=== PATIENT | female | born 1955 | race Caucasian/White ===

== ENCOUNTER 2020-01-08 10:49 | Outpatient (CLI) | payer MEDICARE, SELFPAY ==
[2020-01-08 11:06] LABS: Basophils Absolute Auto 0.11 K/mm3 (0.00-0.10); Basophils Percent Auto 1.3 % (0.0-1.0); Eosinophils Absolute Auto 0.15 K/mm3 (0.02-0.50); Eosinophils Percent Auto 1.8 % (1.0-6.0); Hematocrit 41.6 % (35.0-42.0); Hemoglobin 14.1 g/dL (11.7-13.8); Immature Granulocyte Absolute 0.08 K/mm3 (0.00-0.00); Lymphocytes Absolute Auto 2.36 K/mm3 (1.10-4.50); Lymphocytes Percent Auto 28.9 % (18.0-42.0); Mean Corpuscular HGB Conc 33.9 g/dL (32.0-36.0); Mean Corpuscular Hemoglobin 34.3 pg (27.0-31.0); Mean Corpuscular Volume 101.2 fL (78.0-102.0); Mean Platelet Volume 9.2 fl (9.2-11.8); Monocytes Absolute Auto 0.63 K/mm3 (0.10-0.90); Monocytes Percent Auto 7.7 % (2.0-11.0); Neutrophils Absolute Auto 4.8 K/mm3 (1.7-7.2); Neutrophils Percent Auto 59.3 % (50.0-70.0); Platelet Count Result 278 K/mm3 (150-420); Red Blood Count 4.11 M/mm3 (4.20-5.40); Red Cell Distribution Width 15.7 % (11.6-14.4); White Blood Count 8.2 K/mm3 (4.8-10.8)
[2020-01-08 14:00] LABS: Alanine Aminotransferase 20 U/L (14-59); Albumin Level 4.2 g/dL (3.4-5.0); Alkaline Phosphatase 77 U/L (46-116); Anion Gap 14.5 mmol/L (7-16); Aspartate Amino Transferase 18 U/L (15-37); Bilirubin,Total 0.3 mg/dL (0.00-1.00); Blood Urea Nitrogen 18 mg/dL (7-18); Calcium 9.9 mg/dL (8.5-10.1); Carbon Dioxide 28 mmol/L (21-32); Chloride 101 mmol/L (98-108); Estimated Glomerular Filt Rate 40; Glucose 145 mg/dL (70-99); Osmolality Calculated 292 mOsm/kg (285-295); Potassium 4.5 mmol/L (3.5-5.1); Sodium 139 mmol/L (136-145); Total Protein 7.3 g/dL (6.4-8.2)
== END 2020-01-08 10:50 | disposition home or self-care (01) ==
LOC: CHSLAB 10:53
DX: Z79.899 Other long term (current) drug therapy (principal); L95.9 Vasculitis limited to the skin, unspecified; M32.9 Systemic lupus erythematosus, unspecified
CPT/HCPCS: 36415; 80053; 85025

== ENCOUNTER 2020-04-03 10:22 | Emergency (ER) | payer MEDICARE, SELFPAY ==
--- NOTE | ~2020-04-03 | XR_ITS ---
EXAMINATION: XR ankle LT min 3V, XR foot LT min 3V DATE: 04/03/2020 11:33 INDICATION: Left ankle injury with bruising and swelling over the dorsum of the foot TECHNIQUE: 1. Anteroposterior, mortise, additional oblique and lateral view of the left ankle were obtained. 2. Dorsoplantar, two oblique and lateral views of the left foot were obtained. COMPARISON: None. FINDINGS: 2-3 mm band of lucency consistent with mildly displaced fracture extending along the lateral margin o f the cuboid. The orientation of the fracture line suggests involvement of the distal articular nikolay x at the fourth and fifth tarsal metatarsal joints. No other fractures identified. Mild osteoarthriti s at the first metatarsophalangeal and a few tarsal metatarsal and interphalangeal joints. No ankle j oint effusion. Soft tissue swelling about the lateral malleolus and overlying the dorsum of the foot. IMPRESSION: 1. Mildly displaced likely intra-articular fracture of the lateral cuboid. Reviewed, dictated and finalized at location B. IMPRESSION: 1. Mildly displaced likely intra-articular fracture of the lateral cuboid.
[2020-04-03 10:40] VITALS: BP 82/46; PULSE 103; RESP 20; TEMP 36.4; O2SAT 94
--- NOTE | 2020-04-03 11:11 | ED.LOWEXIN ---
HPI - Extremity Injury (Lower) General Chief Complaint: Extremity Injury, Lower Stated Complaint: Hurt L foot/ankle Source: patient Mode of arrival: ambulatory Limitations: no limitations History of Present Illness HPI Narrative: Pt fell down last night and injured her foot and ankle. She stated the foot bent back behind her in a wierd way. It hurts across the top of the foot complaint: foot injury Injury: Left: ankle, foot and toes Place: home Severity: moderate Context: walking Associated symptoms: swelling Other symptoms: none Related Data Home Medications Medication Instructions Recorded Confirmed folic acid 1 mg PO DAILY 04/03/20 04/03/20 hydroxychloroquine 200 mg PO DAILY 04/03/20 04/03/20 methotrexate sodium 2.5 mg PO DAILY 04/03/20 04/03/20 Allergies Allergy/AdvReac Type Severity Reaction Status Date / Time Sulfa (Sulfonamide AdvReac Unknown Verified 04/03/20 11:10 Antibiotics) Review of Systems Review of Systems: All systems reviewed & are unremarkable except as noted in HPI and below PMFSH Past Medical History Medical History Anxiety Lupus Social History Social History (Updated 04/03/20 @ 11:14 by Idalia Echavarria MD) Smoking status: Current every day smoker Substance use: never Gender identity (if verbalized by the patient): Female Exam Const: General: no acute distress and alert Nutritional Appearance: well nourished and thin Orientation/consciousness: patient oriented x3 HENMT: Head: normal to inspection Face and sinus: normal facial exam Eyes: Conjunctivae: conjunctivae normal Pupils: Equal, round and reactive pupils present Chest: Chest palpation & inspection: normal inspection of the chest Resp: Effort & Inspection: normal respiratory effort Auscultation: clear to auscultation bilaterally Cardio: Rate: regular rate Rhythm: regular rhythm GI: GI Palp: Yes Soft to palpation, No Tenderness to palpation present (GI) and No Guarding due to palpation present (GI) Skin: General skin exam: normal color Neuro: General: patient oriented x3 and moves all extremities Extrem: Other: bruising to LE and swollen Psych: Mental Status: mental status grossly normal Thought content: Yes Normal thought content present Course Course Emergency Course: called podiatry she will follow up on sonny. wants cam walker, no touch with crutches Vital Signs Vital signs: Vital Signs Temperature 36.4 C 04/03/20 10:40 Pulse Rate 103 H 04/03/20 10:40 Respiratory Rate 20 04/03/20 10:40 Blood Pressure 82/46 L 04/03/20 10:40 Pulse Oximetry 94 04/03/20 10:40 Temperature 36.4 C 04/03/20 10:40 Pulse Rate 92 04/03/20 12:08 Respiratory Rate 14 04/03/20 12:08 Blood Pressure 106/58 L 04/03/20 12:08 Pulse Oximetry 99 04/03/20 12:08 Critical Care Time Critical Care Time Critical Care Time: No Discharge Plan Discharge Clinical Impression: Cuboid fracture Qualifiers: Encounter type: initial encounter Fracture type: closed Fracture alignment: displaced Laterality: left Qualified Code(s): S92.212A - Displaced fracture of cuboid bone of left foot, initial encounter for closed fracture Patient Disposition: Home, Self-Care Condition: Stable Instructions: Foot Fracture in Adults (ED) Additional Instructions: Please contact Dr. Nuñez, pulp press tender, at for follow up appointment Prescriptions: No Action methotrexate sodium 2.5 mg tablet 2.5 mg PO DAILY RF: 0 folic acid 1 mg tablet 1 mg PO DAILY RF: 0 hydroxychloroquine 200 mg tablet 200 mg PO DAILY RF: 0 Follow-up/Referrals: Sarah Malave [Other]
--- NOTE | 2020-04-03 11:11 | PC.NURSE ---
report to CHELSEA Garcia
--- NOTE | 2020-04-03 12:01 | PC.NURSE ---
Dr. Ojeda apparatus cleaner contacted for consultation
[2020-04-03 12:08] VITALS: BP 106/58; PULSE 92; RESP 14; O2SAT 99
== END 2020-04-03 12:28 | disposition home or self-care (01) ==
PROVIDERS: Emergency Provider Emergency Medicine
DX: S92.212A Displaced fracture of cuboid bone of left foot, initial encounter for closed fracture (principal); W19.XXXA Unspecified fall, initial encounter; F17.200 Nicotine dependence, unspecified, uncomplicated
CPT/HCPCS: 73610; 73630; 99282; 99283; L2112

== ENCOUNTER 2020-04-08 10:12 | Outpatient (CLI) | payer MEDICARE, SELFPAY ==
[2020-04-08 10:27] LABS: Hematocrit 38.6 % (35.0-42.0); Hemoglobin 12.8 g/dL (11.7-13.8); Mean Corpuscular HGB Conc 33.2 g/dL (32.0-36.0); Mean Corpuscular Hemoglobin 32.4 pg (27.0-31.0); Mean Corpuscular Volume 97.7 fL (78.0-102.0); Mean Platelet Volume 9.1 fl (9.2-11.8); Platelet Count Result 194 K/mm3 (150-420); Red Blood Count 3.95 M/mm3 (4.20-5.40); White Blood Count 5.3 K/mm3 (4.8-10.8)
[2020-04-08 11:13] LABS: Band Neutrophils Percent 0 % (0-6); Basophils Absolute Manual 0.05 K/mm3 (0-0.1); Basophils Percent Manual 1 % (0-1); Eosinophils Percent Manual 0 % (1-6); Lymphocytes Absolute Manual 1.37 K/mm3 (1.1-4.5); Lymphocytes Percent Manual 26 % (18-44); Monocytes Absolute Manual 0.63 K/mm3 (0.1-0.90); Monocytes Percent Manual 12 % (3-9); Neutrophils Absolute Manual 3.23 K/mm3 (1.7-7.2); Neutrophils Percent Manual 61 % (46-73); Platelet Estimate Adequate (Adequate); Total Cells Counted 100
[2020-04-08 11:17] LABS: Alanine Aminotransferase 17 U/L (14-59); Albumin Level 3.6 g/dL (3.4-5.0); Alkaline Phosphatase 74 U/L (46-116); Anion Gap 9 mmol/L (8-16); Aspartate Amino Transferase 13 U/L (15-37); Bilirubin,Total 0.5 mg/dL (0.00-1.00); Blood Urea Nitrogen 16 mg/dL (7-18); Carbon Dioxide 30 mmol/L (21-32); Chloride 104 mmol/L (98-108); Estimated Glomerular Filt Rate > 60; Glucose 87 mg/dL (70-99); Osmolality Calculated 296 mOsm/kg (285-295); Potassium 3.8 mmol/L (3.5-5.1); Sodium 143 mmol/L (136-145); Total Protein 6.8 g/dL (6.4-8.2)
== END 2020-04-08 10:13 | disposition home or self-care (01) ==
LOC: CHSLAB 10:16
DX: M32.9 Systemic lupus erythematosus, unspecified (principal); M79.7 Fibromyalgia; Z79.899 Other long term (current) drug therapy; L95.9 Vasculitis limited to the skin, unspecified; I10 Essential (primary) hypertension
CPT/HCPCS: 36415; 80053; 85025

== ENCOUNTER 2020-04-12 09:59 | Outpatient (CLI) | payer MEDICARE, SELFPAY ==
--- NOTE | ~2020-04-12 | CT_ITS ---
EXAMINATION: CT foot LT wo con DATE: 04/12/2020 10:45 INDICATION: Left foot pain and bruising post fall 2 weeks prior TECHNIQUE: High resolution computed tomography (CT) of the left foot was performed without intravenou s contrast. Additional sagittal and coronal reconstructions were performed. Automated exposure contro l and iterative reconstruction technique were employed. The dose-length product was 338.53 mGy-cm. COMPARISON: Radiographs dated 04/03/2020 FINDINGS: There are multiple fractures in the left midfoot. Comminuted fracture of the cuboid which includes 2 mm lateral displacement of the previously noted sagittally oriented fracture plane along the lateral aspect of the cuboid which involves a minimal portion of the dorsal lateral aspect of the distal manfred cular surface. There is an additional nondisplaced fracture plane extending transversely across the c uboid which does not appear to transgress the articular cortex. Minimally displaced likely avulsion f ractures along the dorsal rim of the base of the first metatarsal and juxtaposed medial cuneiform. Th ere are nondisplaced intra-articular fracture along the plantar aspect of the base of the second-four th metatarsals. Alignment of the tarsal metatarsal joints however remain normal. Joint spaces at the left ankle and throughout the left foot appear relatively preserved. Mild soft tissue swelling at the dorsolateral aspect of the midfoot. No ankle joint effusion. IMPRESSION: 1. Multiple foot fractures including a mildly comminuted cuboid fracture with mild displacement and n on- to minimally displaced fractures of the medial cuneiform and base of the first-fourth metatarsals as detailed above. Reviewed, dictated and finalized at location A. ANICAL PRESS OPERATOR IMPRESSION: 1. Multiple foot fractures including a mildly comminuted cuboid fracture with m ild displacement and non- to minimally displaced fractures of the medial cuneif orm and base of the first-fourth metatarsals as detailed above.
== END 2020-04-12 10:00 | disposition home or self-care (01) ==
LOC: CHSIMG 10:01
PROVIDERS: Visit Provider Podiatrist
DX: M79.672 Pain in left foot (principal)
CPT/HCPCS: 73700

== ENCOUNTER 2020-04-18 12:01 | Outpatient (CLI) | payer MEDICARE, SELFPAY ==
--- NOTE | ~2020-04-18 | CT_ITS ---
EXAMINATION: CT brain wo con EXAM DATE: 04/18/2020 12:26 INDICATION: Syncope syncope x 1 week . TECHNIQUE: Spiral CT of the head was performed without contrast. Axial, coronal and sagittal images were reviewed. The dose-length product (DLP) for this examination was 605.33 mGy-cm. The exposure w as tailored according to patient size, and iterative reconstruction (ASIR) was used as additional dos e reduction technique. There is no prior study for comparison. FINDINGS: There is no acute intraparenchymal hemorrhage. No evidence of intraparenchymal brain mass lesion. No evidence of acute infarction. There is no mass effect or midline shift. The ventricles are normal in size. There are no extra-axial collections. There are no acute calvarial fractures. T he orbits are unremarkable. Soft tissue is unremarkable. The visualized sinuses and mastoid air mario ls are well aerated. IMPRESSION: 1. Unremarkable head CT examination. Reviewed, dictated and finalized at location A. ICAL RN MANAGER
[2020-04-18 12:39] LABS: Basophils Absolute Auto 0.04 K/mm3 (0.00-0.10); Basophils Percent Auto 0.6 % (0.0-1.0); Eosinophils Absolute Auto 0.12 K/mm3 (0.02-0.50); Eosinophils Percent Auto 1.9 % (1.0-6.0); Hematocrit 40.5 % (35.0-42.0); Hemoglobin 13.7 g/dL (11.7-13.8); Immature Granulocyte Absolute 0.02 K/mm3 (0.00-0.00); Immature Granulocyte Percent A 0.3 % (0.0-0.0); Lymphocytes Absolute Auto 1.48 K/mm3 (1.10-4.50); Lymphocytes Percent Auto 23.8 % (18.0-42.0); Mean Corpuscular HGB Conc 33.8 g/dL (32.0-36.0); Mean Corpuscular Hemoglobin 32.5 pg (27.0-31.0); Mean Platelet Volume 9.5 fl (9.2-11.8); Monocytes Absolute Auto 0.38 K/mm3 (0.10-0.90); Monocytes Percent Auto 6.1 % (2.0-11.0); Neutrophils Absolute Auto 4.2 K/mm3 (1.7-7.2); Neutrophils Percent Auto 67.3 % (50.0-70.0); Platelet Count Result 223 K/mm3 (150-420); Red Blood Count 4.22 M/mm3 (4.20-5.40); Red Cell Distribution Width 12.1 % (11.6-14.4); White Blood Count 6.2 K/mm3 (4.8-10.8)
[2020-04-18 13:35] LABS: Alanine Aminotransferase 20 U/L (14-59); Albumin Level 3.8 g/dL (3.4-5.0); Alkaline Phosphatase 81 U/L (46-116); Anion Gap 9 mmol/L (8-16); Aspartate Amino Transferase 16 U/L (15-37); Bilirubin,Total 0.3 mg/dL (0.00-1.00); Blood Urea Nitrogen 17 mg/dL (7-18); Calcium 9.7 mg/dL (8.5-10.1); Carbon Dioxide 29 mmol/L (21-32); Chloride 103 mmol/L (98-108); Estimated Glomerular Filt Rate > 60; Glucose 139 mg/dL (70-99); Magnesium 1.6 mg/dL (1.8-2.4); Osmolality Calculated 295 mOsm/kg (285-295); Phosphorus 3.3 mg/dL (2.6-4.7); Potassium 3.8 mmol/L (3.5-5.1); Sodium 141 mmol/L (136-145); Total Protein 6.8 g/dL (6.4-8.2); Vitamin B12 620 pg/mL (193-986)
[2020-04-18 16:43] LABS: Add Urine Microscopic? YES; Appearance Urine Clear (Clear); Bilirubin Urine Negative (Negative); Blood Urine Negative (Negative); Color Urine Yellow (Yellow); Glucose Urine UA Negative (Negative); Ketones Urine Negative (Negative); Leukocyte Esterase Ur Trace (Negative); Nitrate Urine Negative (Negative); Protein Urine Negative (Negative); Specific Grav Ur 1.015 (1.010-1.020); Urobilinogen Urine 0.2 mg/dL (0.2-1.0)
[2020-04-18 16:48] LABS: RBC Urine 0-2 /hpf (0-2)
[2020-04-18 16:49] LABS: Bacteria Urine 1+ /hpf; Squamous Epithelial Cell Urine Few /hpf (Few)
== END 2020-04-18 12:02 | disposition home or self-care (01) ==
LOC: CHSIMG 12:03
DX: R55 Syncope and collapse (principal); R82.90 Unspecified abnormal findings in urine
CPT/HCPCS: 36415; 70450; 80053; 81001; 82607; 83735; 84100; 85025; 87086; 87088

== ENCOUNTER 2020-05-22 12:51 | Outpatient (CLI) | payer MEDICARE, SELFPAY ==
--- NOTE | ~2020-05-22 | XR_ITS ---
XR foot LT min 3V DATE: 05/22/2020 13:20 INDICATION: Multiple foot fracture follow-up TECHNIQUE: 3 views COMPARISON: 03/26/2020 left foot 04/12/2020 CT left foot FINDINGS: There are old third and fourth metatarsal neck fractures. There is no significant displacement at previously reported virtually nondisplaced fractures at the d istal tarsal-metatarsal areas. There is minimal displacement at the cuboid bone. Diffuse osteopenia. IMPRESSION: Healing virtually nondisplaced fractures Reviewed, dictated and finalized at location B. IGN SERVICE OFFICER
== END 2020-05-22 12:52 | disposition home or self-care (01) ==
PROVIDERS: Visit Provider Podiatrist
DX: S92.354D Nondisplaced fracture of fifth metatarsal bone, right foot, subsequent encounter for fracture with routine healing (principal)
CPT/HCPCS: 73630

== ENCOUNTER 2020-09-10 09:33 | Outpatient (CLI) | payer MEDICARE, SELFPAY | END 2020-09-10 09:34 | disposition home or self-care (01) | LOC: CHSLAB 09:39 | PROVIDERS: Visit Provider Specialist | DX: D22.5 Melanocytic nevi of trunk (principal) | CPT/HCPCS: 88305; 88342 ==

== ENCOUNTER 2020-10-03 10:54 | Outpatient (CLI) | payer MEDICARE, SELFPAY ==
[2020-10-03 11:17] LABS: Basophils Absolute Auto 0.06 K/mm3 (0.00-0.10); Eosinophils Percent Auto 5.2 % (1.0-6.0); Hemoglobin 12.7 g/dL (11.7-13.8); Immature Granulocyte Absolute 0.03 K/mm3 (0.00-0.00); Immature Granulocyte Percent A 0.5 % (0.0-0.0); Lymphocytes Absolute Auto 1.84 K/mm3 (1.10-4.50); Lymphocytes Percent Auto 32.1 % (18.0-42.0); Mean Corpuscular HGB Conc 33.4 g/dL (32.0-36.0); Mean Corpuscular Hemoglobin 31.8 pg (27.0-31.0); Mean Platelet Volume 8.8 fl (9.2-11.8); Monocytes Absolute Auto 0.49 K/mm3 (0.10-0.90); Monocytes Percent Auto 8.6 % (2.0-11.0); Neutrophils Percent Auto 52.6 % (50.0-70.0); Platelet Count Result 189 K/mm3 (150-420); Red Cell Distribution Width 13.9 % (11.6-14.4); White Blood Count 5.7 K/mm3 (4.8-10.8)
[2020-10-03 11:18] LABS: Add Urine Microscopic? YES; Appearance Urine Clear (Clear); Bilirubin Urine Negative (Negative); Blood Urine Negative (Negative); Color Urine Yellow (Yellow); Glucose Urine UA Negative (Negative); Ketones Urine Negative (Negative); Leukocyte Esterase Ur Negative LEU/UL (Negative); Nitrate Urine Negative (Negative); Protein Urine Trace (Negative); Specific Grav Ur >= 1.030 (1.010-1.020); Urobilinogen Urine 0.2 mg/dL (0.2-1.0); pH Urine 5.5 (5.0-8.0)
[2020-10-03 11:22] LABS: Bacteria Urine Trace /hpf; RBC Urine None seen /hpf (0-2); Squamous Epithelial Cell Urine Moderate /hpf (Few); WBC Urine None seen /hpf (0-3)
[2020-10-03 11:23] LABS: Mucus Urine Moderate /lpf
[2020-10-03 11:43] LABS: Alanine Aminotransferase 19 U/L (14-59); Albumin Level 3.8 g/dL (3.4-5.0); Alkaline Phosphatase 84 U/L (46-116); Anion Gap 8 mmol/L (8-16); Aspartate Amino Transferase 10 U/L (15-37); Bilirubin,Total 0.5 mg/dL (0.00-1.00); Blood Urea Nitrogen 17 mg/dL (7-18); Calcium 9.2 mg/dL (8.5-10.1); Carbon Dioxide 30 mmol/L (21-32); Chloride 105 mmol/L (98-108); Creatine Kinase 39 U/L (26-192); Estimated Glomerular Filt Rate > 60; Glucose 102 mg/dL (70-99); Osmolality Calculated 297 mOsm/kg (285-295); Potassium 3.1 mmol/L (3.5-5.1); Sodium 143 mmol/L (136-145); Total Protein 7.2 g/dL (6.4-8.2)
[2020-10-03 12:15] LABS: CRP < 0.2 mg/dL (0.0-0.9)
[2020-10-03 12:31] LABS: Erythrocyte Sedimentation Rate 18 mm/hr (0-20)
[2020-10-06 19:12] LABS: Complement C3 111 mg/dL (83-193)
[2020-10-17 19:17] LABS: RNP Antibodies <1.0; SS-A <1.0; SS-B <1.0
== END 2020-10-03 10:55 | disposition home or self-care (01) ==
DX: M32.9 Systemic lupus erythematosus, unspecified (principal); M79.7 Fibromyalgia; Z79.899 Other long term (current) drug therapy; R11.0 Nausea
CPT/HCPCS: 36415; 80053; 81001; 82550; 85025; 85652; 86038; 86140; 86160; 86225; 86235

== ENCOUNTER 2020-10-17 13:01 | Emergency (ER) | payer MEDICARE, SELFPAY ==
[2020-10-17 13:18] VITALS: BP 167/67; PULSE 72; RESP 20; TEMP 36.7; O2SAT 92
--- NOTE | 2020-10-17 13:30 | ED.UPPEXIN ---
HPI - Extremity Injury (Upper) General Chief Complaint: Extremity Injury, Upper Stated Complaint: numbness in R hand/Wrist /cant move it Source: patient Mode of arrival: ambulatory Limitations: no limitations History of Present Illness HPI narrative: this is a 65-year-old female with a history of lupus presents today with a wrist drop on the right with some numbness and tingling with some no other neurological deficits has good range of motion in her elbow arm and shoulder on the right and equivocal on the left although she has a wrist drop with some numbness and tingling on the right wrist with negative to kneel negative Phalen sign with no known injury. Currently there is no fever chills no shortness of breath no chest pain no nausea vomiting no abdominal pain no neck pain or headaches no blurry vision. complaint: injury to: right Onset (ago): hour(s) Other Extremity Injury: Right: wrist ( wrist drop with numbness) Other injuries: none Handedness: right Place: home Severity: moderate Related Data Home Medications Medication Instructions Recorded Confirmed folic acid 1 mg PO DAILY 04/03/20 04/03/20 hydroxychloroquine 200 mg PO DAILY 04/03/20 04/03/20 methotrexate sodium 2.5 mg PO DAILY 04/03/20 04/03/20 Allergies Allergy/AdvReac Type Severity Reaction Status Date / Time Sulfa (Sulfonamide AdvReac Unknown Verified 10/17/20 13:36 Antibiotics) Review of Systems Review of Systems: All systems reviewed & are unremarkable except as noted in HPI and below PMFSH Past Medical History Medical History Anxiety Lupus Social History Social History Smoking status: Current every day smoker Substance use: never Gender identity (if verbalized by the patient): Female Exam Const: General: no acute distress Orientation/consciousness: patient oriented x3 HENMT: Head: normal to inspection Eyes: Pupils: Equal, round and reactive pupils present Neck: Neck: normal visual inspection, no lymphadenopathy and no meningeal signs Chest: Chest palpation & inspection: normal inspection of the chest Resp: Effort & Inspection: normal respiratory effort Cardio: Rate: regular rate Rhythm: regular rhythm GI: GI Palp: Yes Soft to palpation : General: Yes no CVA tenderness Skin: General skin exam: normal color Rashes: no rashes Neuro: General: patient oriented x3, no meningeal signs, no focal motor deficits and CN's II-XI intact bilaterally Cranial nerves: Yes Nystagmus not present Speech: normal speech Gait exam (Neuro): Normal gait present Extrem: General: edema Psych: Mental Status: mental status grossly normal Course Course Emergency Course: Patient assessed and has some wrist drop on the right with some numbness and tingling in the setting of no neurological deficits this appears to be monitor itis multiplex that is 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 Critical Care Time Critical Care Time Critical Care Time: No Discharge Plan Discharge Clinical Impression: Mononeuritis multiplex Patient Disposition: Home, Self-Care Condition: Stable Instructions: Antibiotic Form, Radial Nerve Palsy (ED) Additional Instructions: take medicine as prescribed use some wrist brace and follow-up with primary care physician further evaluation and treatment within 1 week. Prescriptions: New prednisone 20 mg tablet 20 mg PO DAILY 5 Days Qty: 5 RF: 0 potassium chloride 20 mEq tablet extended release 20 meq PO BID 3 Days Qty: 6 RF: 0 No Action methotrexate sodium 2.5 mg tablet 2.5 mg PO DAILY RF: 0 folic acid 1 mg tablet 1 mg PO DAILY RF: 0 hydroxychloroquine 200 mg tablet 200 mg PO DAILY RF: 0 Follow-up/Referrals: Frieda,MD Sarah [Primary Care Provider
[2020-10-17 13:47] LABS: Basophils Absolute Auto 0.06 K/mm3 (0.00-0.10); Basophils Percent Auto 0.7 % (0.0-1.0); Eosinophils Absolute Auto 0.18 K/mm3 (0.02-0.50); Eosinophils Percent Auto 2.2 % (1.0-6.0); Hematocrit 37.3 % (35.0-42.0); Hemoglobin 12.5 g/dL (11.7-13.8); Immature Granulocyte Absolute 0.04 K/mm3 (0.00-0.00); Immature Granulocyte Percent A 0.5 % (0.0-0.0); Lymphocytes Absolute Auto 2.12 K/mm3 (1.10-4.50); Lymphocytes Percent Auto 25.7 % (18.0-42.0); Mean Corpuscular HGB Conc 33.5 g/dL (32.0-36.0); Mean Corpuscular Hemoglobin 31.7 pg (27.0-31.0); Mean Corpuscular Volume 94.7 fL (78.0-102.0); Mean Platelet Volume 8.6 fl (9.2-11.8); Monocytes Absolute Auto 0.81 K/mm3 (0.10-0.90); Monocytes Percent Auto 9.8 % (2.0-11.0); Neutrophils Percent Auto 61.1 % (50.0-70.0); Platelet Count Result 206 K/mm3 (150-420); Red Blood Count 3.94 M/mm3 (4.20-5.40); Red Cell Distribution Width 14.2 % (11.6-14.4); White Blood Count 8.2 K/mm3 (4.8-10.8)
[2020-10-17] MEDS: methylPREDNISolone ACETATE 40 MG/ML VIAL 80 MG IM (14:05)
[2020-10-17 14:06] LABS: Alanine Aminotransferase 21 U/L (14-59); Albumin Level 3.6 g/dL (3.4-5.0); Alkaline Phosphatase 80 U/L (46-116); Anion Gap 4 mmol/L (8-16); Aspartate Amino Transferase 12 U/L (15-37); Bilirubin,Total 0.3 mg/dL (0.00-1.00); Blood Urea Nitrogen 11 mg/dL (7-18); Calcium 9.5 mg/dL (8.5-10.1); Carbon Dioxide 34 mmol/L (21-32); Chloride 102 mmol/L (98-108); Estimated CRCL calculation 44 ml/min; Estimated Glomerular Filt Rate > 60; Glucose 120 mg/dL (70-99); Osmolality Calculated 290 mOsm/kg (285-295); Sodium 140 mmol/L (136-145); Total Protein 6.8 g/dL (6.4-8.2)
[2020-10-17] MEDS: POTASSIUM CHLORIDE 20 MEQ TABLET 40 MEQ PO (14:18)
[2020-10-17 14:30] VITALS: BP 160/70; PULSE 70; RESP 20; TEMP 36.7; O2SAT 93
== END 2020-10-17 14:35 | disposition home or self-care (01) ==
PROVIDERS: Emergency Provider Emergency Medicine; PCP Hospitalist
DX: G58.7 Mononeuritis multiplex (principal)
CPT/HCPCS: 36415; 80053; 85025; 96372; 99283; A9270; J1030

== ENCOUNTER 2020-10-28 10:11 | Outpatient (CLI) | payer MEDICARE, SELFPAY ==
--- NOTE | ~2020-10-28 | XR_ITS ---
XR cervical spine 4-5V 10/28/2020 11:00 Indication: Neck and shoulder pain Procedure: 4 views of the cervical spine Comparison: No prior studies for comparison. Findings: There is spinal fusion at C6-7. There is normal cervical alignment. No prevertebral soft ti ssue swelling. There is carotid atherosclerosis. There is mild uncinate degenerative change of the mi d and lower cervical spine. Odontoid process within normal limits. Impression: 1: Mild cervical spondylosis. Reviewed, dictated and finalized at location A. Impression: 1: Mild cervical spondylosis.
--- NOTE | ~2020-10-28 | CT_ITS ---
EXAMINATION: CT sinus wo con DATE: 10/28/2020 10:58 INDICATION: Chronic sinusitis TECHNIQUE: Computed tomography (CT) of the paranasal sinuses was performed without intravenous contra st. The dose-length product was 291.45 mGy-cm. Automated exposure control and iterative reconstructio n technique were employed. COMPARISON: CT dated 04/18/2020 FINDINGS: There is mild mucosal thickening right posterior ethmoid air cells and right sphenoid sinus . Leftward nasal septal deviation. There are bilateral titi bullosa. Ostiomeatal units are patent. No air-fluid levels. No significant mucoperiosteal reaction. Mastoid air cells are pneumatized. IMPRESSION: 1. Mild sinus disease. Reviewed, dictated and finalized at location A. IMPRESSION: 1. Mild sinus disease.
--- NOTE | ~2020-10-28 | MM_ITS ---
EXAMINATION: MM screening nallely BI w tia HISTORY: Screening mammogram TECHNIQUE: Craniocaudal and mediolateral oblique 3-D tomosynthesis images were obtained and synthetic 2-D images were generated. CAD analysis was submitted and interpreted. COMPARISON: 05/18/2018, 05/05/2017, 03/2016 bilateral digital screening mammogram examinations BREAST PARENCHYMAL COMPOSITION: There are scattered areas of fibroglandular density. FINDINGS: Scattered bilateral benign calcifications. There is no evidence of suspicious mass, calcifi cation, or architectural distortion to suggest malignancy in either breast. There has been no suspici ous interval change. IMPRESSION: 1. No mammographic evidence of malignancy. 2. Recommend routine screening mammography in one year. BI-RADS Category 2: Benign finding(s). Reviewed, dictated and finalized at location A.
== END 2020-10-28 10:12 | disposition home or self-care (01) ==
LOC: CHSIMG 10:16
PROVIDERS: PCP Hospitalist; Visit Provider Otolaryngology
DX: J32.9 Chronic sinusitis, unspecified (principal); Z12.31 Encounter for screening mammogram for malignant neoplasm of breast; M54.2 Cervicalgia; M25.519 Pain in unspecified shoulder
CPT/HCPCS: 70486; 72050; 77063; 77067

== ENCOUNTER 2020-10-30 08:00 | Outpatient (CLI) | payer MEDICARE, SELFPAY ==
--- NOTE | ~2020-10-30 | XR_ITS ---
EXAMINATION: XR hand RT min 3V INDICATION: Right hand numbness TECHNIQUE: Three views of the right hand are obtained. COMPARISON: None available FINDINGS: There is no fracture, dislocation, or subluxation. The bones, soft tissues, and joint space s are normal. IMPRESSION: 1. No acute osseous abnormality. Reviewed, dictated and finalized at location A.
== END 2020-10-30 08:01 | disposition home or self-care (01) ==
PROVIDERS: PCP Hospitalist
DX: M79.641 Pain in right hand (principal)
CPT/HCPCS: 73130

== ENCOUNTER 2020-12-19 08:42 | Outpatient (CLI) | payer MEDICARE, SELFPAY ==
--- NOTE | 2020-12-19 12:00 | NEURO_ITS ---
Impression: # Complains of waking up several weeks ago with wrist drop. Known lupus patient. # No Carpal Tunnel Syndrome or ulnar neuropathy. # Normal needle/EMG exam even in the distribution of radial nerve. # Possibly patient had radial nerve palsy and recovered. Nerve Conduction Studies Anti Sensory Summary Table Stim Site NR Peak (ms) P-T Amp (?V) Site1 Site2 Delta-P (ms) Dist (cm) Jose (m/s) Right Median Anti Sensory (2-3nd Digit) Wrist 2.8 57.1 Wrist 2-3nd Digit 2.8 14.0 50 Wrist 2.7 48.0 Wrist 2-3nd Digit 2.8 14.0 50 Right Radial Anti Sensory (Base 1st Digit) Wrist 2.5 50.5 Wrist Base 1st Digit 2.5 0.0 Right Ulnar Anti Sensory (5th Digit) Wrist 2.8 50.1 Wrist 5th Digit 2.8 14.0 50 Motor Summary Table Stim Site NR Onset (ms) O-P Amp (mV) Site1 Site2 Delta-0 (ms) Dist (cm) Jose (m/s) Right Median Motor (Abd Poll Brev) Wrist 2.9 8.2 Elbow Wrist 4.7 27.0 57 Elbow 7.6 6.1 Right Ulnar Motor (Abd Dig Minimi) Wrist 2.6 6.0 A Elbow Wrist 4.7 27.0 57 A Elbow 7.3 5.1 F Wave Studies NR F-Lat (ms) L-R F-Lat (ms) Right Median (Mrkrs) (Abd Poll Brev) 25.15 Right Ulnar (Mrkrs) (Abd Dig Min) 26.71 EMG Side Muscle Nerve Root Ins Act Fibs Amp Dur Recrt Comment Right 1stDorInt Ulnar C8-T1 Nml Nml Nml Nml Nml Right Ext Indicis Radial (Post Int) C7-8 Nml Nml Nml Nml Nml Right Ext Digitorum Radial (Post Int) C7-8 Nml Nml Nml Nml Nml Right BrachioRad Radial C5-6 Nml Nml Nml Nml Nml Right PronatorTeres Median C6-7 Nml Nml Nml Nml Nml Right Abd Poll Brev Median C8-T1 Nml Nml Nml Nml Nml Right Biceps Musculocut C5-6 Nml Nml Nml Nml Nml Right Triceps Radial C6-7-8 Nml Nml Nml Nml Nml Right Deltoid Axillary C5-6 Nml Nml Nml Nml Nml MTDD
== END 2020-12-19 08:43 | disposition home or self-care (01) ==
LOC: ANHNEURO 08:45
PROVIDERS: PCP Hospitalist; Visit Provider Hospitalist
DX: R20.2 Paresthesia of skin (principal); R20.0 Anesthesia of skin
CPT/HCPCS: 95886; 95909

== ENCOUNTER 2021-03-25 08:34 | Outpatient (RCR) | payer MEDICARE, SELFPAY ==
--- NOTE | 2021-03-25 09:57 | PTOPEVAL ---
Thank you for referring Suma Scott to [facility].? The patient is scheduled to be seen for therapy? ____x/week for ___ weeks. Please review, sign, date and return this plan of care LORETTA. I agree with and certify that the following plan of care is medically necessary. Referring Physician Date Admitting Provider: Attending Provider: Sarah Malave, Referring Provider: *PT Outpatient Evaluation Start: 03/25/21 08:45 Freq: Status: Active Protocol: Document 03/25/21 08:45 ACR (Rec: 03/25/21 09:55 ACR [id number]) Therapy Assessment Status Assessment Status Assessment Status Evaluation Outpatient Past Medical History Gastrointestinal History Hx Appendectomy Yes Hx Cholecystectomy Yes Musculoskeletal History Hx Arthritis Yes Hx Fibromyalgia Yes Endocrine History Hx Systemic Lupus Erythematosus Yes Reproductive History Hx Section Yes Psychosocial History Hx Anxiety Yes Evaluation Information Problem Diagnosis Neck and R shoulder pain Onset 03/10/21 Subjective Information Patient states that in the Query Text:As Reported By Patient/ early she fell out of an Family attic and she went to an orthopedic where they did not find anything and she did not have many problems until 3 years ago. Recently, due to her lupus she has inflammation and tingling in the hands. The patient states she wakes up with neck stiffness that could last a few hours or the entire day. She states that she also has shoulder in the posterior aspect and it radiates deeply. The patient states that doing her hair, reaching into a cabinet, driving, and putting a shirt on are all difficult for her. The patient states that she has a neck fusion and is unable to get an MRI due to this. Patient states that she is taking an anti inflammatory that helps a little bit. She states that her goal for therapy is to know what is going on in her neck and
--- NOTE | 2021-05-16 10:26 | PTOPEVAL ---
Thank you for referring Suma Scott to [facility].? The patient is scheduled to be seen for therapy? ____x/week for ___ weeks. Please review, sign, date and return this plan of care LOR[place]. I agree with and certify that the following plan of care is medically necessary. Referring Physician Date Admitting Provider: Attending Provider: Sarah Malave, Referring Provider: *PT Outpatient Evaluation Start: 03/25/21 08:45 Freq: Status: Active Protocol: Document 05/16/21 09:30 [facility] (Rec: 05/16/21 10:25 [facility] [id number]) Therapy Assessment Status Assessment Status Assessment Status Discharge Outpatient Past Medical History Gastrointestinal History Hx Appendectomy Yes Hx Cholecystectomy Yes Musculoskeletal History Hx Arthritis Yes Hx Fibromyalgia Yes Endocrine History Hx Systemic Lupus Erythematosus Yes Reproductive History Hx Section Yes Psychosocial History Hx Anxiety Yes Evaluation Information Problem Diagnosis Neck and R shoulder pain Onset 03/10/21 Additional Evaluation Detail ndi = 34% functionally declined quick dash = 25% functionally declined Subjective Information patient reports she is much Query Text:As Reported By Patient/ better regarding the R Family shoulder and neck. she reports no pain in the those areas this date, but at times still pain with increased activities . she reports she has had severe back pain lately. she reports she is not interested in therapy for her back pain as she has tried this in the past. Pain Assessment Timing of Pain Assessment Timing of Pain Assessment Assessment Pain Scale Pain Scale Used Numeric (1 - 10) Self Report Pain Assessment Lower Back Reported Pain Level 5 Right Shoulder(s) Reported Pain Level 0 Neck Reported Pain Level 0 Pain Score Pain Score 0,0,5: Self Report Interventions Used Interventions Used By Clinicians Activity or ADL's,Electrical Stimulation,Exercise,Heat Cervical and Lumbar ROM Cervical ROM Cervical Flexion (0-60) 50 Query Text:Active in Degrees Cervical Extension (0-70) 25 Query Text:Active in Degrees Cervical Lateral Flexion Right (0-50) 20 Query Text:Active in Degrees Cervical Lateral F
== END 2021-05-16 11:45 | disposition home or self-care (01) ==
LOC: CHSPT 08:34
PROVIDERS: PCP Hospitalist; Visit Provider Hospitalist
DX: M54.2 Cervicalgia (principal); M25.519 Pain in unspecified shoulder
CPT/HCPCS: 97014; 97110; 97140; 97161; G0283

== ENCOUNTER 2021-04-04 14:54 | Emergency (ER) | payer MEDICARE, SELFPAY ==
--- NOTE | ~2021-04-04 | XR_ITS ---
XR chest 1V portable 04/04/2021 15:23 Indication: Shortness of breath and weakness Procedure: AP portable chest Comparison: Comparison to multiple prior studies sequentially, with oldest reviewed study dated 05/07. Findings: Heart size normal. No focal air space disease, pulmonary edema, pleural effusion or suspect ed pneumothorax. There is chronic right basilar atelectasis/scarring. There is calcified granuloma ri ght lower lung. There are cholecystectomy clips. There are emphysematous changes. Impression: 1: No acute cardiopulmonary disease. Reviewed, dictated and finalized at location A. Impression: 1: No acute cardiopulmonary disease.
--- NOTE | ~2021-04-04 | CT_ITS ---
EXAMINATION: CT brain wo con DATE: 04/04/2021 15:06 INDICATION: Confusion. Headache. TECHNIQUE: Computed tomography (CT) of the head was performed without intravenous contrast. The mA wa s adjusted according to patient size. Iterative reconstruction technique was employed. The dose-lengt h product was 605 mGy-cm. COMPARISON: Head CT 04/18/2020 FINDINGS: There is mild motion artifact. There is no intracranial hemorrhage, acute infarction, or ab normal intracranial mass lesion. The ventricles are normal in size. There is mild mucosal thickening in sphenoid sinus with sclerosis of the sinus raymundo, consistent with chronic sinusitis. The orbits ar e normal. The mastoid air cells are normal. IMPRESSION: 1. Normal brain. 2. Chronic sinusitis. 3. I discussed this case with Dr. Mckeon. Reviewed, dictated and finalized at location A.
--- NOTE | ~2021-04-04 | CT_ITS ---
EXAMINATION: CTA chest PE protocol DATE: 04/04/2021 16:54 INDICATION: Shortness of breath. Hypoxia. TECHNIQUE: Computed tomography angiography (CTA) of the chest was performed with 100 mL Omnipaque-350 intravenous contrast timed to evaluate the pulmonary arteries. Coronal maximum intensity projection 3D-reconstructions were created by the technologist. Automated exposure control and iterative reconst ruction technique were employed. The dose-length product was 148.84 mGy-cm. COMPARISON: Chest CT 04/28/2017, 06/17/2007 FINDINGS: There is severe emphysema. In medial right lung base, there is chronic bronchiectasis and m ucous plugging without normal communication with the bronchial tree. No pleural effusion. The heart s ize is normal. No pericardial effusion. There is normal. No pulmonary embolus. There are changes of c holecystectomy. There is mild thoracic spondylosis. There are changes of anterior fusion procedure in cervical spine. IMPRESSION: 1. No pulmonary embolus. 2. Severe emphysema. 3. Chronic bronchiectasis and mucous plugging in medial right lung base without normal bronchial tree communication, consistent with pulmonary sequestration. Reviewed, dictated and finalized at location A.
--- NOTE | 2021-04-04 14:59 | ECG_ITS ---
Measurements Intervals [place] Rate: 85 P: 78 TN: 144 QRS: 63 QRSD: 97 T: 76 QT: 366 QTc: 435 Interpretive Statements SINUS RHYTHM VENTRICULAR PREMATURE COMPLEX DELAYED PRECORDIAL R/S TRANSITION BORDERLINE T WAVE ABNORMALITY- ANTERIOR LEADS BASELINE ARTIFACT- I, II, III, AVR, AVL, AVF, V1-V6 BORDERLINE ECG Electronically Signed On 04-04-2021 15:51:26 CDT by Gopi Riggs D.O.
[2021-04-04 15:00] VITALS: BP 143/88; PULSE 88; RESP 20; TEMP 36.7; O2SAT 94
[2021-04-04 15:16] LABS: Basophils Absolute Auto 0.05 K/mm3 (0.00-0.10); Basophils Percent Auto 0.9 % (0.0-1.0); Eosinophils Absolute Auto 0.11 K/mm3 (0.02-0.50); Eosinophils Percent Auto 1.9 % (1.0-6.0); Hematocrit 41.2 % (35.0-42.0); Hemoglobin 14.1 g/dL (11.7-13.8); Immature Granulocyte Absolute 0.03 K/mm3 (0.00-0.00); Immature Granulocyte Percent A 0.5 % (0.0-0.0); Lymphocytes Absolute Auto 1.16 K/mm3 (1.10-4.50); Mean Corpuscular HGB Conc 34.2 g/dL (32.0-36.0); Mean Corpuscular Hemoglobin 32.4 pg (27.0-31.0); Mean Corpuscular Volume 94.7 fL (78.0-102.0); Mean Platelet Volume 9.1 fl (9.2-11.8); Monocytes Absolute Auto 0.41 K/mm3 (0.10-0.90); Monocytes Percent Auto 7.1 % (2.0-11.0); Neutrophils Percent Auto 69.6 % (50.0-70.0); Platelet Count Result 188 K/mm3 (150-420); Red Blood Count 4.35 M/mm3 (4.20-5.40); Red Cell Distribution Width 13.9 % (11.6-14.4); White Blood Count 5.8 K/mm3 (4.8-10.8)
[2021-04-04 15:36] LABS: Alanine Aminotransferase 21 U/L (14-59); Albumin Level 3.6 g/dL (3.4-5.0); Alkaline Phosphatase 93 U/L (46-116); Anion Gap 7 mmol/L (8-16); Aspartate Amino Transferase 16 U/L (15-37); Bilirubin,Total 0.3 mg/dL (0.00-1.00); Blood Urea Nitrogen 17 mg/dL (7-18); Calcium 8.9 mg/dL (8.5-10.1); Carbon Dioxide 32 mmol/L (21-32); Chloride 105 mmol/L (98-108); Estimated Glomerular Filt Rate > 60; Glucose 111 mg/dL (70-99); Osmolality Calculated 300 mOsm/kg (285-295); Potassium 3.5 mmol/L (3.5-5.1); Sodium 144 mmol/L (136-145); Total Protein 6.7 g/dL (6.4-8.2); Troponin I 5.9 ng/L (0.00-60.4)
[2021-04-04 15:41] LABS: Lactic Acid Reflex 1.2 mmol/L (0.4-2.0)
[2021-04-04] MEDS: SODIUM CHLORIDE 0.9% IV 1,000 ML 150 ML IV CONT (15:43)
[2021-04-04 16:23] LABS: NT Pro B Type Natriuretic Pept 96 pg/mL (0-125)
[2021-04-04 16:23] LABS: HCO3 ABG 26.3 mmol/L (23-29); Oxygen Content ABG 17.3 %vol (16.0-22.0); Oxygen Saturation ABG 93.1 % (95-97); Oxyhemoglobin 85.5 % (94-100); PO2 ABG 64.9 mmHg (75-85); Total Hemoglobin 14.4 g/dL (12.0-18.0); pH ABG 7.44 (7.35-7.45)
[2021-04-04 16:27] LABS: Device ROOM AIR; Modified Allen's Test Pass; Site Drawn LEFT RADIAL
[2021-04-04] MEDS: guaiFENesin 12 HR 600 MG TABCR PO (17:02)
--- NOTE | 2021-04-04 17:06 | ED.NEUROSD ---
HPI - Neuro Symptoms/Deficit General Chief Complaint: Altered Mental Status Stated Complaint: possible Stroke Time Seen by Provider: 04/04/21 14:56 Source: patient, RN notes reviewed and old records reviewed Mode of arrival: wheelchair Limitations: no limitations History of Present Illness HPI Narrative: Per pt spouse: pt was confused and threw items around at home. all this was new. minimal confusion in the ED. Onset (ago): hour(s) (4) Timing confirmed by: spouse Location: other (pt had mild confusion) History of same: No Severity: mild Quality: improving Relieving factors: none Exacerbating factors: none Context: sudden onset On Anticoagulants: No Associated symptoms: denies other symptoms Treatments Prior to Arrival: none Related Data Home Medications Medication Instructions Recorded Confirmed folic acid 1 mg PO DAILY 04/03/20 04/03/20 hydroxychloroquine 200 mg PO DAILY 04/03/20 04/03/20 methotrexate sodium 2.5 mg PO DAILY 04/03/20 04/03/20 Allergies Allergy/AdvReac Type Severity Reaction Status Date / Time Sulfa (Sulfonamide AdvReac Unknown Verified 04/04/21 17:37 Antibiotics) Review of Systems Review of Systems: All systems reviewed & are unremarkable except as noted in HPI and below Psychiatric: Psychiatric: Reports as per HPI (pt does not admit to any confusion.) [facility] Past Medical History Medical History Altered mental status Anxiety COPD (chronic obstructive pulmonary disease) Lupus Mild cognitive impairment with memory loss Social History Social History Smoking status: Current every day smoker Substance use: never Gender identity (if verbalized by the patient): Female Exam Const: General: no acute distress and alert Nutritional Appearance: thin Orientation/consciousness: patient oriented x3 Limitations: no limitations HENMT: Head: normal to inspection Ears: external ears normal and TM's normal bilaterally General nose exam: Normal external nose present and Normal nares present Face and sinus: normal facial exam Mouth: Yes lip normal Teeth and gingiva: dentition normal Eyes: Conjunctivae: conjunctivae normal Pupils: Equal, round and reactive pupils present EOM: EOMs intact bilaterally Neck: Neck: normal visual inspection and no lymphadenopathy Chest: Chest palpation & inspection: normal inspection of the chest Resp: Effort & Inspection: normal respiratory effort Auscultation: clear to auscultation bilaterally Cardio: Rate: regular rate Rhythm: regular rhythm GI: GI Palp: Yes Soft to palpation and No Tenderness to palpation present (GI) Percussion: Yes normal to percussion Auscultation: normal bowel sounds : General: Yes no CVA tenderness Back/Spine/Pelvis: Back: no CVA tenderness Skin: General skin exam: normal color Rashes: no rashes Neuro: General: patient oriented x3, moves all extremities, no meningeal signs, no focal motor deficits and CN's II-XI intact bilaterally Extrem: General: normal to inspection and no pedal edema Psych: Appearance: grossly normal and well kempt Mental Status: mental status grossly normal Affect: normal affect Course Course Emergency Course: Pt had no acute stigmata of MCI. for home with spouse and MSE testing LORETTA. Reevaluation(s) Reevaluation #1: pt was stable in the ED. no acute confusiok. Date: 04/04/21 Time: 15:51 Vital Signs Vital signs: Vital Signs Temperature 36.7 C 04/04/21 15:00 Pulse Rate 88 04/04/21 15:00 Respiratory Rate 20 04/04/21 15:00 Blood Pressure 143/88 H 04/04/21 15:00 Pulse Oximetry 94 04/04/21 15:00 Temperature 36.7 C 04/04/21 17:46 Pulse Rate 70 04/04/21 17:46 Respiratory Rate 20 04/04/21 17:46 Blood Pressure 148/77 H 04/04/21 17:46 Pulse Oximetry 97 04/04/21 17:46 MDM - Neuro Symptoms/Deficit Lab Data Result diagrams:
[2021-04-04 17:16] LABS: Ethanol < 3 mg/dL (0-6)
[2021-04-04 17:26] LABS: Amphetamine Screen Urine Negative (Negative); Barbiturate Screen Urine Negative (Negative); Benzodiazepines Screen Urine Negative (Negative); Cannabinoid Screen Urine Positive (Negative); Cocaine Screen Urine Negative (Negative); Methadone Screen Urine Negative (Negative); Opiate Screen Urine Negative (Negative); Phencyclidine Screen Urine Negative (Negative)
[2021-04-04] MEDS: methylPREDNISolone SOD SUCC 125 MG VIAL IV PUSH (17:33)
[2021-04-04 17:46] VITALS: BP 148/77; PULSE 70; RESP 20; TEMP 36.7; O2SAT 97
== END 2021-04-04 17:49 | disposition home or self-care (01) ==
PROVIDERS: Emergency Provider Emergency Medicine; PCP Hospitalist
DX: G31.84 Mild cognitive impairment of uncertain or unknown etiology (principal); R40.4 Transient alteration of awareness; J44.9 Chronic obstructive pulmonary disease, unspecified; F17.200 Nicotine dependence, unspecified, uncomplicated; Z79.899 Other long term (current) drug therapy
CPT/HCPCS: 36415; 36600; 70450; 71045; 71275; 80053; 80307; 82805; 83605; 83880; 84484; 85025; 93005; 96361; 96374; 99283; 99284; A9270; J2930; J7030; Q9967

== ENCOUNTER 2021-04-30 14:38 | Outpatient (CLI) | payer MEDICARE, SELFPAY ==
[2021-04-30 14:56] LABS: Add Urine Microscopic? YES; Appearance Urine Clear (Clear); Bilirubin Urine Negative (Negative); Blood Urine 3+ (Negative); Color Urine Yellow (Yellow); Glucose Urine UA Negative (Negative); Ketones Urine Negative (Negative); Leukocyte Esterase Ur Negative (Negative); Nitrate Urine Negative (Negative); Protein Urine Trace (Negative); Specific Grav Ur 1.025 (1.010-1.020); Urobilinogen Urine 0.2 mg/dL (0.2-1.0)
[2021-04-30 15:21] LABS: RBC Urine 21-50 /hpf (0-2); WBC Urine None seen /hpf (0-3)
[2021-04-30 15:22] LABS: Bacteria Urine 1+ /hpf; Squamous Epithelial Cell Urine Few /hpf (Few)
== END 2021-04-30 14:39 | disposition home or self-care (01) ==
LOC: CHSLAB 14:40
PROVIDERS: PCP Hospitalist; Visit Provider Hospitalist
DX: R31.9 Hematuria, unspecified (principal)
CPT/HCPCS: 81001; 87086

== ENCOUNTER 2021-05-05 07:31 | Outpatient (CLI) | payer MEDICARE, SELFPAY ==
--- NOTE | ~2021-05-05 | CT_ITS ---
EXAMINATION: CT chest abdomen pelvis w con EXAM DATE: 05/05/2021 08:50 INDICATION: Weight Loss. TECHNIQUE: Spiral CT of the chest, abdomen and pelvis was performed following intravenous injection o f 100 mL Omnipaque 350. Axial, coronal and sagittal images chest, abdomen and pelvis were reviewed. Coronal maximum intensity pixel images of chest reviewed. The dose-length product (DLP) for this ex amination was 226.20 mGy-cm. The exposure was tailored according to patient size (auto mA exposure c ontrol), and iterative reconstruction (ASIR) was used as additional dose reduction technique. There is prior chest CT from 04/04/2021 comparison. FINDINGS: CHEST: Severe emphysema. There are no pleural or pericardial effusions. Persistent right middle l obe and lower lobe medial segmental bronchiectasis endobronchial debris, mucous plugging, without def inite communication identified to the bronchus intermedius, possible pulmonary sequestration. Appeara nce to this is unchanged. There is no mediastinal, hilar or axillary lymphadenopathy. There is no pneumothorax. Heart normal in size. There is mild to moderate coronary arterial calcification, ar terial sclerosis. ABDOMEN PELVIS: The liver, spleen, adrenal glands and pancreas are unremarkable. There are cholecyst ectomy clips. Portal and splenic veins are patent. Kidneys enhance symmetrically. There is no hydr onephrosis. The uterus is not identified and has likely been surgically resected. The bladder is u nremarkable. There is no retroperitoneal or pelvic lymphadenopathy. There is moderate scattered ar teriosclerotic disease. There are no findings to suggest appendicitis. The stomach and small bowel are unremarkable. There is expected amount of colonic stool. No free intraperitoneal gas. There are no osteoblastic or os teolytic lesions identified. IMPRESSION: 1. Right basilar chronic bronchiectasis, mucous plugging, possible pulmonary sequestration. 2. Severe emphysema. 3. Cholecystectomy, hysterectomy. Reviewed, dictated and finalized at location A. RVISOR COLOR MAKING IMPRESSION: 1. Right basilar chronic bronchiectasis, mucous plugging, possible pulmonary s equestration. 2. Severe emphysema. 3. Cholecystectomy, hysterectomy.
== END 2021-05-05 07:32 | disposition home or self-care (01) ==
LOC: CHSIMG 07:33
PROVIDERS: PCP Hospitalist; Visit Provider Hospitalist
DX: R63.4 Abnormal weight loss (principal)
CPT/HCPCS: 71260; 74177; Q9967

== ENCOUNTER 2021-06-03 18:53 | Emergency (ER) | payer MEDICARE, SELFPAY ==
[2021-06-03] VITALS (8 sets, daily range): BP systolic 127–170; BP diastolic 80–84; PULSE 92–118; RESP 20–30; TEMP 36.1; O2SAT 80–100
--- NOTE | ~2021-06-03 | CT_ITS ---
EXAMINATION: CT diagnostic chest wo con DATE: 06/03/2021 19:38 INDICATION: Acute shortness of breath TECHNIQUE: Computed tomography (CT) of the chest was performed without intravenous contrast. The dose -length product (DLP) was 143.72 mGy-cm. Automated exposure control and iterative reconstruction tech eTapestryque were employed. COMPARISON: 05/05/2021 FINDINGS: There is severe emphysema. The lungs are free of acute opacities. There is no pleural effus ion or pneumothorax. Again noted is mucous plugging in the medial right lung base without indication tube bronchial tree, consistent with pulmonary sequestration. No pathologically enlarged thoracic lym ph nodes are identified. The heart size is normal. There is mild thoracic spondylosis. The gallbladde r is surgically absent. IMPRESSION: 1. Severe emphysema. Reviewed, dictated and finalized at location F. STIC INTELLIGENCE SPECIALIST IMPRESSION: 1. Severe emphysema.
--- NOTE | 2021-06-03 18:58 | ECG_ITS ---
Measurements Intervals [place] Rate: 103 P: 86 [place]: 153 QRS: 74 QRSD: 95 T: 114 QT: 345 QTc: 453 Interpretive Statements SINUS TACHYCARDIA POSSIBLE RIGHT ATRIAL ENLARGEMENT LEFT VENTRICULAR HYPERTROPHY AND ST-T CHANGE ST-T WAVE ABNORMALITY IN ANTEROLATERAL LEADS- CONSIDER ISCHEMIA BASELINE ARTIFACT- I, II, III, AVR, AVL, AVF, V1-V6 ABNORMAL ECG Electronically Signed On 06-03-2021 21:59:47 SKATING RINK ICE MAKER by Gopi Riggs D.O.
[2021-06-03] MEDS: IPRATROPIUM 0.5 MG/ALBUTEROL SULFATE 2.5 MG AMPUL.NEB 3 ML INHALATION ×2 (19:05→21:14)
[2021-06-03 19:16] LABS: Oxygen Content ABG 19.2 %vol (16.0-22.0); Oxygen Saturation ABG 97.1 % (95-97); PO2 ABG 125.1 mmHg (75-85); Total Hemoglobin 15.9 g/dL (12.0-18.0); pH ABG 7.16 (7.35-7.45)
[2021-06-03 19:19] LABS: Basophils Absolute Auto 0.06 K/mm3 (0.00-0.10); Basophils Percent Auto 0.4 % (0.0-1.0); Eosinophils Absolute Auto 0.18 K/mm3 (0.02-0.50); Eosinophils Percent Auto 1.2 % (1.0-6.0); Hematocrit 46.9 % (35.0-42.0); Hemoglobin 15.2 g/dL (11.7-13.8); Immature Granulocyte Absolute 0.09 K/mm3 (0.00-0.00); Immature Granulocyte Percent A 0.6 % (0.0-0.0); Lymphocytes Absolute Auto 4.36 K/mm3 (1.10-4.50); Mean Corpuscular HGB Conc 32.4 g/dL (32.0-36.0); Mean Corpuscular Hemoglobin 32.7 pg (27.0-31.0); Mean Corpuscular Volume 100.9 fL (78.0-102.0); Mean Platelet Volume 9.3 fl (9.2-11.8); Monocytes Absolute Auto 1.45 K/mm3 (0.10-0.90); Monocytes Percent Auto 9.6 % (2.0-11.0); Neutrophils Absolute Auto 8.9 K/mm3 (1.7-7.2); Neutrophils Percent Auto 59.2 % (50.0-70.0); Platelet Count Result 220 K/mm3 (150-420); Red Blood Count 4.65 M/mm3 (4.20-5.40); Red Cell Distribution Width 14.4 % (11.6-14.4); White Blood Count 15.1 K/mm3 (4.8-10.8)
[2021-06-03] MEDS: ONDANSETRON INJ 4 MG/2 ML VIAL IV PUSH ×2 (19:20→20:25)
[2021-06-03 19:21] LABS: Device NON-REBREATHER MASK; Modified Allen's Test Pass; PCO2 ABG 78.1 mmHg (35-45); Site Drawn LEFT RADIAL
[2021-06-03] MEDS: methylPREDNISolone SOD SUCC 125 MG VIAL IV PUSH (19:23)
[2021-06-03 19:40] LABS: Lactic Acid Reflex 2.4 mmol/L (0.4-2.0)
[2021-06-03 19:43] LABS: Alanine Aminotransferase 38 U/L (14-59); Alkaline Phosphatase 88 U/L (46-116); Anion Gap 11 mmol/L (8-16); Aspartate Amino Transferase 45 U/L (15-37); Bilirubin,Total 0.5 mg/dL (0.00-1.00); Blood Urea Nitrogen 16 mg/dL (7-18); Calcium 8.7 mg/dL (8.5-10.1); Carbon Dioxide 28 mmol/L (21-32); Chloride 105 mmol/L (98-108); Estimated CRCL calculation 39 ml/min; Estimated Glomerular Filt Rate > 60; Glucose 198 mg/dL (70-99); NT Pro B Type Natriuretic Pept 5481 pg/mL (0-125); Osmolality Calculated 305 mOsm/kg (285-295); Potassium 3.3 mmol/L (3.5-5.1); Sodium 144 mmol/L (136-145); Total Protein 7.1 g/dL (6.4-8.2)
[2021-06-03 19:44] LABS: Troponin I 90.2 ng/L (0.00-60.4)
[2021-06-03] MEDS: ALBUTEROL SULFATE (*SP) INHALER 2 PUFF INHALATION (20:04)
[2021-06-03] MEDS: SODIUM CHLORIDE 0.9% IV 500 ML 999 ML IV CONT (20:04)
[2021-06-03 20:14] LABS: Influenza A QL RT-PCR Negative (Negative); Influenza B QL RT-PCR Negative (Negative); SARS-CoV-2 RNA PCR Negative (Negative)
[2021-06-03 20:24] LABS: Appearance Urine Clear (Clear); Bilirubin Urine Negative (Negative); Color Urine Light Yellow (Yellow); Glucose Urine UA Trace (Negative); Ketones Urine Negative (Negative); Leukocyte Esterase Ur Negative (Negative); Nitrate Urine Negative (Negative); Protein Urine 1+ (Negative); Urobilinogen Urine 0.2 mg/dL (0.2-1.0); pH Urine 6.5 (5.0-8.0)
[2021-06-03] MEDS: MORPHINE SULFATE (*CRX) 2 MG/ML INJ IV PUSH (20:26)
[2021-06-03 20:27] LABS: Add Urine Microscopic? YES; Blood Urine Trace-Intact (Negative)
[2021-06-03 20:29] LABS: Bacteria Urine Trace /hpf; RBC Urine 0-2 /hpf (0-2); Squamous Epithelial Cell Urine Rare /hpf (Few); WBC Urine 0-3 /hpf (0-3)
[2021-06-03] MEDS: ASPIRIN 325 MG ENTERIC TABLET PO (20:29)
[2021-06-03] MEDS: SODIUM BICARBONATE 8.4% 50 MEQ/50 ML SYRINGE IV PUSH (20:37)
[2021-06-03 21:15] LABS: HCO3 ABG 26.4 mmol/L (23-29); Oxygen Content ABG 19.1 %vol (16.0-22.0); Oxygen Saturation ABG 98.9 % (95-97); Oxyhemoglobin 90.2 % (94-100); PCO2 ABG 40.7 mmHg (35-45); PO2 ABG 259.7 mmHg (75-85); Total Hemoglobin 14.6 g/dL (12.0-18.0); pH ABG 7.43 (7.35-7.45)
[2021-06-03 21:16] LABS: Device BIPAP; Modified Allen's Test Pass; Site Drawn LEFT BRACHIAL
[2021-06-03 21:17] LABS: Expiratory Pressure 6 cmH2O; Inspiratory Pressure 12 cmH2O
[2021-06-03 22:24] LABS: Troponin I 147.2 ng/L (0.00-60.4)
[2021-06-03 22:41] LABS: Lactic Acid 1.3 mmol/L (0.4-2.0)
[2021-06-03 22:44] LABS: Reflex Lactic Acid Yes or No Add Lactic
--- NOTE | 2021-06-03 23:08 | PC.NURSE ---
Call placed to [facility], spoke to Alethea and requested cardiology to call and need for consult and need for transfer. Pt added to [facility] wait list due to no beds available in IMU or ICU. Pt informed on POC.
--- NOTE | 2021-06-03 23:56 | PC.NURSE ---
Call placed to [facility], no beds available, call to transfer center for [facility], no beds available and no wait list at this time. ERP informed. Requested to call back in AM for any updates.
[2021-06-04] VITALS (10 sets, daily range): BP systolic 111–138; BP diastolic 48–72; PULSE 62–70; RESP 14–20; TEMP 36.6–37.3; O2SAT 93–98
[2021-06-04] MEDS: ENOXAPARIN 1 MG/KG 45 MG SUB-Q (00:52)
--- NOTE | 2021-06-04 01:03 | PC.NURSE ---
Pt resting comfortably, no distress at this time, pt is on 3L NC c SPO2 at 100%.Pt is to be ER Hold for cardiology servies at [facility] or within [facility] system when a bed is available.
--- NOTE | 2021-06-04 01:24 | PC.NURSE ---
Report called to [facility] for ER Hold admit to Rm [id number].
--- NOTE | 2021-06-04 02:20 | PC.NURSE ---
Pt brought up and oriented to the floor at 01:35. Pt was told the rules of leaving her room and using the call light. Telemetry HR:69; MD interval:0.16; QRS interval:0.09
--- NOTE | 2021-06-04 04:07 | PC.NURSE ---
Addendum entered by Humberto Ceja RN 06/04/21 04:09: Pt was brought a ham sandwich and a can of mabel mist since pt did not eat dinner prior to arriving at the facility. Pt verbalized that she did not take her bedtime home medications. Call light is within reach and pt denied having any needs besides wanting her sleep aid medication due to her insomnia. Original Note: Pt was brought a ham sandwich and a can of mabel mist since pt did not eat dinner prior to arriving at the facility. Pt verbalized that she did not take her bedtime home medications. Call light is within reach and pt denied having any needs besides want
[2021-06-04] MEDS: oxyCODONE/ACETAMINOPHEN (*CRX) 5-325 MG TABLET 1 TABLET PO ×3 (05:00→21:10)
[2021-06-04] MEDS: methylPREDNISolone SOD SUCC 125 MG VIAL IV PUSH ×4 (05:01→23:56)
--- NOTE | 2021-06-04 05:10 | PC.NURSE ---
Cardiac Telemetry: Pt is sinus rhythm with a HR ranging from 66 to 73; RI interval 0.17; QRS interval 0.07
[2021-06-04 05:37] LABS: Eosinophils Absolute Auto 0.01 K/mm3 (0.02-0.50); Eosinophils Percent Auto 0.2 % (1.0-6.0); Hematocrit 45.5 % (35.0-42.0); Hemoglobin 14.3 g/dL (11.7-13.8); Immature Granulocyte Absolute 0.06 K/mm3 (0.00-0.00); Immature Granulocyte Percent A 1.2 % (0.0-0.0); Lymphocytes Absolute Auto 0.67 K/mm3 (1.10-4.50); Mean Corpuscular HGB Conc 31.4 g/dL (32.0-36.0); Mean Corpuscular Hemoglobin 33.5 pg (27.0-31.0); Mean Corpuscular Volume 106.6 fL (78.0-102.0); Monocytes Absolute Auto 0.26 K/mm3 (0.10-0.90); Monocytes Percent Auto 5.1 % (2.0-11.0); Neutrophils Absolute Auto 4.1 K/mm3 (1.7-7.2); Neutrophils Percent Auto 80.5 % (50.0-70.0); Platelet Count Result 148 K/mm3 (150-420); Red Blood Count 4.27 M/mm3 (4.20-5.40); Red Cell Distribution Width 14.5 % (11.6-14.4); White Blood Count 5.1 K/mm3 (4.8-10.8)
[2021-06-04 05:56] LABS: Alanine Aminotransferase 33 U/L (14-59); Albumin Level 3.5 g/dL (3.4-5.0); Alkaline Phosphatase 81 U/L (46-116); Anion Gap 11 mmol/L (8-16); Aspartate Amino Transferase 19 U/L (15-37); Bilirubin,Total 0.4 mg/dL (0.00-1.00); Blood Urea Nitrogen 20 mg/dL (7-18); Calcium 8.1 mg/dL (8.5-10.1); Carbon Dioxide 28 mmol/L (21-32); Chloride 105 mmol/L (98-108); Estimated CRCL calculation 35 ml/min; Estimated Glomerular Filt Rate 56; Glucose 101 mg/dL (70-99); Osmolality Calculated 300 mOsm/kg (285-295); Potassium 3.7 mmol/L (3.5-5.1); Sodium 144 mmol/L (136-145); Total Protein 6.4 g/dL (6.4-8.2); Troponin I 59.3 ng/L (0.00-60.4)
--- NOTE | 2021-06-04 06:00 | ECG_ITS ---
Measurements Intervals [place] Rate: 66 P: 85 [place]: 144 QRS: 73 QRSD: 100 T: 125 QT: 431 QTc: 452 Interpretive Statements SINUS RHYTHM DELAYED PRECORDIAL R/S TRANSITION LEFT VENTRICULAR HYPERTROPHY AND ST-T CHANGE ST-T WAVE ABNORMALITY IN ANTEROLAT/HIGH LAT LEADS- CONSIDER ISCHEMIA ABNORMAL ECG Electronically Signed On 06-04-2021 7:30:09 EXECUTIVE DIRECTOR GLOBAL BRAND MARKETING by Gopi Riggs D.O.
--- NOTE | 2021-06-04 07:31 | ED.SOB ---
HPI - SOB/Dyspnea General Chief Complaint: Shortness of Breath/Dyspnea <Therese Mckeon MD - Last Filed: 06/08/21 08:57> Stated Complaint: trouble breathing <Therese Mckeon MD - Last Filed: 06/08/21 08:57> Time Seen by Provider: 06/03/21 18:56 <Therese Mckeon MD - Last Filed: 06/08/21 08:57> Source: patient, family and RN notes reviewed <Therese Mckeon MD - Last Filed: 06/08/21 08:57> Mode of arrival: ambulatory <Therese Mckeon MD - Last Filed: 06/08/21 08:57> Limitations: no limitations <Therese Mckeon MD - Last Filed: 06/08/21 08:57> History of Present Illness MD elicited complaint: shortness of breath <Therese Mckeon MD - Last Filed: 06/08/21 08:57> Pertinent past history: COPD <Therese Mckeon MD - Last Filed: 06/08/21 08:57> Onset (ago): day(s) (1) <Therese Mckeon MD - Last Filed: 06/08/21 08:57> Context: occurred during exertion and smoke/fume exposure <Therese Mckeon MD - Last Filed: 06/08/21 08:57> Timing: constant <Therese Mckeon MD - Last Filed: 06/08/21 08:57> Severity: moderate <Therese Mckeon MD - Last Filed: 06/08/21 08:57> Exacerbating factors: nothing <Therese Mckeon MD - Last Filed: 06/08/21 08:57> Relieving factors: nothing <Therese Mckeon MD - Last Filed: 06/08/21 08:57> Known history of: COPD <Therese Mckeon MD - Last Filed: 06/08/21 08:57> Associated symptoms: chest pain, wheezing, palpitations and chest congestion <Therese Mckeon MD - Last Filed: 06/08/21 08:57> Treatment prior to arrival: none <Therese Mckeon MD - Last Filed: 06/08/21 08:57> Related Data Home Medications: Home Medications Medication Instructions Recorded Confirmed prednisone 5 mg PO DAILY 06/03/21 06/06/21 Anoro Ellipta 1 inh INHALATION DAILY 06/04/21 06/06/21 Mucinex DM 1 tablet PO Q12H PRN 06/04/21 06/06/21 amlodipine 2.5 mg PO HS 06/04/21 06/06/21 hydroxychloroquine 200 mg PO BID 06/04/21 06/06/21 ipratropium bromide 1 spray INTRANASAL PRN PRN 06/04/21 06/06/21 oxycodone-acetaminophen 1 tablet PO PRN PRN 06/04/21 06/06/21 pravastatin 10 mg PO DAILY 06/04/21 06/06/21 pregabalin 150 mg PO BID 06/04/21 06/06/21 ropinirole 1 mg PO HS 06/04/21 06/06/21 solifenacin 5 mg PO HS 06/04/21 06/06/21 trazodone 100 mg PO HS 06/04/21 06/06/21 zolpidem 10 mg PO HS 06/04/21 06/06/21 <Therese Mckeon MD - Last Filed: 06/08/21 08:57> Allergies/Adverse Reactions: Allergies Allergy/AdvReac Type Severity Reaction Status Date / Time Sulfa (Sulfonamide AdvReac Unknown Verified 06/06/21 13:30 Antibiotics) <Therese Mckeon MD - Last Filed: 06/08/21 08:57> Review of Systems Review of Systems: All systems reviewed & are unremarkable except as noted in HPI and below <Therese Mckeon MD - Last Filed: 06/08/21 08:57> Cardiovascular: Cardiovascular: Reports rapid heart rate <Therese Mckeon MD - Last Filed: 06/08/21 08:57> Respiratory: Respiratory: Reports dyspnea <Therese Mckeon MD - Last Filed: 06/08/21 08:57> PMFSH Past Medical History Medical History: Medical History Altered mental status Anxiety COPD (chronic obstructive pulmonary disease) Lupus Mild cognitive impairment with memory loss <Therese Mckeon MD - Last Filed: 06/08/21 08:57> Social History Social History: Social History Smoking status: Current every day smoker Tobacco type: cigarettes Second hand tobacco smoke exposure: Yes Alcohol intake: never Substance use: never Substance use type: does not use Gender identity (if verbalized by the patient): Female Spiritual care concerns: No <Therese Mckeon MD - Last Filed: 06/08/21 08:57> Exam Const: General: alert and ill appearing <Therese Mckeon MD - Last Filed: 0
[2021-06-04 07:50] LABS: NT Pro B Type Natriuretic Pept 9821 pg/mL (0-125)
[2021-06-04] MEDS: UMECLIDINIUM BROMIDE 62.5 MCG ELLIPTA 1 PUFF INHALATION (09:07)
[2021-06-04] MEDS: ASPIRIN 81 MG CHEWABLE TABLET 324 MG PO (09:07)
[2021-06-04] MEDS: HYDROXYCHLOROQUINE SULFATE 200 MG TABLET PO ×2 (09:08→17:43)
[2021-06-04] MEDS: PREGABALIN (*CRX) 50 MG CAPSULE 150 MG PO ×2 (09:08→17:44)
[2021-06-04] MEDS: PRAVASTATIN SODIUM 20 MG TABLET 10 MG PO (09:08)
[2021-06-04] MEDS: rOPINIRole HCL 1 MG TABLET PO (21:09)
[2021-06-04] MEDS: traZODone HCL 50 MG TABLET 100 MG PO (21:09)
[2021-06-04] MEDS: amLODIPine BESYLATE 2.5 MG TABLET PO (21:09)
[2021-06-04] MEDS: SOLIFENACIN 5 MG TABLET PO (21:09)
[2021-06-04] MEDS: ZOLPIDEM TARTRATE (*CRX) 5 MG TABLET 10 MG PO (21:09)
[2021-06-05] VITALS: BP 108/59; PULSE 64; RESP 16; TEMP 36.5; O2SAT 94
[2021-06-05 04:00] VITALS: BP 132/87; PULSE 98; RESP 18; TEMP 36.5; O2SAT 95
--- NOTE | 2021-06-05 04:50 | PC.NURSE ---
[facility] called for update on patient. No available beds @ this time.
[2021-06-05 05:14] LABS: Basophils Absolute Auto 0.01 K/mm3 (0.00-0.10); Basophils Percent Auto 0.1 % (0.0-1.0); Hemoglobin 14.8 g/dL (11.7-13.8); Immature Granulocyte Absolute 0.09 K/mm3 (0.00-0.00); Immature Granulocyte Percent A 0.9 % (0.0-0.0); Lymphocytes Absolute Auto 0.46 K/mm3 (1.10-4.50); Lymphocytes Percent Auto 4.8 % (18.0-42.0); Mean Corpuscular HGB Conc 32.9 g/dL (32.0-36.0); Mean Corpuscular Hemoglobin 32.6 pg (27.0-31.0); Mean Corpuscular Volume 99.1 fL (78.0-102.0); Mean Platelet Volume 9.6 fl (9.2-11.8); Monocytes Absolute Auto 0.35 K/mm3 (0.10-0.90); Monocytes Percent Auto 3.7 % (2.0-11.0); Neutrophils Absolute Auto 8.7 K/mm3 (1.7-7.2); Neutrophils Percent Auto 90.5 % (50.0-70.0); Platelet Count Result 185 K/mm3 (150-420); Red Blood Count 4.54 M/mm3 (4.20-5.40); White Blood Count 9.6 K/mm3 (4.8-10.8)
[2021-06-05] MEDS: methylPREDNISolone SOD SUCC 125 MG VIAL IV PUSH ×3 (05:14→17:40)
[2021-06-05] MEDS: oxyCODONE/ACETAMINOPHEN (*CRX) 5-325 MG TABLET 1 TABLET PO ×3 (05:14→17:40)
[2021-06-05 05:43] LABS: Anion Gap 10 mmol/L (8-16); Blood Urea Nitrogen 22 mg/dL (7-18); Calcium 8.7 mg/dL (8.5-10.1); Carbon Dioxide 28 mmol/L (21-32); Chloride 104 mmol/L (98-108); Estimated CRCL calculation 34 ml/min; Estimated Glomerular Filt Rate 55; Glucose 165 mg/dL (70-99); NT Pro B Type Natriuretic Pept 5399 pg/mL (0-125); Osmolality Calculated 301 mOsm/kg (285-295); Potassium 4.3 mmol/L (3.5-5.1); Sodium 142 mmol/L (136-145); Troponin I 36.4 ng/L (0.00-60.4)
[2021-06-05 07:30] VITALS: BP 147/66; PULSE 94; RESP 18; TEMP 36.7; O2SAT 95; O2SAT 96
[2021-06-05] MEDS: UMECLIDINIUM BROMIDE 62.5 MCG ELLIPTA 1 PUFF INHALATION (09:01)
[2021-06-05] MEDS: ASPIRIN 81 MG CHEWABLE TABLET 324 MG PO (09:02)
[2021-06-05] MEDS: HYDROXYCHLOROQUINE SULFATE 200 MG TABLET PO ×2 (09:02→17:11)
[2021-06-05] MEDS: PRAVASTATIN SODIUM 20 MG TABLET 10 MG PO (09:03)
[2021-06-05] MEDS: PREGABALIN (*CRX) 50 MG CAPSULE 150 MG PO ×2 (09:03→17:11)
--- NOTE | 2021-06-05 09:52 | PC.NURSE ---
Ate well for breakfast, no chest pain, is on room air, no change in telemetry, depressed ST segement continues, regular, no ectopics noted,
--- NOTE | 2021-06-05 10:38 | PC.NURSE ---
No chest pain, no distress, oxygen off at this time
[2021-06-05] MEDS: KETOROLAC (*BKC) 60 MG/2 ML VIAL 30 MG IM (11:43)
--- NOTE | 2021-06-05 11:48 | PC.NURSE ---
percocet and toradol given for pain
[2021-06-05 13:00] VITALS: BP 138/44; PULSE 74; RESP 20; TEMP 37; O2SAT 92
--- NOTE | 2021-06-05 13:33 | PC.NURSE ---
denies needs, still waiting on bed for transfer, telemetry sr with st seg depression, occassional unifocal PVC noted
--- NOTE | 2021-06-05 13:55 | ECHO_ITS ---
Patient Info Name: Suma Scott Age: 65 years : 1955 Gender: Female Ht: 63 in Wt: 99 lbs BSA: 1.40 m2 HR: 68 bpm BP: 138 / 44 mmHg Technical Quality: Fair Exam Date: 06/05/2021 2:46 PM Exam Location: [facility] Patient Status: Emergency Admit Date: 06/03/2021 Staff Ordering Physician: Therese Mckeon MD Hall Clerk: Irene Rico Attending Provider: Sebastian Barfiedl MD Referring Physician: Mike MCNEILL; Exam Type: CA echo doppler color flow Study Info Indications I21.4 - Non-ST elevation (NSTEMI) myocardial infarction Complete two-dimensional, color flow and Doppler transthoracic echocardiogram is performed. Strain analysis performed. Summary 1. Complete two-dimensional, color flow and Doppler transthoracic echocardiogram is performed. 2. Left ventricular chamber dimension is normal. 3. Left ventricular systolic function is normal, estimated at 60-65%. 4. Global longitudinal strain is abnormal at -14.0%. 5. The left ventricular diastolic function is grade I diastolic dysfunction. 6. E/e' 10 is mildly elevated. 7. There is mild aortic valve sclerosis. 8. The mitral valve has mildly calcified annulus. 9. Normal inferior vena cava with <50% collapse upon inspiration consistent with elevated right atrial pressure, 10 mmHg. Left Ventricle E/e' 10 is mildly elevated. Global longitudinal strain is abnormal at -14.0%. Left ventricular chamber dimension is normal. Left ventricular systolic function is normal, estimated at 60-65%. The left ventricular diastolic function is grade I diastolic dysfunction. Right Ventricle Right ventricular systolic function is normal and with normal TAPSE 2.5 cm. Right ventricular chamber dimension is normal. Left Atria Left atrial chamber dimension is normal. Right Atria Right atrial chamber dimension is normal. Aortic Valve The aortic valve is not well visualized. Cannot determine number of aortic valve leaflets. There is mild aortic valve sclerosis. There is no aortic valve stenosis. There is no aortic valve regurgitation. Pulmonic Valve There is no pulmonic regurgitation. Mitral Valve The mitral valve has mildly calcified annulus. There is no mitral valve stenosis. There is no mitral valve regurgitation. Tricuspid Valve There is no tricuspid valve regurgitation. Pericardium/Pleural There is no pericardial effusion. Inferior Vena Cava Normal inferior vena cava with <50% collapse upon inspiration consistent with elevated right atrial pressure, 10 mmHg. Aorta The aortic root size at the sinus of Valsalva is normal. Left Ventricular Outflow Tract Name Value Normal LVOT 2D LVOT Diameter 2.0 cm LVOT Doppler LVOT Peak Velocity 124 cm/s LVOT Peak Gradient 6 mmHg LVOT Mean Gradient 3 mmHg LVOT VTI 25 cm LVOT VTI/AV VTI Ratio 1.0 LVOT Stroke Volume 79 ml Mitral Valve Name
[2021-06-05 15:30] VITALS: BP 138/48; PULSE 82; RESP 18; TEMP 37.1; O2SAT 96
--- NOTE | 2021-06-05 16:30 | PC.NURSE ---
Patient states her stomach is a little sour from eating her spaghetti earlier and drinking orange juice. She normally takes Pepcid at home but we don't have an order for that. Offered to check with the doctor but she would like to try drinking some milk instead. No chest pain or shortness of breath noted.
[2021-06-05 17:21] VITALS: BP 138/48; PULSE 82; RESP 18; TEMP 37.1; O2SAT 96
--- NOTE | 2021-06-05 17:55 | PC.NURSE ---
Telemetry and saline lock discontinued for discharge to home. Patient tolerated well.
--- NOTE | 2021-06-05 18:30 | PC.NURSE ---
Patient discharged to home. Reviewed discharge instructions, patient verbalized understanding, prescriptions provided as well as all of her personal belongings. Taken per wheelchair to personal vehicle and here for lemon picker.
== END 2021-06-05 18:30 | disposition home or self-care (01) ==
LOC: CHSED 18:55 → CHS2ND 06-04 01:07
PROVIDERS: Emergency Medicine; Nurse Practitioner; Emergency Provider Emergency Medicine; PCP Hospitalist
DX: I21.4 Non-ST elevation (NSTEMI) myocardial infarction (principal); J43.1 Panlobular emphysema; Z20.822 Contact with and (suspected) exposure to COVID-19; F17.200 Nicotine dependence, unspecified, uncomplicated
CPT/HCPCS: 36415; 36600; 71250; 80048; 80053; 81001; 82805; 83605; 83880; 84484; 85025; 87040; 87502; 93005; 93306; 94640; 96361; 96372; 96374; 96375; 96376; 99284; A9270; C9803; J1650; J1885; J2270; J2405; J2930; J7040; U0003; U0005

== ENCOUNTER 2021-06-06 13:13 | Inpatient (IN) | payer MEDICARE, SELFPAY ==
[2021-06-06] VITALS (9 sets, daily range): BP systolic 140–153; BP diastolic 64–89; PULSE 68–84; RESP 16–20; TEMP 36.3–36.9; O2SAT 93–100; BMI 16.0
--- NOTE | ~2021-06-06 | XR_ITS ---
EXAMINATION: XR chest 2V DATE: 06/07/2021 08:56 INDICATION: Shortness of breath and cough. TECHNIQUE: Frontal and lateral views of the chest were obtained. COMPARISON: Chest single view 06/06/2021, chest CT 06/03/2021 FINDINGS: The lungs are hyperexpanded with lucencies, consistent with emphysema. There are mild airsp juan opacities in the lower lung zones. No pleural effusion or pneumothorax. The heart size is normal. There are changes of anterior fusion procedure in cervical spine. IMPRESSION: 1. Severe emphysema. 2. Worsened mild airspace opacities in left lower lung zone, consistent with atelectasis versus pneum onia. 3. Chronic airspace opacities in right lower lung zone, consistent with mucous plugging in a sequestr ation. Reviewed, dictated and finalized at location A. ICAL INFORMATICS MANAGER IMPRESSION: 1. Severe emphysema. 2. Worsened mild airspace opacities in left lower lung zone, consistent with at electasis versus pneumonia. 3. Chronic airspace opacities in right lower lung zone, consistent with mucous plugging in a sequestration.
--- NOTE | ~2021-06-06 | XR_ITS ---
EXAMINATION: XR chest 1V portable DATE: 06/06/2021 14:02 INDICATION: Dyspnea. Cough. TECHNIQUE: A single frontal view of the chest was obtained on 2 radiographs. COMPARISON: Chest single view 04/04/2021, chest CT 06/03/2021, 04/04/21 FINDINGS: The lungs are hyperexpanded with lucencies, consistent with emphysema. There are airspace o pacities in right lower lung zone. No pleural effusion or pneumothorax. The heart size is normal. The re are changes of anterior fusion procedure in cervical spine. Surgical clips in the right upper quad rant are likely from cholecystectomy. IMPRESSION: 1. Severe emphysema. 2. Chronic airspace opacities in right lower lung zone, consistent with mucous plugging in a sequestr ation. Reviewed, dictated and finalized at location A. LING MACHINE OPERATOR IMPRESSION: 1. Severe emphysema. 2. Chronic airspace opacities in right lower lung zone, consistent with mucous plugging in a sequestration.
--- NOTE | 2021-06-06 13:29 | ECG_ITS ---
Measurements Intervals [place] Rate: 71 P: 84 [place]: 148 QRS: 81 QRSD: 90 T: 216 QT: 398 QTc: 435 Interpretive Statements SINUS RHYTHM LEFT VENTRICULAR HYPERTROPHY AND ST-T CHANGE ST-T WAVE ABNORMALITY IN ANTEROLAT/INF LEADS- CONSIDER ISCHEMIA BASELINE ARTIFACT- I, II, III, AVR, AVL, AVF, V4 ABNORMAL ECG Electronically Signed On 06-06-2021 14:55:40 PROGRAM MANUFACTURING LEADER by Gopi Riggs D.O.
[2021-06-06] MEDS: IPRATROPIUM 0.5 MG/ALBUTEROL SULFATE 2.5 MG AMPUL.NEB 3 ML INHALATION ×2 (13:38→19:07)
[2021-06-06 14:02] LABS: Basophils Absolute Auto 0.01 K/mm3 (0.00-0.10); Basophils Percent Auto 0.1 % (0.0-1.0); Hematocrit 41.5 % (35.0-42.0); Hemoglobin 14.3 g/dL (11.7-13.8); Immature Granulocyte Percent A 0.9 % (0.0-0.0); Lymphocytes Absolute Auto 0.29 K/mm3 (1.10-4.50); Lymphocytes Percent Auto 2.5 % (18.0-42.0); Mean Corpuscular HGB Conc 34.5 g/dL (32.0-36.0); Mean Corpuscular Hemoglobin 33.1 pg (27.0-31.0); Mean Corpuscular Volume 96.1 fL (78.0-102.0); Mean Platelet Volume 9.3 fl (9.2-11.8); Monocytes Absolute Auto 0.83 K/mm3 (0.10-0.90); Monocytes Percent Auto 7.2 % (2.0-11.0); Neutrophils Absolute Auto 10.3 K/mm3 (1.7-7.2); Neutrophils Percent Auto 89.3 % (50.0-70.0); Platelet Count Result 168 K/mm3 (150-420); Red Blood Count 4.32 M/mm3 (4.20-5.40); Red Cell Distribution Width 14.1 % (11.6-14.4); White Blood Count 11.6 K/mm3 (4.8-10.8)
[2021-06-06 14:02] LABS: Base Excess ABG -1.9 mmol/L (0-2); HCO3 ABG 21.4 mmol/L (23-29); Oxygen Content ABG 18.6 %vol (16.0-22.0); Oxygen Saturation ABG 95.6 % (95-97); Oxyhemoglobin 93.9 % (94-100); PCO2 ABG 32.2 mmHg (35-45); PO2 ABG 76.9 mmHg (75-85); Total Hemoglobin 14.1 g/dL (12.0-18.0); pH ABG 7.44 (7.35-7.45)
[2021-06-06 14:04] LABS: Device ROOM AIR; Modified Allen's Test Pass; Site Drawn LEFT RADIAL
[2021-06-06] MEDS: FUROSEMIDE INJ 40 MG/4 ML VIAL IV PUSH (14:05)
[2021-06-06] MEDS: methylPREDNISolone SOD SUCC 125 MG VIAL IV PUSH (14:05)
[2021-06-06 14:25] LABS: Alanine Aminotransferase 29 U/L (14-59); Albumin Level 4.1 g/dL (3.4-5.0); Alkaline Phosphatase 66 U/L (46-116); Anion Gap 10 mmol/L (8-16); Aspartate Amino Transferase 13 U/L (15-37); Bilirubin,Total 0.4 mg/dL (0.00-1.00); Blood Urea Nitrogen 23 mg/dL (7-18); Calcium 8.5 mg/dL (8.5-10.1); Carbon Dioxide 27 mmol/L (21-32); Chloride 105 mmol/L (98-108); Estimated CRCL calculation 35 ml/min; Estimated Glomerular Filt Rate 57; Glucose 86 mg/dL (70-99); Osmolality Calculated 296 mOsm/kg (285-295); Potassium 3.8 mmol/L (3.5-5.1); Sodium 142 mmol/L (136-145); Total Protein 7.2 g/dL (6.4-8.2)
[2021-06-06 14:26] LABS: NT Pro B Type Natriuretic Pept 3579 pg/mL (0-125)
--- NOTE | 2021-06-06 14:31 | ED.SOB ---
HPI - SOB/Dyspnea General Chief Complaint: Chest Pain Stated Complaint: Tightness in chest Source: patient Mode of arrival: wheelchair History of Present Illness HPI Narrative: this is a 65-year-old female with history of COPD recently discharged with COPD exacerbation had elevated troponin in the context of elevated BNP patient currently presents with increasing dyspnea on exertion having difficulty lying down flat without getting short of breath and short of breath with minimal exertion. Patient has a history of severe COPD currently taking albuterol as needed. Currently there is no fever chills no chest pain no abdominal pain no flank pain no nausea vomiting. MD elicited complaint: shortness of breath and cough Pertinent past history: COPD and congestive heart failure Onset (ago): day(s) Context: recent illness and anxiety Timing: constant Severity: moderate Exacerbating factors: lying flat Relieving factors: bronchodilators and upright position Known history of: COPD and congestive heart failure Associated symptoms: cough Related Data Home Medications Medication Instructions Recorded Confirmed prednisone 5 mg PO DAILY 06/03/21 06/03/21 Anoro Ellipta 1 inh INHALATION DAILY 06/04/21 06/04/21 Mucinex DM 1 tablet PO Q12H PRN 06/04/21 06/03/21 amlodipine 2.5 mg PO HS 06/04/21 06/04/21 hydroxychloroquine 200 mg PO BID 06/04/21 06/04/21 ipratropium bromide 1 spray INTRANASAL PRN PRN 06/04/21 06/04/21 oxycodone-acetaminophen 1 tablet PO PRN PRN 06/04/21 06/04/21 pravastatin 10 mg PO DAILY 06/04/21 06/04/21 pregabalin 150 mg PO BID 06/04/21 06/04/21 ropinirole 1 mg PO HS 06/04/21 06/04/21 solifenacin 5 mg PO HS 06/04/21 06/04/21 trazodone 100 mg PO HS 06/04/21 06/04/21 zolpidem 10 mg PO HS 06/04/21 06/04/21 Allergies Allergy/AdvReac Type Severity Reaction Status Date / Time Sulfa (Sulfonamide AdvReac Unknown Verified 06/06/21 13:30 Antibiotics) Review of Systems Review of Systems: All systems reviewed & are unremarkable except as noted in HPI and below PMFSH Past Medical History Medical History Altered mental status Anxiety COPD (chronic obstructive pulmonary disease) Lupus Mild cognitive impairment with memory loss Social History Social History Smoking status: Current every day smoker Substance use: never Gender identity (if verbalized by the patient): Female Exam Const: General: no acute distress Orientation/consciousness: patient oriented x3 HENMT: Head: normal to inspection Eyes: Conjunctivae: conjunctivae normal Pupils: Equal, round and reactive pupils present EOM: EOMs intact bilaterally Direct Ophthalmoscopy: no photophobia Neck: Neck: normal visual inspection, no lymphadenopathy and no meningeal signs Chest: Chest palpation & inspection: normal inspection of the chest Resp: Auscultation: diminished lung sounds Cardio: Rate: regular rate Rhythm: regular rhythm GI: GI Palp: Yes Soft to palpation Percussion: Yes normal to percussion : General: Yes no CVA tenderness Skin: General skin exam: normal color Rashes: no rashes Neuro: General: patient oriented x3, moves all extremities, no meningeal signs and no focal motor deficits Extrem: General: normal to inspection and no pedal edema Psych: Mental Status: mental status grossly normal Affect: normal affect Course Course Emergency Course: X-rays and labs reviewed with patient, the patient had nebulizer treatment along with some steroids and a dose of IV Lasix. The patient during reassessment feels that her shortness of breath has improved. Vital Signs Vital signs: Vital Signs Temperature 36.3 C L 06/06/21 13:34 Pulse Rate 82 06/06/21 13:34 Respiratory Rate 16 06/06/21 13:34 Blood Pressure 153/64 H 06/06/21 13:34 Pulse Oximetry 100 06/06/21 13:34 Temperature 36.3 C L 06/06/21 13:34 Pul
[2021-06-06] MEDS: HYDROXYCHLOROQUINE SULFATE 200 MG TABLET PO (16:05)
[2021-06-06] MEDS: oxyCODONE/ACETAMINOPHEN (*CRX) 5-325 MG TABLET 1 TABLET PO (16:05)
[2021-06-06] MEDS: PREGABALIN (*CRX) 50 MG CAPSULE 150 MG PO (16:06)
--- NOTE | 2021-06-06 18:00 | PC.NURSE ---
pt refused dinner, her is bringing her food and will drop it off at the desk
[2021-06-06] MEDS: traZODone HCL 50 MG TABLET 100 MG PO (20:50)
[2021-06-06] MEDS: methylPREDNISolone SOD SUCC 40 MG VIAL IV PUSH (20:51)
[2021-06-06] MEDS: rOPINIRole HCL 1 MG TABLET PO (20:51)
[2021-06-06] MEDS: ENOXAPARIN 30 MG/0.3 ML SYRINGE SUB-Q (20:51)
[2021-06-06] MEDS: amLODIPine BESYLATE 2.5 MG TABLET PO (20:51)
[2021-06-06] MEDS: SOLIFENACIN 5 MG TABLET PO (20:52)
[2021-06-06] MEDS: ZOLPIDEM TARTRATE (*CRX) 5 MG TABLET 10 MG PO (21:17)
[2021-06-07] VITALS (10 sets, daily range): BP systolic 118–154; BP diastolic 57–87; PULSE 67–86; RESP 18–20; TEMP 35.8–37.1; O2SAT 90–100
[2021-06-07] MEDS: IPRATROPIUM 0.5 MG/ALBUTEROL SULFATE 2.5 MG AMPUL.NEB 3 ML INHALATION ×4 (00:52→18:42)
[2021-06-07] MEDS: methylPREDNISolone SOD SUCC 40 MG VIAL IV PUSH ×4 (02:05→21:33)
[2021-06-07] MEDS: oxyCODONE/ACETAMINOPHEN (*CRX) 5-325 MG TABLET 1 TABLET PO ×3 (05:24→18:20)
[2021-06-07 06:10] LABS: Basophils Absolute Auto 0.01 K/mm3 (0.00-0.10); Basophils Percent Auto 0.1 % (0.0-1.0); Hematocrit 41.8 % (35.0-42.0); Hemoglobin 14.1 g/dL (11.7-13.8); Immature Granulocyte Absolute 0.09 K/mm3 (0.00-0.00); Lymphocytes Absolute Auto 0.52 K/mm3 (1.10-4.50); Lymphocytes Percent Auto 5.8 % (18.0-42.0); Mean Corpuscular HGB Conc 33.7 g/dL (32.0-36.0); Mean Corpuscular Hemoglobin 32.6 pg (27.0-31.0); Mean Corpuscular Volume 96.5 fL (78.0-102.0); Mean Platelet Volume 9.5 fl (9.2-11.8); Monocytes Absolute Auto 0.95 K/mm3 (0.10-0.90); Monocytes Percent Auto 10.5 % (2.0-11.0); Neutrophils Absolute Auto 7.4 K/mm3 (1.7-7.2); Neutrophils Percent Auto 82.6 % (50.0-70.0); Platelet Count Result 180 K/mm3 (150-420); Red Blood Count 4.33 M/mm3 (4.20-5.40)
[2021-06-07 06:24] LABS: Alanine Aminotransferase 24 U/L (14-59); Albumin Level 3.8 g/dL (3.4-5.0); Alkaline Phosphatase 60 U/L (46-116); Anion Gap 8 mmol/L (8-16); Aspartate Amino Transferase 10 U/L (15-37); Bilirubin,Total 0.4 mg/dL (0.00-1.00); Blood Urea Nitrogen 26 mg/dL (7-18); Calcium 7.9 mg/dL (8.5-10.1); Carbon Dioxide 28 mmol/L (21-32); Chloride 103 mmol/L (98-108); Estimated CRCL calculation 29 ml/min; Estimated Glomerular Filt Rate 52; Glucose 100 mg/dL (70-99); Magnesium 2.3 mg/dL (1.8-2.4); Osmolality Calculated 292 mOsm/kg (285-295); Potassium 4.1 mmol/L (3.5-5.1); Sodium 139 mmol/L (136-145); Total Protein 6.6 g/dL (6.4-8.2)
--- NOTE | 2021-06-07 06:32 | PC.NURSE ---
Pt stated po pain pilled has helped. Pain is now a 4. She stated this is normal for her.
[2021-06-07 06:43] LABS: NT Pro B Type Natriuretic Pept 2883 pg/mL (0-125)
[2021-06-07 08:44] LABS: Troponin I 33.9 ng/L (0.00-60.4)
[2021-06-07] MEDS: ENOXAPARIN 30 MG/0.3 ML SYRINGE SUB-Q (09:08)
[2021-06-07] MEDS: PREGABALIN (*CRX) 50 MG CAPSULE 150 MG PO ×2 (09:09→21:37)
[2021-06-07] MEDS: PRAVASTATIN SODIUM 20 MG TABLET 10 MG PO (09:11)
[2021-06-07] MEDS: HYDROXYCHLOROQUINE SULFATE 200 MG TABLET PO ×2 (09:11→21:36)
[2021-06-07] MEDS: LORazepam INJ (*CRX) 2 MG/ML VIAL 0.5 MG IV PUSH ×2 (09:16→16:59)
--- NOTE | 2021-06-07 09:16 | PC.NURSE ---
Feeling anxious, can't stop shaking, ativan given, states has been more anxious at home lately, not sure why
--- NOTE | 2021-06-07 09:24 | PM.IMHP ---
H&P: HPI History of Present Illness Date/Time: 06/07/21 09:24 this is a 65-year-old female that was recently discharged from our ED department after being held for transfer for elevated troponin and NSTEMI. Yesterday patient presented back to our emergency department with complaints of shortness of breath. Patient has a past medical history of COPD newly diagnosed congestive heart failure, altered, COPD,, lupus and mild cognitive impairment with memory loss. Patient WBC 11.6 hemoglobin 14.3 hematocrit 41.5 platelets 168, sodium 142, potassium 3.8 BUN 23 creatinine 0.98 glucose 86 , troponin within normal limits, LFT within normal limits, BMP 3579, chest x-ray indicates severe emphysema with a mucous plug in the right lower lobe, EKG sinus rhythm with a heart rate of 71. Patient admitted for congestive heart failure. The patient denies, CP, palpitation, extremity numbness, lightheadedness, dizziness, constipation, diarrhea, chills, or fever. Patient continues to complain of shortness of breath and chest discomfort <JESUSITA Longo - Last Filed: 06/07/21 09:47> Chief Complaint: Shortness of breath <JESUSITA Longo - Last Filed: 06/07/21 09:47> Review of Systems Review of Systems: A 14 organ system Review of Systems was performed and pertinent positives included in the HPI, otherwise remaining ROS is negative. <JESUSITA Longo - Last Filed: 06/07/21 09:47> [facility] Past Medical History Medical History: Medical History Altered mental status Anxiety COPD (chronic obstructive pulmonary disease) Lupus Mild cognitive impairment with memory loss <JESUSITA Longo - Last Filed: 06/07/21 09:47> Social History Social History: Social History Smoking status: Current every day smoker Tobacco type: cigarettes Second hand tobacco smoke exposure: Yes Alcohol intake: never Substance use: never Substance use type: does not use Gender identity (if verbalized by the patient): Female Spiritual care concerns: No <JESUSITA Longo - Last Filed: 06/07/21 09:47> Meds Home Medications and Allergies Home medications: Home Medications Medication Instructions Recorded Confirmed Type albuterol sulfate 1 inh INHALATION QID PRN #8.5 g 04/04/21 06/06/21 Rx prednisone 5 mg PO DAILY 06/03/21 06/06/21 History Anoro Ellipta 1 inh INHALATION DAILY 06/04/21 06/06/21 History Mucinex DM 1 tablet PO Q12H PRN 06/04/21 06/06/21 History amlodipine 2.5 mg PO HS 06/04/21 06/06/21 History hydroxychloroquine 200 mg PO BID 06/04/21 06/06/21 History ipratropium bromide 1 spray INTRANASAL PRN PRN 06/04/21 06/06/21 History oxycodone-acetaminophen 1 tablet PO PRN PRN 06/04/21 06/06/21 History pravastatin 10 mg PO DAILY 06/04/21 06/06/21 History pregabalin 150 mg PO BID 06/04/21 06/06/21 History ropinirole 1 mg PO HS 06/04/21 06/06/21 History solifenacin 5 mg PO HS 06/04/21 06/06/21 History trazodone 100 mg PO HS 06/04/21 06/06/21 History zolpidem 10 mg PO HS 06/04/21 06/06/21 History amoxicillin 875 mg PO Q12H #20 tablet 06/05/21 06/06/21 Rx dextromethorphan-guaifenesin 1 tablet PO Q12H #20 tablet 06/05/21 06/06/21 Rx [Mucinex DM] methylprednisolone [Medrol (Jez)] See Rx Instructions .ROUTE 06/05/21 06/06/21 Rx .COMPLEX #21 ea <JESUSITA Longo - Last Filed: 06/07/21 09:47> Allergies/Adverse reactions: Allergies Allergy/AdvReac Type Severity Reaction Status Date / Time Sulfa (Sulfonamide AdvReac Unknown Verified 06/06/21 13:30 Antibiotics) <JESUSITA Longo - Last Filed: 06/07/21 09:47> Vital Signs Vital Signs - 24 hr 06/06/21 13:34 06/06/21 13:35 06/06/21 13:43 Temperature 97.3 F L Pulse Rate 82 68 76 Respiratory Rate 16 18 20 Blood Pressure 153/64 H Pulse Oximetry 100 97 100 06/06/21 15:10 06/06/21 15:34 06/06/21 15:57 Te
[2021-06-07] MEDS: KETOROLAC 15 MG/ML VIAL (*BKC) IV PUSH (10:06)
[2021-06-07] MEDS: FUROSEMIDE INJ 40 MG/4 ML VIAL IV PUSH ×2 (10:07→16:59)
--- NOTE | 2021-06-07 10:12 | PC.NURSE ---
lasix and ativan given at this time
[2021-06-07] MEDS: FAMOTIDINE 20 MG TABLET PO (13:40)
[2021-06-07] MEDS: BUDESONIDE/FORMOTEROL (*SP) 160-4.5 MCG 6 GM INH 2 PUFF INHALATION (18:19)
--- NOTE | 2021-06-07 19:49 | PC.NURSE ---
Pt is showing signs of anxiety and stated she has not had a bm in 2 days, but this is normal for her and has no abdominal pain related to constipation.
[2021-06-07] MEDS: SOLIFENACIN 5 MG TABLET PO (21:33)
[2021-06-07] MEDS: traZODone HCL 50 MG TABLET 100 MG PO (21:34)
[2021-06-07] MEDS: rOPINIRole HCL 1 MG TABLET PO (21:34)
[2021-06-07] MEDS: amLODIPine BESYLATE 2.5 MG TABLET PO (21:36)
[2021-06-07] MEDS: ZOLPIDEM TARTRATE (*CRX) 5 MG TABLET 10 MG PO (21:44)
[2021-06-08] VITALS: BP 148/80; PULSE 82; RESP 21; TEMP 36.9; O2SAT 89
[2021-06-08] MEDS: IPRATROPIUM 0.5 MG/ALBUTEROL SULFATE 2.5 MG AMPUL.NEB 3 ML INHALATION ×2 (00:46→06:15)
[2021-06-08] MEDS: methylPREDNISolone SOD SUCC 40 MG VIAL IV PUSH ×2 (02:09→09:33)
[2021-06-08] MEDS: oxyCODONE/ACETAMINOPHEN (*CRX) 5-325 MG TABLET 1 TABLET PO ×2 (04:07→09:58)
[2021-06-08] MEDS: LORazepam INJ (*CRX) 2 MG/ML VIAL 0.5 MG IV PUSH ×2 (04:28→09:45)
[2021-06-08 05:15] LABS: Hematocrit 46.3 % (35.0-42.0); Hemoglobin 15.8 g/dL (11.7-13.8); Mean Corpuscular HGB Conc 34.1 g/dL (32.0-36.0); Mean Corpuscular Hemoglobin 32.6 pg (27.0-31.0); Mean Corpuscular Volume 95.7 fL (78.0-102.0); Mean Platelet Volume 9.5 fl (9.2-11.8); Platelet Count Result 181 K/mm3 (150-420); Red Blood Count 4.84 M/mm3 (4.20-5.40); Red Cell Distribution Width 13.7 % (11.6-14.4); White Blood Count 8.8 K/mm3 (4.8-10.8)
[2021-06-08 05:39] LABS: Alanine Aminotransferase 21 U/L (14-59); Albumin Level 4.1 g/dL (3.4-5.0); Alkaline Phosphatase 70 U/L (46-116); Anion Gap 9 mmol/L (8-16); Aspartate Amino Transferase 11 U/L (15-37); Bilirubin,Total 0.4 mg/dL (0.00-1.00); Blood Urea Nitrogen 37 mg/dL (7-18); Carbon Dioxide 31 mmol/L (21-32); Chloride 98 mmol/L (98-108); Estimated CRCL calculation 21 ml/min; Estimated Glomerular Filt Rate 36; Glucose 151 mg/dL (70-99); Magnesium 2.3 mg/dL (1.8-2.4); NT Pro B Type Natriuretic Pept 4805 pg/mL (0-125); Osmolality Calculated 297 mOsm/kg (285-295); Sodium 138 mmol/L (136-145); Total Protein 7.2 g/dL (6.4-8.2)
[2021-06-08 06:16] VITALS: PULSE 82; RESP 22; O2SAT 92
[2021-06-08 06:25] VITALS: PULSE 83; RESP 22; O2SAT 92
[2021-06-08] MEDS: BUDESONIDE/FORMOTEROL (*SP) 160-4.5 MCG 6 GM INH 2 PUFF INHALATION (06:31)
[2021-06-08 07:45] VITALS: BP 141/77; PULSE 90; RESP 18; TEMP 36.4; O2SAT 92
[2021-06-08] MEDS: FUROSEMIDE INJ 40 MG/4 ML VIAL IV PUSH (09:32)
[2021-06-08] MEDS: PREGABALIN (*CRX) 50 MG CAPSULE 150 MG PO (09:32)
[2021-06-08] MEDS: NICOTINE (*PBKC) 14 MG PATCH 1 PATCH TRANSDERM (09:33)
[2021-06-08] MEDS: HYDROXYCHLOROQUINE SULFATE 200 MG TABLET PO (09:33)
[2021-06-08] MEDS: ENOXAPARIN 40 MG/0.4 ML SYRINGE SUB-Q (09:34)
--- NOTE | 2021-06-08 10:29 | P.PN_ITS ---
Progress Note: A&P Assessment and Plan (1) CHF (congestive heart failure): Qualifiers: Heart failure chronicity: acute Heart failure type: diastolic Qualified Code(s): I50.31 - Acute diastolic (congestive) heart failure <JESUSITA Longo - Last Filed: 06/08/21 12:42> Code(s): I50.9 - Heart failure, unspecified <JESUSITA Longo - Last Filed: 06/08/21 12:42> Status: Acute <JESUSITA Longo - Last Filed: 06/08/21 12:42> Assessment and Plan: * Chest x-ray indicate 1. Severe emphysema. 2. Worsened mild airspace opacities in left lower lung zone, consistent with atelectasis versus pneumonia. 3. Chronic airspace opacities in right lower lung zone, consistent with mucous plugging in a sequestration. * BNP 2579>[id number]>4805 * Lasix 40 mg twice daily * Weight daily * Patient to see cardiology tomorrow at 1:00 PM <JESUSITA Longo - Last Filed: 06/08/21 12:42> (2) COPD (chronic obstructive pulmonary disease): Qualifiers: COPD type: emphysema Emphysema type: panlobular Qualified Code(s): J43.1 - Panlobular emphysema <JESUSITA Longo - Last Filed: 06/08/21 12:42> Code(s): J44.9 - Chronic obstructive pulmonary disease, unspecified <JESUSITA Longo - Last Filed: 06/08/21 12:42> Status: Acute <JESUSITA Longo - Last Filed: 06/08/21 12:42> Assessment and Plan: * Current smoker continue nebulizers and inhalers along with steroid use * Educated on cessation <JESUSITA Longo - Last Filed: 06/08/21 12:42> (3) Mild cognitive impairment with memory loss: Code(s): G31.84 - Mild cognitive impairment, so stated <JESUSITA Longo - Last Filed: 06/08/21 12:42> Status: Acute <CHRISTINE LongoC - Last Filed: 06/08/21 12:42> (4) Anxiety: Code(s): F41.9 - Anxiety disorder, unspecified <Sarah SmithJESUSITA - Last Filed: 06/08/21 12:42> Status: Acute <Sarah SmithJESUSITA - Last Filed: 06/08/21 12:42> Assessment and Plan: * Started Ativan <Sarah ElkinsJESUSITA Mccullough - Last Filed: 06/08/21 12:42> (5) Lupus: Code(s): M32.9 - Systemic lupus erythematosus, unspecified <Sarah Encians JESUSITA Smith - Last Filed: 06/08/21 12:42> Status: Acute <Sarah SmithJESUSITA - Last Filed: 06/08/21 12:42> Assessment and Plan: * Continue home medication <AlexJESUSITA Roy - Last Filed: 06/08/21 12:42> (6) Acute kidney injury: Code(s): N17.9 - Acute kidney failure, unspecified <Sarah SmithJESUSITA - Last Filed: 06/08/21 12:42> Status: Acute <Sarah SmithJESUSITA - Last Filed: 06/08/21 12:42> Assessment and Plan: * Secondary to the use of diuretic * cr 1.06>1.44 * Will avoid nephrotoxins * Will repeat CMP on discharge * Renal dose medication <Sarah ElkinsJESUSITA Mccullough - Last Filed: 06/08/21 12:42> Subjective Date/time seen: 06/08/21 10:29 patient notes that she is a little shaky she thinks is probably due to steroid use she did note that the Ativan helps with her shakiness. She has no other complaints she does think that her condition has improved. Plans are to complete a home O2 evaluation in the morning and discharge earliest possible so that she can make her 1:00 cardiology appointment. The patient denies CP, palpitation, extremity numbness, lightheadedness, dizziness, constipation, diarrhea, chills, or fever. <Sarah SeveroJESUSITA Mccullough - Last Filed: 06/08/21 12:42> Review of Systems
--- NOTE | 2021-06-08 10:29 | WPDPN ---
Progress Note: A&P Assessment and Plan (1) CHF (congestive heart failure): Qualifiers: Heart failure chronicity: acute Heart failure type: diastolic Qualified Code(s): I50.31 - Acute diastolic (congestive) heart failure <JESUSITA Longo - Last Filed: 06/08/21 12:42> Code(s): I50.9 - Heart failure, unspecified <JESUSITA Longo - Last Filed: 06/08/21 12:42> Status: Acute <JESUSITA Longo - Last Filed: 06/08/21 12:42> Assessment and Plan: Chest x-ray indicate 1. Severe emphysema. 2. Worsened mild airspace opacities in left lower lung zone, consistent with atelectasis versus pneumonia. 3. Chronic airspace opacities in right lower lung zone, consistent with mucous plugging in a sequestration. BNP 2579>[id number]>4805 Lasix 40 mg twice daily Weight daily Patient to see cardiology tomorrow at 1:00 PM <JESUSITA Longo - Last Filed: 06/08/21 12:42> (2) COPD (chronic obstructive pulmonary disease): Qualifiers: COPD type: emphysema Emphysema type: panlobular Qualified Code(s): J43.1 - Panlobular emphysema <JESUSITA Longo - Last Filed: 06/08/21 12:42> Code(s): J44.9 - Chronic obstructive pulmonary disease, unspecified <JESUSITA Longo - Last Filed: 06/08/21 12:42> Status: Acute <JESUSITA Longo - Last Filed: 06/08/21 12:42> Assessment and Plan: Current smoker continue nebulizers and inhalers along with steroid use Educated on cessation <JESUSITA Longo - Last Filed: 06/08/21 12:42> (3) Mild cognitive impairment with memory loss: Code(s): G31.84 - Mild cognitive impairment, so stated <JESUSITA Longo - Last Filed: 06/08/21 12:42> Status: Acute <JESUSITA Longo - Last Filed: 06/08/21 12:42> (4) Anxiety: Code(s): F41.9 - Anxiety disorder, unspecified <Sarah Encinas JESUSITA Smith - Last Filed: 06/08/21 12:42> Status: Acute <Sarah SmithJESUSITA - Last Filed: 06/08/21 12:42> Assessment and Plan: Started Ativan <JESUSITA Longo - Last Filed: 06/08/21 12:42> (5) Lupus: Code(s): M32.9 - Systemic lupus erythematosus, unspecified <Sarah SeveroJESUSITA Mccullough - Last Filed: 06/08/21 12:42> Status: Acute <Sarah SeveroJESUSITA Mccullough - Last Filed: 06/08/21 12:42> Assessment and Plan: Continue home medication <JESUSITA Longo - Last Filed: 06/08/21 12:42> (6) Acute kidney injury: Code(s): N17.9 - Acute kidney failure, unspecified <Sarah Encinas JESUSITA Smith - Last Filed: 06/08/21 12:42> Status: Acute <Alexremy Ce JESUSITA Smith - Last Filed: 06/08/21 12:42> Assessment and Plan: Secondary to the use of diuretic cr 1.06>1.44 Will avoid nephrotoxins Will repeat CMP on discharge Renal dose medication <Sarah SeveroJESUSITA Mccullough - Last Filed: 06/08/21 12:42> Subjective Date/time seen: 06/08/21 10:29 patient notes that she is a little shaky she thinks is probably due to steroid use she did note that the Ativan helps with her shakiness. She has no other complaints she does think that her condition has improved. Plans are to complete a home O2 evaluation in the morning and discharge earliest possible so that she can make her 1:00 cardiology appointment. The patient denies CP, palpitation, extremity numbness, lightheadedness, dizziness, constipation, diarrhea, chills, or fever. <JESUSITA Longo - Last Filed: 06/08/21 12:42> Review of Systems Review of Systems: A 14 organ system Review of Systems was performed and pertinent positives included in the HPI, otherwise remaining ROS is negative. <Sarah Smith, NURSE PRACTITIONER PER DIEM-C - Last Filed: 06/08/21 12:42> Exam Narrative: GENERAL: 2-year-old female in no apparent distress. HEAD: normocephalic, atraumatic. EYES: PERRL. Sclera clear/white. Vision is gr
[2021-06-08 12:05] VITALS: PULSE 100; O2SAT 95
[2021-06-08 12:12] VITALS: PULSE 112; O2SAT 97
--- NOTE | 2021-06-08 12:43 | HOMEO2EVAL ---
Evaluation was performed at [facility] [place] [facility] Oxygen Evaluation [facility]: Home Oxygen (O2) Evaluation Start: 06/08/21 12:31 Freq: ONCE Status: Active Protocol: RPE Activity Type Activity Date Activity User E-Sign Co-Sign Detail Recorded Client Recorded Date Recorded By Document 06/08/21 12:05 SANGEETA [id number] 06/08/21 12:42 SANGEETA Document 06/08/21 12:12 SANGEETA [id number] 06/08/21 12:42 SANGEETA 06/08/21 06/08/21 12:05 12:12 Home O2 Evaluation Test Phase Resting Exercise Oxygen Delivery Room Air Room Air Pulse Oximetry (90-100 %) 95 97 Pulse Rate (60-100 beats/min) 100 112 H Activity Tolerance Good Rating of Perceived Dyspnea (PD) +1 Mild, Noticeable to the Participant but Not to an Observer Rate of Perceived Exertion (PE) 11 Fairly light Ambulation Distance (feet) 450 Home Oxygen Evaluation Comments Will start walk Pt. walked on room air pushing w/c on room air. Maintained Sp02 >95%. encouraged PLB. Treatment Charges O2 Evaluation - Inpatient
[2021-06-08] MEDS: FUROSEMIDE INJ 100 MG/10 ML VIAL 80 MG IV PUSH (13:30)
--- NOTE | 2021-06-08 14:35 | PC.NURSE ---
All discharge instructions and education reviewed with patient. Patient states understanding. IV site removed, tip intact. Dressing applied to site. All belongings gathered together and sent home with patient. Medications returned to patient. Patient accompanied to front door via wheelchair by this nurse. Left via private vehicle with . Denies any questions at discharge.
== END 2021-06-08 14:35 | disposition home or self-care (01) | DRG 292 ==
LOC: CHSED 14:37 → CHS2ND 14:59
PROVIDERS: Nurse Practitioner; Admitting Provider Emergency Medicine; Emergency Provider Emergency Medicine; PCP Hospitalist; Visit Provider Emergency Medicine
DX: J43.1 Panlobular emphysema (principal); I50.31 Acute diastolic (congestive) heart failure; T17.890A Other foreign object in other parts of respiratory tract causing asphyxiation, initial encounter; F41.9 Anxiety disorder, unspecified; F17.200 Nicotine dependence, unspecified, uncomplicated; J43.9 Emphysema, unspecified; M32.9 Systemic lupus erythematosus, unspecified; G31.84 Mild cognitive impairment of uncertain or unknown etiology; F17.210 Nicotine dependence, cigarettes, uncomplicated
CPT/HCPCS: 36415; 36600; 71045; 71046; 80053; 82805; 83735; 83880; 84484; 85025; 85027; 87040; 93005; 94618; 94640; 96374; 96375; 99285; A9270; J1650; J1885; J1940; J2060; J2920; J2930

== ENCOUNTER 2021-06-11 10:14 | Outpatient (CLI) | payer MEDICARE, SELFPAY ==
[2021-06-11 10:35] VITALS: PULSE 91; O2SAT 92
[2021-06-11 10:45] VITALS: PULSE 106; O2SAT 94
--- NOTE | 2021-06-11 11:00 | HOMEO2EVAL ---
Evaluation was performed at [facility] Home Oxygen Evaluation RC: Home Oxygen (O2) Evaluation Start: 06/11/21 10:48 Freq: Status: Active Protocol: RPE Activity Type Activity Date Activity User E-Sign Co-Sign Detail Recorded Client Recorded Date Recorded By Document 06/11/21 10:35 SJKarla [id number] 06/11/21 11:00 SJB Document 06/11/21 10:45 SJB [id number] 06/11/21 11:00 SJB 06/11/21 06/11/21 10:35 10:45 Home O2 Evaluation Test Phase Resting Exercise Oxygen Delivery Room Air Room Air Pulse Oximetry (90-100 %) 92 94 Pulse Rate (60-100 beats/min) 91 106 H Activity Tolerance Fair Rating of Perceived Dyspnea (PD) +4 Severe Difficulty, Participant Cannot Continue Rate of Perceived Exertion (PE) 17 Very Hard Ambulation Distance (feet) 170 Ambulation Distance (meters) 51.81 Home Oxygen Evaluation Comments WILL BEGIN WALK PT WALKED . APPROX 170 FT PUSHING W/C ON ROOM AIR. STOPPED X 3 DUE TO C/O DIZZINESS/ WEAKNESS. PLB CONSTANTLY ENCOURAGED/RE- EDUCATED TO REMEMBER TO DO IT. SP02 REMAINED 94% AND ABOVE THROUGH OUT WALK. HR UP TO 106 DURING EXERCISE. Treatment Charges O2 Evaluation - Outpatient
[2021-06-12 11:14] LABS: Anion Gap 16 mmol/L (8-16); Blood Urea Nitrogen 71 mg/dL (7-18); Calcium 7.7 mg/dL (8.5-10.1); Carbon Dioxide 30 mmol/L (21-32); Chloride 88 mmol/L (98-108); Estimated Glomerular Filt Rate 26; Glucose 214 mg/dL (70-99); Osmolality Calculated 304 mOsm/kg (285-295); Potassium 3.1 mmol/L (3.5-5.1); Sodium 134 mmol/L (136-145)
== END 2021-06-11 10:15 | disposition home or self-care (01) ==
PROVIDERS: PCP Hospitalist; Visit Provider Internal Medicine Cardiovascular Disease
DX: I50.32 Chronic diastolic (congestive) heart failure (principal); R09.02 Hypoxemia
CPT/HCPCS: 36415; 80048; 94618

== ENCOUNTER 2021-06-20 09:59 | Outpatient (CLI) | payer MEDICARE, SELFPAY ==
[2021-06-20 11:20] LABS: Alanine Aminotransferase 36 U/L (14-59); Alkaline Phosphatase 74 U/L (46-116); Anion Gap 9 mmol/L (8-16); Aspartate Amino Transferase 21 U/L (15-37); Bilirubin,Total 0.2 mg/dL (0.00-1.00); Blood Urea Nitrogen 16 mg/dL (7-18); Calcium 8.3 mg/dL (8.5-10.1); Carbon Dioxide 29 mmol/L (21-32); Chloride 106 mmol/L (98-108); Estimated Glomerular Filt Rate > 60; Glucose 62 mg/dL (70-99); Osmolality Calculated 297 mOsm/kg (285-295); Potassium 4.1 mmol/L (3.5-5.1); Sodium 144 mmol/L (136-145); Total Protein 5.7 g/dL (6.4-8.2)
== END 2021-06-20 10:00 | disposition home or self-care (01) ==
LOC: CHSLAB 10:00
PROVIDERS: PCP Hospitalist; Visit Provider Nurse Practitioner
DX: N17.9 Acute kidney failure, unspecified (principal)
CPT/HCPCS: 36415; 80053

== ENCOUNTER 2021-06-20 14:45 | Inpatient (IN) | payer MEDICARE, SELFPAY ==
[2021-06-20] VITALS (11 sets, daily range): BP systolic 109–144; BP diastolic 47–79; PULSE 70–93; RESP 16–27; TEMP 36.2; O2SAT 96–100
--- NOTE | ~2021-06-20 | XR_ITS ---
EXAMINATION: XR chest 2V DATE: 06/20/2021 15:33 INDICATION: Chest tightness, shortness of breath and palpitations TECHNIQUE: PA and lateral views of the chest were obtained. COMPARISON: Chest radiograph dated 06/07/[address] dated 06/03/2021 FINDINGS: Emphysema with hyperexpansion lungs, architectural distortion with bronchovascular crowding in the lo wer lungs. Nodular opacity in the anterior right lower lung zone which corresponds to mucous plugging within a pulmonary sequestration on prior CT. Cardiomediastinal silhouette is normal. Old healed fra cture at the right humeral neck IMPRESSION: 1. Severe emphysema. 2. Chronic nodular opacity in the right lower lung zone consistent with mucous plugging in a sequestr ation. Reviewed, dictated and finalized at location A. MECHANIC APPRENTICE IMPRESSION: 1. Severe emphysema. 2. Chronic nodular opacity in the right lower lung zone consistent with mucous plugging in a sequestration.
--- NOTE | ~2021-06-20 | US_ITS ---
EXAMINATION: US arterial duplex LE RT EXAM DATE: 06/24/2021 13:47 INDICATION: Abnormal right groin physical exam. Pseudoaneurysm. TECHNIQUE: Multiple grayscale, duplex images of the right groin were obtained (by a technologist who performed the scan) and subsequently reviewed. There is no prior study for comparison. FINDINGS: The right common femoral artery has a normal triphasic waveform. The right common femoral vein, profu nda and greater saphenous veins also have normal venous waveforms. There is no evidence of pseudoaneu rysm. IMPRESSION: No right groin pseudoaneurysm or venous thrombosis. Reviewed, dictated and finalized at location G. LRY SETTER
--- NOTE | 2021-06-20 14:49 | ECG_ITS ---
Measurements Intervals [place] Rate: 80 P: 75 MA: 144 QRS: 63 QRSD: 98 T: 145 QT: 383 QTc: 443 Interpretive Statements SINUS RHYTHM EARLY PRECORDIAL R/S TRANSITION LEFT VENTRICULAR HYPERTROPHY AND ST-T CHANGE ST-T WAVE ABNORMALITY IN ANTEROLATERAL LEADS- CONSIDER ISCHEMIA BASELINE ARTIFACT- I, II, III, AVR, AVL, AVF, V1-V6 ABNORMAL ECG Electronically Signed On 06-20-2021 15:30:51 SHED BOSS by Gopi Riggs D.O.
[2021-06-20 15:05] LABS: Basophils Percent Auto 0.5 % (0.2-1.2); Eosinophils Percent Auto 0.2 % (0-4.4); Hemoglobin 13.4 g/dL (12.0-15.0); Immature Granulocyte Absolute 0.07 K/mm3 (0.00-0.031); Immature Granulocyte Percent A 0.9 % (0-0.5); Lymphocytes Absolute Auto 0.97 K/mm3 (0.9-3.2); Mean Corpuscular HGB Conc 33.5 g/dl (32-36); Mean Corpuscular Hemoglobin 33.6 pg (26-34); Mean Corpuscular Volume 100.3 fl (80-100); Mean Platelet Volume 8.9 fl (7.4-10.4); Monocytes Absolute Auto 0.4 K/mm3 (0.1-0.6); Monocytes Percent Auto 4.8 % (2.6-8.5); Neutrophils Absolute Auto 6.6 K/mm3 (1.3-6.7); Neutrophils Percent Auto 81.6 % (45.5-73.1); Platelet Count Result 198 k/mm3 (150-375); Red Blood Count 3.99 M/mm3 (4.2-5.4); White Blood Count 8.1 K/mm3 (4.5-10.0)
[2021-06-20 15:17] LABS: INR 0.8
[2021-06-20 15:18] LABS: Partial Thromboplastin Time 25.4 SECONDS (22.3-36.8)
--- NOTE | 2021-06-20 15:24 | ED.ARRPALP ---
HPI - Arrhythmia/Palpitations General Chief Complaint: Arrhythmia/Palpitations <Claudette Keenan PA-C - Last Filed: 06/20/21 22:37> Stated Complaint: chest discomfort <Claudette Keenan PA-C - Last Filed: 06/20/21 22:37> Time Seen by Provider: 06/20/21 15:23 <Claudette Keenan PA-C - Last Filed: 06/20/21 22:37> Source: patient <ELKIN Claudio Last Filed: 06/20/21 22:37> Mode of arrival: ambulatory <ELKIN Claudio Last Filed: 06/20/21 22:37> Limitations: no limitations <ELKIN Claudio Last Filed: 06/20/21 22:37> History of Present Illness HPI narrative: This is a 66 year old female that presents to the ER for shortness of breath today. Reports she has had a funny feeling in her chest today as well. Does not explain it as a pain. Reports a mild cough. She is COVID vaccinated and boosted. Reports she was recently kept in [facility] in the ER awaiting a bed here at [place] for an NSTEMI. She saw Cardiology outpatient after this and is scheduled for a stress test next Wednesday. Denies fever, or lower extremity edema. <Claudette Keenan PA-C - Last Filed: 06/20/21 22:37> Related Data Home Medications: Home Medications Medication Instructions Recorded Confirmed prednisone 5 mg PO DAILY 06/03/21 06/06/21 amlodipine 2.5 mg PO HS 06/04/21 06/06/21 hydroxychloroquine 200 mg PO BID 06/04/21 06/06/21 ipratropium bromide 1 spray INTRANASAL PRN PRN 06/04/21 06/06/21 oxycodone-acetaminophen 1 tablet PO PRN PRN 06/04/21 06/06/21 pravastatin 10 mg PO DAILY 06/04/21 06/06/21 pregabalin 150 mg PO BID 06/04/21 06/06/21 ropinirole 1 mg PO HS 06/04/21 06/06/21 solifenacin 5 mg PO HS 06/04/21 06/06/21 trazodone 100 mg PO HS 06/04/21 06/06/21 zolpidem 10 mg PO HS 06/04/21 06/06/21 <Claudette Keenan PA-C - Last Filed: 06/20/21 22:37> Allergies/Adverse Reactions: Allergies Allergy/AdvReac Type Severity Reaction Status Date / Time Sulfa (Sulfonamide AdvReac Unknown Verified 06/20/21 15:01 Antibiotics) <Claudette Keenan PA-C - Last Filed: 06/20/21 22:37> Review of Systems Review of Systems: CONSTITUTIONAL: Denies fever CARDIOVASCULAR: Reports chest pain. Denies edema. RESPIRATORY: Reports cough and dyspnea. <Claudette Keenan PA-C - Last Filed: 06/20/21 22:37> All systems reviewed & are unremarkable except as noted in HPI and below <Claudette Keenan PA-C - Last Filed: 06/20/21 22:37> PMFSH Past Medical History Medical History: Medical History Altered mental status Anxiety COPD (chronic obstructive pulmonary disease) Lupus Mild cognitive impairment with memory loss <Claudette Keenan PA-C - Last Filed: 06/20/21 22:37> Social History Social History: Social History Smoking status: Current every day smoker Tobacco type: cigarettes Second hand tobacco smoke exposure: Yes Alcohol intake: never Substance use: never Substance use type: does not use Gender identity (if verbalized by the patient): Female Spiritual care concerns: No <Claudette Keenan PA-C - Last Filed: 06/20/21 22:37> Exam Narrative: GENERAL: Well-appearing, well-nourished, and in no acute distress. HEAD: Normocephalic, atraumatic. EYES: EOMI. ENT: Nares clear, no rhinorrhea or epistaxis. Mucous membranes moist. Oropharynx without tonsillar hypertrophy exudate or other lesions. Bilateral TMs pearly hernandez non-bulging NECK: Supple. No adenopathy or masses. CHEST: No respiratory distress. Lung sounds diminished with scattered wheezing. No rales or rhonchi HEART: Regular rate and rhythm. No murmur heard. Normal peripheral pulses. EXTREMITIES: Normal range of motion. No edema. SKIN: Warm, dry, no rash. NEURO: No focal deficits. Alert and oriented x3. PSYCH: Normal mood and affect <Claudette Keenan PA-C - Last Filed: 06/20/21 22:37> Course DESIGNER/YONI
[2021-06-20 15:30] LABS: Alanine Aminotransferase 33 U/L (4-35); Albumin Level 3.7 g/dL (3.5-5.1); Alkaline Phosphatase 76 U/L (38-126); Anion Gap 6 mmol/L (8-16); Aspartate Amino Transferase 31 U/L (14-36); Bilirubin,Total 0.2 mg/dL (0.2-1.3); Blood Urea Nitrogen 18 mg/dL (7-17); Calcium 8.8 mg/dL (8.4-10.2); Carbon Dioxide 29 mmol/L (22-30); Chloride 106 mmol/L (98-107); Estimated CRCL calculation 53 ml/min; Estimated Glomerular Filt Rate > 60; Glucose 112 mg/dL (65-110); Lipase 47 U/L (23-300); Potassium 4.2 mmol/L (3.4-5.0); Sodium 141 mmol/L (137-145)
[2021-06-20 15:40] LABS: Troponin I 0.031 ng/mL (0.000-0.034)
[2021-06-20] MEDS: ALBUTEROL SULFATE NEB 2.5 MG/0.5 ML INH 5 MG INHALATION (16:28)
[2021-06-20] MEDS: IPRATROPIUM BR 0.02% INH SOLN 0.5 MG/2.5 ML VIAL INHALATION (16:29)
[2021-06-20 16:34] LABS: Base Excess ABG -2.7 mEq/l (+/-2.0); Oxygen Saturation ABG 95.6 % (95.0-100.0); PO2 ABG 76.1 mmHg (80.0-100.0); Total Hemoglobin 12.1 g/dL (12.0-18.0); pH ABG 7.422 (7.350-7.450)
[2021-06-20 16:35] LABS: Carboxyhemoglobin 0.5 % THb (0-2.0); Methemoglobin ABG 0.3 %THb (0-1.5); Reduced Hemoglobin 4.2 %THb (0-5.0)
[2021-06-20 16:36] LABS: Device ROOM AIR; Fractional Inspired Oxygen 21 %; Modified Allen's Test Pass; Site Drawn RIGHT RADIAL
[2021-06-20] MEDS: methylPREDNISolone SOD SUCC 125 MG VIAL IV PUSH (16:40)
[2021-06-20] MEDS: ASPIRIN 81 MG CHEWABLE TABLET 324 MG PO (18:25)
[2021-06-20 18:55] LABS: NT Pro B Type Natriuretic Pept 3750 pg/mL (5-100)
[2021-06-20 19:09] LABS: Troponin I 0.043 ng/mL (0.000-0.034)
[2021-06-20] MEDS: HYDROcodone/acetaminophen (*CRX) 5-325 MG TABLET 1 TAB PO (20:03)
--- NOTE | 2021-06-20 21:25 | ECG_ITS ---
Measurements Intervals [place] Rate: 77 P: 78 WV: 142 QRS: 58 QRSD: 92 T: 131 QT: 383 QTc: 434 Interpretive Statements SINUS RHYTHM LEFT VENTRICULAR HYPERTROPHY AND ST-T CHANGE ST-T WAVE ABNORMALITY IN ANTEROLAT/HIGH LAT LEADS- CONSIDER ISCHEMIA BASELINE ARTIFACT- I, II, III, AVR, AVL, AVF ABNORMAL ECG Electronically Signed On 06-21-2021 5:56:38 EXHAUST EQUIPMENT OPERATOR by Gopi Riggs D.O.
[2021-06-20] MEDS: ENOXAPARIN 60 MG/0.6 ML SYRINGE 38 MG SUB-Q (21:32)
[2021-06-20 22:28] LABS: SARS-CoV-2 RNA PCR Negative
[2021-06-21] VITALS (25 sets, daily range): BP systolic 109–141; BP diastolic 48–79; PULSE 67–97; RESP 18–34; TEMP 36.6–37.3; O2SAT 95–100; BMI 16.3
[2021-06-21] MEDS: methylPREDNISolone SOD SUCC 125 MG VIAL 60 MG IV PUSH ×4 (00:30→19:54)
--- NOTE | 2021-06-21 01:20 | PM.IMHP ---
H&P: HPI History of Present Illness Date/Time: 06/20/21 23:30 Chief Complaint: Funny sensation in her chest Narrative: 66-year-old female with a past medical history of severe emphysematous changes on imaging and COPD, diastolic dysfunction, elevated right atrial pressures, and recent non STEMI who presented to the ER with a sensation of fluttering her chest and chest tightness. The patient reported that she was evaluated on the 03 of June at [facility] due to shortness of breath is worse with exertion. She also had a sensation of chest tightness wheezing and chest chest congestion. She was diagnosed with a COPD exacerbation and elevated troponins and was monitored at [place] while she awaited of bed at [place]. A bed not become available and the patient was subsequently discharged home on the with a follow-up appointment to see Cardiology. The patient returned to [place] on the with recurrence of symptoms and diagnosed with COPD exacerbation and CHF receive nebulizer treatments and Lasix. She did not have elevated cardiac enzymes at that time and was discharged home June 09 so that she could make it to her cardiology appointment. She was evaluated by Cardiology and a stress test was ordered for the . However, earlier this afternoon the patient began having a recurrence of funny sensation in her chest associated with some mild cough. She describes the sensation as possible mild fluttering in her chest. When she arrived to the ER her cardiac rhythm was normal. She denies having lower extremity swelling or abdominal swelling. She has been having some dyspnea is worse with exertion and with lying flat. She was noted to have diminished breath sounds at the bases with scattered wheezing in anterior desai. She received steroids and a nebulizer treatment in the ER with improvement in her symptoms. Her initial troponin was negative but repeat troponin was minimally positive. Her BNP was elevated at 37 50. The patient did have some T-wave inversions on her EKG but these were essentially unchanged from prior exam. The patient is afraid that she is going to due to her COPD. Review of Systems Review of Systems: 12 systems were reviewed with pertinent positives and negatives per HPI. Except as documented in the HPI, all other systems were reviewed and are negative. [facility] Past Medical History Medical History (Updated 06/21/21 @ 08:26 by Kim Blair DO) Altered mental status Anxiety Cataracts, bilateral developing CHF (congestive heart failure) Echo 06/03/2021: Normal EF 60-65%, global longitudinal strain abnormal-14%, diastolic dysfunction grade 1, E/E tendon is mildly elevated, elevated right atrial pressures at 10mmHg COPD (chronic obstructive pulmonary disease) Lupus Mild cognitive impairment with memory loss Surgical History Surgical History (Updated 06/21/21 @ 01:29 by Kim Blair DO) H/O hysterectomy for benign disease History of lithotripsy Hx of cholecystectomy Family History Family History (Updated 06/21/21 @ 08:15 by Kim Blair DO) Father , 56 years old COPD (chronic obstructive pulmonary disease) Heart disease Mother , 62 years old No problems noted. Sibling Healthy female Social History Social History (Updated 06/21/21 @ 08:13 by Kim Blair DO) Social History: She lives at home with her of 49 years. She has smoked 1 pack of cigarettes per day since he was a teenager but quit smoking on the 03 of June. Smoking packs per day: 1 Smoking cigarettes per day: 20.0 Years smoked: 50 Smoking pack-years: 50.00 Smoking status: Current every day smoker Tobacco type: cigarettes Second hand tobacco smoke exposure: Yes Smoking end date: 06/03/21 Alcohol intake: never Substance use: never Substance use type: does not use Occupation/Education: retired Additional occupation/education comments: She
[2021-06-21] MEDS: SOLIFENACIN 5 MG TABLET PO ×2 (01:32→22:26)
[2021-06-21] MEDS: traZODone HCL 50 MG TABLET 100 MG PO ×2 (01:33→22:26)
[2021-06-21] MEDS: rOPINIRole HCL 1 MG TABLET PO ×2 (01:33→22:27)
[2021-06-21] MEDS: amLODIPine BESYLATE 2.5 MG TABLET PO ×2 (01:33→22:26)
[2021-06-21] MEDS: ZOLPIDEM TARTRATE (*CRX) 5 MG TABLET 10 MG PO ×2 (02:05→22:27)
[2021-06-21] MEDS: LORazepam (*CRX) 1 MG TABLET PO ×3 (02:05→17:22)
[2021-06-21] MEDS: PREGABALIN (*CRX) 75 MG CAPSULE 150 MG PO ×3 (02:05→17:22)
[2021-06-21] MEDS: ALBUTEROL SULFATE NEB 2.5 MG/0.5 ML INH 5 MG INHALATION ×3 (02:30→19:26)
[2021-06-21] MEDS: IPRATROPIUM BR 0.02% INH SOLN 0.5 MG/2.5 ML VIAL INHALATION ×3 (02:31→19:26)
--- NOTE | 2021-06-21 06:40 | PC.NURSE ---
[facility] called and accepted the transfer but did not give an ETA
[2021-06-21] MEDS: oxyCODONE/ACETAMINOPHEN (*CRX) 5-325 MG TABLET 1 TABLET PO ×3 (07:25→22:27)
--- NOTE | 2021-06-21 08:57 | PM.CNCAR ---
Assessment and Plan Assessment and plan (1) Chest discomfort: Code(s): R07.89 - Other chest pain Status: Acute Assessment and Plan: Patient presents with a ?funny feeling in her chest? and palpitations. She did have chest tightness when she had her non-STEMI on June 03 but has not had any typical angina since then. However, this is the 3rd ER visit in less than 3 weeks. I She has dynamic T-wave inversion anterior laterally, so I am very concerned that this is a manifestation of unstable angina. Fortunately I do not see any Q-waves to suggest to compete completed infarct. I suspect she has a Left anterior descending stenosis. I am recommending further evaluation with a cardiac catheterization. She is a very petite lady and probably has very small arteries, which may be more difficult to address. Discussed with patient , reviewed cardiac catheterization procedure, possibility of stenting and dual anti-platelet therapy, possibility of medical therapy, possibility of recommending CABG. We can schedule a cardiac catheterization Wednesday. May need assistance of anesthesia to help w/ COPD and keeping pt comfortable 2nd severe back pain supine. Continue Lovenox full dose over the w/e Continue ASA Hesitant to use BB in view of COPD; will try low dose metop 12.5 mg BID Reviewed w/ Dr. Rolle also who is in agreement (2) Abnormal EKG: Code(s): R94.31 - Abnormal electrocardiogram [ECG] [EKG] Status: Acute Assessment and Plan: Dynamic EKG changes as above. (3) Elevated troponin: Code(s): R77.8 - Other specified abnormalities of plasma proteins Status: Acute Assessment and Plan: Troponins have been more significantly elevated on her 2 prior ER visits, minimally elevated this visit. (4) COPD (chronic obstructive pulmonary disease): Qualifiers: COPD type: emphysema Emphysema type: panlobular Qualified Code(s): J43.1 - Panlobular emphysema Code(s): J44.9 - Chronic obstructive pulmonary disease, unspecified Status: Acute Assessment and Plan: Has severe COPD. FElt SOBApparently she was wheezing initially but cleared with an albuterol treatment. (5) Acute on chronic diastolic CHF (congestive heart failure): Code(s): I50.33 - Acute on chronic diastolic (congestive) heart failure Status: Acute Assessment and Plan: Appears to be having some intermittent CHF, likely due to ischemia. (6) Hypercholesteremia: Code(s): E78.00 - Pure hypercholesterolemia, unspecified Status: Acute Assessment and Plan: LDL cholesterol was 177 taking pravastatin 10 mg daily. Unfortunately she is statin intolerant with severe muscle cramps; tried Crestor and simvastatin. Will try atorvastatin. (7) Underweight: Code(s): R63.6 - Underweight Status: Acute Assessment and Plan: Patient is severely underweight which puts her at risk of morbidity and mortality. History of Present Illness History of Present Illness Consult date/time: 06/21/21 08:57 Requesting physician: Claudette Keenan PA-C Consult reason: Other (NSTEMI) Reason For Visit: NSTEMI, COPD exacerbation Narrative: Suma Scott is a 66-year-old female whom we were asked to see at the request of YONI Keenan for advice and opinion regarding her elevated troponins and chest discomfort, in consultation. Patient has history of severe COPD, lupus, smoking (Quit Jun 03), hypertension hyperlipidemia. Previously her COPD has not been a problem w/ ADLs. She presented to [facility] on June 01, 2021 with shortness of breath, chest tightness and elevated troponins (peaked at 147). There were plans to transfer the patient to [facility] but there were no beds and the patient was discharged. She returned on June 06 and was treated for COPD exacerbation and possible CHF (proBNP 3600) w/ IV Lasix. There was no chest viky
[2021-06-21] MEDS: predniSONE 5 MG TABLET PO (09:28)
[2021-06-21] MEDS: HYDROXYCHLOROQUINE SULFATE 200 MG TABLET PO ×2 (09:39→19:54)
[2021-06-21] MEDS: PRAVASTATIN SODIUM 10 MG TABLET PO (09:39)
[2021-06-21 09:46] LABS: Anion Gap 5 mmol/L (8-16); Blood Urea Nitrogen 17 mg/dL (7-17); Calcium 8.5 mg/dL (8.4-10.2); Carbon Dioxide 27 mmol/L (22-30); Chloride 107 mmol/L (98-107); Estimated CRCL calculation 53 ml/min; Estimated Glomerular Filt Rate > 60; Glucose 124 mg/dL (65-110); Sodium 139 mmol/L (137-145)
--- NOTE | 2021-06-21 10:34 | PM.IMPN ---
Progress Note: A&P Assessment and Plan (1) Acute exacerbation of chronic obstructive pulmonary disease: Code(s): J44.1 - Chronic obstructive pulmonary disease with (acute) exacerbation Status: Acute (2) CHF (congestive heart failure): Qualifiers: Heart failure chronicity: unspecified Heart failure type: diastolic Qualified Code(s): I50.30 - Unspecified diastolic (congestive) heart failure Code(s): I50.9 - Heart failure, unspecified Status: Acute (3) Elevated troponin: Code(s): R77.8 - Other specified abnormalities of plasma proteins Status: Acute Additional Plan 06/21/2021 Patient's symptoms are most consistent with COPD exacerbation. Patient still have mild shortness of breath. Patient's symptoms had improved after some steroids and nebulizer treatments provided in the ER. Will continue scheduled Solu-Medrol and scheduled albuterol and Atrovent. Will add antibiotics. Patient was recently diagnosed with diastolic dysfunction. She appears euvolemic at this time. Will defer to Cardiology whether not to continue patient on Lasix. Patient had minimally elevated troponin in the ER. Cardiology was consulted. Patient was started on therapeutic Lovenox. Will await further recommendations from Cardiology. Will continue to trend troponin. Subjective Date/time seen: 06/21/21 10:34 Patient was seen during the morning rounds today. Patient has mild shortness of breath, no chest pain. No abdominal pain, no nausea, no vomiting. Mood stable Review of Systems Review of Systems: All systems reviewed & are unremarkable except as noted in HPI and below (the history and physical examination.) Exam Narrative: PHYSICAL EXAM: WEIGHT 37.7 kg BMI 15.2 General: Thin body habitus, appears stated age HEENT: Mucous membranes are moist, no oral pharyngeal erythema, no scleral icterus Respiratory: Tachypnea, increased work of breathing, decreased breath sounds at the bases, end-expiratory wheezing anteriorly Cardiovascular: Regular rate, regular rhythm, 2+ bilateral radial pedal pulses, no JVD Gastrointestinal: Soft, nontender, nondistended, positive bowel sounds Skin: No pallor, non jaundice Musculoskeletal: No cyanosis, no edema Neurological: Alert oriented, speech is clear, no facial asymmetry Psychiatric: Appropriate mood, anxious, judgment insight intact : Deferred Hematologic/lymphatic: No anterior cervical or submandibular lymphadenopathy, no petechiae, no bruising Objective Data Vital Signs Vital Signs: Vital Signs - 24 hr 06/20/21 14:50 06/20/21 15:02 06/20/21 17:15 Temperature 36.2 C L Pulse Rate 93 81 85 Respiratory Rate 27 H 16 22 H Blood Pressure 142/70 H 144/62 H 127/58 L Pulse Oximetry 99 100 100 06/20/21 18:15 06/20/21 19:23 06/20/21 20:00 Temperature Pulse Rate 81 77 79 Respiratory Rate 22 H 24 H 24 H Blood Pressure 133/67 127/47 L 136/64 Pulse Oximetry 98 96 99 06/20/21 20:30 06/20/21 21:36 06/20/21 22:42 Temperature Pulse Rate 70 82 76 Respiratory Rate 20 22 H 18 Blood Pressure 133/64 135/60 122/50 L Pulse Oximetry 99 98 97 06/20/21 23:00 06/20/21 23:15 06/21/21 01:36 Temperature Pulse Rate 76 71 76 Respiratory Rate 22 H 24 H 22 H Blood Pressure 109/79 130/59 L 118/69 Pulse Oximetry 96 96 97 06/21/21 02:00 06/21/21 02:31 06/21/21 03:00 Temperature Pulse Rate 71 87 96 Respiratory Rate 24 H 20 32 H Blood Pressure 122/48 L 125/79 Pulse Oximetry 97 97 06/21/21 04:00 06/21/21 05:00 06/21/21 06:26 Temperature Pulse Rate 97 92 89 Respiratory Rate 28 H 24 H 30 H Blood Pressure 117/71 122/71 141/49 H Pulse Oximetry 97 95 100 06/21/21 07:21 06/21/21 08:55 06/21/21 09:00 Temperature Pulse Rate 83 80 78 Respiratory Rate 24 H 18 18 Blood Pressure 123/74 Pulse Oximetry 99 06/21/21 09:41 Temperature Pulse Rate 83 Respiratory Rate 34 H Blood Pressure 123/74 Pulse Oximetry 98 Meds/Resul
[2021-06-21] MEDS: PANTOPRAZOLE 40 MG TABLET PO (11:43)
[2021-06-21] MEDS: ENOXAPARIN 40 MG/0.4 ML SYRINGE SUB-Q ×2 (12:49→22:27)
--- NOTE | 2021-06-21 14:18 | ECG_ITS ---
Measurements Intervals [place] Rate: 92 P: 83 NH: 146 QRS: 59 QRSD: 97 T: 165 QT: 356 QTc: 442 Interpretive Statements SINUS RHYTHM LEFT VENTRICULAR HYPERTROPHY AND ST-T CHANGE ST-T WAVE ABNORMALITY IN ANTEROLAT/HIGH LAT LEADS- CONSIDER ISCHEMIA BASELINE ARTIFACT- I, III, AVR, AVL, AVF ABNORMAL ECG Electronically Signed On 06-21-2021 17:31:57 [employer] by Gopi Riggs D.O.
[2021-06-21 15:33] LABS: Troponin I 0.033 ng/mL (0.000-0.034)
[2021-06-21] MEDS: NITROGLYCERIN SL 0.4 MG TABLET SUBLINGUAL (15:48)
--- NOTE | 2021-06-21 16:18 | PC.NURSE ---
pt had a total of 1.2 mg of sublingual nitroglycerin 5 minutes apart. after the 3rd sublingual nitroglycerin, pt states she felt relief of her R. sided chest pain.
--- NOTE | 2021-06-21 16:44 | PCRCNOTE ---
Window of time for administration has passed. See next scheduled administration.
--- NOTE | 2021-06-21 16:57 | PC.NURSE ---
called for nurse to nurse report. nurse will call back.
--- NOTE | 2021-06-21 17:32 | PC.NURSE ---
This patient, Suma Scott, was admitted to IMU Room 204-01. Patient/family oriented to hospital policies and general routines including ID bracelet, bed and alarms, visiting hours, pain management, procedures, bathroom and other care routines, personal items, smoking policy, room service/diet, and visiting hours. Information on how to activate the Rapid Response Team has been discussed. Patient/Family are encouraged to report perceived risks to care and to ask questions if they do not understand what they are told or what they should do.
[2021-06-21] MEDS: METOPROLOL TARTRATE 12.5 MG TABLET PO (22:26)
[2021-06-22] VITALS (20 sets, daily range): BP systolic 117–134; BP diastolic 53–86; PULSE 48–99; RESP 18–24; TEMP 36.8–37.2; O2SAT 95–97
[2021-06-22] MEDS: ALBUTEROL SULFATE NEB 2.5 MG/0.5 ML INH 5 MG INHALATION ×4 (02:13→20:20)
[2021-06-22] MEDS: IPRATROPIUM BR 0.02% INH SOLN 0.5 MG/2.5 ML VIAL INHALATION ×4 (02:13→20:20)
[2021-06-22] MEDS: methylPREDNISolone SOD SUCC 125 MG VIAL 60 MG IV PUSH ×2 (02:47→10:48)
[2021-06-22] MEDS: LORazepam (*CRX) 1 MG TABLET PO ×3 (02:47→20:46)
[2021-06-22] MEDS: oxyCODONE/ACETAMINOPHEN (*CRX) 5-325 MG TABLET 1 TABLET PO ×3 (06:56→20:46)
[2021-06-22] MEDS: predniSONE 5 MG TABLET PO (10:48)
[2021-06-22] MEDS: ASPIRIN 81 MG CHEWABLE TABLET PO (10:48)
[2021-06-22] MEDS: HYDROXYCHLOROQUINE SULFATE 200 MG TABLET PO ×2 (10:48→19:33)
[2021-06-22] MEDS: ATORVASTATIN 40 MG TABLET PO (10:49)
[2021-06-22] MEDS: METOPROLOL TARTRATE 12.5 MG TABLET PO ×2 (10:49→20:42)
[2021-06-22] MEDS: PANTOPRAZOLE 40 MG TABLET PO (10:49)
[2021-06-22] MEDS: ENOXAPARIN 40 MG/0.4 ML SYRINGE SUB-Q ×2 (10:49→20:43)
[2021-06-22] MEDS: PREGABALIN (*CRX) 75 MG CAPSULE 150 MG PO ×2 (10:49→19:32)
--- NOTE | 2021-06-22 11:19 | PM.PNCARD ---
Progress Note: A&P Assessment and Plan (1) Chest discomfort: Code(s): R07.89 - Other chest pain Status: Acute Assessment and Plan: Patient had chest tightness when she had her non-STEMI on June 03 and some tightness 06/21/2021. This is the 3rd ER visit in less than 3 weeks. She has dynamic T-wave inversion anterior laterally, so I am very concerned that this is a manifestation of unstable angina. Fortunately I do not see any Q-waves to suggest to compete completed infarct. I suspect she has a Left anterior descending stenosis. I recommend further evaluation with a cardiac catheterization. She is a very petite lady and probably has very small arteries, which may be more difficult to address. Again reviewed cardiac catheterization procedure, possibility of stenting and dual anti-platelet therapy, possibility of medical therapy, possibility of recommending CABG. Cardiac catheterization is scheduled for Wednesday. Requesting assistance of anesthesia to help w/ COPD and keeping pt comfortable 2nd severe back pain supine. Continue Lovenox full dose over the w/e in, stop tonight Continue ASA Hesitant to use BB in view of COPD; trying low dose metop 12.5 mg BID. Shortness of breath but no worse than usual. Occasional wheezing. (2) Abnormal EKG: Code(s): R94.31 - Abnormal electrocardiogram [ECG] [EKG] Status: Acute Assessment and Plan: Dynamic EKG changes as above. (3) Elevated troponin: Code(s): R77.8 - Other specified abnormalities of plasma proteins Status: Acute Assessment and Plan: Troponins have been more significantly elevated on her 2 prior ER visits, minimally elevated this visit. (4) COPD (chronic obstructive pulmonary disease): Qualifiers: COPD type: emphysema Emphysema type: panlobular Qualified Code(s): J43.1 - Panlobular emphysema Code(s): J44.9 - Chronic obstructive pulmonary disease, unspecified Status: Acute Assessment and Plan: Has severe COPD, but it has not been a problem for her until she had her non-STEMI in May. Since then she has had a significant increase in SOB. Some of the SOB/VILLAVICENCIO may be cardiac rather than pulmonary. (5) Acute on chronic diastolic CHF (congestive heart failure): Code(s): I50.33 - Acute on chronic diastolic (congestive) heart failure Status: Acute Assessment and Plan: Appears to be having some intermittent CHF, likely due to ischemia. (6) Hypercholesteremia: Code(s): E78.00 - Pure hypercholesterolemia, unspecified Status: Acute Assessment and Plan: LDL cholesterol was 177 taking pravastatin 10 mg daily. Unfortunately she is statin intolerant with severe muscle cramps; tried Crestor and simvastatin. Started atorvastatin. (7) Underweight: Code(s): R63.6 - Underweight Status: Acute Assessment and Plan: Patient is severely underweight which puts her at risk of morbidity and mortality. Subjective Date/time seen: 06/22/21 11:19 Interval history: Follow-up for recent non STEMI, unstable angina, markedly abnormal EKG. Also has severe COPD and chronic back pain. Date of service 06/22/2021: Patient has some chest tightness yesterday, relieved after 3 TNG. EKG done yesterday personally reviewed, no new changes. Anxious and worried about her cardiac catheterization. Shortness of breath is unchanged. Back pain is flaring up. Review of Systems Constitutional: Comments: Shaky after albuterol treatment Eyes: Eyes: Reports no additional eye complaints ENT: Denies epistaxis Cardiovascular: Cardiovascular: Reports chest pain, Denies leg edema, Denies lightheadedness and Reports palpitations Comments: Occasionally feels palpitations, had tightness in her chest yesterday Respiratory: Respiratory: Reports dyspnea and Reports dyspnea o
--- NOTE | 2021-06-22 13:30 | PM.IMPN ---
Progress Note: A&P Assessment and Plan (1) Acute exacerbation of chronic obstructive pulmonary disease: Code(s): J44.1 - Chronic obstructive pulmonary disease with (acute) exacerbation Status: Acute (2) CHF (congestive heart failure): Qualifiers: Heart failure chronicity: unspecified Heart failure type: diastolic Qualified Code(s): I50.30 - Unspecified diastolic (congestive) heart failure Code(s): I50.9 - Heart failure, unspecified Status: Acute (3) Elevated troponin: Code(s): R77.8 - Other specified abnormalities of plasma proteins Status: Acute Additional Plan 06/21/2021 Patient's symptoms are most consistent with COPD exacerbation. Patient still have mild shortness of breath. Patient's symptoms had improved after some steroids and nebulizer treatments provided in the ER. Will continue scheduled Solu-Medrol and scheduled albuterol and Atrovent. Will add antibiotics. Patient was recently diagnosed with diastolic dysfunction. She appears euvolemic at this time. Will defer to Cardiology whether not to continue patient on Lasix. Patient had minimally elevated troponin in the ER. Cardiology was consulted. Patient was started on therapeutic Lovenox. Will await further recommendations from Cardiology. Will continue to trend troponin. 06/22/2021 Pt continues to have wheezy lungs. Continue to treat her COPD. Pt to have heart catheterization tomorrow,see by cardiology already, Strongly advised to quit smoking, nutritional consult made for protein calorie malnutrition as pt looks very thin and weak. Subjective Date/time seen: 06/22/21 13:30 Interval history: 66-year-old female with a past medical history of severe emphysematous changes on imaging and COPD, diastolic dysfunction, elevated right atrial pressures, and recent non STEMI who presented to the ER with a sensation of fluttering her chest and chest tightness.Pt admitted with NSTEMI. And COPD exacerbation. Review of Systems Review of Systems: All systems reviewed & are unremarkable except as noted in HPI and below Exam Const: General: No in distress Nutritional Appearance: thin and underweight Orientation/consciousness: oriented to person HENMT: Head: normal to inspection Resp: Effort & Inspection: no respiratory distress Auscultation: no rhonchi and no wheezes Cardio: Rate: regular rate Rhythm: regular rhythm GI: Inspection: normal to inspection GI Palp: No abdominal tenderness, No Guarding due to palpation present (GI) and No Hepatomegaly present Auscultation: normal bowel sounds Neuro: General: oriented to person Objective Data Vital Signs Vital Signs: Vital Signs - 24 hr 06/21/21 14:49 06/21/21 15:49 06/21/21 15:58 Temperature Pulse Rate 87 79 83 Respiratory Rate 29 H 30 H 23 H Blood Pressure 138/53 L 130/59 L 123/60 Pulse Oximetry 98 97 97 06/21/21 16:07 06/21/21 17:30 06/21/21 18:00 Temperature Pulse Rate 90 88 80 Respiratory Rate 27 H 18 23 H Blood Pressure 124/67 109/62 Pulse Oximetry 96 99 97 06/21/21 18:33 06/21/21 19:25 06/21/21 19:30 Temperature 37.3 C Pulse Rate 67 84 86 Respiratory Rate 22 H 18 18 Blood Pressure 138/64 Pulse Oximetry 97 06/21/21 20:00 06/21/21 20:05 06/21/21 22:00 Temperature 36.6 C Pulse Rate 81 80 78 Respiratory Rate 23 H Blood Pressure 136/49 L Pulse Oximetry 97 06/21/21 22:26 06/22/21 00:00 06/22/21 02:00 Temperature 36.9 C Pulse Rate 80 73 68 Respiratory Rate 23 H Blood Pressure 128/65 Pulse Oximetry 96 06/22/21 04:00 06/22/21 06:00 06/22/21 08:20 Temperature 37.0 C 37.2 C Pulse Rate 69 76 72 Respiratory Rate 24 H 18 Blood Pressure 117/53 L 134/57 L Pulse Oximetry 95 97 06/22/21 09:02 06/22/21 10:49 06/22/21 13:20 Temperature 36.8 C Pulse Rate 94 64 Respiratory Rate 20 Blood Pressure 132/57 L Pulse Oximetry 97 97 Intake/Output Intake/Output: Intake & Output 06/07
[2021-06-22] MEDS: NICOTINE (*PBKC) 21 MG PATCH 1 PATCH TRANSDERM (15:12)
[2021-06-22] MEDS: methylPREDNISolone SOD SUCC 125 MG VIAL 80 MG IV PUSH ×2 (19:33→23:21)
[2021-06-22] MEDS: traZODone HCL 50 MG TABLET 100 MG PO (20:41)
[2021-06-22] MEDS: SOLIFENACIN 5 MG TABLET PO (20:42)
[2021-06-22] MEDS: rOPINIRole HCL 1 MG TABLET PO (20:42)
[2021-06-22] MEDS: amLODIPine BESYLATE 2.5 MG TABLET PO (20:43)
[2021-06-22] MEDS: ZOLPIDEM TARTRATE (*CRX) 5 MG TABLET 10 MG PO (20:46)
[2021-06-23] VITALS (40 sets, daily range): BP systolic 101–169; BP diastolic 59–85; PULSE 67–95; RESP 16–91; TEMP 36.1–37.2; O2SAT 91–99; BMI 16.0
[2021-06-23] MEDS: ALBUTEROL SULFATE NEB 2.5 MG/0.5 ML INH 5 MG INHALATION ×3 (01:30→20:53)
[2021-06-23] MEDS: IPRATROPIUM BR 0.02% INH SOLN 0.5 MG/2.5 ML VIAL INHALATION ×3 (01:31→20:53)
[2021-06-23] MEDS: methylPREDNISolone SOD SUCC 125 MG VIAL 80 MG IV PUSH (06:29)
[2021-06-23] MEDS: LORazepam (*CRX) 1 MG TABLET PO (06:34)
[2021-06-23] MEDS: ASPIRIN 81 MG CHEWABLE TABLET PO (09:13)
[2021-06-23] MEDS: PREGABALIN (*CRX) 75 MG CAPSULE 150 MG PO ×2 (09:13→17:48)
[2021-06-23] MEDS: PANTOPRAZOLE 40 MG TABLET PO (09:13)
[2021-06-23] MEDS: oxyCODONE/ACETAMINOPHEN (*CRX) 5-325 MG TABLET 1 TABLET PO ×2 (09:13→15:27)
[2021-06-23] MEDS: HYDROXYCHLOROQUINE SULFATE 200 MG TABLET PO ×2 (09:14→17:48)
[2021-06-23] MEDS: predniSONE 5 MG TABLET PO (09:14)
[2021-06-23] MEDS: METOPROLOL TARTRATE 12.5 MG TABLET PO (09:14)
[2021-06-23] MEDS: ATORVASTATIN 40 MG TABLET PO (09:14)
--- NOTE | 2021-06-23 10:56 | WPDANESEPPF ---
Anes - Initial Pre Proc Eval Procedure: Operation Date: 06/23/21 09:40 Proposed Procedures p Cardiac Fluoroscopy - Willi Carpio MD Date/Time: 06/23/21 10:56 Surgeon: Balaji Pre Op Diagnosis: NSTEMI, COPD exacerbation Patient Data Age: 66 Gender: F Height: 1.57 m Weight: 39.7 kg Last Vital Signs Temp 36.9 C 06/23/21 08:51 Pulse 76 06/23/21 08:51 Resp 16 06/23/21 08:51 BP 131/64 06/23/21 08:51 Pulse Ox 96 06/23/21 08:51 Allergies Allergy/AdvReac Type Severity Reaction Status Date / Time Sulfa (Sulfonamide AdvReac Unknown Verified 06/20/21 15:01 Antibiotics) Home Medications Medication Instructions Recorded Confirmed Type albuterol sulfate 1 inh INHALATION QID PRN #8.5 g 04/04/21 06/21/21 Rx prednisone 5 mg PO DAILY 06/03/21 06/21/21 History amlodipine 2.5 mg PO HS 06/04/21 06/21/21 History hydroxychloroquine 200 mg PO BID 06/04/21 06/21/21 History ipratropium bromide 1 spray INTRANASAL PRN PRN 06/04/21 06/21/21 History oxycodone-acetaminophen 1 tablet PO PRN PRN 06/04/21 06/21/21 History pravastatin 10 mg PO DAILY 06/04/21 06/21/21 History pregabalin 150 mg PO BID 06/04/21 06/21/21 History ropinirole 1 mg PO HS 06/04/21 06/21/21 History solifenacin 5 mg PO HS 06/04/21 06/21/21 History trazodone 100 mg PO HS 06/04/21 06/21/21 History zolpidem 10 mg PO HS 06/04/21 06/21/21 History Mucinex DM 1 tablet PO Q12H PRN 10 Days #0 06/08/21 06/21/21 Rx tablet ipratropium-albuterol 3 ml INHALATION Q6H PRN #180 ml 06/08/21 06/21/21 Rx lorazepam [Ativan] 1 mg PO TID PRN #20 tablet 06/08/21 06/21/21 Rx nebulizers #1 ea 06/08/21 06/21/21 Rx Patient hx anesthesia problems: none Family hx anesthesia problems: none Results Review: All pre-operative results and documents have been reviewed as part of the pre-operative evaluation. [facility] Past Medical History Medical History (Updated 06/21/21 @ 10:58 by Carmina Lee MD) Altered mental status Anxiety Cataracts, bilateral developing CHF (congestive heart failure) Echo 06/03/2021: Normal EF 60-65%, global longitudinal strain abnormal-14%, diastolic dysfunction grade 1, E/E tendon is mildly elevated, elevated right atrial pressures at 10mmHg COPD (chronic obstructive pulmonary disease) Hypercholesteremia Lupus Mild cognitive impairment with memory loss Surgical History Surgical History H/O hysterectomy for benign disease History of lithotripsy Hx of cholecystectomy Family History Family History Father , 56 years old COPD (chronic obstructive pulmonary disease) Heart disease Mother , 62 years old No problems noted. Sibling Healthy female Social History Social History (Updated 06/21/21 @ 10:51 by Carmina Lee MD) Social History: She lives at home with her of 49 years. She has smoked 1 pack of cigarettes per day since he was a teenager but quit smoking on the 03 of June. 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 Gender identity (if verbalized by the patient): Female Spiritual care concerns: No Anes - Eval Final PreProcedure Day of Procedure 06/23/21 10:56 Patient weight: cachectic Heart: regular rate and rhythm Lungs: clear to auscultation and normal air movement Airway: [place]
--- NOTE | 2021-06-23 11:01 | PM.IMPN ---
Progress Note: A&P Assessment and Plan (1) Chest discomfort: Code(s): R07.89 - Other chest pain Status: Acute Assessment and Plan: Patient presents with chest pain that she has had off/on past few weeks requiring hospitalization. EKG changes noted. No wall motion abnormalities. She has a slight increase in Trop. LHC performed today showing ostial LAD lesion about 80%. The lesion was ballooned and stented but patient had plaque shifting that caused 80-90% circumflex ostial obstruction (it was normal prior). The circumflex was stented as well but the stent migrated into the left main. The stent was crushed and no further intervention was carried out. Patient has toelrated the procedure well. Continue routine post-procedure care. Continue medical management with Crestor, Lopressor, ASA and Plavix. She was congratulated on smoking cessation (stop date 06/03). Will stop nicoderm. (2) Elevated troponin: Code(s): R77.8 - Other specified abnormalities of plasma proteins Status: Acute Assessment and Plan: Troponin elevated end of May at a prior hospitalization. Here, Trop climbed to 0.043 once but normal otherwise. EKG showing significant ST depression through out the anterior leads. As above (3) Abnormal EKG: Code(s): R94.31 - Abnormal electrocardiogram [ECG] [EKG] Status: Acute Assessment and Plan: As above (4) Acute exacerbation of chronic obstructive pulmonary disease: Code(s): J44.1 - Chronic obstructive pulmonary disease with (acute) exacerbation Status: Acute Assessment and Plan: Patient with SOB and other providers felt her symptoms were consistent with COPD exacerbation. Currently on Solu-Medrol and scheduled nebs. On room air and no wheezing. Will change to oral Prednisone tomorrow. (5) CHF (congestive heart failure): Qualifiers: Heart failure chronicity: unspecified Heart failure type: diastolic Qualified Code(s): I50.30 - Unspecified diastolic (congestive) heart failure Code(s): I50.9 - Heart failure, unspecified Status: Acute Assessment and Plan: Patient presents with CP. Echo 06/05 showing EF 60-65% with grade I diastolic dysfunction. BNP 3750. CXR showing severe emphysema and chronic RLL opacity. Doubt CHF exacerbation. Continue to monitor (6) Lupus: Code(s): M32.9 - Systemic lupus erythematosus, unspecified Status: Acute Assessment and Plan: Stable. Continue HCQ. Solu-Medrol will help prevent flare. (7) DVT prophylaxis: Code(s): Z29.9 - Encounter for prophylactic measures, unspecified Status: Acute Assessment and Plan: Lovenox (on hold for [facility]) Subjective Date/time seen: 06/23/21 11:01 Interval history: 66yo female with hx of COPD with severe emphysematous changes, SLE, HTN, HLD and CAD with recent NSTEMI who presents with complaints of CP. She quit tobacco on 06/03/21 Assuming care. Chart reviewed. Patieint back from [facility]. She had CP after the procedure but not now. No SOB or abd pain. She still has sheath in place and is having trouble lying flat due to chronic back pain. Exam Narrative: AF 98.5 131/64 91 16 96% ra Gen - thin female NARD lying flat in bed Chest - lungs clear anteriorly. nml RR CV - RRR S1/S2. Tele showing no significnat dysrhtyhmas Abd - soft scaphoid. +BS. Right femoral sheath in place Ext - 2+ PT pulses bilaterally Psych - nml mood and affect Skin - cool and dry Objective Data Vital Signs Vital Signs: Vital Signs - 24 hr 06/22/21 12:00 06/22/21 13:20 06/22/21 14:00 Temperature 98.3 F Pulse Rate 48 L 64 72 Respiratory Rate 20 Blood Pressure 132/57 L Pulse Oximetry 97 06/22/21 16:00 06/22/21 17:10 06/22/21 18:00 Temperature 98.8 F Pulse Rate 69 73 78 Respiratory Rate 20 Blood Pressure 123/54 L Pulse Oximetry 95 06/22/21 20:00 06/22/21 20:22 06/22/21 20:32 Temperature 98.4
--- NOTE | 2021-06-23 12:22 | ECG_ITS ---
Measurements Intervals [place] Rate: 84 P: 77 IN: 164 QRS: 48 QRSD: 96 T: 159 QT: 363 QTc: 430 Interpretive Statements SINUS RHYTHM LEFT VENTRICULAR HYPERTROPHY AND ST-T CHANGE ST-T WAVE ABNORMALITY IN ANTEROLAT/HIGH LAT LEADS- CONSIDER ISCHEMIA BASELINE ARTIFACT- I, II, III, AVR, AVL, AVF, V1, V4 ABNORMAL ECG Electronically Signed On 06-23-2021 13:43:15 FIREWORKS ASSEMBLY SUPERVISOR by Gopi Riggs D.O.
--- NOTE | 2021-06-23 12:27 | WPDCARDPROC ---
Cardiac Cath Procedure Note Date of procedure:: 06/23/21 Performing physician:: Willi Carpio MD Indication:: acute coronary syndrome / non ST-elevation [facility] Brief clinical history:: this is a 66-year-old woman with a longstanding history of cigarette smoking and severe emphysema. She has been seen in the hospital here and elsewhere recently on a couple of occasions with chest pain and has anterior T-wave inversion on her ECG. In this setting and angiogram has been recommended. the patient has severe emphysema with chronic cigarette smoking and is a poor candidate for surgical revascularization. Procedure Procedure performed:: Left ventriculogram coronary angiogram stent to LAD ostium stent to circumflex ostium intravascular ultrasound Sedation/Medication given:: sedation per Anesthesia case start time 10:18 a.m. case end time 12:14 p.m. Access site:: right femoral artery Estimated blood loss:: 50 cc Procedure note:: patient was brought to the cardiac catheterization lab in the postabsorptive state. Because of her severe lung disease and severe back pain anesthesia was involved this procedure to provide sedation. See their separately dictated note for the sedation. The right femoral triangle was prepared and draped in the usual fashion. Anesthesia was given with 1% lidocaine infiltrated locally. Using the modified Seldinger technique the femoral artery was punctured and a 5 Armenian vascular sheath was placed. After this left heart catheterization was carried out I used a 5 Armenian angled pigtail catheter to measure left-sided hemodynamics and to inject LV g in the [place]OCK projection. After this A standard 5 Armenian JR4 catheter was used to engage and inject the right coronary artery and then a 5 Armenian FL4 catheter was used to engage and inject the left coronary artery. Cineangiograms were then reviewed. Following this I decided to perform IFR examination of the left anterior descending. For this reason the 5 Armenian sheath was changed out over a wire for a 6 Armenian sheath. She was then systemically anticoagulated with bolus and infusion of Angiomax. Following this a 6 Armenian CLS 3.5 guiding catheter was advanced into the aortic root. The IFR wire was placed into the ascending aorta and equalized. The left main coronary was engaged and the wire was advanced into the mid to distal LAD. At this point it was clear there was a malfunction of the IFR wire as we were not able to obtain accurate flow data. The reason for this was unclear. I then aborted the attempt to perform an IFR and performed a I this examination of the ostial LAD. The lesion in the ostial LAD was found to be significant and PCI of this was then recommended. Following PCI of the LAD as detailed below there was evidence of plaque shifting into the ostium of the circumflex. Additional PCI of this was then carried out as mentioned and detailed below. Following this the patient was awakened from sedation and the case was terminated. She was taken to the holding area in stable condition she was still having 4 to 5/10 retrosternal chest pain at the end of the procedure. Findings:: Hemodynamics: The central aortic pressure was 136/60 left ventricle 136/5 end-diastolic 14 there is no systolic gradient on pullback across the aortic valve. Left ventricle: The LV is of normal size it has a somewhat spade like shape in the PEACOCK projection contractility in all segments appears to be preserved with an ejection fraction I would estimate to be 55% by visual estimation. The left main coronary artery is widely patent and of large caliber the left anterior descending is a large caliber artery somewhat tortuous extending down to and around the apex. The LAD has a napkin ring like lesion just after its origin which is not seen in all projections. In projections where it is seen at there does appear to be in the vicinity of 80% near ostial LAD stenosis. There is a very short segment o
[2021-06-23] MEDS: NITROGLYCERIN OINTMENT 1 INCH DOSE TRANSDERM (13:08)
--- NOTE | 2021-06-23 14:20 | PCRCNOTE ---
Window of time for administration has passed. See next scheduled administration. Pt in labor delivery rn
[2021-06-23] MEDS: CLOPIDOGREL BISULFATE 300 MG TABLET 600 MG PO (15:15)
--- NOTE | 2021-06-23 17:09 | SUR.PHASEII ---
Report called to [facility] prior to transfer back to pt. room. Right groin site D/I no hematoma noted. Transported via Bed with [facility].
[2021-06-23] MEDS: SODIUM CHLORIDE 0.9% IV 1,000 ML 125 ML IV CONT (17:48)
[2021-06-23] MEDS: amLODIPine BESYLATE 2.5 MG TABLET PO (22:10)
[2021-06-23] MEDS: METOPROLOL TARTRATE 25 MG TABLET PO (22:11)
[2021-06-23] MEDS: rOPINIRole HCL 1 MG TABLET PO (22:12)
[2021-06-23] MEDS: SOLIFENACIN 5 MG TABLET PO (22:12)
[2021-06-23] MEDS: traZODone HCL 50 MG TABLET 100 MG PO (22:13)
[2021-06-23] MEDS: ZOLPIDEM TARTRATE (*CRX) 5 MG TABLET 10 MG PO (22:14)
[2021-06-24] VITALS (14 sets, daily range): BP systolic 115–145; BP diastolic 56–66; PULSE 64–89; RESP 16–18; TEMP 36.3–36.7; O2SAT 97–99
[2021-06-24] MEDS: ALBUTEROL SULFATE NEB 2.5 MG/0.5 ML INH 5 MG INHALATION ×2 (01:31→08:28)
[2021-06-24] MEDS: IPRATROPIUM BR 0.02% INH SOLN 0.5 MG/2.5 ML VIAL INHALATION ×2 (01:31→08:28)
[2021-06-24] MEDS: SODIUM CHLORIDE 0.9% IV 500 ML 30 ML IV CONT (02:10)
[2021-06-24] MEDS: oxyCODONE/ACETAMINOPHEN (*CRX) 5-325 MG TABLET 1 TABLET PO ×3 (03:28→16:00)
[2021-06-24] MEDS: LORazepam (*CRX) 1 MG TABLET PO ×2 (03:28→09:21)
[2021-06-24 04:55] LABS: Basophils Percent Auto 0.3 % (0.2-1.2); Eosinophils Percent Auto 0.4 % (0-4.4); Hematocrit 32.4 % (37.0-47.0); Hemoglobin 10.8 g/dL (12.0-15.0); Immature Granulocyte Absolute 0.08 K/mm3 (0.00-0.031); Lymphocytes Absolute Auto 1.99 K/mm3 (0.9-3.2); Lymphocytes Percent Auto 25.7 % (18.3-44.2); Mean Corpuscular HGB Conc 33.3 g/dl (32-36); Mean Corpuscular Hemoglobin 32.7 pg (26-34); Mean Corpuscular Volume 98.2 fl (80-100); Mean Platelet Volume 9.1 fl (7.4-10.4); Monocytes Percent Auto 13.2 % (2.6-8.5); Neutrophils Absolute Auto 4.6 K/mm3 (1.3-6.7); Neutrophils Percent Auto 59.4 % (45.5-73.1); Platelet Count Result 226 k/mm3 (150-375); Red Cell Distribution Width 14.5 % (11.5-14.5); White Blood Count 7.7 K/mm3 (4.5-10.0)
[2021-06-24 05:09] LABS: Alanine Aminotransferase 33 U/L (4-35); Albumin Level 2.8 g/dL (3.5-5.1); Alkaline Phosphatase 34 U/L (38-126); Anion Gap 4 mmol/L (8-16); Aspartate Amino Transferase 34 U/L (14-36); Bilirubin,Total 0.5 mg/dL (0.2-1.3); Blood Urea Nitrogen 16 mg/dL (7-17); Calcium 7.7 mg/dL (8.4-10.2); Carbon Dioxide 23 mmol/L (22-30); Chloride 110 mmol/L (98-107); Estimated CRCL calculation 59 ml/min; Estimated Glomerular Filt Rate > 60; Glucose 94 mg/dL (65-110); Magnesium 1.5 mg/dL (1.6-2.3); Potassium 4.6 mmol/L (3.4-5.0); Sodium 137 mmol/L (137-145)
--- NOTE | 2021-06-24 05:11 | ECG_ITS ---
Measurements Intervals [place] Rate: 82 P: 80 MO: 134 QRS: 55 QRSD: 90 T: 151 QT: 362 QTc: 424 Interpretive Statements SINUS RHYTHM LEFT VENTRICULAR HYPERTROPHY AND ST-T CHANGE ST-T WAVE ABNORMALITY IN ANTEROLAT/HIGH LAT LEADS- CONSIDER ISCHEMIA BASELINE ARTIFACT- I, II, III, AVR, AVL, AVF, V1 ABNORMAL ECG Electronically Signed On 06-24-2021 9:37:36 IT HELP DESK TECHNICIAN by Gopi Riggs D.O.
--- NOTE | 2021-06-24 08:57 | PM.PNCARD ---
Progress Note: A&P Assessment and Plan (1) Chest discomfort: Code(s): R07.89 - Other chest pain Status: Acute Assessment and Plan: Patient had chest tightness when she had her non-STEMI on June 03 and some tightness 06/21/2021. This is the 3rd ER visit in less than 3 weeks. She has dynamic T-wave inversion on her EKG laterally. Coronary angiogram was recommended and performed. See below for details of this. (2) Abnormal EKG: Code(s): R94.31 - Abnormal electrocardiogram [ECG] [EKG] Status: Acute Assessment and Plan: Dynamic EKG changes as above. (3) Elevated troponin: Code(s): R77.8 - Other specified abnormalities of plasma proteins Status: Acute Assessment and Plan: Troponins have been more significantly elevated on her 2 prior ER visits, minimally elevated this visit. (4) COPD (chronic obstructive pulmonary disease): Qualifiers: COPD type: emphysema Emphysema type: panlobular Qualified Code(s): J43.1 - Panlobular emphysema Code(s): J44.9 - Chronic obstructive pulmonary disease, unspecified Status: Acute Assessment and Plan: Has severe COPD, but it has not been a problem for her until she had her non-STEMI in May. Since then she has had a significant increase in SOB. Some of the SOB/VILLAVICENCIO may be cardiac rather than pulmonary. (5) Acute on chronic diastolic CHF (congestive heart failure): Code(s): I50.33 - Acute on chronic diastolic (congestive) heart failure Status: Acute Assessment and Plan: Appears to be having some intermittent CHF, likely due to ischemia. (6) Hypercholesteremia: Code(s): E78.00 - Pure hypercholesterolemia, unspecified Status: Acute Assessment and Plan: LDL cholesterol was 177 taking pravastatin 10 mg daily. History of statin intolerance. She has been started on rosuvastatin. (7) Underweight: Code(s): R63.6 - Underweight Status: Acute Assessment and Plan: Patient is severely underweight which puts her at risk of morbidity and mortality. (8) CAD (coronary artery disease): Code(s): I25.10 - Atherosclerotic heart disease of [place] coronary artery without angina pectoris Status: Acute Assessment and Plan: Coronary angiogram from 06/23/2021 results are as follow: 1. Coronary artery disease with high-grade stenosis of the near ostial LAD segment 2. PCI of this lesion using stenting to the ostium of the LAD with plaque shifting resulting in the need to stent the ostium of the circumflex as well. At the start of the procedure this segment was not significantly diseased. 3. Migration of the circumflex stent proximal into the path of the left main coronary artery. This was then crusched using a 3.5 mm high-pressure balloon. 4. Preserved left ventricular systolic function Continue aspirin, Plavix, statin, metoprolol, isosorbide. Subjective Date/time seen: 06/24/21 08:57 Interval history: Cardiology follow-up for chest pain, NSTEMI Date of service 06/24/2021: Doing well today. She denies having any chest pain. She has been up and ambulated around her room this morning with no problems. Her only complaint is her back pain. Review of Systems Constitutional: Constitutional: Reports fatigue Eyes: Eyes: Reports no additional eye complaints ENT: Denies epistaxis and Denies nasal congestion Cardiovascular: Cardiovascular: Reports chest pain, Denies pedal edema, Denies leg edema, Denies lightheadedness, Reports palpitations, Reports dyspnea and Reports dyspnea on exertion Respiratory: Respiratory: Reports cough, Reports dyspnea and Reports dyspnea on exertion Gastrointestinal: Gastrointestinal: Denies abdominal pain and Denies hematochezia Genitourinary: Genitourinary: Denies hematuria Musculoskeletal: M
[2021-06-24] MEDS: POTASSIUM/PHOSPHORUS/SODIUM 1.5 GM PACKET 1 PACKET PO (09:06)
[2021-06-24] MEDS: PREGABALIN (*CRX) 75 MG CAPSULE 150 MG PO ×2 (09:08→16:04)
[2021-06-24] MEDS: predniSONE 20 MG TABLET 40 MG PO (09:10)
[2021-06-24] MEDS: ROSUVASTATIN 10 MG TABLET 20 MG PO (09:10)
[2021-06-24] MEDS: MAGNESIUM OXIDE 400 MG TABLET PO (09:10)
[2021-06-24] MEDS: ASPIRIN 81 MG CHEWABLE TABLET PO (09:11)
[2021-06-24] MEDS: CLOPIDOGREL BISULFATE 75 MG TABLET PO (09:11)
[2021-06-24] MEDS: ISOSORBIDE MONONITRATE 30 MG TAB.ER.24H PO (09:12)
[2021-06-24] MEDS: HYDROXYCHLOROQUINE SULFATE 200 MG TABLET PO ×2 (09:12→16:02)
[2021-06-24] MEDS: METOPROLOL TARTRATE 25 MG TABLET PO (09:13)
[2021-06-24] MEDS: PANTOPRAZOLE 40 MG TABLET PO (09:13)
--- NOTE | 2021-06-24 15:17 | PM.DS ---
DS: Admitting Diagnosis Discharge Date 06/24/21 Admitting Diagnosis Chest pain DS: Discharge Diagnosis Discharge Diagnosis (1) Chest discomfort: Code(s): R07.89 - Other chest pain Status: Acute Assessment and Plan: Patient presents with chest pain that she has had off/on past few weeks requiring hospitalization. EKG changes noted. No wall motion abnormalities. She has a slight increase in Trop. C performed 06/23/21 showing ostial LAD lesion about 80%. The lesion was ballooned and stented but patient had plaque shifting that caused 80-90% circumflex ostial obstruction (it was normal prior). The circumflex was stented as well but the stent migrated into the left main. The stent was crushed and no further intervention was carried out. Patient has tolerated the procedure well. Medications were adjusted. She was continued on Crestor, Lopressor, ASA and Plavix. She was congratulated on smoking cessation (stop date 06/03). (2) Elevated troponin: Code(s): R77.8 - Other specified abnormalities of plasma proteins Status: Acute Assessment and Plan: Troponin elevated end of May at a prior hospitalization. Here, Trop climbed to 0.043 once but normal otherwise. EKG showing significant ST depression through out the anterior leads. As above (3) Abnormal EKG: Code(s): R94.31 - Abnormal electrocardiogram [ECG] [EKG] Status: Acute Assessment and Plan: As above (4) CAD (coronary artery disease): Code(s): I25.10 - Atherosclerotic heart disease of [place] coronary artery without angina pectoris Status: Acute Assessment and Plan: Patient with significant CAD as detailed above. Plan for medical management. Appreciate Cardiology input. (5) Acute exacerbation of chronic obstructive pulmonary disease: Code(s): J44.1 - Chronic obstructive pulmonary disease with (acute) exacerbation Status: Acute Assessment and Plan: Patient with SOB and other providers felt her symptoms were consistent with COPD exacerbation. Treated with Solu-Medrol and scheduled nebs. On room air and no wheezing so changed to oral Prednisone. (6) CHF (congestive heart failure): Qualifiers: Heart failure chronicity: unspecified Heart failure type: diastolic Qualified Code(s): I50.30 - Unspecified diastolic (congestive) heart failure Code(s): I50.9 - Heart failure, unspecified Status: Acute Assessment and Plan: Patient presents with CP. Echo 06/05 showing EF 60-65% with grade I diastolic dysfunction. BNP 3750. CXR showing severe emphysema and chronic RLL opacity. Doubt CHF exacerbation. (7) Lupus: Code(s): M32.9 - Systemic lupus erythematosus, unspecified Status: Acute Assessment and Plan: Stable. We continued HCQ. She is on prednisone 5mg daily that she states that she is on this more chronically over the past year. DS: Summary Hospital Course Reason for hospitalization: 66yo female with hx of COPD with severe emphysematous changes, SLE, HTN, HLD and CAD with recent NSTEMI who presents with complaints of CP. She quit tobacco on 06/03/21. Please see H&P for details Hospital Course: Please see above for details of hospital course. Status at Discharge Cognitive/behavioral status at discharge: Stable Time Spent with Patient Time attestation: Total time spent providing and/or coordinating discharge services:38 minutes Time spent: Greater than 30 minutes Exam Narrative: AF 98.0 117/56 64 18 97% ra Gen - thin female NARD lying semi-recumbent in bed Chest - few scattered wheezes, nml RR CV - RRR S1/S2. Tele showing PVCs Abd - soft scaphoid. +BS. Right femoral dressing clean and dry without hematoma Ext - 2+ PT pulses bilaterally Psych - nml mood and affect Skin - cool and dry DS: Data Data Completed and Pending Labs on day of discharge: Labs from last 24 hours 06/24/21 06/24/21 04:1
== END 2021-06-24 16:00 | disposition home or self-care (01) | DRG 246 ==
LOC: ANHED 15:23 → ANHIMU 22:32
PROVIDERS: Emergency Medicine; Internal Medicine; Physician Assistant; Specialist; Admitting Provider Internal Medicine; Emergency Provider Emergency Medicine; PCP Hospitalist; Visit Provider Internal Medicine
PROC: 4A023N7 Measurement of Cardiac Sampling and Pressure, Left Heart, Percutaneous Approach (ICD-10-PCS; CPT 93452; principal; 2021-06-23 09:40)
PROC: 027135Z Dilation of Coronary Artery, Two Arteries with Two Drug-eluting Intraluminal Devices, Percutaneous Approach (ICD-10-PCS; 2021-06-23 09:40)
PROC: 027135Z Dilation of Coronary Artery, Two Arteries with Two Drug-eluting Intraluminal Devices, Percutaneous Approach (ICD-10-PCS; 2021-06-23 09:40)
DX: I21.4 Non-ST elevation (NSTEMI) myocardial infarction (principal); I25.10 Atherosclerotic heart disease of native coronary artery without angina pectoris; Z68.1 Body mass index [BMI] 19.9 or less, adult; I50.32 Chronic diastolic (congestive) heart failure; R63.6 Underweight; I11.0 Hypertensive heart disease with heart failure; J43.1 Panlobular emphysema; Z20.822 Contact with and (suspected) exposure to COVID-19; R77.8 Other specified abnormalities of plasma proteins; F41.9 Anxiety disorder, unspecified; G31.84 Mild cognitive impairment of uncertain or unknown etiology; R94.31 Abnormal electrocardiogram [ECG] [EKG]; E78.00 Pure hypercholesterolemia, unspecified; M32.9 Systemic lupus erythematosus, unspecified; Z79.899 Other long term (current) drug therapy; Z87.891 Personal history of nicotine dependence; Z88.2 Allergy status to sulfonamides
CPT/HCPCS: 36415; 36600; 71046; 80048; 80053; 82375; 82805; 83050; 83690; 83735; 83880; 84100; 84484; 85025; 85610; 85730; 92978; 93005; 93458; 93926; 94640; 96372; 96374; 96376; 99285; A9270; C1725; C1753; C1769; C1874; C1887; C1894; C9600; C9803; G0378; J0583; J0696; J1644; J1650; J2250; J2704; J2930; J3010; J7030; J7040; J7512; U0003; U0005

== ENCOUNTER 2021-07-02 12:21 | Outpatient (CLI) | payer MEDICARE, SELFPAY ==
[2021-07-02 12:47] LABS: Hematocrit 37.8 % (35.0-42.0); Hemoglobin 12.5 g/dL (11.7-13.8); Mean Corpuscular HGB Conc 33.1 g/dL (32.0-36.0); Mean Corpuscular Hemoglobin 33.3 pg (27.0-31.0); Mean Corpuscular Volume 100.8 fL (78.0-102.0); Platelet Count Result 318 K/mm3 (150-420); Red Blood Count 3.75 M/mm3 (4.20-5.40); Red Cell Distribution Width 15.1 % (11.6-14.4)
[2021-07-02 13:16] LABS: Band Neutrophils Percent 0 % (0-6); Lymphocytes Absolute Manual 1.56 K/mm3 (1.1-4.5); Lymphocytes Percent Manual 13 % (18-44); Monocytes Absolute Manual 1.08 K/mm3 (0.1-0.90); Monocytes Percent Manual 9 % (3-9); Neutrophils Absolute Manual 9.36 K/mm3 (1.7-7.2); Neutrophils Percent Manual 78 % (46-73); Platelet Estimate Adequate (Adequate); Total Cells Counted 100
[2021-07-02 13:47] LABS: Alanine Aminotransferase 39 U/L (14-59); Albumin Level 3.7 g/dL (3.4-5.0); Alkaline Phosphatase 59 U/L (46-116); Anion Gap 8 mmol/L (8-16); Aspartate Amino Transferase 17 U/L (15-37); Bilirubin,Total 0.3 mg/dL (0.00-1.00); Blood Urea Nitrogen 28 mg/dL (7-18); Calcium 9.1 mg/dL (8.5-10.1); Carbon Dioxide 31 mmol/L (21-32); Chloride 101 mmol/L (98-108); Estimated Glomerular Filt Rate > 60; Glucose 129 mg/dL (70-99); Osmolality Calculated 297 mOsm/kg (285-295); Potassium 4.3 mmol/L (3.5-5.1); Sodium 140 mmol/L (136-145); Total Protein 6.3 g/dL (6.4-8.2)
== END 2021-07-02 12:22 | disposition home or self-care (01) ==
LOC: CHSLAB 12:24
PROVIDERS: PCP Hospitalist; Visit Provider Hospitalist
DX: R63.4 Abnormal weight loss (principal)
CPT/HCPCS: 36415; 80053; 85025

== ENCOUNTER 2021-07-07 16:14 | Inpatient (IN) | payer MEDICARE, SELFPAY ==
[2021-07-07] VITALS (14 sets, daily range): BP systolic 130–173; BP diastolic 74–90; PULSE 76–102; RESP 18–27; TEMP 36.4–36.9; O2SAT 60–99; BMI 15.5
--- NOTE | ~2021-07-07 | XR_ITS ---
EXAMINATION: XR chest 1V portable EXAM DATE: 07/07/2021 16:48 INDICATION: Shortness of breath x today with weakness. TECHNIQUE: Portable AP frontal chest x-ray was obtained. Comparison is made to prior examination from 06/20/2021. FINDINGS: The lungs are hyperinflated which can be seen with chronic obstructive pulmonary disease (a clinical diagnosis of functional impairment), but is not diagnostic of it. Chronic right basilar nodule suspected to be pulmonary sequestration based on prior CT. No confluent consolidation, pneumothorax or pleural effusion suspected. Cervical fusion hardware. There is no sign ificant interval change. 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 Reviewed, dictated and finalized at location G. RGLASS LAMINATOR
--- NOTE | 2021-07-07 16:27 | ECG_ITS ---
Measurements Intervals [place] Rate: 100 P: 84 OR: 144 QRS: 61 QRSD: 98 T: 143 QT: 345 QTc: 445 Interpretive Statements SINUS TACHYCARDIA LEFT VENTRICULAR HYPERTROPHY AND ST-T CHANGE ST-T WAVE ABNORMALITY IN ANTEROLAT/HIGH LAT LEADS- CONSIDER ISCHEMIA BASELINE ARTIFACT- I, II, III, AVR, AVL, AVF, V1-V6 ABNORMAL ECG Electronically Signed On 07-07-2021 16:48:06 POWER REACTOR SUPERVISOR by Gopi Riggs D.O.
[2021-07-07 16:59] LABS: Base Excess ABG -2.5 mmol/L (0-2); HCO3 ABG 25.8 mmol/L (23-29); Oxygen Content ABG 18.5 %vol (16.0-22.0); Oxygen Saturation ABG 97.9 % (95-97); PCO2 ABG 60.8 mmHg (35-45); PO2 ABG 131.2 mmHg (75-85); Total Hemoglobin 13.4 g/dL (12.0-18.0); pH ABG 7.25 (7.35-7.45)
[2021-07-07 17:02] LABS: Device NASAL CANNULA; Modified Allen's Test Pass; Site Drawn LEFT RADIAL
[2021-07-07] MEDS: ALBUTEROL SULFATE (*SP) INHALER 2 PUFF INHALATION (17:02)
[2021-07-07 17:05] LABS: Hematocrit 38.7 % (35.0-42.0); Hemoglobin 12.9 g/dL (11.7-13.8); Mean Corpuscular HGB Conc 33.3 g/dL (32.0-36.0); Mean Corpuscular Hemoglobin 33.7 pg (27.0-31.0); Platelet Count Result 235 K/mm3 (150-420); Red Blood Count 3.83 M/mm3 (4.20-5.40); Red Cell Distribution Width 14.8 % (11.6-14.4); White Blood Count 8.8 K/mm3 (4.8-10.8)
[2021-07-07] MEDS: methylPREDNISolone SOD SUCC 125 MG VIAL IV PUSH (17:11)
[2021-07-07 17:16] LABS: D Dimer 0.49 mg/L (0.19-0.50); Partial Thromboplastin Time 23.9 SEC (23.90-30.70); Prothrombin Time 10.2 Seconds (9.50-12.10)
[2021-07-07 17:24] LABS: Alanine Aminotransferase 40 U/L (14-59); Albumin Level 3.6 g/dL (3.4-5.0); Alkaline Phosphatase 58 U/L (46-116); Anion Gap 9 mmol/L (8-16); Aspartate Amino Transferase 17 U/L (15-37); Bilirubin,Total 0.3 mg/dL (0.00-1.00); Blood Urea Nitrogen 17 mg/dL (7-18); Calcium 8.5 mg/dL (8.5-10.1); Carbon Dioxide 27 mmol/L (21-32); Chloride 106 mmol/L (98-108); Estimated CRCL calculation 41 ml/min; Estimated Glomerular Filt Rate > 60; Glucose 145 mg/dL (70-99); Magnesium 1.8 mg/dL (1.8-2.4); NT Pro B Type Natriuretic Pept 1746 pg/mL (0-125); Osmolality Calculated 298 mOsm/kg (285-295); Potassium 4.5 mmol/L (3.5-5.1); Sodium 142 mmol/L (136-145); Total Protein 6.7 g/dL (6.4-8.2); Troponin I 25.7 ng/L (0.00-60.4)
[2021-07-07] MEDS: KETOROLAC 30 MG/ML VIAL (*BKC) IV PUSH (17:27)
--- NOTE | 2021-07-07 17:31 | ED.SOB ---
HPI - SOB/Dyspnea General Chief Complaint: Shortness of Breath/Dyspnea Stated Complaint: SOB Time Seen by Provider: 07/07/21 16:32 Source: patient Mode of arrival: wheelchair Limitations: no limitations History of Present Illness HPI Narrative: This is a 66-year-old female that presents with some dyspnea while exerting herself cleaning the house today has a history of stent placement with heart catheterization on June 23, 2021 at [facility] with a echocardiogram showed 60 to 65% ejection fraction with grade 1 diastolic dysfunction. The patient presents with some hypoxic episode initially her O2 sats were in the 60s and on non-rebreather sats up to 99%. The patient has some audible wheezing denies any chest pain there is no nausea vomiting no diarrhea constipation no abdominal pain no flank pain. The patient has been vaccinated for COVID. Patient also has a history of lupus. MD elicited complaint: shortness of breath Pertinent past history: COPD and congestive heart failure Onset (ago): hour(s) Context: recent illness Timing: constant Severity: moderate Exacerbating factors: exertion Relieving factors: oxygen, rest and bronchodilators Known history of: COPD and congestive heart failure Associated symptoms: denies other symptoms Related Data Home Medications Medication Instructions Recorded Confirmed prednisone 5 mg PO DAILY 06/03/21 07/07/21 amlodipine 2.5 mg PO HS 06/04/21 07/07/21 hydroxychloroquine 200 mg PO BID 06/04/21 07/07/21 ipratropium bromide 1 spray INTRANASAL PRN PRN 06/04/21 07/07/21 pregabalin 150 mg PO BID 06/04/21 07/07/21 ropinirole 1 mg PO HS 06/04/21 07/07/21 solifenacin 5 mg PO HS 06/04/21 07/07/21 trazodone 100 mg PO HS 06/04/21 07/07/21 zolpidem 10 mg PO HS 06/04/21 07/07/21 Allergies Allergy/AdvReac Type Severity Reaction Status Date / Time Sulfa (Sulfonamide AdvReac Unknown Verified 07/07/21 16:27 Antibiotics) Review of Systems Review of Systems: All systems reviewed & are unremarkable except as noted in HPI and below PMFSH Past Medical History Medical History Altered mental status Anxiety Cataracts, bilateral developing CHF (congestive heart failure) Echo 06/03/2021: Normal EF 60-65%, global longitudinal strain abnormal-14%, diastolic dysfunction grade 1, E/E tendon is mildly elevated, elevated right atrial pressures at 10mmHg COPD (chronic obstructive pulmonary disease) Hypercholesteremia Lupus Mild cognitive impairment with memory loss Surgical History Surgical History H/O hysterectomy for benign disease History of lithotripsy Hx of cholecystectomy Family History Family History Father , 56 years old COPD (chronic obstructive pulmonary disease) Heart disease Mother , 62 years old No problems noted. Sibling Healthy female Social History Social History Social History: She lives at home with her of 49 years. She has smoked 1 pack of cigarettes per day since he was a teenager but quit smoking on the 03 of June. 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 Gender identity (if verbalized by the patient): Female Spiritual care concerns: No Exam Const: General: no ac
[2021-07-07 17:41] LABS: SARS-CoV-2 RNA PCR Negative (Negative)
[2021-07-07 18:07] LABS: Band Neutrophils Percent 0 % (0-6); Basophils Percent Manual 0 % (0-1); Eosinophils Percent Manual 0 % (1-6); Lymphocytes Absolute Manual 1.14 K/mm3 (1.1-4.5); Lymphocytes Percent Manual 13 % (18-44); Monocytes Absolute Manual 0.35 K/mm3 (0.1-0.90); Monocytes Percent Manual 4 % (3-9); Neutrophils Percent Manual 83 % (46-73); Platelet Estimate Adequate (Adequate); Total Cells Counted 100
--- NOTE | 2021-07-07 18:07 | PC.NURSE ---
spouse updated, to be admitted. Will bring clothes
[2021-07-07] MEDS: IPRATROPIUM 0.5 MG/ALBUTEROL SULFATE 2.5 MG AMPUL.NEB 3 ML INHALATION ×2 (18:24→23:40)
[2021-07-07 18:31] LABS: NT Pro B Type Natriuretic Pept 1677 pg/mL (0-125)
--- NOTE | 2021-07-07 19:21 | ADMGEN ---
This patient, Suma Scott, was admitted to 2nd Floor Room 204-2. Patient/family oriented to hospital policies and general routines including ID bracelet, bed and alarms, visiting hours, pain management, procedures, bathroom and other care routines, personal items, smoking policy, room service/diet, and visiting hours. Information on how to activate the Rapid Response Team has been discussed. Patient/Family are encouraged to report perceived risks to care and to ask questions if they do not understand what they are told or what they should do.
[2021-07-07] MEDS: PREGABALIN (*CRX) 50 MG CAPSULE 150 MG PO (21:58)
[2021-07-07] MEDS: ZOLPIDEM TARTRATE (*CRX) 5 MG TABLET 10 MG PO (21:58)
[2021-07-07] MEDS: rOPINIRole HCL 1 MG TABLET PO (21:58)
[2021-07-07] MEDS: HYDROXYCHLOROQUINE SULFATE 200 MG TABLET PO (21:58)
[2021-07-07] MEDS: METOPROLOL TARTRATE 25 MG TABLET PO (21:59)
[2021-07-07] MEDS: guaiFENesin 12 HR 600 MG TABCR PO (21:59)
[2021-07-07] MEDS: amLODIPine BESYLATE 2.5 MG TABLET PO (21:59)
[2021-07-07] MEDS: MORPHINE SULFATE (*CRX) 2 MG/ML INJ IV PUSH (22:02)
[2021-07-07] MEDS: methylPREDNISolone SOD SUCC 40 MG VIAL IV PUSH (23:51)
[2021-07-07] MEDS: LORazepam (*CRX) 1 MG TABLET PO (23:52)
[2021-07-08] VITALS (9 sets, daily range): BP systolic 120–154; BP diastolic 66–84; PULSE 62–88; RESP 14–20; TEMP 36.4–36.8; O2SAT 96–100
[2021-07-08 01:20] LABS: Add Urine Microscopic? YES; Appearance Urine Clear (Clear); Bilirubin Urine Negative (Negative); Blood Urine Negative (Negative); Color Urine Yellow (Yellow); Glucose Urine UA Negative (Negative); Ketones Urine Negative (Negative); Leukocyte Esterase Ur Negative (Negative); Nitrate Urine Negative (Negative); Protein Urine Trace (Negative); Specific Grav Ur >= 1.030 (1.010-1.020); Urobilinogen Urine 0.2 mg/dL (0.2-1.0)
[2021-07-08 01:30] LABS: Amorphous Sediment Urine Moderate; Bacteria Urine 2+ /hpf; RBC Urine 0-2 /hpf (0-2); Squamous Epithelial Cell Urine Rare /hpf (Few); WBC Urine 0-3 /hpf (0-3)
[2021-07-08 05:20] LABS: Basophils Absolute Auto 0.03 K/mm3 (0.00-0.10); Basophils Percent Auto 0.3 % (0.0-1.0); Hematocrit 36.1 % (35.0-42.0); Hemoglobin 11.9 g/dL (11.7-13.8); Immature Granulocyte Percent A 1.7 % (0.0-0.0); Lymphocytes Absolute Auto 0.95 K/mm3 (1.10-4.50); Lymphocytes Percent Auto 8.3 % (18.0-42.0); Mean Corpuscular Hemoglobin 33.1 pg (27.0-31.0); Mean Corpuscular Volume 100.3 fL (78.0-102.0); Mean Platelet Volume 8.9 fl (9.2-11.8); Monocytes Absolute Auto 0.29 K/mm3 (0.10-0.90); Monocytes Percent Auto 2.5 % (2.0-11.0); Neutrophils Percent Auto 87.2 % (50.0-70.0); Platelet Count Result 219 K/mm3 (150-420); Red Cell Distribution Width 14.8 % (11.6-14.4); White Blood Count 11.4 K/mm3 (4.8-10.8)
[2021-07-08] MEDS: methylPREDNISolone SOD SUCC 40 MG VIAL IV PUSH (05:24)
[2021-07-08] MEDS: oxyCODONE/ACETAMINOPHEN (*CRX) 5-325 MG TABLET 1 TABLET PO (05:24)
[2021-07-08 05:37] LABS: Alanine Aminotransferase 35 U/L (14-59); Albumin Level 3.3 g/dL (3.4-5.0); Alkaline Phosphatase 51 U/L (46-116); Anion Gap 6 mmol/L (8-16); Aspartate Amino Transferase 14 U/L (15-37); Bilirubin,Total 0.3 mg/dL (0.00-1.00); Blood Urea Nitrogen 24 mg/dL (7-18); Calcium 8.4 mg/dL (8.5-10.1); Carbon Dioxide 28 mmol/L (21-32); Chloride 106 mmol/L (98-108); Estimated CRCL calculation 37 ml/min; Estimated Glomerular Filt Rate > 60; Glucose 132 mg/dL (70-99); Osmolality Calculated 296 mOsm/kg (285-295); Potassium 4.9 mmol/L (3.5-5.1); Sodium 140 mmol/L (136-145); Total Protein 6.1 g/dL (6.4-8.2)
[2021-07-08] MEDS: IPRATROPIUM 0.5 MG/ALBUTEROL SULFATE 2.5 MG AMPUL.NEB 3 ML INHALATION (05:38)
--- NOTE | 2021-07-08 05:39 | PC.NURSE ---
Patient requests lorazapam be given with neb treatments. Patient appears to be calmer but still requires reassurance and nervousness.
[2021-07-08 07:25] LABS: NT Pro B Type Natriuretic Pept 2396 pg/mL (0-125)
--- NOTE | 2021-07-08 07:35 | PM.SD2 ---
Same Day Admit/Disch: HPI History of Present Illness Chief complaint: COPD EXCERBATION Narrative: Suma Scott is a 66 year old female that presented to our emergency department with complaint of shortness. Patient has a past medical history of anxiety, congestive heart failure, COPD, lupus, hypercholesterolemia, and mild cognitive impairment with memory loss. According to patient she had a cardiac catheter with stent placement x2. Patient notes that she did yesterday. Patient notes that she cleans her house daily. Patient notes clean her house yesterday extremely short of breath while doing so. Patient notes that she does have a nebulizer at home and use 2 treatment with no relief. At that time patient told her to our ED. WBC 8.8 hemoglobin 12.9 hematocrit 38.7 platelets 235,ABG- pH 7.25, PCO2 60.8,, PO2 141.3, bicarb 25.8, sodium 140, potassium 4.9, BUN 24, creatinine 0.7 glucose 133, magnesium 1.8, AST 14, total bili 0.3, ALT 35, BNP 1677, Covid negative, chest x-ray indicates chronic hyperinflation EKG sinus tach with a heart rate of 100. Patient notes that her condition has improved she is no longer requiring oxygen and does not have shortness of breath. Patient has and appt with her rheumatology today at 10:00 she will be discharged so that she can make that appointment. She has no discharge at the. The patient denies CP, palpitation, extremity numbness, lightheadedness, dizziness, constipation, diarrhea, chills, or fever. [facility] Past Medical History Medical History Altered mental status Anxiety Cataracts, bilateral developing CHF (congestive heart failure) Echo 06/03/2021: Normal EF 60-65%, global longitudinal strain abnormal-14%, diastolic dysfunction grade 1, E/E tendon is mildly elevated, elevated right atrial pressures at 10mmHg COPD (chronic obstructive pulmonary disease) Hypercholesteremia Lupus Mild cognitive impairment with memory loss Surgical History Surgical History H/O hysterectomy for benign disease History of lithotripsy Hx of cholecystectomy Family History Family History Father , 56 years old COPD (chronic obstructive pulmonary disease) Heart disease Mother , 62 years old No problems noted. Sibling Healthy female Social History Social History Social History: She lives at home with her of 49 years. She has smoked 1 pack of cigarettes per day since he was a teenager but quit smoking on the 03 of June. 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 Gender identity (if verbalized by the patient): Female Spiritual care concerns: No Same Day Admit/Disch: Med Pre-admit Medications Home Medications Medication Instructions Recorded Confirmed Type albuterol sulfate 1 inh INHALATION QID PRN #8.5 g 04/04/21 07/07/21 Rx prednisone 5 mg PO DAILY 06/03/21 07/07/21 History amlodipine 2.5 mg PO HS 06/04/21 07/07/21 History hydroxychloroquine 200 mg PO BID 06/04/21 07/07/21 History ipratropium bromide 1 spray INTRANASAL PRN PRN 06/04/21 07/07/21 History pregabalin 150 mg PO BID 06/04/21 07/07/21 History ropinirole 1 mg PO HS 06/04/21 07/07/21 History solifenacin 5 mg PO HS 06/04/21 07/07/21 History trazodone 100 mg P
[2021-07-08] MEDS: HYDROXYCHLOROQUINE SULFATE 200 MG TABLET PO (08:05)
[2021-07-08] MEDS: FUROSEMIDE INJ 40 MG/4 ML VIAL 80 MG IV PUSH (08:05)
[2021-07-08] MEDS: ISOSORBIDE MONONITRATE 30 MG TAB.ER.24H PO (08:05)
[2021-07-08] MEDS: ROSUVASTATIN 10 MG TABLET 20 MG PO (08:05)
[2021-07-08] MEDS: PREGABALIN (*CRX) 50 MG CAPSULE 150 MG PO (08:05)
[2021-07-08] MEDS: ASPIRIN 81 MG CHEWABLE TABLET PO (08:06)
[2021-07-08] MEDS: METOPROLOL TARTRATE 25 MG TABLET PO (08:06)
[2021-07-08] MEDS: CLOPIDOGREL BISULFATE 75 MG TABLET PO (08:06)
--- NOTE | 2021-07-08 10:14 | PC.NURSE ---
0900 dc orders went over with patient. vocalizes an understanding. refused breakfast. claims will get her breakfast on way to doctor appointment in [facility]. taken per wc to [employer].
--- NOTE | 2021-07-09 10:09 | PC.NURSE ---
Pt states she received and understood her discharge instructions. Pt also states I received excellent care .
== END 2021-07-08 09:00 | disposition home or self-care (01) | DRG 190 ==
LOC: CHSED 17:57 → CHS2ND 18:21
PROVIDERS: Nurse Practitioner; Admitting Provider Emergency Medicine; Emergency Provider Emergency Medicine; PCP Hospitalist; Visit Provider Emergency Medicine
DX: J44.9 Chronic obstructive pulmonary disease, unspecified (principal); I50.9 Heart failure, unspecified; I50.33 Acute on chronic diastolic (congestive) heart failure; N17.9 Acute kidney failure, unspecified; M32.9 Systemic lupus erythematosus, unspecified; Z87.891 Personal history of nicotine dependence; Z20.822 Contact with and (suspected) exposure to COVID-19; E78.00 Pure hypercholesterolemia, unspecified; F41.9 Anxiety disorder, unspecified; Z95.5 Presence of coronary angioplasty implant and graft; J44.1 Chronic obstructive pulmonary disease with (acute) exacerbation
CPT/HCPCS: 36415; 36600; 71045; 80053; 81001; 82805; 83735; 83880; 84484; 85025; 85380; 85610; 85730; 87040; 93005; 94640; 96374; 96375; 99285; A9270; C9803; J1885; J1940; J2270; J2920; J2930; U0003; U0005

== ENCOUNTER 2021-07-15 08:31 | Outpatient (CLI) | payer MEDICARE, SELFPAY ==
[2021-07-15 09:21] LABS: Alanine Aminotransferase 43 U/L (14-59); Albumin Level 3.3 g/dL (3.4-5.0); Alkaline Phosphatase 48 U/L (46-116); Anion Gap 7 mmol/L (8-16); Aspartate Amino Transferase 15 U/L (15-37); Bilirubin,Total 0.3 mg/dL (0.00-1.00); Blood Urea Nitrogen 27 mg/dL (7-18); Calcium 8.9 mg/dL (8.5-10.1); Carbon Dioxide 33 mmol/L (21-32); Chloride 103 mmol/L (98-108); Estimated Glomerular Filt Rate > 60; Glucose 115 mg/dL (70-99); Osmolality Calculated 302 mOsm/kg (285-295); Potassium 3.9 mmol/L (3.5-5.1); Sodium 143 mmol/L (136-145); Total Protein 5.9 g/dL (6.4-8.2)
== END 2021-07-15 08:32 | disposition home or self-care (01) ==
LOC: CHSLAB 08:34
PROVIDERS: PCP Hospitalist; Visit Provider Nurse Practitioner
DX: N17.9 Acute kidney failure, unspecified (principal); I50.9 Heart failure, unspecified
CPT/HCPCS: 36415; 80053

== ENCOUNTER 2021-09-03 09:54 | Emergency (ER) | payer MEDICARE, SELFPAY ==
[2021-09-03] VITALS (9 sets, daily range): BP systolic 119–144; BP diastolic 57–81; PULSE 65–80; RESP 16–18; TEMP 36.2–36.7; O2SAT 90–99
--- NOTE | ~2021-09-03 | CT_ITS ---
EXAMINATION: CT abdomen pelvis wo con DATE: 09/03/2021 13:32 INDICATION: Left flank pain for one day. Nausea and vomiting. History of kidney stones. TECHNIQUE: Computed tomography (CT) of the abdomen and pelvis was performed without intravenous contr ast. Automated exposure control and iterative reconstruction technique were employed. Exam dose: 155 .92 mGy-cm total exam DLP. COMPARISON: 05/05/2021 CT chest abdomen pelvis FINDINGS: Emphysematous changes are noted in the lower lung zones. No pulmonary consolidation. Heart size is within normal range. Trace pericardial fluid. No pleural effusion. Status post cholecystectomy. The liver, spleen, pancreas are unremarkable on this limited noncontrast examination. No bile duct or pancreatic duct dilatation. Normal morphology of the adrenal glands. No right renal mass lesion or hydronephrosis. There is a couple of pinpoint nonobstructing right shobha l calculi. No right ureteral calculus or hydroureteronephrosis. There is prominent left nephromegaly and left perinephric fluid and prominent left hydronephrosis and pelviectasis and left hydroureter secondary to a distal left ureteral approximately 2 x 3 mm calculu s. There is moderate diffuse thickening of the urinary bladder wall, nonspecific. Cystitis is not exclud ed. There is extensive atherosclerotic calcification of the abdominal aorta and calcification at the orig ins of the renal arteries, celiac and superior mesenteric arteries and bilateral iliac and femoral ar jatinder calcification. No abdominal aortic aneurysm. No intraperitoneal or retroperitoneal or pelvic mas s lesion or adenopathy or ascites. No bowel obstruction. There is a prominent of fecal material in the colon. No intraperitoneal free ai r. Status post hysterectomy. Severe degenerative change at the apophyseal joints at L5-S1 with slight grade 1 anterolisthesis as r esult. No suspicious osteolytic or osteoblastic lesions. IMPRESSION: 2 x 3 mm distal left ureteral obstructing calculus with prominent left nephromegaly, sev ere left hydroureteronephrosis and prominent left perinephric fluid Two punctate nonobstructing right renal calculi and approximately 4 small nonobstructing left renal c alculi Status post cholecystectomy Status post hysterectomy COPD Reviewed, dictated and finalized at Location A. Reviewed, dictated and finalized at location A. IMPRESSION: 2 x 3 mm distal left ureteral obstructing calculus with prominent left nephromegaly, severe left hydroureteronephrosis and prominent left perinep hric fluid Two punctate nonobstructing right renal calculi and approximately 4 small nonob structing left renal calculi Status post cholecystectomy Status post hysterectomy COPD
--- NOTE | 2021-09-03 10:06 | ED.NAVMDI ---
HPI - Nausea/Vomiting/Diarrhea General Chief complaint: Nausea/Vomiting/Diarrhea Stated complaint: possible kidney stone Time Seen by Provider: 09/03/21 10:06 Source: patient History of Present Illness HPI Narrative: 66-year-old female, ex-smoker history of coronary artery disease status post attempted stent ostial LAD on 06/23/2021 complicated by a plaque shifting into the ostial left circumflex, diastolic CHF, COPD, dyslipidemia, lupus on 5 mg of prednisone daily, cognitive impairment with memory loss and kidney stones x3. Two 0 for kidney stones passed spontaneously with the 3rd had to be removed. Had a colonoscopy which according to her was unremarkable. She presents to the ER with -- left flank pain radiating anteriorly. -- Nausea with multiple episodes of vomiting. No fever. No dysuria/ hematuria. No diarrhea. MD elicited complaint: nausea, vomiting and abdominal pain Pertinent past history: anorexia Onset (ago): day(s) ( Started yesterday) Description of vomiting: food contents Associated nausea: Yes Associated abdominal pain: Yes Location of pain: L flank Pain consistency: intermittent Quality: cramping Exacerbating factors: none Relieving factors: none Associated symptoms: denies other symptoms Related Data Home Medications Medication Instructions Recorded Confirmed prednisone 5 mg PO DAILY 06/03/21 09/03/21 amlodipine 2.5 mg PO HS 06/04/21 09/03/21 hydroxychloroquine 200 mg PO BID 06/04/21 09/03/21 pregabalin 150 mg PO BID 06/04/21 09/03/21 ropinirole 1 mg PO HS 06/04/21 09/03/21 solifenacin 5 mg PO HS 06/04/21 09/03/21 trazodone 100 mg PO HS 06/04/21 09/03/21 zolpidem 10 mg PO HS 06/04/21 09/03/21 budesonide-formoterol 2 puff INHALATION Q12H 09/03/21 09/03/21 lpknlryjak-wzpejbkvuurnw-ocfi 50 tablet PO QID PRN 09/03/21 09/03/21 clonazepam 0.5 mg BID 09/03/21 09/03/21 cyclosporine 1 drp EACH EYE Q12H 09/03/21 09/03/21 denosumab 60 mg SUBCUT [id number] 09/03/21 09/03/21 omeprazole 40 mg PO DAILY 09/03/21 09/03/21 ondansetron 8 mg PO TID PRN 09/03/21 09/03/21 Allergies Allergy/AdvReac Type Severity Reaction Status Date / Time Sulfa (Sulfonamide AdvReac Unknown Verified 09/03/21 10:31 Antibiotics) Review of Systems Review of Systems: All systems reviewed & are unremarkable except as noted in HPI and below Constitutional: Constitutional: Reports as per HPI and Reports no additional constitutional complaints Eyes: Eyes: Reports as per HPI and Reports no additional eye complaints ENT: Denies as per HPI, Denies dysphagia, Denies vertigo, Denies dizziness, Denies epistaxis, Denies nasal congestion and Denies sore throat Cardiovascular: Cardiovascular: Reports as per HPI and Reports no additional cardiovascular complaints Respiratory: Respiratory: Reports as per HPI and Reports no additional respiratory complaints Gastrointestinal: Gastrointestinal: Reports as per HPI Genitourinary: Genitourinary: Reports flank pain Musculoskeletal: Musculoskeletal: Reports no additional musculoskeletal complaints and Reports as per HPI Integumentary/Breasts: Skin/Breast: Reports system reviewed and no additional complaints, except as docu and Reports as per HPI Neurologic: Reports system reviewed and no additional complaints, except as documented and Reports as per HPI Psychiatric: Psychiatric: Reports no additional psychiatric complaints and Reports as per HPI Endocrine: Endocrine: Reports no additional endocrine complaints and Reports as per HPI Hematologic/Lymphatic: Hematologic/Lymphatic: Reports no additional hematologic/lymphatic complaints Allergic/Immunologic: Allergic/Immunologic: Reports no additional allergic/immunologic complaints PMFSH Past Medical History Medical History Altered mental status Anxiety Cataracts, bilateral developing CHF (congestive heart failure) Echo 06/03/2021: Normal EF 60-65%, global longitudinal strain abnormal-14%,
--- NOTE | 2021-09-03 10:13 | ECG_ITS ---
Measurements Intervals [place] Rate: 71 P: 86 CT: 133 QRS: 74 QRSD: 103 T: 87 QT: 364 QTc: 397 Interpretive Statements SINUS RHYTHM Baseline artifact NONSPECIFIC T-WAVE ABNORMALITY COMPARED TO ECG 07/07/2021 16:39:44 Heart rate has decreased and ST abnormalities are no longer appreciated Electronically Signed On 09-03-2021 13:38:02 CDT by Jerry Gates M.D.
[2021-09-03] MEDS: ONDANSETRON INJ 4 MG/2 ML VIAL IV PUSH (10:21)
[2021-09-03] MEDS: HYDROmorphone HCL INJ (*CRX) 2 MG/ML VIAL 0.5 MG IV PUSH ×3 (10:23→14:36)
[2021-09-03 10:32] LABS: Basophils Absolute Auto 0.07 K/mm3 (0.00-0.10); Basophils Percent Auto 0.5 % (0.0-1.0); Eosinophils Absolute Auto 0.03 K/mm3 (0.02-0.50); Eosinophils Percent Auto 0.2 % (1.0-6.0); Hemoglobin 12.9 g/dL (11.7-13.8); Immature Granulocyte Absolute 0.21 K/mm3 (0.00-0.00); Immature Granulocyte Percent A 1.6 % (0.0-0.0); Lymphocytes Absolute Auto 1.45 K/mm3 (1.10-4.50); Lymphocytes Percent Auto 11.3 % (18.0-42.0); Mean Corpuscular HGB Conc 33.9 g/dL (32.0-36.0); Mean Corpuscular Hemoglobin 32.9 pg (27.0-31.0); Mean Corpuscular Volume 96.9 fL (78.0-102.0); Mean Platelet Volume 8.8 fl (9.2-11.8); Monocytes Absolute Auto 1.64 K/mm3 (0.10-0.90); Monocytes Percent Auto 12.7 % (2.0-11.0); Neutrophils Absolute Auto 9.5 K/mm3 (1.7-7.2); Neutrophils Percent Auto 73.7 % (50.0-70.0); Platelet Count Result 180 K/mm3 (150-420); Red Blood Count 3.92 M/mm3 (4.20-5.40); Red Cell Distribution Width 12.3 % (11.6-14.4); White Blood Count 12.9 K/mm3 (4.8-10.8)
[2021-09-03 10:43] LABS: Prothrombin Time 10.7 Seconds (9.50-12.10)
[2021-09-03] MEDS: LACTATED RINGERS 1,000 ML 500 ML IV CONT (10:51)
[2021-09-03 10:54] LABS: Lactic Acid Reflex 1.7 mmol/L (0.4-2.0)
[2021-09-03 10:56] LABS: Alanine Aminotransferase 32 U/L (14-59); Albumin Level 3.8 g/dL (3.4-5.0); Alkaline Phosphatase 51 U/L (46-116); Anion Gap 10 mmol/L (8-16); Aspartate Amino Transferase 18 U/L (15-37); Bilirubin,Total 0.4 mg/dL (0.00-1.00); Blood Urea Nitrogen 27 mg/dL (7-18); Calcium 9.4 mg/dL (8.5-10.1); Carbon Dioxide 27 mmol/L (21-32); Chloride 108 mmol/L (98-108); Estimated Glomerular Filt Rate 39; Glucose 138 mg/dL (70-99); Lipase 45 U/L (73-393); Osmolality Calculated 307 mOsm/kg (285-295); Potassium 3.3 mmol/L (3.5-5.1); Sodium 145 mmol/L (136-145); Total Protein 6.2 g/dL (6.4-8.2)
[2021-09-03 10:57] LABS: Troponin I 10.2 ng/L (0.00-60.4)
[2021-09-03 12:49] LABS: Add Urine Microscopic? YES; Bilirubin Urine Negative (Negative); Blood Urine 3+ (Negative); Color Urine Light Yellow (Yellow); Glucose Urine UA Negative (Negative); Ketones Urine Negative (Negative); Leukocyte Esterase Ur 1+ (Negative); Nitrate Urine Negative (Negative); Protein Urine 1+ (Negative); Specific Grav Ur >= 1.030 (1.010-1.020); Urobilinogen Urine 0.2 mg/dL (0.2-1.0); pH Urine 5.5 (5.0-8.0)
[2021-09-03 13:00] LABS: RBC Urine 21-50 /hpf (0-2)
[2021-09-03 13:01] LABS: Appearance Urine Sl Cloudy (Clear); Bacteria Urine Trace /hpf; Squamous Epithelial Cell Urine Few /hpf (Few)
[2021-09-03] MEDS: SODIUM CHLORIDE 0.9% IV 1,000 ML 150 ML IV CONT (14:31)
[2021-09-03] MEDS: TAMSULOSIN HCL 0.4 MG CAPSULE PO (14:31)
[2021-09-03] MEDS: IPRATROPIUM 0.5 MG/ALBUTEROL SULFATE 2.5 MG AMPUL.NEB 3 ML INHALATION (16:11)
== END 2021-09-03 16:36 | disposition short-term general hospital (02) ==
PROVIDERS: Emergency Provider Internal Medicine Critical Care Medicine; PCP Hospitalist
DX: N20.1 Calculus of ureter (principal); N12 Tubulo-interstitial nephritis, not specified as acute or chronic; N28.9 Disorder of kidney and ureter, unspecified; I50.9 Heart failure, unspecified; J44.9 Chronic obstructive pulmonary disease, unspecified; E78.00 Pure hypercholesterolemia, unspecified; Z87.891 Personal history of nicotine dependence
CPT/HCPCS: 36415; 74176; 80053; 81001; 83605; 83690; 84484; 85025; 85610; 87086; 93005; 94640; 96361; 96374; 96375; 96376; 99285; A9270; J1170; J2405; J2543; J7030; J7120

== ENCOUNTER 2021-09-03 17:21 | Inpatient (IN) | payer MEDICARE, SELFPAY ==
[2021-09-03] VITALS (8 sets, daily range): BP systolic 122–132; BP diastolic 50–78; PULSE 68–81; RESP 16–18; TEMP 36.6–36.8; O2SAT 80–97; BMI 18.4
--- NOTE | ~2021-09-03 | XR_ITS ---
EXAMINATION: XR retrograde pyelo w/stent LT EXAM DATE: 09/04/2021 13:53 INDICATION: Cystoscopy, left retrograde pyelogram, left stent placement. TECHNIQUE: Fluoroscopy used during XR retrograde pyelo w/stent LT performed by Dr. Deion Reeves MD, urologist. The radiologist Irwin Vanegas M.D. dictating this report of the image(s) available wa s not present for the procedure. Total fluoroscopic time of 28 seconds. The DAP for this procedure was 0.23 mGym2. A total of 5 images sent to PACS from the exam. Correlation is made to CT abdomen pe lvis from yesterday. FINDINGS: The left ureter was cannulated, injected. There is moderate hydroureteronephrosis. A doubl e-J ureteral stent was placed. Correlate with procedure note. IMPRESSION: Moderate left hydronephrosis, stent in position. Reviewed, dictated and finalized at location B.
--- NOTE | ~2021-09-03 | XR_ITS ---
EXAMINATION: XR chest 1V portable DATE: 09/04/2021 10:55 INDICATION: Shortness of breath TECHNIQUE: frontal view of the chest was obtained. COMPARISON: Chest radiograph dated 07/07/2021 FINDINGS: Lungs remain hyperexpanded with increased lucency and architectural distortion in the upper lung zone s consistent with emphysema. Unchanged small calcite nodules and associated linear opacities at the r ight lung base consistent with old granulomatous disease and associated discoid atelectasis/scarring. The cardiomediastinal silhouette is normal. Old healed proximal right humeral fracture. C6-C7 anteri or spinal fusion with plate and screw fixation. IMPRESSION: 1. Emphysema and stable appearance of chronic atelectasis/scarring at the right lung base. No acute c ardiopulmonary disease. Reviewed, dictated and finalized at location A. IMPRESSION: 1. Emphysema and stable appearance of chronic atelectasis/scarring at the right lung base. No acute cardiopulmonary disease.
--- NOTE | ~2021-09-03 | NM_ITS ---
EXAMINATION: NM pulmonary perfusion DATE: 09/05/2021 15:25 INDICATION: Hypoxia. TECHNIQUE: 5.2 mCi Tc-99m MAA was administered intravenously for perfusion images. Scintigraphic silvia ges of the chest were obtained. COMPARISON: Chest single view 09/04/2021, chest CT 06/03/2021 FINDINGS: Perfusion images show matched large defects in the upper lobes and right lower lobe and small and mod erate sized defects in left lower lobe correlating with severe emphysema by CT. IMPRESSION: 1. Nondiagnostic (intermediate probability for pulmonary embolism). Reviewed, dictated and finalized at location A.
--- NOTE | 2021-09-03 17:15 | ADMGEN ---
This patient, Suma Scott, was admitted to Medical Room 245-. Patient/family oriented to hospital policies and general routines including ID bracelet, bed and alarms, visiting hours, pain management, procedures, bathroom and other care routines, personal items, smoking policy, room service/diet, and visiting hours. Information on how to activate the Rapid Response Team has been discussed. Patient/Family are encouraged to report perceived risks to care and to ask questions if they do not understand what they are told or what they should do.
[2021-09-03] MEDS: LACTATED RINGERS 1,000 ML 100 ML IV CONT (18:24)
[2021-09-03] MEDS: ONDANSETRON INJ 4 MG/2 ML VIAL IV PUSH (18:25)
[2021-09-03] MEDS: HYDROcodone/acetaminophen (*CRX) 5-325 MG TABLET 1 TAB PO (18:25)
[2021-09-03 18:47] LABS: Basophils Percent Auto 0.4 % (0.2-1.2); Eosinophils Percent Auto 0.3 % (0-4.4); Hematocrit 37.1 % (37.0-47.0); Hemoglobin 12.3 g/dL (12.0-15.0); Immature Granulocyte Absolute 0.16 K/mm3 (0.00-0.031); Immature Granulocyte Percent A 1.5 % (0-0.5); Lymphocytes Absolute Auto 1.66 K/mm3 (0.9-3.2); Lymphocytes Percent Auto 15.7 % (18.3-44.2); Mean Corpuscular HGB Conc 33.2 g/dl (32-36); Mean Corpuscular Hemoglobin 32.7 pg (26-34); Mean Corpuscular Volume 98.7 fl (80-100); Mean Platelet Volume 9.1 fl (7.4-10.4); Monocytes Absolute Auto 1.4 K/mm3 (0.1-0.6); Monocytes Percent Auto 13.3 % (2.6-8.5); Neutrophils Absolute Auto 7.3 K/mm3 (1.3-6.7); Neutrophils Percent Auto 68.8 % (45.5-73.1); Platelet Count Result 154 k/mm3 (150-375); Red Blood Count 3.76 M/mm3 (4.2-5.4); Red Cell Distribution Width 12.7 % (11.5-14.5); White Blood Count 10.6 K/mm3 (4.5-10.0)
[2021-09-03 18:57] LABS: Alanine Aminotransferase 22 U/L (4-35); Albumin Level 3.6 g/dL (3.5-5.1); Alkaline Phosphatase 47 U/L (38-126); Anion Gap 5 mmol/L (8-16); Aspartate Amino Transferase 32 U/L (14-36); Bilirubin,Total 0.5 mg/dL (0.2-1.3); Blood Urea Nitrogen 28 mg/dL (7-17); Calcium 8.6 mg/dL (8.4-10.2); Carbon Dioxide 30 mmol/L (22-30); Chloride 106 mmol/L (98-107); Estimated CRCL calculation 21 ml/min; Estimated Glomerular Filt Rate 30; Glucose 88 mg/dL (65-110); Potassium 4.1 mmol/L (3.4-5.0); Sodium 141 mmol/L (137-145)
--- NOTE | 2021-09-03 19:51 | PM.IMHP ---
H&P: HPI History of Present Illness Date/Time: 09/03/21 19:51 Chief Complaint: Left flank pain Narrative: 66-year-old female with mild dementia, hypertension, COPD, and coronary artery disease with recent cardiac stent who presented to the ER at [place] due to flank pain. The patient reported that the symptoms started night before and she called her primary care doctor because she thought she had a UTI. She reported some vague discomfort in the posterior left flank that radiates to the left anterior abdomen. She denied any associated dysuria, hematuria or changes in urinary frequency. Her physician not prescribed nitrofurantoin she took 1 dose of nitrofurantoin. She presented to the ER on the evening of the due to worsening flank pain that she stated was 8/10 in intensity. At that time it was associated with some nausea and as the day progressed she was having multiple episodes of vomiting. She denies any fevers or chills. Denies any chest pain or increased shortness of breath. At the time my evaluation the patient was wearing 2 L nasal cannula. Nursing staff reports to me that when she arrived to the hospital she was satting 88% on room air the patient reports that she usually uses her nebulizer treatments at night she had not received her evening nebulizer treatment. She denies any orthopnea or paroxysmal nocturnal dyspnea. She has not had any increased cough. She denies any diarrhea has not had a bowel movement a couple of days. Her pain is improved down to a 6/10 in intensity. Her pain is made worse with percussion of her flank and with movement. It was improved after pain medications received at outside facility. Review of Systems Review of Systems: 12 systems were reviewed with pertinent positives and negatives per HPI. Except as documented in the HPI, all other systems were reviewed and are negative. [facility] Past Medical History Medical History (Updated 09/04/21 @ 02:45 by Kim Blair, DO) Altered mental status Anxiety Cataracts, bilateral developing CHF (congestive heart failure) Echo 06/03/2021: Normal EF 60-65%, global longitudinal strain abnormal-14%, diastolic dysfunction grade 1, E/E tendon is mildly elevated, elevated right atrial pressures at 10mmHg COPD (chronic obstructive pulmonary disease) Hypercholesteremia Lupus Mild cognitive impairment with memory loss Restless leg syndrome Surgical History Surgical History (Updated 09/03/21 @ 20:34 by Kim Blair DO) H/O hysterectomy for benign disease History of heart artery stent (06/23/21) High-grade stenosis near ostial LAD stented following deployment of the stent there was plaque shifting into the ostium of the circumflex causing 80 90% stenosis with subsequent placement of stent at the ostium of the circumflex with migration of the circumflex stent and to the path of the main coronary artery had which time the stent was crushed History of lithotripsy Hx of cholecystectomy Family History Family History Father , 56 years old COPD (chronic obstructive pulmonary disease) Heart disease Mother , 62 years old No problems noted. Sibling Healthy female Social History Social History (Updated 09/03/21 @ 20:35 by Kim Blair DO) Social History: She lives at home with her of 49 years. She has smoked 1 pack of cigarettes per day since he was a teenager but quit smoking on the 03 of June. 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 Smoking packs per day: 1 Smoking cigarettes per day: 20.0 Years smoked: 50 Smoking pack-years: 50.00 Smoking status: Former smoker Second hand tobacco smoke exposure: Yes Alcohol intake: never Substance use: never Substance use type: marijuana Other substance usage details: MARIJ[employer] Last use: 09/01/21 Gender identity
[2021-09-03] MEDS: HEPARIN SODIUM 5,000 UNITS/ML VIAL 5000 UNITS SUB-Q (22:02)
[2021-09-03] MEDS: oxyCODONE/ACETAMINOPHEN (*CRX) 5-325 MG TABLET 1 TABLET PO (22:04)
[2021-09-03] MEDS: cycloSPORINE 0.4 ML OPHTH SOLUTION 1 DROP EACH EYE (22:08)
[2021-09-03] MEDS: PANTOPRAZOLE 40 MG TABLET PO (22:08)
[2021-09-03] MEDS: SOLIFENACIN 5 MG TABLET PO (22:09)
[2021-09-03] MEDS: traZODone HCL 50 MG TABLET 100 MG PO (22:09)
[2021-09-03] MEDS: rOPINIRole HCL 1 MG TABLET PO (22:09)
[2021-09-03] MEDS: ZOLPIDEM TARTRATE (*CRX) 5 MG TABLET 10 MG PO (22:09)
[2021-09-03] MEDS: ALBUTEROL SULFATE NEB 2.5 MG/0.5 ML INH INHALATION (22:18)
[2021-09-03] MEDS: IPRATROPIUM BR 0.02% INH SOLN 0.5 MG/2.5 ML VIAL INHALATION (22:18)
[2021-09-04] VITALS (26 sets, daily range): BP systolic 113–152; BP diastolic 50–99; PULSE 72–104; RESP 12–20; TEMP 36.1–38.4; O2SAT 90–100
[2021-09-04] MEDS: MORPHINE SULFATE (*CRX) 4 MG/ML INJ IV PUSH ×3 (02:58→16:00)
[2021-09-04] MEDS: LACTATED RINGERS 1,000 ML 100 ML IV CONT ×3 (05:23→23:56)
[2021-09-04] MEDS: IPRATROPIUM BR 0.02% INH SOLN 0.5 MG/2.5 ML VIAL INHALATION ×2 (05:56→19:57)
[2021-09-04] MEDS: ALBUTEROL SULFATE NEB 2.5 MG/0.5 ML INH INHALATION ×2 (05:56→19:57)
[2021-09-04 06:15] LABS: Basophils Absolute Auto 0.1 K/mm3 (0.0-0.1); Basophils Percent Auto 0.5 % (0.2-1.2); Eosinophils Absolute Auto 0.1 K/mm3 (0-0.3); Eosinophils Percent Auto 0.9 % (0-4.4); Hematocrit 33.8 % (37.0-47.0); Hemoglobin 11.3 g/dL (12.0-15.0); Immature Granulocyte Absolute 0.13 K/mm3 (0.00-0.031); Immature Granulocyte Percent A 1.3 % (0-0.5); Lymphocytes Absolute Auto 2.02 K/mm3 (0.9-3.2); Lymphocytes Percent Auto 20.5 % (18.3-44.2); Mean Corpuscular HGB Conc 33.4 g/dl (32-36); Mean Corpuscular Hemoglobin 32.7 pg (26-34); Mean Corpuscular Volume 97.7 fl (80-100); Mean Platelet Volume 9.3 fl (7.4-10.4); Monocytes Absolute Auto 1.4 K/mm3 (0.1-0.6); Monocytes Percent Auto 14.6 % (2.6-8.5); Neutrophils Absolute Auto 6.1 K/mm3 (1.3-6.7); Neutrophils Percent Auto 62.2 % (45.5-73.1); Platelet Count Result 136 k/mm3 (150-375); Red Blood Count 3.46 M/mm3 (4.2-5.4); Red Cell Distribution Width 12.5 % (11.5-14.5); White Blood Count 9.9 K/mm3 (4.5-10.0)
[2021-09-04 06:26] LABS: Anion Gap 4 mmol/L (8-16); Blood Urea Nitrogen 30 mg/dL (7-17); Calcium 7.9 mg/dL (8.4-10.2); Carbon Dioxide 28 mmol/L (22-30); Chloride 107 mmol/L (98-107); Estimated CRCL calculation 18 ml/min; Estimated Glomerular Filt Rate 25; Glucose 84 mg/dL (65-110); Potassium 3.6 mmol/L (3.4-5.0); Sodium 139 mmol/L (137-145)
--- NOTE | 2021-09-04 07:06 | WPDURCON ---
Assessment and Plan Assessment and plan (1) Calculus of distal left ureter: Code(s): N20.1 - Calculus of ureter Status: Acute (2) Acute kidney injury: Code(s): N17.9 - Acute kidney failure, unspecified Status: Acute Assessment and Plan: Plan cystoscopy with left ureteroscopy and stone extraction today. Patient describes marked intolerance of ureteral stents in the past and, given her lack of fever or significant leukocytosis, I will try to avoid placement a ureteral stent on this occasion. She is aware the risks this procedure including, but not limited to ongoing acute kidney injury, injury to the ureter postoperative ureteral obstruction there may require placement of a stent in the future. Urology Consult Note HPI Date Seen: 09/04/21 Requesting Physician: Sriram Andrews MD Primary Care Provider: Sarah MalaveMD Consult Narrative Narrative: Suma Scott is a 66 year old female transferred from [facility] where she presented with acute, worsening severe left flank pain. Patient has a history of urolithiasis and recognize this is a ureteral stone. This pain was associated with nausea vomiting and irritable voiding but she denies fevers chills or gross hematuria. In the past she has spontaneously passed 1 stone and required endoscopic extraction of another. Review of Systems Cardiovascular: Cardiovascular: Denies chest pain, Denies lightheadedness, Denies palpitations and Denies dyspnea Respiratory: Respiratory: Denies dyspnea Gastrointestinal: Gastrointestinal: Reports abdominal pain, Denies diarrhea, Denies nausea and Denies vomiting Genitourinary: Genitourinary: Denies hematuria and Denies dysuria Endocrine: Endocrine: Denies palpitations PMFSH Past Medical History Medical History Altered mental status Anxiety Cataracts, bilateral developing CHF (congestive heart failure) Echo 06/03/2021: Normal EF 60-65%, global longitudinal strain abnormal-14%, diastolic dysfunction grade 1, E/E tendon is mildly elevated, elevated right atrial pressures at 10mmHg COPD (chronic obstructive pulmonary disease) Hypercholesteremia Lupus Mild cognitive impairment with memory loss Restless leg syndrome Surgical History Surgical History H/O hysterectomy for benign disease History of heart artery stent (06/23/21) High-grade stenosis near ostial LAD stented following deployment of the stent there was plaque shifting into the ostium of the circumflex causing 80 90% stenosis with subsequent placement of stent at the ostium of the circumflex with migration of the circumflex stent and to the path of the main coronary artery had which time the stent was crushed History of lithotripsy Hx of cholecystectomy Family History Family History Father , 56 years old COPD (chronic obstructive pulmonary disease) Heart disease Mother , 62 years old No problems noted. Sibling Healthy female Social History Social History Social History: She lives at home with her of 49 years. She has smoked 1 pack of cigarettes per day since he was a teenager but quit smoking on the 03 of June. 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 Smoking packs per day: 1 Smoking cigarettes per day: 20.0 Years smoked: 50 Smoking pack-years: 50.00 Smoking status: Former smoker Second hand tobacco smoke exposure: Yes Alcohol intake: never Substance use: never Substance use type: marijuana Other substance usage details: MARIJUANA GUMMIES Last use: 09/01/21 Gender identity (if verbalized by the patient): Female Spiritual care concerns: No Meds Home
[2021-09-04] MEDS: FLUTICASONE/SALMETEROL 115-21 MCG INHALER 1 PUFF 2 PUFF INHALATION ×2 (08:40→20:02)
--- NOTE | 2021-09-04 08:46 | PC.NURSE ---
Patient NPO for procedure. Per CHELSEA Ware - hold aspirin, protonix, crestor. Other meds OK with sip of water, OK to give heparin.
[2021-09-04] MEDS: clonazePAM (*CRX) 0.5 MG TABLET PO ×2 (08:55→16:00)
[2021-09-04] MEDS: HEPARIN SODIUM 5,000 UNITS/ML VIAL 5000 UNITS SUB-Q ×2 (08:55→21:00)
[2021-09-04] MEDS: PREGABALIN (*CRX) 75 MG CAPSULE 150 MG PO ×2 (08:56→16:00)
[2021-09-04] MEDS: predniSONE 5 MG TABLET PO (08:57)
--- NOTE | 2021-09-04 09:50 | PM.IMPN ---
Progress Note: A&P Assessment and Plan (1) Calculus of distal left ureter: Code(s): N20.1 - Calculus of ureter Status: Acute Assessment and Plan: Patient with a 2 x 3 mm stone in the distal left ureter resulting in left hydronephrosis and hydroureter. This is causing and complicating her pyelonephritis. Urology has been consulted with plans for stone removal and possible stent placement later today. Appreciate Urology input. (2) Pyelonephritis of left kidney: Code(s): N12 - Tubulo-interstitial nephritis, not specified as acute or chronic Status: Acute Assessment and Plan: Patient presents with left flank pain. CT of the abdomen shows prominent left nephromegaly and left perinephric fluid with hydronephrosis and hydroureter secondary to distal left ureteral stone. No prior cultures are positive to provide guidance for antibiotic choice. As such patient was started on Rocephin. She does not meet sepsis criteria. Her white count was 13 K and this has normalized. No fevers. Follow-up on blood and urine cultures. Continue Rocephin for now. (3) Acute kidney injury: Code(s): N17.9 - Acute kidney failure, unspecified Status: Acute Assessment and Plan: Patient has normal baseline creatinine. Creatinine has climbed to 2.0 today. Most likely related to obstructive nephropathy and ATN from the infection. Continue IV fluids. Continue supportive care. Monitor renal function closely. Consider Nephrology consult if kidney function does not improve as expected once stones removed. (4) COPD (chronic obstructive pulmonary disease): Code(s): J44.9 - Chronic obstructive pulmonary disease, unspecified Status: Acute Assessment and Plan: Patient has COPD. Currently some mild hypoxia. CT of the abdomen shows emphysematous changes in the lower lung zones. Continue current therapy. Consider scheduling nebulizer treatments if she is not receiving these on a regular basis. Add incentive spirometry. Check chest x-ray. Wean oxygen as tolerated. (5) Lupus: Code(s): M32.9 - Systemic lupus erythematosus, unspecified Status: Acute Assessment and Plan: Patient has a history of lupus. She is on Plaquenil and prednisone for this. She does I have symptoms of sepsis so will continue prednisone current dose. Consider stress dose steroids if her condition deteriorates. (6) DVT prophylaxis: Code(s): Z29.9 - Encounter for prophylactic measures, unspecified Status: Acute Assessment and Plan: Heparin Subjective Date/time seen: 09/04/21 09:50 Interval history: 66yo female with SLE, dementia, HTN and COPD here for left flank pain found to have pyelonephritis and left ureteral stone. Patient currently NPO for stent placement today. She has a history of kidney stones. Still has left flank pain that she describes as 8/10. She feels short of breath this morning but not uncommon for her. She has COPD as etiology of her shortness of breath. She does not wear oxygen at home. She denies a cough. She uses albuterol nebulizers 2 to 3 times a day as well as Advair chronically. She denies chest pain. Nebulizer treatments are as needed but patient is comfortable with this and will ask for them when she needs them. She no longer smokes. Exam Narrative: AF 98.8 152/64 95 18 91% 2L Gen - NARD Chest -distant but clear breath sounds. No wheezes. CV - RRR S1/S2. Telemetry showing no significant dysrhythmias Abd -soft. Nondistended. Left flank pain noted. Back -left CVA tenderness. Ext - No pedal edema Psych - Nml mood and affect. Skin - Warm and dry Objective Data Vital Signs Vital Signs: Vital Signs - 24 hr 09/03/21 17:20 09/03/21 18:20 09/03/21 19:24 Temperature 98.2 F Pulse Rate 81 76 Respiratory Rate 18 18 Blood Pressure 132/78 Pulse Oximetry 90 80 L 96 09/03/21 19:59 09/03/21 20:00 09/03/21
[2021-09-04] MEDS: LACTATED RINGERS 1,000 ML 30 ML IV CONT ×2 (12:15→13:59)
--- NOTE | 2021-09-04 12:16 | WPDANESEPPF ---
Anes - Initial Pre Proc Eval Procedure: Operation Date: 09/04/21 13:00 Proposed Procedures p Cystoscopy,Left Retrograde Pyelogram,Left Ureteroscopy,Left Stone Extraction,Possible Holmium Laser,Possible Stent Placement - Deion Reeves MD Date/Time: 09/04/21 12:16 Surgeon: Sriram Andrews MD Pre Op Diagnosis: Kidney Stone Patient Data Age: 66 Gender: F Height: 1.57 m Weight: 45.7 kg Last Vital Signs Temp 37.7 C H 09/04/21 11:59 Pulse 92 09/04/21 11:59 Resp 16 09/04/21 11:59 BP 140/50 L 09/04/21 11:59 Pulse Ox 95 09/04/21 11:59 Allergies Allergy/AdvReac Type Severity Reaction Status Date / Time Sulfa (Sulfonamide AdvReac Unknown Verified 09/03/21 17:47 Antibiotics) Home Medications Medication Instructions Recorded Confirmed Type prednisone 5 mg PO DAILY 06/03/21 09/03/21 History amlodipine 2.5 mg PO HS 06/04/21 09/03/21 History hydroxychloroquine 200 mg PO BID 06/04/21 09/03/21 History pregabalin 150 mg PO BID 06/04/21 09/03/21 History ropinirole 1 mg PO HS 06/04/21 09/03/21 History solifenacin 5 mg PO HS 06/04/21 09/03/21 History trazodone 100 mg PO HS 06/04/21 09/03/21 History zolpidem 10 mg PO HS 06/04/21 09/03/21 History ipratropium-albuterol 3 ml INHALATION Q6H PRN #180 ml 06/08/21 09/03/21 Rx nebulizers #1 ea 06/08/21 09/03/21 Rx aspirin [Children's Aspirin] 81 mg PO DAILY@0800 #30 tablet 06/24/21 09/03/21 Rx oxycodone-acetaminophen 1 tablet PO Q6H PRN #0 tablet 06/24/21 09/03/21 Rx rosuvastatin [Crestor] 20 mg PO DAILY #60 tablet 06/24/21 09/03/21 Rx budesonide-formoterol 2 puff INHALATION Q12H 09/03/21 09/03/21 History mhdbecwhwq-mybggwtzigmjg-foim 50 tablet PO QID PRN 09/03/21 09/03/21 History clonazepam 0.5 mg PO BID 09/03/21 09/03/21 History cyclosporine 1 drp EACH EYE Q12H 09/03/21 09/03/21 History denosumab 60 mg SUBCUT [id number] 09/03/21 09/03/21 History omeprazole 40 mg PO DAILY 09/03/21 09/03/21 History ondansetron 8 mg PO TID PRN 09/03/21 09/03/21 History Laboratory Tests 09/03/21 09/03/21 09/04/21 18:32 18:32 05:24 WBC 10.6 K/mm3 H K/mm3 9.9 K/mm3 K/mm3 (4.5-10.0) (4.5-10.0) RBC 3.76 M/mm3 L M/mm3 3.46 M/mm3 L M/mm3 (4.2-5.4) (4.2-5.4) Hgb 12.3 g/dL g/dL 11.3 g/dL L g/dL (12.0-15.0) (12.0-15.0) Hct 37.1 % % 33.8 % L % (37.0-47.0) (37.0-47.0) MCV 98.7 fl fl 97.7 fl fl (80-100) (80-100) MCH 32.7 pg pg 32.7 pg pg (26-34) (26-34) MCHC 33.2 g/dl g/dl 33.4 g/dl g/dl (32-36) (32-36) RDW 12.7 % % 12.5 % % (11.5-14.5) (11.5-14.5) Plt Count 154 k/mm3 k/mm3 136 k/mm3 L k/mm3 (150-375) (150-375) MPV 9.1 fl fl 9.3 fl fl (7.4-10.4) (7.4-10.4) Immature Gran % (Auto) 1.5 % H % 1.3 % H % (0-0.5) (0-0.5) Neut % (Auto) 68.8 % % 62.2 % % (45.5-73.1) (45.5-73.1) Lymph % (Auto) 15.7 % L % 20.5 % % (18.3-44.2) (18.3-44.2) [place] % (Auto) 13.3 % H % 14.6 % H % (2.6-8.5) (2.6-8.5) Eos % (Auto) 0.3 % % 0.9 % % (0-4.4) (0-4.4) Baso % (Auto) 0.4 % % 0.5 % % (0.2-1.2) (0.2-1.2) Lymph # (Auto) 1.66 K/mm3 K/mm3 2.02 K/mm3 K/mm3 (0.9-3.2) (0.9-3.2) [place] # (Auto) 1.4 K/mm3 H K/mm3 1.4 K/mm3 H K/mm3 (0.1-0.6) (0.1-0.6) Eos # (Auto) 0.0 K/mm3 K/mm3 0.1 K/mm3 K/mm3 (0-0.3) (0-0.3) Baso # (Auto) 0.0 K/mm3 K/mm3 0.1 K/mm3 K/mm3 (0.0-0.1) (0.0-0.1) Abs Immat Gran (auto) 0.16 K/mm3 H K/mm3 0.13 K/mm3 H K/mm3 (0.00-0.031) (0.00-0.031) Absolute Neuts (auto) 7.3 K/mm3 H K/mm3 6.1 K/mm3 K/mm3 (1.3-6.7) (1.3-6.7) Absolute Nucleated RBC 0.0 K/mm3 K/mm3 0.0 K/mm3 K/mm3 (0.0-0.012) (0.0-0.012) Nucleated RBC % 0.0 % % 0.0 % % (0.0-0.2) (0.0-0.2) Sodium 141 mmol/L mmol/L (137-145) Potassium 4.1 mmol/L mmol/L (3.4-5.0) Chloride 106 mmol/L mmol/L (98-107) Carbon Dioxide 30 mmol/L mmol/L (22-30)
--- NOTE | 2021-09-04 13:14 | SUR.PREOP ---
DR JONES NOTIFIED PT HAS TEMP OF 101.1
--- NOTE | 2021-09-04 13:14 | WPDHPUPDATE1 ---
History and Physical Update Update Date/Time: 09/04/21 13:14 History and Physical has been reviewed, including an updated exam of the patient. There are NO changes in the patient's condition. Risks, benefits, and alternatives have been discussed and questions answered. Patient agrees to proceed with procedure.
[2021-09-04] MEDS: LIDOCAINE HCL 2% GEL UROJET 10 ML PKG MUCOUS MEM (13:53)
--- NOTE | 2021-09-04 13:53 | P.OP_ITS ---
Procedure Note - Detailed Date of Procedure 09/04/21 Pre-op Diagnosis Left ureteral stone Post-op Diagnosis Same Procedure Performed Cystoscopy, left ureteral stone extraction, left retrograde pyelography and left ureteral stent placement Surgeon Deion Reeves MD Anesthesia General Description of Procedure The patient was brought to the operative suite where she is prepped and draped in a routine sterile fashion while in the dorsal lithotomy position after the uneventful induction of a general LMA anesthetic. A 19F rigid cystoscope was placed in the bladder. The patient had no evidence of urethral stricture or bladder neck contracture. The bladder mucosa was endoscopically normal without hyperemia or neoplasm. There was a single, orthotopic ureteral orifice bilaterally. A 0.035 glidewire was advanced into the left renal pelvis under fluoroscopy. The distal ureter was dilated with an 8F/10F ureteral dilator. Ureteroscopy was undertaken with a short tapered semi-rigid ureteroscope. With ureteroscopy I was able to extract the stone using a 1.9F Escape disposable stone basket. Due to the extent of this manipulation, patients pre-operative fever and moderate ureteral edema, I did place a 4.8F double-J ureteral stent. proper positioning was confirmed via a retrograde performed through the semi- rigid ureteral scope. The proximal coil of the stent was confirmed to be in the renal pelvis and the distal coil in the bladder. The patient's bladder was emptied and she was taken to the recovery room having tolerated this procedure well. Estimated Blood Loss 0 Urine Output 300 Drains Yes Packing No Pathology None sent Complications No immediate complications Condition Stable Disposition PACU
--- NOTE | 2021-09-04 14:18 | SUR.PHASEI ---
Simple mask removed at 1419.
--- NOTE | 2021-09-04 14:32 | PC.NURSE ---
On 09/04/21, the student, [Meena Patel], provided care and completed [employer] documentation on this patient. I have reviewed the student's documentation and agree with the findings.
[2021-09-04] MEDS: traZODone HCL 50 MG TABLET 100 MG PO (21:00)
[2021-09-04] MEDS: rOPINIRole HCL 1 MG TABLET PO (21:01)
[2021-09-04] MEDS: ZOLPIDEM TARTRATE (*CRX) 5 MG TABLET 10 MG PO (21:01)
[2021-09-04] MEDS: amLODIPine BESYLATE 2.5 MG TABLET PO (21:01)
[2021-09-04] MEDS: SOLIFENACIN 5 MG TABLET PO (21:01)
[2021-09-04] MEDS: PANTOPRAZOLE 40 MG TABLET PO (21:01)
[2021-09-04] MEDS: oxyCODONE/ACETAMINOPHEN (*CRX) 5-325 MG TABLET 1 TABLET PO (21:06)
[2021-09-05] VITALS (21 sets, daily range): BP systolic 105–146; BP diastolic 53–79; PULSE 57–99; RESP 16–20; TEMP 36.3–37.3; O2SAT 76–98
[2021-09-05 05:19] LABS: Basophils Percent Auto 0.3 % (0.2-1.2); Hematocrit 33.9 % (37.0-47.0); Hemoglobin 11.2 g/dL (12.0-15.0); Immature Granulocyte Absolute 0.06 K/mm3 (0.00-0.031); Immature Granulocyte Percent A 0.8 % (0-0.5); Lymphocytes Absolute Auto 0.79 K/mm3 (0.9-3.2); Lymphocytes Percent Auto 10.4 % (18.3-44.2); Mean Corpuscular Hemoglobin 32.7 pg (26-34); Mean Corpuscular Volume 98.8 fl (80-100); Mean Platelet Volume 9.2 fl (7.4-10.4); Monocytes Absolute Auto 0.7 K/mm3 (0.1-0.6); Monocytes Percent Auto 9.6 % (2.6-8.5); Neutrophils Percent Auto 78.9 % (45.5-73.1); Platelet Count Result 130 k/mm3 (150-375); Red Blood Count 3.43 M/mm3 (4.2-5.4); Red Cell Distribution Width 12.3 % (11.5-14.5); White Blood Count 7.6 K/mm3 (4.5-10.0)
[2021-09-05] MEDS: oxyCODONE/ACETAMINOPHEN (*CRX) 5-325 MG TABLET 1 TABLET PO ×2 (05:24→11:51)
[2021-09-05 05:33] LABS: Albumin Level 3.1 g/dL (3.5-5.1); Anion Gap 2 mmol/L (8-16); Blood Urea Nitrogen 32 mg/dL (7-17); Calcium 8.4 mg/dL (8.4-10.2); Carbon Dioxide 31 mmol/L (22-30); Chloride 104 mmol/L (98-107); Estimated CRCL calculation 27 ml/min; Estimated Glomerular Filt Rate 41; Glucose 126 mg/dL (65-110); Magnesium 1.5 mg/dL (1.6-2.3); Phosphorus 4.1 mg/dL (2.5-4.5); Sodium 137 mmol/L (137-145)
--- NOTE | 2021-09-05 06:57 | WPDUROPN2 ---
Progress Note: A&P Assessment and Plan (1) Calculus of distal left ureter: Code(s): N20.1 - Calculus of ureter Status: Acute Assessment and Plan: Comfortable and anxious for discharge. Given improvement in creat. and leukocytosis overnight I'm comfortable with discharge today if others agree. Subjective Subjective Date/Time Seen: 09/05/21 06:57 Comfortable except for mild-mod. stent irritation Review of Systems Cardiovascular: Cardiovascular: Denies chest pain, Denies lightheadedness, Denies palpitations and Denies dyspnea Respiratory: Respiratory: Denies dyspnea Gastrointestinal: Gastrointestinal: Denies diarrhea, Denies nausea and Denies vomiting Genitourinary: Genitourinary: Denies hematuria and Denies dysuria Endocrine: Endocrine: Denies palpitations Exam Const: General: no acute distress Resp: Effort & Inspection: normal respiratory effort GI: Inspection: non-distended GI Palp: No abdominal tenderness and No Guarding due to palpation present (GI) Auscultation: normal bowel sounds Objective Data Vital Signs Vital Signs: Vital Signs - 24 hr 09/04/21 07:42 09/04/21 08:00 09/04/21 09:40 Temperature 98.8 F Pulse Rate 83 Respiratory Rate 18 Blood Pressure 152/64 H Pulse Oximetry 92 91 93 09/04/21 09:54 09/04/21 11:59 09/04/21 12:00 Temperature 99.7 F H 99.8 F H Pulse Rate 95 92 104 H Respiratory Rate 20 16 Blood Pressure 144/50 H 140/50 L Pulse Oximetry 94 95 09/04/21 12:04 09/04/21 13:59 09/04/21 14:15 Temperature 101.1 F H 98.2 F Pulse Rate 103 H 88 83 Respiratory Rate 20 12 12 Blood Pressure 141/51 H 113/60 129/51 L Pulse Oximetry 90 100 99 09/04/21 14:30 09/04/21 14:45 09/04/21 14:58 Temperature 98.3 F Pulse Rate 87 85 82 Respiratory Rate 16 18 14 Blood Pressure 113/99 H 141/62 H 140/73 Pulse Oximetry 94 95 95 09/04/21 15:30 09/04/21 15:45 09/04/21 16:00 Temperature 98.9 F 98.8 F Pulse Rate 84 83 90 Respiratory Rate 16 16 Blood Pressure 148/57 H 146/56 H Pulse Oximetry 95 95 09/04/21 16:15 09/04/21 17:15 09/04/21 19:57 Temperature 98.5 F 98.5 F Pulse Rate 80 78 81 Respiratory Rate 16 17 18 Blood Pressure 142/50 H 138/52 L Pulse Oximetry 95 96 95 09/04/21 20:00 09/04/21 20:05 09/05/21 00:00 Temperature 97.8 F 97.4 F L Pulse Rate 74 79 87 Respiratory Rate 20 18 18 Blood Pressure 149/58 H 142/60 H Pulse Oximetry 98 97 09/05/21 04:00 Temperature Pulse Rate 57 L Respiratory Rate Blood Pressure Pulse Oximetry Intake/Output Intake/Output: Intake & Output 09/02/21 09/03/21 09/04/21 09/05/21 23:59 23:59 23:59 23:59 Intake Total 50 4072 Output Total 200 600 Balance -150 3472 Meds/Results Medications: Active Medications Generic Name Dose Route Start Last Admin Trade Name Freq PRN Reason Stop Dose Admin Acetaminophen 650 mg 09/03/21 18:07 Acetaminophen 325 Mg Tablet PO Q4H PRN Mild Pain (1-3) or Fever Albuterol 2.5 mg 09/03/21 21:46 09/04/21 19:57 Albuterol Sulfate Neb 2.5 Mg/0.5 Ml Inh INHALATION 2.5 mg Q6H PRN Administration shortness of breath Amlodipine Besylate 2.5 mg 09/03/21 21:00 09/04/21 21:01 Amlodipine Besylate 2.5 Mg Tablet PO 2.5 mg HS ABBIE Administration Aspirin 81 mg 09/04/21 08:00 09/04/21 08:44 Aspirin 81 Mg Chewable Tablet PO Not Given DAILY@0800 ABBIE Clonazepam 0.5 mg 09/04/21 09:00 09/04/21 16:00 Clonazepam (*Crx) 0.5 Mg Tablet PO 0.5 mg BID ABBIE Administration Cyclosporine 1 drop 09/03/21 21:00 09/04/21 21:03 Cyclosporine 0.4 Ml Ophth Solution EACH EYE Not Given Q12H ABBIE Fentanyl Citrate 25 mcg 09/04/21 12:22 Fentanyl Citrate Inj (*Crx) 100 Mcg/2 Ml Vial IV PUSH Q2M PRN Pain Heparin Sodium (Porcine) 5,000 units 09/03/21 21:00 09/04/21 21:00 Heparin Sodium 5,000 Units/Ml Vial SUB-Q 5,000 units Q12HR ABBIE Administration Hydroxychloroquine Sulfate 200 mg
[2021-09-05] MEDS: clonazePAM (*CRX) 0.5 MG TABLET PO ×2 (08:01→20:33)
[2021-09-05] MEDS: MAGNESIUM OXIDE 400 MG TABLET PO (08:01)
[2021-09-05] MEDS: PREGABALIN (*CRX) 75 MG CAPSULE 150 MG PO ×2 (08:01→16:59)
[2021-09-05] MEDS: ROSUVASTATIN 10 MG TABLET 20 MG PO (08:01)
[2021-09-05] MEDS: HEPARIN SODIUM 5,000 UNITS/ML VIAL 5000 UNITS SUB-Q ×2 (08:01→20:33)
[2021-09-05] MEDS: polyethylene glycoL 3350 17 GM POWD.PACK PO (08:01)
[2021-09-05] MEDS: predniSONE 5 MG TABLET PO (08:02)
[2021-09-05] MEDS: PANTOPRAZOLE 40 MG TABLET PO ×2 (08:02→20:34)
[2021-09-05] MEDS: ASPIRIN 81 MG CHEWABLE TABLET PO (08:02)
[2021-09-05] MEDS: FLUTICASONE/SALMETEROL 115-21 MCG INHALER 1 PUFF 2 PUFF INHALATION ×2 (08:28→19:38)
[2021-09-05] MEDS: ALBUTEROL SULFATE NEB 2.5 MG/0.5 ML INH INHALATION (08:33)
--- NOTE | 2021-09-05 08:41 | P.PNAN_ITS ---
Anes - Prog Note Post-Op Date/Time: 09/05/21 08:41 Cardiovascular status: normal Respiratory status: normal Airway patency: baseline Mental status: baseline Post-Op hydration status: normal Vital Signs: Last Vital Signs Temp 36.7 C 09/05/21 04:00 Pulse 77 09/05/21 08:38 Resp 18 09/05/21 08:38 BP 105/79 09/05/21 04:00 Pulse Ox 96 09/05/21 04:00 Pain Score (VAS): 0 I/O: Intake & Output 09/04/21 09/05/21 09/05/21 23:59 07:59 15:59 Intake Total 1722 480 Output Total 800 Balance 1722 -320 Laboratory Tests 09/05/21 05:03 09/05/21 05:03 09/05/21 09/05/21 05:03 05:03 WBC 7.6 RBC 3.43 L Hgb 11.2 L Hct 33.9 L MCV 98.8 MCH 32.7 MCHC 33.0 RDW 12.3 Plt Count 130 L MPV 9.2 Immature Gran % (Auto) 0.8 H Neut % (Auto) 78.9 H Lymph % (Auto) 10.4 L [place] % (Auto) 9.6 H Eos % (Auto) 0.0 Baso % (Auto) 0.3 Lymph # (Auto) 0.79 L [place] # (Auto) 0.7 H Eos # (Auto) 0.0 Baso # (Auto) 0.0 Abs Immat Gran (auto) 0.06 H Absolute Neuts (auto) 6.0 Absolute Nucleated RBC 0.0 Nucleated RBC % 0.0 Sodium 137 Potassium 4.0 Chloride 104 Carbon Dioxide 31 H Anion Gap 2 L BUN 32 H Creatinine 1.30 H Estim Creat Clear Calc 27 Estimated GFR 41 L Glucose 126 H Calcium 8.4 Phosphorus 4.1 Magnesium 1.5 L Albumin 3.1 L Microbiology 09/03/21 18:33 Blood Blood Culture - Preliminary 09/03/21 18:39 Blood Blood Culture - Preliminary Post-procedural complaints: none Patient Feedback: Patient satisfied with anesthetic care.
--- NOTE | 2021-09-05 13:37 | HOMEO2EVAL ---
Evaluation was performed at [facility] Home Oxygen Evaluation RC: Home Oxygen (O2) Evaluation Start: 09/05/21 12:35 Freq: ONCE Status: Active Protocol: RPE Activity Type Activity Date Activity User E-Sign Co-Sign Detail Recorded Client Recorded Date Recorded By Document 09/05/21 13:00 [email or web address] [email or web address] 09/05/21 13:37 DJO Document 09/05/21 13:05 [email or web address] [email or web address] 09/05/21 13:37 DJO Document 09/05/21 13:10 [email or web address] [email or web address] 09/05/21 13:37 DJO Document 09/05/21 13:15 [email or web address] [email or web address] 09/05/21 13:37 DJO Document 09/05/21 13:20 [email or web address] [email or web address] 09/05/21 13:37 DJO Document 09/05/21 13:30 [email or web address] [email or web address] 09/05/21 13:37 DJO 09/05/21 09/05/21 09/05/21 13:00 13:05 13:10 Home O2 Evaluation Test Phase Resting Resting Resting Oxygen Delivery Room Air Nasal Cannula Nasal Cannula Oxygen Flow Rate (L/min) 1 2 Pulse Oximetry (90-100 %) 87 L 88 L 91 Pulse Rate (60-100 beats/min) 78 80 77 Activity Tolerance Ambulation Distance (feet) Ambulation Distance (meters) Treatment Charges O2 Evaluation - Inpatient 09/05/21 09/05/21 09/05/21 13:15 13:20 13:30 Home O2 Evaluation Test Phase Exercise Exercise Resting Oxygen Delivery Nasal Cannula Nasal Cannula Nasal Cannula Oxygen Flow Rate (L/min) 2 3 2 Pulse Oximetry (90-100 %) 88 L 90 90 Pulse Rate (60-100 beats/min) 95 96 80 Activity Tolerance Good Ambulation Distance (feet) 600 Ambulation Distance (meters) 182.87 Treatment Charges
--- NOTE | 2021-09-05 16:05 | PM.IMPN ---
Progress Note: A&P Assessment and Plan (1) Calculus of distal left ureter: Code(s): N20.1 - Calculus of ureter Status: Acute Assessment and Plan: Patient with a 2 x 3 mm stone in the distal left ureter resulting in left hydronephrosis and hydroureter. This is causing and complicating her pyelonephritis. Urology was consulted and recommended stone removal. Patient had a cystoscopy, left ureteral stone extraction, left retrograde pyelography and left ureteral stent placement on 09/04/21. She has toelrated this well. Urology felt patient stable for discharge but UCx still pending. Called lab and this will not be read until tomorrow. (2) Pyelonephritis of left kidney: Code(s): N12 - Tubulo-interstitial nephritis, not specified as acute or chronic Status: Acute Assessment and Plan: Patient presents with left flank pain. CT of the abdomen shows prominent left nephromegaly and left perinephric fluid with hydronephrosis and hydroureter secondary to distal left ureteral stone. No prior cultures are positive to provide guidance for antibiotic choice. As such patient was started on Rocephin. She does not meet sepsis criteria. Her white count was 13 K and this has normalized. One elevated temp but not persistent. BCx NGTD. UCx pending. Called but rUCx results not available at least until tomorrow. Continue Rocephin for now. (3) Hypoxia: Code(s): R09.02 - Hypoxemia Status: Acute Assessment and Plan: Patient normally on room air. No wheezing to suggest COPD exacerbation. CXR showing emphysema and stable appearing chronic scarring right lung base. VQ scan ordered and was nondiagnostic but matched defects consistent with the severe emphysema noted on CT. Hypoxia may be related to emphysema and now she needs O2. Will check ABG. Will proceed with home O2 evaluation for possible discharge tomorrow. (4) Acute kidney injury: Code(s): N17.9 - Acute kidney failure, unspecified Status: Acute Assessment and Plan: Patient has normal baseline creatinine. Creatinine climbed to 2.0 related to obstructive nephropathy and ATN from the infection. Treated as above and with IV fluids. Renal function better. Continue supportive care. Stop IV fluids. (5) COPD (chronic obstructive pulmonary disease): Code(s): J44.9 - Chronic obstructive pulmonary disease, unspecified Status: Acute Assessment and Plan: Patient has COPD. Currently some mild hypoxia. CT of the abdomen shows emphysematous changes in the lower lung zones. Continue current therapy. As above. (6) Lupus: Code(s): M32.9 - Systemic lupus erythematosus, unspecified Status: Acute Assessment and Plan: Patient has a history of lupus. She is on Plaquenil and prednisone for this. She does not have symptoms of sepsis so will continue prednisone at current dose. Consider stress dose steroids if her condition deteriorates. (7) DVT prophylaxis: Code(s): Z29.9 - Encounter for prophylactic measures, unspecified Status: Acute Assessment and Plan: Heparin Subjective Date/time seen: 09/05/21 16:05 Interval history: 66yo female with SLE, dementia, HTN and COPD here for left flank pain found to have pyelonephritis and left ureteral stone. She had fever yesterday but nothing since. She is feeling better. No CP. SOB walking to the bathroom and RN states patient hypoxic to the 70's%. She does not wear O2 at home Exam Narrative: Tm 101.1 97.6 128/66 80 18 90% 2L Gen - NARD Chest - right base crackles o/w clear. nml RR CV - RRR S1/S2. Telemetry showing no significant dysrhythmias Abd -soft. Nondistended. +BS. Mild left flank pain Back - mild left CVA tenderness Ext - No pedal edema Psych - Nml mood and affect. Skin - Warm and dry Objective Data Vital Signs Vital Signs: Vital Signs - 24 hr 09/04/21 16:15 09/04/21 17:15 09/04/21 19:57 Temperature 98.5
[2021-09-05 17:04] LABS: Alveolar/Arterial O2 Gradient 69.3 mmHg; Base Excess ABG 8.3 mEq/l (+/-2.0); Device NASAL CANNULA; Fractional Inspired Oxygen 28 %; HCO3 ABG 33.6 mEq/l (22.0-26.0); Modified Allen's Test Pass; Oxygen Content ABG 16.2 %vol (16.0-22.0); Oxyhemoglobin 93.5 % THb (90.0-100.0); PCO2 ABG 49.3 mmHg (35.0-45.0); PO2 ABG 72.2 mmHg (80.0-100.0); PO2 FiO2 Ratio Arterial Blood 2.58 %; Site Drawn RIGHT RADIAL; Total Hemoglobin 12.3 g/dL (12.0-18.0); pH ABG 7.451 (7.350-7.450)
[2021-09-05] MEDS: IPRATROPIUM BR 0.02% INH SOLN 0.5 MG/2.5 ML VIAL INHALATION (19:38)
[2021-09-05] MEDS: amLODIPine BESYLATE 2.5 MG TABLET PO (20:32)
[2021-09-05] MEDS: METOPROLOL TARTRATE 25 MG TABLET PO (20:34)
[2021-09-05] MEDS: rOPINIRole HCL 1 MG TABLET PO (20:34)
[2021-09-05] MEDS: SOLIFENACIN 5 MG TABLET PO (20:34)
[2021-09-05] MEDS: traZODone HCL 50 MG TABLET 100 MG PO (20:35)
[2021-09-05] MEDS: ZOLPIDEM TARTRATE (*CRX) 5 MG TABLET 10 MG PO (23:55)
[2021-09-06] VITALS (12 sets, daily range): BP systolic 127–148; BP diastolic 54–76; PULSE 63–86; RESP 14–20; TEMP 37.1–37.7; O2SAT 93–98
[2021-09-06] MEDS: IPRATROPIUM BR 0.02% INH SOLN 0.5 MG/2.5 ML VIAL INHALATION ×3 (02:16→14:43)
[2021-09-06 05:24] LABS: Hematocrit 31.1 % (37.0-47.0); Hemoglobin 10.6 g/dL (12.0-15.0); Mean Corpuscular HGB Conc 34.1 g/dl (32-36); Mean Corpuscular Hemoglobin 33.2 pg (26-34); Mean Corpuscular Volume 97.5 fl (80-100); Mean Platelet Volume 9.4 fl (7.4-10.4); Platelet Count Result 137 k/mm3 (150-375); Red Blood Count 3.19 M/mm3 (4.2-5.4); Red Cell Distribution Width 12.3 % (11.5-14.5); White Blood Count 9.9 K/mm3 (4.5-10.0)
[2021-09-06 05:31] LABS: Albumin Level 3.2 g/dL (3.5-5.1); Anion Gap 1 mmol/L (8-16); Blood Urea Nitrogen 25 mg/dL (7-17); Calcium 8.4 mg/dL (8.4-10.2); Carbon Dioxide 37 mmol/L (22-30); Chloride 101 mmol/L (98-107); Estimated CRCL calculation 38 ml/min; Estimated Glomerular Filt Rate > 60; Glucose 97 mg/dL (65-110); Magnesium 1.2 mg/dL (1.6-2.3); Potassium 3.1 mmol/L (3.4-5.0); Sodium 139 mmol/L (137-145)
[2021-09-06] MEDS: FLUTICASONE/SALMETEROL 115-21 MCG INHALER 1 PUFF 2 PUFF INHALATION (08:16)
--- NOTE | 2021-09-06 09:02 | PM.DS ---
DS: Admitting Diagnosis Discharge Date 09/06/2021 Admitting Diagnosis Flank pain DS: Discharge Diagnosis Discharge Diagnosis (1) Calculus of distal left ureter: Code(s): N20.1 - Calculus of ureter Status: Acute Assessment and Plan: Patient with a 2 x 3 mm stone in the distal left ureter resulting in left hydronephrosis and hydroureter. This is causing and complicating her pyelonephritis. Urology has been consulted Cystoscopy, left ureteral stone extraction, left retrograde pyelography and left ureteral stent placement (2) Pyelonephritis of left kidney: Code(s): N12 - Tubulo-interstitial nephritis, not specified as acute or chronic Status: Acute Assessment and Plan: Patient presents with left flank pain. CT of the abdomen shows prominent left nephromegaly and left perinephric fluid with hydronephrosis and hydroureter secondary to distal left ureteral stone. No prior cultures are positive to provide guidance for antibiotic choice. As such patient was started on Rocephin. She does not meet sepsis criteria. Her white count was 13 K and this has normalized. No fevers. Follow-up on blood and urine cultures. Urine culture is negative so far patient is aware follow-up on final culture follow-up with PCP (3) Hypoxia: Code(s): R09.02 - Hypoxemia Status: Acute Assessment and Plan: Most likely related to emphysema improved (4) Acute kidney injury: Code(s): N17.9 - Acute kidney failure, unspecified Status: Acute Assessment and Plan: Patient has normal baseline creatinine. Creatinine has climbed to 2.0 today. Most likely related to obstructive nephropathy and ATN from the infection. Repeat CMP in 1 week (5) COPD (chronic obstructive pulmonary disease): Code(s): J44.9 - Chronic obstructive pulmonary disease, unspecified Status: Acute Assessment and Plan: Patient has COPD. Currently some mild hypoxia. CT of the abdomen shows emphysematous changes in the lower lung zones. Continue current therapy. . Wean oxygen as tolerated. (6) Lupus: Code(s): M32.9 - Systemic lupus erythematosus, unspecified Status: Acute Assessment and Plan: Patient has a history of lupus. She is on Plaquenil and prednisone for this. She does I have symptoms of sepsis so will continue prednisone current dose. (7) DVT prophylaxis: Code(s): Z29.9 - Encounter for prophylactic measures, unspecified Status: Acute Assessment and Plan: Encouraged ambulation DS: Summary Hospital Course Hospital Course: Patient presented to the hospital with abdominal pain was found to have obstructive uropathy secondary to ureteral stone associated with UTI and acute renal failure treated with IV antibiotics urology was consulted patient has cystoscopy with stone extraction and stent placement patient to follow-up with urologist as outpatient patient will be discharged on oral antibiotic for 1 week follow-up culture results follow-up with PCP in 1 week Time Spent with Patient Time attestation: Total time spent providing and/or coordinating discharge services: DS: Data Data Completed and Pending Completed studies during hospitalization: Pending at discharge 09/04/21 13:46 Surgical [PTH] Routine Labs on day of discharge: Labs from last 24 hours 09/06/21 09/06/21 09/05/21 04:46 04:46 16:48 WBC 9.9 RBC 3.19 L Hgb 10.6 L Hct 31.1 L MCV 97.5 MCH 33.2 MCHC 34.1 RDW 12.3 Plt Count 137 L MPV 9.4 Puncture Site Right radial ABG pH 7.451 H ABG pCO2 49.3 H ABG pO2 72.2 L ABG PO2/FiO2 Ratio 2.58 ABG HCO3 33.6 H ABG O2 Saturation 95.0 ABG O2 Content 16.2 ABG Base Excess 8.3 A-a Gradient 69.3 Oxyhemoglobin 93.5 Total Hemoglobin 12.3 O2 Delivery Device Nasal cannula O2 Liters/Min 2.0 FiO2 28 Sodium 139 Potassium 3.1 L Chloride 1
[2021-09-06] MEDS: MAGNESIUM OXIDE 400 MG TABLET PO (09:15)
[2021-09-06] MEDS: HEPARIN SODIUM 5,000 UNITS/ML VIAL 5000 UNITS SUB-Q (09:15)
[2021-09-06] MEDS: CLOPIDOGREL BISULFATE 75 MG TABLET PO (09:15)
[2021-09-06] MEDS: cycloSPORINE 0.4 ML OPHTH SOLUTION 1 DROP EACH EYE (09:15)
[2021-09-06] MEDS: ASPIRIN 81 MG CHEWABLE TABLET PO (09:15)
[2021-09-06] MEDS: clonazePAM (*CRX) 0.5 MG TABLET PO (09:15)
[2021-09-06] MEDS: ISOSORBIDE MONONITRATE 30 MG TAB.ER.24H PO (09:15)
[2021-09-06] MEDS: METOPROLOL TARTRATE 25 MG TABLET PO (09:16)
[2021-09-06] MEDS: PANTOPRAZOLE 40 MG TABLET PO (09:16)
[2021-09-06] MEDS: ROSUVASTATIN 10 MG TABLET 20 MG PO (09:16)
[2021-09-06] MEDS: PREGABALIN (*CRX) 75 MG CAPSULE 150 MG PO (09:16)
[2021-09-06] MEDS: predniSONE 5 MG TABLET PO (09:16)
[2021-09-06] MEDS: polyethylene glycoL 3350 17 GM POWD.PACK PO (09:16)
[2021-09-06] MEDS: oxyCODONE/ACETAMINOPHEN (*CRX) 5-325 MG TABLET 1 TABLET PO ×2 (09:17→15:12)
[2021-09-06] MEDS: POTASSIUM CHLORIDE 20 MEQ TABLET 40 MEQ PO (09:19)
--- NOTE | 2021-09-06 14:20 | WPDUROPN2 ---
Progress Note: A&P Assessment and Plan (1) Calculus of distal left ureter: Code(s): N20.1 - Calculus of ureter Status: Acute Assessment and Plan: Stent on string removed at bedside by me today Patient cleared for discharge Follow up with Dr. Reeves Subjective Subjective Date/Time Seen: 09/06/21 14:20 BERHANE overnight pain controlled patient ready for discharge today, but is anxious about stent on string removal Exam Const: General: cooperative, comfortable and no acute distress HENMT: Head: normal to inspection Eyes: General: appearance normal, both eyes and all related structures Resp: Effort & Inspection: normal respiratory effort Skin: General skin exam: normal color Neuro: General: oriented to person, oriented to place and oriented to time Psych: Mental Status: mental status grossly normal Objective Data Vital Signs Vital Signs: Vital Signs - 24 hr 09/05/21 16:10 09/05/21 19:38 09/05/21 19:48 Temperature 37.3 C Pulse Rate 74 64 64 Respiratory Rate 18 20 20 Blood Pressure 141/53 H Pulse Oximetry 98 97 09/05/21 20:00 09/05/21 20:34 09/06/21 00:00 Temperature 36.8 C 37.2 C Pulse Rate 99 88 73 Respiratory Rate 16 18 Blood Pressure 146/61 H 141/56 H Pulse Oximetry 95 93 09/06/21 02:20 09/06/21 02:30 09/06/21 05:00 Temperature 37.1 C Pulse Rate 72 72 63 Respiratory Rate 20 20 14 Blood Pressure 146/76 H Pulse Oximetry 95 98 09/06/21 08:17 09/06/21 08:23 09/06/21 09:11 Temperature 37.3 C Pulse Rate 65 86 Respiratory Rate 20 16 Blood Pressure 148/54 H Pulse Oximetry 95 96 09/06/21 09:16 09/06/21 09:20 Temperature Pulse Rate 80 Respiratory Rate Blood Pressure Pulse Oximetry 96 Intake/Output Intake/Output: Intake & Output 09/03/21 09/04/21 09/05/21 09/06/21 23:59 23:59 23:59 23:59 Intake Total 50 4122 2930 890 Output Total 405 860 9419 1400 Balance -150 3522 430 -510 Meds/Results Medications: Active Medications Generic Name Dose Route Start Last Admin Trade Name Freq PRN Reason Stop Dose Admin Acetaminophen 650 mg 09/03/21 18:07 Acetaminophen 325 Mg Tablet PO Q4H PRN Mild Pain (1-3) or Fever Albuterol 2.5 mg 09/03/21 21:46 09/05/21 08:33 Albuterol Sulfate Neb 2.5 Mg/0.5 Ml Inh INHALATION 2.5 mg Q6H PRN Administration shortness of breath Amlodipine Besylate 2.5 mg 09/03/21 21:00 09/05/21 20:32 Amlodipine Besylate 2.5 Mg Tablet PO 2.5 mg HS ABBIE Administration Aspirin 81 mg 09/04/21 08:00 09/06/21 09:15 Aspirin 81 Mg Chewable Tablet PO 81 mg DAILY@0800 ABBIE Administration Clonazepam 0.5 mg 09/05/21 21:00 09/06/21 09:15 Clonazepam (*Crx) 0.5 Mg Tablet PO 0.5 mg Q12HR ABBIE Administration Clopidogrel Bisulfate 75 mg 09/06/21 09:00 09/06/21 09:15 Clopidogrel Bisulfate 75 Mg Tablet PO 75 mg DAILY ABBIE Administration Cyclosporine 1 drop 09/03/21 21:00 09/06/21 09:15 Cyclosporine 0.4 Ml Ophth Solution EACH EYE 1 drop Q12H ABBIE Administration Fentanyl Citrate 25 mcg 09/04/21 12:22 Fentanyl Citrate Inj (*Crx) 100 Mcg/2 Ml Vial IV PUSH Q2M PRN Pain Heparin Sodium (Porcine) 5,000 units 09/03/21 21:00 09/06/21 09:15 Heparin Sodium 5,000 Units/Ml Vial SUB-Q 5,000 units Q12HR ABBIE Administration Hydroxychloroquine Sulfate 200 mg 09/04/21 09:00 Hydroxychloroquine Sulfate 200 Mg Tablet PO BID [facility] Ceftriaxone Sodium/Dextrose 1 gm in 50 mls @ 100 mls/hr 09/03/21 18:00 09/05/21 17:42 Rocephin 1 Gm/D5w 50 Ml IVPB Infused Q24H [facility] Infusion Ipratropium [place] 0.5 mg 09/03/21 21:46 09/04/21 19:57 Ipratropium Br 0.02% Inh Soln 0.5 Mg/2.5 Ml Vial INHALATION 0.5 mg Q6H PRN Administration shortness of breath Ipratropium [place] 0.5 mg 09/05/21 20:00 04/02/22 08:16 Ipratropium Br 0.02% Inh Soln 0.5 Mg/2.5 Ml Vial INHALATION 0.5 mg Q6HRT ABBIE Administration Isosorbide Mononit
== END 2021-09-06 15:30 | disposition home or self-care (01) | DRG 660 ==
PROVIDERS: Nurse Practitioner Adult Health; Urology; Admitting Provider Internal Medicine; PCP Hospitalist; Visit Provider Internal Medicine
PROC: 0T778DZ Dilation of Left Ureter with Intraluminal Device, Via Natural or Artificial Opening Endoscopic (ICD-10-PCS; CPT 52352; principal; 2021-09-04 13:00)
DX: N13.6 Pyonephrosis (principal); I50.32 Chronic diastolic (congestive) heart failure; R09.02 Hypoxemia; J43.9 Emphysema, unspecified; N17.0 Acute kidney failure with tubular necrosis; M32.9 Systemic lupus erythematosus, unspecified; I11.0 Hypertensive heart disease with heart failure; G25.81 Restless legs syndrome; E78.00 Pure hypercholesterolemia, unspecified; F41.9 Anxiety disorder, unspecified; Z79.52 Long term (current) use of systemic steroids; Z95.5 Presence of coronary angioplasty implant and graft; Z90.49 Acquired absence of other specified parts of digestive tract; Z87.891 Personal history of nicotine dependence
CPT/HCPCS: 36415; 36600; 71045; 74420; 78580; 80048; 80053; 80069; 82365; 82805; 83735; 85025; 85027; 87040; 88300; 94618; 94640; 96361; 96365; 96372; 96375; A9270; A9540; C1726; C1769; C1887; C2617; G0378; G0379; J0131; J0696; J1100; J1644; J2250; J2270; J2405; J2704; J3010; J7120; J7512; Q9966

== ENCOUNTER 2021-09-08 20:12 | Inpatient (IN) | payer MEDICARE, SELFPAY ==
--- NOTE | ~2021-09-08 | XR_ITS ---
EXAMINATION: XR chest 1V portable INDICATION: Shortness of breath TECHNIQUE: Portable AP chest at 1325 hours COMPARISON: 09/12/2021 FINDINGS: A small right pleural effusion is unchanged. Right basilar airspace opacities persist witho ut significant change. There are minimal left basilar airspace opacities. No pneumothorax is identifi ed. The cardiomediastinal silhouette is stable. Surgical changes are noted in the lower cervical spin e. There is a partially imaged right internal ureteral stent. Surgical clips in the right upper quadr ant are likely from prior cholecystectomy. IMPRESSION: 1. Small right pleural effusion. 2. Bibasilar airspace opacities, consistent with atelectasis versus pneumonia. Reviewed, dictated and finalized at location A.
--- NOTE | ~2021-09-08 | XR_ITS ---
EXAMINATION: XR retrograde pyelo w/stent LT EXAM DATE: 09/09/2021 13:11 INDICATION: Left-sided retrograde pyelogram, stent placement. TECHNIQUE: Fluoroscopy used during XR retrograde pyelo w/stent LT performed by Dr. Deion Reeves MD, urologist. The radiologist Irwin Vanegas M.D. dictating this report of the image(s) available wa s not present for the procedure. Total fluoroscopic time of 24 seconds. The DAP for this procedure was 0.17 mGym2. A total of 27 images sent to PACS from the exam. Cine run(s) available for review. Correlation is made to CT abdomen pelvis from yesterday. FINDINGS: Left ureter was cannulated and injected. There is moderate left hydroureteronephrosis. A d ouble-J ureteral stent was placed. Correlate with procedure note. IMPRESSION: Moderate left hydroureteronephrosis, stent in position. Reviewed, dictated and finalized at location A.
--- NOTE | ~2021-09-08 | CT_ITS ---
EXAMINATION: CT abdomen pelvis wo con DATE: 09/08/2021 23:06 INDICATION: Left flank pain. TECHNIQUE: Computed tomography (CT) of the abdomen and pelvis was performed without intravenous contr ast. Automated exposure control and iterative reconstruction technique were employed. The dose-length product was 180.97 mGy-cm. COMPARISON: CT abdomen and pelvis 09/03/2021 FINDINGS: The visualized portions of the lung bases demonstrate emphysema and mild atelectasis. No pl eural effusion. The heart size is normal. There are coronary artery calcifications. No pericardial ef fusion. The liver and spleen are normal. There are changes of cholecystectomy. Calcifications in the pancreas are consistent with chronic pancreatitis. The adrenal glands are normal. There are approxima tely three 1-2 mm stones in right kidney. There are approximately three stones in left kidney measuri ng up to 3 mm. There is moderate left hydronephrosis and hydroureter. There is a 3 mm stone at left u reterovesicular junction. There are no dilated loops of bowel. There is wall thickening involving the majority of the colon. The appendix is not visualized. There are no pathologically enlarged lymph no lottie. There is no free intraperitoneal fluid. There is mild lumbar spondylosis. IMPRESSION: 1. 3 mm stone at left ureterovesicular junction with moderate left hydronephrosis and hydroureter. 2. Bilateral nonobstructing kidney stones. 3. New wall thickening involving the majority of the colon, consistent with colitis. Reviewed, dictated and finalized at location A. IMPRESSION: 1. 3 mm stone at left ureterovesicular junction with moderate left hydronephros is and hydroureter. 2. Bilateral nonobstructing kidney stones. 3. New wall thickening involving the majority of the colon, consistent with col itis.
--- NOTE | ~2021-09-08 | XR_ITS ---
EXAMINATION: XR chest 1V portable DATE: 09/12/2021 11:31 INDICATION: Shortness of breath TECHNIQUE: frontal view of the chest was obtained. COMPARISON: Chest radiograph dated 09/04/2021 FINDINGS: Increased lucency and architectural distortion in the bilateral upper lung zones consistent with emph ysema. Persistent opacities in the right lower lung zone. Small right pleural effusion. No pulmonary edema or pneumothorax. The cardiomediastinal silhouette is normal. Plate and screw fixation for lower cervical anterior spinal fusion. Old healed fractures of the right humeral neck. IMPRESSION: 1. Mild right basilar opacities which could represent atelectasis and/or pneumonia. 2. Small right pleural effusion. 3. Emphysema. Reviewed, dictated and finalized at location B. IMPRESSION: 1. Mild right basilar opacities which could represent atelectasis and/or pneumo mega. 2. Small right pleural effusion. 3. Emphysema.
--- NOTE | ~2021-09-08 | XR_ITS ---
EXAMINATION: XR abdomen/kub 1V EXAM DATE: 09/14/2021 13:10 INDICATION: c diff colitis abd distention TECHNIQUE: Frontal projection(s) of the abdomen for interpretation. There is no prior study for doug hays. FINDINGS: There is a left-sided double-J ureteral stent in expected position. Some calcifications pr ojecting over upper pole of right kidney are probably pancreatic. Can't identify any definite kidney stones. Cholecystectomy clips. Nonobstructive bowel gas pattern. Thickened descending colonic wall co nsistent with colitis. IMPRESSION: 1. Thickened ascending colonic wall, colitis. 2. Left ureteral stent in position. Reviewed, dictated and finalized at location A.
[2021-09-08 20:25] VITALS: BP 136/56; PULSE 85; RESP 18; TEMP 37.5; O2SAT 100
[2021-09-08 21:07] LABS: Basophils Absolute Auto 0.1 K/mm3 (0.0-0.1); Basophils Percent Auto 0.6 % (0.2-1.2); Eosinophils Absolute Auto 0.2 K/mm3 (0-0.3); Eosinophils Percent Auto 0.7 % (0-4.4); Hematocrit 38.1 % (37.0-47.0); Hemoglobin 12.6 g/dL (12.0-15.0); Immature Granulocyte Absolute 0.11 K/mm3 (0.00-0.031); Immature Granulocyte Percent A 0.5 % (0-0.5); Lymphocytes Absolute Auto 2.04 K/mm3 (0.9-3.2); Lymphocytes Percent Auto 9.7 % (18.3-44.2); Mean Corpuscular HGB Conc 33.1 g/dl (32-36); Mean Corpuscular Hemoglobin 32.8 pg (26-34); Mean Corpuscular Volume 99.2 fl (80-100); Mean Platelet Volume 9.7 fl (7.4-10.4); Monocytes Absolute Auto 2.1 K/mm3 (0.1-0.6); Monocytes Percent Auto 9.9 % (2.6-8.5); Neutrophils Absolute Auto 16.6 K/mm3 (1.3-6.7); Neutrophils Percent Auto 78.6 % (45.5-73.1); Platelet Count Result 179 k/mm3 (150-375); Red Blood Count 3.84 M/mm3 (4.2-5.4); Red Cell Distribution Width 12.6 % (11.5-14.5); White Blood Count 21.1 K/mm3 (4.5-10.0)
[2021-09-08 21:12] LABS: Alanine Aminotransferase 28 U/L (4-35); Albumin Level 3.7 g/dL (3.5-5.1); Alkaline Phosphatase 54 U/L (38-126); Anion Gap 9 mmol/L (8-16); Aspartate Amino Transferase 39 U/L (14-36); Bilirubin,Total 0.5 mg/dL (0.2-1.3); Blood Urea Nitrogen 44 mg/dL (7-17); Calcium 9.5 mg/dL (8.4-10.2); Carbon Dioxide 29 mmol/L (22-30); Chloride 100 mmol/L (98-107); Estimated CRCL calculation 18 ml/min; Estimated Glomerular Filt Rate 25; Glucose 146 mg/dL (65-110); Sodium 138 mmol/L (137-145)
[2021-09-08 21:37] VITALS: BP 144/70; PULSE 80; RESP 16; O2SAT 100
[2021-09-08 22:01] LABS: Lipase < 10 U/L (23-300)
[2021-09-08] MEDS: ONDANSETRON INJ 4 MG/2 ML VIAL IV PUSH (22:22)
[2021-09-08] MEDS: SODIUM CHLORIDE 0.9% IV 500 ML 999 ML IV CONT (22:22)
[2021-09-08] MEDS: MORPHINE SULFATE (*CRX) 4 MG/ML INJ IV PUSH (22:22)
--- NOTE | 2021-09-08 22:37 | ED.NAVMDI ---
HPI - Nausea/Vomiting/Diarrhea General Chief complaint: Nausea/Vomiting/Diarrhea Stated complaint: pain after kidney stones Time Seen by Provider: 09/08/21 21:41 Source: patient History of Present Illness HPI Narrative: Patient presents with left flank pain and nausea. Patient reports she was recently admitted to the hospital concern for infected stone treated with a stent placement. Stent was removed prior to discharge patient was initially doing well however yesterday she was noting increasing nausea and left flank pain that got worse overnight so she came to the ER today for further evaluation. She denies any changes in urine denies any diarrhea or fevers her pain is achy, constant, no clear aggravating or alleviating factors. She has been taking her hydrocodone at home without relief of her symptoms she also reports she has been taking her antibiotics that she was. Related Data Home Medications Medication Instructions Recorded Confirmed prednisone 5 mg PO DAILY 06/03/21 09/03/21 amlodipine 2.5 mg PO DAILY 06/04/21 09/05/21 hydroxychloroquine 200 mg PO BID 06/04/21 09/03/21 pregabalin 150 mg PO BID 06/04/21 09/03/21 ropinirole 1 mg PO HS 06/04/21 09/03/21 solifenacin 5 mg PO HS 06/04/21 09/03/21 trazodone 100 mg PO HS 06/04/21 09/03/21 zolpidem 10 mg PO HS 06/04/21 09/03/21 budesonide-formoterol 2 puff INHALATION Q12H 09/03/21 09/03/21 brdqyyzbkh-gfrajpzcpjyut-hoxn 50 tablet PO QID PRN 09/03/21 09/03/21 clonazepam 0.5 mg PO BID 09/03/21 09/03/21 cyclosporine 1 drp EACH EYE Q12H 09/03/21 09/03/21 denosumab 60 mg SUBCUT [id number] 09/03/21 09/03/21 omeprazole 40 mg PO DAILY 09/03/21 09/03/21 ondansetron 8 mg PO TID PRN 09/03/21 09/03/21 clopidogrel 75 mg PO DAILY 09/05/21 09/05/21 isosorbide mononitrate 30 mg PO DAILY 09/05/21 09/05/21 metoprolol tartrate 25 mg PO BID 09/05/21 09/05/21 nitroglycerin 0.4 mg SUBLINGUAL Q5MIN PRN 09/05/21 09/05/21 Allergies Allergy/AdvReac Type Severity Reaction Status Date / Time Sulfa (Sulfonamide AdvReac Unknown Verified 09/08/21 20:30 Antibiotics) Review of Systems Review of Systems: CONSTITUTIONAL: Denies fever, chills, or sweats. EYES: Denies visual changes, redness, or discharge. ENT: Denies rhinorrhea, congestion, sore throat, or otalgia. CARDIOVASCULAR: Denies chest pain, palpitations, or edema. RESPIRATORY: Denies cough or dyspnea. GASTROINTESTINAL: Reports abdominal pain with nausea and vomiting GENITOURINARY: Denies dysuria or hematuria. SKIN: Denies rash or itching. MUSCULOSKELETAL: Denies joint pain, or myalgia. NEUROLOGIC: Denies headache, numbness, dizziness, or weakness. PSYCHIATRIC: Denies anxiety or depression. All systems reviewed & are unremarkable except as noted in HPI and below PMFSH Past Medical History Medical History Altered mental status Anxiety Cataracts, bilateral developing CHF (congestive heart failure) Echo 06/03/2021: Normal EF 60-65%, global longitudinal strain abnormal-14%, diastolic dysfunction grade 1, E/E tendon is mildly elevated, elevated right atrial pressures at 10mmHg COPD (chronic obstructive pulmonary disease) Hypercholesteremia Lupus Mild cognitive impairment with memory loss Restless leg syndrome Surgical History Surgical History H/O hysterectomy for benign disease History of heart artery stent (06/23/21) High-grade stenosis near ostial LAD stented following deployment of the stent there was plaque shifting into the ostium of the circumflex causing 80 90% stenosis with subsequent placement of stent at the ostium of the circumflex with migration of the circumflex stent and to the path of the main coronary artery had which time the stent was crushed History of lithotripsy Hx of cholecystectomy Family History Family History Father , 56 years old COPD (chronic obstr
--- NOTE | 2021-09-08 22:46 | PC.NURSE ---
Pt assisted to bathroom in wheelchair and unable to provide urine sample at this time. Fluids started, will attempt again.
[2021-09-09] VITALS (18 sets, daily range): BP systolic 127–149; BP diastolic 55–82; PULSE 56–110; RESP 12–20; TEMP 36.7–38.4; O2SAT 90–100; BMI 17.4
[2021-09-09 01:12] LABS: Add Urine Microscopic? YES; Appearance Urine Cloudy (Clear); Bacteria Urine Trace /hpf; Bilirubin Urine Negative (Negative); Blood Urine 3+ (Negative); Color Urine Yellow (Yellow); Glucose Urine UA Negative (Negative); Ketones Urine Negative (Negative); Lactic Acid Reflex 1.1 mmol/L (0.7-2.1); Leukocyte Esterase Ur Trace LEU/UL (Negative); Mucus Urine Rare /lpf; Nitrate Urine Negative (Negative); Protein Urine 2+ mg/dL (Negative); RBC Urine >75 /hpf (0-2); Specific Grav Ur 1.013 (1.001-1.035); Squamous Epithelial Cell Urine Occasional /hpf (Few); Urobilinogen Urine Negative mg/dL (<2.0); WBC Urine 31-50 /hpf
[2021-09-09 01:23] LABS: Creatinine Urine 117.3 mg/dL
[2021-09-09 01:24] LABS: Sodium Urine Random 111 meq/L
[2021-09-09] MEDS: SODIUM CHLORIDE 0.9% IV 1,000 ML 999 ML IV CONT (01:25)
--- NOTE | 2021-09-09 02:34 | PC.NURSE ---
Fluids still running on this pt at the time of departure of ED despite being after the time they should have been completed so they were not documented as complete.
[2021-09-09] MEDS: MORPHINE SULFATE (*CRX) 4 MG/ML INJ IV PUSH ×3 (02:57→16:57)
--- NOTE | 2021-09-09 03:08 | ADMGEN ---
This patient, Suma Scott, was admitted to [facility] Room 311-01. Patient/family oriented to hospital policies and general routines including ID bracelet, bed and alarms, visiting hours, pain management, procedures, bathroom and other care routines, personal items, smoking policy, room service/diet, and visiting hours. Information on how to activate the Rapid Response Team has been discussed. Patient/Family are encouraged to report perceived risks to care and to ask questions if they do not understand what they are told or what they should do.
--- NOTE | 2021-09-09 06:52 | WPDURCON ---
Assessment and Plan Assessment and plan (1) Hydronephrosis, left: Code(s): N13.30 - Unspecified hydronephrosis Status: Acute (2) JOANN (acute kidney injury): Code(s): N17.9 - Acute kidney failure, unspecified Status: Acute (3) Calculus, ureteral: Code(s): N20.1 - Calculus of ureter Status: Acute Assessment and Plan: In light of symptomatic left hydronephrosis with a possible small stone fragment at her left ureterovesical junction I will plan cystoscopy with replacement of left ureteral stent, possible ureteroscopy with stone extraction Urology Consult Note HPI Date Seen: 09/09/21 Requesting Physician: Kim Blair DO Primary Care Provider: Sarah MalaveMD Consult Narrative Narrative: Suma Scott is a 66 year old female who is status post ureteroscopy with stone extraction and ureteral stent placement last week. Patient has a history of stent intolerance and was insistent on stent removal prior to discharge. That was removed at the bedside. She felt well for a couple days but comes to the ER last night with recurrent nausea/vomiting, diarrhea and mild left flank pain. Imaging shows persistent hydronephrosis on the left with another small stone at the ureterovesical junction. Review of Systems Cardiovascular: Cardiovascular: Denies chest pain, Denies lightheadedness, Denies palpitations and Denies dyspnea Respiratory: Respiratory: Denies dyspnea Gastrointestinal: Gastrointestinal: Reports diarrhea, Reports nausea and Reports vomiting Genitourinary: Genitourinary: Denies hematuria and Denies dysuria Endocrine: Endocrine: Denies palpitations PMFSH Past Medical History Medical History Altered mental status Anxiety Cataracts, bilateral developing CHF (congestive heart failure) Echo 06/03/2021: Normal EF 60-65%, global longitudinal strain abnormal-14%, diastolic dysfunction grade 1, E/E tendon is mildly elevated, elevated right atrial pressures at 10mmHg COPD (chronic obstructive pulmonary disease) Hypercholesteremia Lupus Mild cognitive impairment with memory loss Restless leg syndrome Surgical History Surgical History H/O hysterectomy for benign disease History of heart artery stent (06/23/21) High-grade stenosis near ostial LAD stented following deployment of the stent there was plaque shifting into the ostium of the circumflex causing 80 90% stenosis with subsequent placement of stent at the ostium of the circumflex with migration of the circumflex stent and to the path of the main coronary artery had which time the stent was crushed History of lithotripsy Hx of cholecystectomy Family History Family History Father , 56 years old COPD (chronic obstructive pulmonary disease) Heart disease Mother , 62 years old No problems noted. Sibling Healthy female Social History Social History Social History: She lives at home with her of 49 years. She has smoked 1 pack of cigarettes per day since he was a teenager but quit smoking on the 03 of June. 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 Smoking packs per day: 1 Smoking cigarettes per day: 20.0 Years smoked: 50 Smoking pack-years: 50.00 Smoking status: Former smoker Second hand tobacco smoke exposure: Yes Alcohol intake: never Substance use: never Substance use type: marijuana Other substance usage details: MARIJUANA GUMMIES Last use: 09/01/21 Gender identity (if verbalized by the patient): Female Spiritual care concerns: No Meds Home Medications and Allergies Home Medications Medication Instructions Recorded Confirmed Type predn
[2021-09-09] MEDS: LACTATED RINGERS 1,000 ML 30 ML IV CONT (11:30)
--- NOTE | 2021-09-09 11:55 | WPDANESEPPF ---
Anes - Initial Pre Proc Eval Procedure: Operation Date: 09/09/21 12:30 Proposed Procedures p Cystoscopy, left ureteroscopy, retrograde pyelogram, Stone Extraction, Stent Placement(Left) - Deion Reeves MD Date/Time: 09/09/21 11:55 Surgeon: Kim Blair DO Pre Op Diagnosis: Leuckocytosis Patient Data Age: 66 Gender: F Height: 1.57 m Weight: 43.1 kg Last Vital Signs Temp 38.4 C H 09/09/21 11:30 Pulse 101 H 09/09/21 11:30 Resp 20 09/09/21 11:30 BP 138/64 09/09/21 11:30 Pulse Ox 100 09/09/21 11:30 Allergies Allergy/AdvReac Type Severity Reaction Status Date / Time Sulfa (Sulfonamide AdvReac Unknown Verified 09/09/21 11:41 Antibiotics) Home Medications Medication Instructions Recorded Confirmed Type prednisone 5 mg PO DAILY 06/03/21 09/09/21 History amlodipine 2.5 mg PO DAILY 06/04/21 09/09/21 History hydroxychloroquine 200 mg PO BID 06/04/21 09/09/21 History pregabalin 150 mg PO BID 06/04/21 09/09/21 History ropinirole 1 mg PO HS 06/04/21 09/09/21 History solifenacin 5 mg PO HS 06/04/21 09/09/21 History trazodone 100 mg PO HS 06/04/21 09/09/21 History zolpidem 10 mg PO HS 06/04/21 09/09/21 History ipratropium-albuterol 3 ml INHALATION Q6H PRN #180 ml 06/08/21 09/09/21 Rx nebulizers #1 ea 06/08/21 09/09/21 Rx aspirin [Children's Aspirin] 81 mg PO DAILY@0800 #30 tablet 06/24/21 09/09/21 Rx rosuvastatin [Crestor] 20 mg PO DAILY #60 tablet 06/24/21 09/09/21 Rx budesonide-formoterol 2 puff INHALATION Q12H 09/03/21 09/09/21 History shfsktwbge-phyovybgsumtl-slup 50 tablet PO QID PRN 09/03/21 09/09/21 History clonazepam 0.5 mg PO BID 09/03/21 09/09/21 History cyclosporine 1 drp EACH EYE Q12H 09/03/21 09/09/21 History denosumab 60 mg SUBCUT [id number] 09/03/21 09/09/21 History omeprazole 40 mg PO DAILY 09/03/21 09/09/21 History ondansetron 8 mg PO TID PRN 09/03/21 09/09/21 History clopidogrel 75 mg PO DAILY 09/05/21 09/09/21 History isosorbide mononitrate 30 mg PO DAILY 09/05/21 09/09/21 History metoprolol tartrate 25 mg PO BID 09/05/21 09/09/21 History nitroglycerin 0.4 mg SUBLINGUAL Q5MIN PRN 09/05/21 09/09/21 History cephalexin 500 mg PO Q8H 7 Days #21 cap 09/06/21 09/09/21 Rx oxycodone-acetaminophen 1 tablet PO Q6H PRN #10 tablet 09/06/21 09/09/21 Rx Laboratory Tests 09/08/21 09/08/21 09/09/21 20:37 20:37 00:38 WBC 21.1 K/mm3 H K/mm3 (4.5-10.0) RBC 3.84 M/mm3 L M/mm3 (4.2-5.4) Hgb 12.6 g/dL g/dL (12.0-15.0) Hct 38.1 % % (37.0-47.0) MCV 99.2 fl fl (80-100) MCH 32.8 pg pg (26-34) MCHC 33.1 g/dl g/dl (32-36) RDW 12.6 % % (11.5-14.5) Plt Count 179 k/mm3 k/mm3 (150-375) MPV 9.7 fl fl (7.4-10.4) Immature Gran % (Auto) 0.5 % % (0-0.5) Neut % (Auto) 78.6 % H % (45.5-73.1) Lymph % (Auto) 9.7 % L % (18.3-44.2) [place] % (Auto) 9.9 % H % (2.6-8.5) Eos % (Auto) 0.7 % % (0-4.4) Baso % (Auto) 0.6 % % (0.2-1.2) Lymph # (Auto) 2.04 K/mm3 K/mm3 (0.9-3.2) [place] # (Auto) 2.1 K/mm3 H K/mm3 (0.1-0.6) Eos # (Auto) 0.2 K/mm3 K/mm3 (0-0.3) Baso # (Auto) 0.1 K/mm3 K/mm3 (0.0-0.1) Abs Immat Gran (auto) 0.11 K/mm3 H K/mm3 (0.00-0.031) Absolute Neuts (auto) 16.6 K/mm3 H K/mm3 (1.3-6.7) Absolute Nucleated RBC 0.0 K/mm3 K/mm3 (0.0-0.012) Nucleated RBC % 0.0 % % (0.0-0.2) Sodium 138 mmol/L mmol/L (137-145) Potassium 4.0 mmol/L mmol/L (3.4-5.0) Chloride 100 mmol/L mmol/L (98-107) Carbon Dioxide 29 mmol/L mmol/L (22-30) Anion Gap 9 mmol/L mmol/L (8-16) BUN 44 mg/dL H D mg/dL (7-17) Creatinine 2.00 mg/dL H mg/dL (0.7-1.0) Estim Creat Clear Calc 18 ml/min ml/min Estimated GFR 25 L (59 - ) Glucose 146 mg/dL H mg/dL (65-110)
--- NOTE | 2021-09-09 12:40 | WPDHPUPDATE1 ---
History and Physical Update Update Date/Time: 09/09/21 12:40 History and Physical has been reviewed, including an updated exam of the patient. There are NO changes in the patient's condition. Risks, benefits, and alternatives have been discussed and questions answered. Patient agrees to proceed with procedure.
--- NOTE | 2021-09-09 13:12 | P.OP_ITS ---
Procedure Note - Detailed Date of Procedure 09/09/21 Pre-op Diagnosis Left hydronephrosis and small left distal ureteral calculus Post-op Diagnosis Same Procedure Performed Cystoscopy, left ureteroscopy with stone extraction, left retrograde pyelogram and left ureteral stent placement Surgeon Deion Reeves MD Description of Procedure The patient was brought to the operative suite where she is prepped and draped in a routine sterile fashion while in the dorsal lithotomy position after the uneventful induction of a general LMA anesthetic. A 19F rigid cystoscope was placed in the bladder. The patient had no evidence of urethral stricture or bladder neck contracture. The bladder mucosa was endoscopically normal without hyperemia or neoplasm. There was notable edema around the left ureteral orifice.There was a single, orthotopic ureteral orifice bilaterally. A 0.035 glidewire was advanced into the left renal pelvis under fluoroscopy. Ureteroscopy was undertaken with a short, tapered, semi-rigid ureteroscope and the stone was extracted with ease using a 1.9F Penemarie K Murphy disposable stone basket. I opted to place a stent in light of her hydronephrosis and left ureteral edema. A 4.8 F variable length ureteral stent was positioned with the proximal coil renal pelvis and distal coil in the bladder. Positioning was confirmed by a left retrograde pyelogram obtained through the rigid ureteral scope. The patient's bladder was emptied and was taken to the recovery room having tolerated this procedure well. Estimated Blood Loss 0 Urine Output 200 Drains Yes Packing No Pathology Yes Complications No immediate complications Condition Stable Disposition PACU
--- NOTE | 2021-09-09 13:36 | PM.IMHP ---
H&P: HPI History of Present Illness Date/Time: 09/09/21 13:36 Chief Complaint: L flank pain Narrative: 66-year-old female with mild dementia, hypertension, COPD, and coronary artery disease with recent cardiac stent who presented to the ER 2 days after being discharged from [facility] when she was found but 2 x 3 mm stone in the distal left ureter resulting in left hydronephrosis and hydroureter. This resulted in uncomplicated pyelonephritis and Urology was consulted who performed cystoscopy with left ureteral stone extraction and left retrograde pyelogram the with left ureteral stent placement. Prior to discharge home patient requested to have the stent removed. She returns today with similar symptoms of left flank pain radiating to the left anterior abdomen, flank pain that she stated was 10/10 in intensity and worse with movement. Urology is consulted for suspected retained stone fragment in the left ureter vesicular junction. At the time of my interview patient remains in pain 10/10 appears dehydrated and very anxious. Remainder of ROS negative Review of Systems Review of Systems: All systems reviewed & are unremarkable except as noted in HPI and below PMFSH Past Medical History Medical History Altered mental status Anxiety Cataracts, bilateral developing CHF (congestive heart failure) Echo 06/03/2021: Normal EF 60-65%, global longitudinal strain abnormal-14%, diastolic dysfunction grade 1, E/E tendon is mildly elevated, elevated right atrial pressures at 10mmHg COPD (chronic obstructive pulmonary disease) Hypercholesteremia Lupus Mild cognitive impairment with memory loss Restless leg syndrome Surgical History Surgical History H/O hysterectomy for benign disease History of heart artery stent (06/23/21) High-grade stenosis near ostial LAD stented following deployment of the stent there was plaque shifting into the ostium of the circumflex causing 80 90% stenosis with subsequent placement of stent at the ostium of the circumflex with migration of the circumflex stent and to the path of the main coronary artery had which time the stent was crushed History of lithotripsy Hx of cholecystectomy Family History Family History Father , 56 years old COPD (chronic obstructive pulmonary disease) Heart disease Mother , 62 years old No problems noted. Sibling Healthy female Social History Social History Social History: She lives at home with her of 49 years. She has smoked 1 pack of cigarettes per day since he was a teenager but quit smoking on the 03 of June. 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 Smoking packs per day: 1 Smoking cigarettes per day: 20.0 Years smoked: 50 Smoking pack-years: 50.00 Smoking status: Former smoker Second hand tobacco smoke exposure: Yes Alcohol intake: never Substance use: never Substance use type: marijuana Other substance usage details: MARIJUANA GUMMIES Last use: 09/01/21 Gender identity (if verbalized by the patient): Female Spiritual care concerns: No Meds Home Medications and Allergies Home Medications Medication Instructions Recorded Confirmed Type prednisone 5 mg PO DAILY 06/03/21 09/09/21 History amlodipine 2.5 mg PO DAILY 06/04/21 09/09/21 History hydroxychloroquine 200 mg PO BID 06/04/21 09/09/21 History pregabalin 150 mg PO BID 06/04/21 09/09/21 History ropinirole 1 mg PO HS 06/04/21 09/09/21 History solifenacin 5 mg PO HS 06/04/21 09/09/21 History trazodone 100 mg PO HS 06/04/21 09/09/21 History zolpidem 10 mg PO HS 06/04/21 09/09/21 History ipratropium-albuterol 3 ml INHALATION Q6H PRN #180 ml 06/08
[2021-09-09] MEDS: ONDANSETRON INJ 4 MG/2 ML VIAL IV PUSH (16:56)
[2021-09-09] MEDS: VANCOMYCIN ORAL 125 MG/2.5 ML SYRUP PO (16:57)
[2021-09-09] MEDS: HYDROXYCHLOROQUINE SULFATE 200 MG TABLET PO (18:28)
[2021-09-09] MEDS: PREGABALIN (*CRX) 75 MG CAPSULE 150 MG PO (18:32)
[2021-09-09] MEDS: clonazePAM (*CRX) 0.5 MG TABLET PO (18:32)
[2021-09-09] MEDS: FLUTICASONE/SALMETEROL 115-21 MCG INHALER 1 PUFF 2 PUFF INHALATION (20:12)
[2021-09-09] MEDS: SOLIFENACIN 5 MG TABLET PO (20:41)
[2021-09-09] MEDS: METOPROLOL TARTRATE 25 MG TABLET PO (20:41)
[2021-09-09] MEDS: ZOLPIDEM TARTRATE (*CRX) 5 MG TABLET 10 MG PO (20:41)
[2021-09-09] MEDS: cycloSPORINE 0.4 ML OPHTH SOLUTION 1 DROP EACH EYE (20:42)
[2021-09-09] MEDS: rOPINIRole HCL 1 MG TABLET PO (20:42)
[2021-09-09] MEDS: traZODone HCL 50 MG TABLET 100 MG PO (20:44)
[2021-09-10] VITALS (7 sets, daily range): BP systolic 92–138; BP diastolic 61–78; PULSE 80–92; RESP 18–20; TEMP 37.1–37.3; O2SAT 94–99
[2021-09-10] MEDS: VANCOMYCIN ORAL 125 MG/2.5 ML SYRUP PO ×4 (00:21→17:58)
[2021-09-10] MEDS: SODIUM CHLORIDE 0.9% IV 1,000 ML 125 ML IV CONT ×3 (02:02→17:53)
[2021-09-10 06:23] LABS: Hematocrit 37.5 % (37.0-47.0); Hemoglobin 12.5 g/dL (12.0-15.0); Mean Corpuscular HGB Conc 33.3 g/dl (32-36); Mean Corpuscular Hemoglobin 33.2 pg (26-34); Mean Corpuscular Volume 99.5 fl (80-100); Mean Platelet Volume 10.1 fl (7.4-10.4); Platelet Count Result 210 k/mm3 (150-375); Red Blood Count 3.77 M/mm3 (4.2-5.4); Red Cell Distribution Width 12.5 % (11.5-14.5); White Blood Count 18.7 K/mm3 (4.5-10.0)
[2021-09-10 06:35] LABS: Anion Gap 7 mmol/L (8-16); Blood Urea Nitrogen 35 mg/dL (7-17); Calcium 7.1 mg/dL (8.4-10.2); Carbon Dioxide 24 mmol/L (22-30); Chloride 107 mmol/L (98-107); Estimated CRCL calculation 18 ml/min; Estimated Glomerular Filt Rate 26; Glucose 115 mg/dL (65-110); Potassium 3.9 mmol/L (3.4-5.0); Sodium 138 mmol/L (137-145)
[2021-09-10] MEDS: FLUTICASONE/SALMETEROL 115-21 MCG INHALER 1 PUFF 2 PUFF INHALATION ×2 (07:59→20:11)
[2021-09-10] MEDS: ONDANSETRON HCL ODT 4 MG TABLET 8 MG PO (08:49)
[2021-09-10] MEDS: ASPIRIN 81 MG CHEWABLE TABLET PO (08:52)
[2021-09-10] MEDS: HYDROXYCHLOROQUINE SULFATE 200 MG TABLET PO ×2 (08:52→17:56)
[2021-09-10] MEDS: predniSONE 5 MG TABLET PO (08:52)
[2021-09-10] MEDS: CLOPIDOGREL BISULFATE 75 MG TABLET PO (08:52)
[2021-09-10] MEDS: PANTOPRAZOLE 40 MG TABLET PO (08:52)
[2021-09-10] MEDS: cycloSPORINE 0.4 ML OPHTH SOLUTION 1 DROP EACH EYE (08:53)
[2021-09-10] MEDS: METOPROLOL TARTRATE 25 MG TABLET PO (08:53)
[2021-09-10] MEDS: amLODIPine BESYLATE 2.5 MG TABLET PO (08:53)
[2021-09-10] MEDS: ISOSORBIDE MONONITRATE 30 MG TAB.ER.24H PO (08:53)
[2021-09-10] MEDS: ROSUVASTATIN 10 MG TABLET 20 MG PO (08:53)
[2021-09-10] MEDS: PREGABALIN (*CRX) 75 MG CAPSULE 150 MG PO ×2 (08:56→17:55)
[2021-09-10] MEDS: clonazePAM (*CRX) 0.5 MG TABLET PO ×2 (08:56→17:55)
--- NOTE | 2021-09-10 10:27 | WPDUROPN2 ---
Progress Note: A&P Assessment and Plan (1) Hydronephrosis, left: Code(s): N13.30 - Unspecified hydronephrosis Status: Acute (2) Calculus, ureteral: Code(s): N20.1 - Calculus of ureter Status: Acute Assessment and Plan: Tolerating ureteral stent reasonably well. Will need to leave this in 10-14 days to let ureteral edema subside. Leukocytosis and creatinine slightly improved. Continue Pip/Tazo pending culture completion. Subjective Subjective Date/Time Seen: 09/10/21 10:27 Comfortable, tolerating stent Review of Systems Cardiovascular: Cardiovascular: Denies chest pain, Denies lightheadedness, Denies palpitations and Denies dyspnea Respiratory: Respiratory: Denies dyspnea Gastrointestinal: Gastrointestinal: Denies diarrhea, Denies nausea and Denies vomiting Genitourinary: Genitourinary: Denies hematuria and Denies dysuria Endocrine: Endocrine: Denies palpitations Exam Const: General: no acute distress Resp: Effort & Inspection: normal respiratory effort GI: Inspection: non-distended GI Palp: No abdominal tenderness and No Guarding due to palpation present (GI) Auscultation: normal bowel sounds Objective Data Vital Signs Vital Signs: Vital Signs - 24 hr 09/09/21 11:30 09/09/21 13:11 09/09/21 13:25 Temperature 101.2 F H 98.5 F Pulse Rate 101 H 88 87 Respiratory Rate 20 12 20 Blood Pressure 138/64 140/72 135/66 Pulse Oximetry 100 100 100 09/09/21 13:40 09/09/21 13:55 09/09/21 14:10 Temperature Pulse Rate 100 106 H 102 H Respiratory Rate 20 20 20 Blood Pressure 149/67 H 145/78 H 146/70 H Pulse Oximetry 98 96 100 09/09/21 14:25 09/09/21 14:40 09/09/21 15:58 Temperature 99.1 F Pulse Rate 100 103 H 110 H Respiratory Rate 20 20 18 Blood Pressure 127/57 L 137/68 128/74 Pulse Oximetry 100 93 09/09/21 20:00 09/09/21 20:16 09/09/21 20:41 Temperature Pulse Rate 104 H 104 H Respiratory Rate 18 Blood Pressure Pulse Oximetry 95 95 09/10/21 08:00 Temperature 98.9 F Pulse Rate 92 Respiratory Rate 18 Blood Pressure 138/61 Pulse Oximetry 99 Intake/Output Intake/Output: Intake & Output 09/07/21 09/08/21 09/09/21 09/10/21 23:59 23:59 23:59 23:59 Intake Total 1110 1550 Output Total 700 500 Balance 410 1050 Meds/Results Medications: Active Medications Generic Name Dose Route Start Last Admin Trade Name Freq PRN Reason Stop Dose Admin Acetaminophen/Butalbital/Caffeine 50 tab 09/09/21 16:49 Acetaminophen/Butalbital/Caffeine 325-50-40 Mg Tablet (Fioricet) PO QID PRN Pain Albuterol 2.5 mg 09/09/21 16:55 Albuterol Sulfate Neb 2.5 Mg/0.5 Ml Inh INHALATION Q6HRT PRN Shortness Of Breath Amlodipine Besylate 2.5 mg 09/10/21 09:00 09/10/21 08:53 Amlodipine Besylate 2.5 Mg Tablet PO 2.5 mg DAILY ABBIE Administration Aspirin 81 mg 09/10/21 08:00 09/10/21 08:52 Aspirin 81 Mg Chewable Tablet PO 81 mg DAILY@0800 ABBIE Administration Clonazepam 0.5 mg 09/09/21 17:00 09/10/21 08:56 Clonazepam (*Crx) 0.5 Mg Tablet PO 0.5 mg BID ABBIE Administration Clopidogrel Bisulfate 75 mg 09/10/21 09:00 09/10/21 08:52 Clopidogrel Bisulfate 75 Mg Tablet PO 75 mg DAILY ABBIE Administration Cyclosporine 1 drop 09/09/21 21:00 09/10/21 08:53 Cyclosporine 0.4 Ml Ophth Solution EACH EYE 1 drop Q12HR ABBIE Administration Hydroxychloroquine Sulfate 200 mg 09/09/21 17:00 09/10/21 08:52 Hydroxychloroquine Sulfate 200 Mg Tablet PO 200 mg BID ABBIE Administration Sodium Chloride 1,000 mls @ 125 mls/hr 09/09/21 01:25 09/10/21 08:57 Normal Saline Iv IV CONT 125 mls/hr .Q8H ABBIE Administration Piperacillin Sod/Tazobactam Sod 2.25 gm in 50 mls @ 100 mls/hr 09/09/21 09:00 09/10/21 08:58 Zosyn 2.25 Gm/D5w 50 Ml IVPB 100 mls/hr Q8H ABBIE Administration Ipratropium [place] 0.5 mg 09/09/21 16:55 Ipratropium Br 0.02% Inh Soln 0.5 Mg/2.5 Ml Vial I
--- NOTE | 2021-09-10 10:31 | PC.NURSE ---
Status update given to spouse.
--- NOTE | 2021-09-10 12:45 | WPDANESPN ---
Anes - Prog Note Post-Op Date/Time: 09/10/21 12:45 Cardiovascular status: normal Respiratory status: normal Airway patency: baseline Mental status: baseline Post-Op hydration status: normal Vital Signs: Last Vital Signs Temp 98.9 F 09/10/21 08:00 Pulse 92 09/10/21 08:00 Resp 18 09/10/21 08:00 BP 138/61 09/10/21 08:00 Pulse Ox 99 09/10/21 08:00 Pain Score (VAS): o I/O: Intake & Output 09/09/21 09/10/21 09/10/21 23:59 07:59 15:59 Intake Total 282 125 1231 Output Total 200 500 Balance 904 38 9863 Laboratory Tests 09/10/21 05:50 09/10/21 05:50 09/10/21 09/10/21 05:50 05:50 WBC 18.7 H RBC 3.77 L Hgb 12.5 Hct 37.5 MCV 99.5 MCH 33.2 MCHC 33.3 RDW 12.5 Plt Count 210 MPV 10.1 Sodium 138 Potassium 3.9 Chloride 107 Carbon Dioxide 24 Anion Gap 7 L BUN 35 H Creatinine 1.90 H Estim Creat Clear Calc 18 Estimated GFR 26 L Glucose 115 H Calcium 7.1 L Microbiology 09/09/21 00:39 Urine Clean Catch Urine Culture - Final 09/09/21 00:39 Blood Blood Culture - Preliminary 09/09/21 01:14 Blood Blood Culture - Preliminary Patient Feedback: Patient satisfied with anesthetic care.
--- NOTE | 2021-09-10 15:08 | PM.IMPN ---
Progress Note: A&P Assessment and Plan (1) Leucocytosis: Qualifiers: Leukocytosis type: unspecified Qualified Code(s): D72.829 - Elevated white blood cell count, unspecified Code(s): D72.829 - Elevated white blood cell count, unspecified Status: Acute (2) Hydronephrosis, left: Code(s): N13.30 - Unspecified hydronephrosis Status: Acute (3) JOANN (acute kidney injury): Code(s): N17.9 - Acute kidney failure, unspecified Status: Acute (4) Calculus, ureteral: Code(s): N20.1 - Calculus of ureter Status: Acute (5) Calculus of distal left ureter: Code(s): N20.1 - Calculus of ureter Status: Acute (6) Acute kidney injury: Code(s): N17.9 - Acute kidney failure, unspecified Status: Acute Additional Plan pt returns to ER w recurrent symptoms recently admitted for nephrolithiasis w hydronephrosis. pt had stent temporarily placed last visit. She is found today to have retained stone and is scheduled to go to ER w Urology for cysto, stent, and stone extraction. pt is seen postoperatively and complains of pain poorly controlled w morphine admit to med surg post op orders per Urology percocet 10/325 and 5/325 PRN for pain scales 7-10 and 4-6 cont home meds cardiac diet post operatively duonebs SCDs 09/10/21 pain improving Tolerating ureteral stent Will remain in place 10-14 days to let ureteral edema subside. Continue Pip/Tazo cont current care Subjective Date/time seen: 09/10/21 15:08 still not feeling well but does report pain is somewhat improved Exam Narrative: GEN: NAD, AAOx3, cooperative HEENT: NCAT, MMM, EOMI Neck: no JVD Lungs: symmetric chest rise, no use of accessory muscles Abd: soft, TTP, ND, L CVA tenderness Ext: moves all, no cyanosis, no clubbing, no edema Neuro: no focal neurological deficits, CN intact Psych: mood and affect congruent Objective Data Vital Signs Vital Signs: Vital Signs - 24 hr 09/09/21 15:58 09/09/21 20:00 09/09/21 20:16 Temperature 99.1 F Pulse Rate 110 H 104 H Respiratory Rate 18 18 Blood Pressure 128/74 Pulse Oximetry 93 95 95 09/09/21 20:41 09/10/21 08:00 Temperature 98.9 F Pulse Rate 104 H 92 Respiratory Rate 18 Blood Pressure 138/61 Pulse Oximetry 99 Intake/Output Intake/Output: Intake & Output 09/07/21 09/08/21 09/09/21 09/10/21 23:59 23:59 23:59 23:59 Intake Total 1110 1550 Output Total 700 650 Balance 410 900 Meds/Results Medications: Active Medications Generic Name Dose Route Start Last Admin Trade Name Freq PRN Reason Stop Dose Admin Acetaminophen/Butalbital/Caffeine 50 tab 09/09/21 16:49 Acetaminophen/Butalbital/Caffeine 325-50-40 Mg Tablet (Fioricet) PO QID PRN Pain Albuterol 2.5 mg 09/09/21 16:55 Albuterol Sulfate Neb 2.5 Mg/0.5 Ml Inh INHALATION Q6HRT PRN Shortness Of Breath Amlodipine Besylate 2.5 mg 09/10/21 09:00 09/10/21 08:53 Amlodipine Besylate 2.5 Mg Tablet PO 2.5 mg DAILY ABBIE Administration Aspirin 81 mg 09/10/21 08:00 09/10/21 08:52 Aspirin 81 Mg Chewable Tablet PO 81 mg DAILY@0800 ABBIE Administration Clonazepam 0.5 mg 09/09/21 17:00 09/10/21 08:56 Clonazepam (*Crx) 0.5 Mg Tablet PO 0.5 mg BID ABBIE Administration Clopidogrel Bisulfate 75 mg 09/10/21 09:00 09/10/21 08:52 Clopidogrel Bisulfate 75 Mg Tablet PO 75 mg DAILY ABBIE Administration Cyclosporine 1 drop 09/09/21 21:00 09/10/21 08:53 Cyclosporine 0.4 Ml Ophth Solution EACH EYE 1 drop Q12HR ABBIE Administration Hydroxychloroquine Sulfate 200 mg 09/09/21 17:00 09/10/21 08:52 Hydroxychloroquine Sulfate 200 Mg Tablet PO 200 mg BID ABBIE Administration Sodium Chloride 1,000 mls @ 125 mls/hr 09/09/21 01:25 09/10/21 08:57 Normal Saline Iv IV CONT 125 mls/hr .Q8H ABBIE Administration Piperacillin Sod/Tazobactam Sod 2.25 gm in 50 mls @ 100 mls/hr 09/09/21 09:00 09/10/
[2021-09-10] MEDS: oxyCODONE/ACETAMINOPHEN (*CRX) 5-325 MG TABLET 1 TABLET PO (16:13)
[2021-09-10] MEDS: ZOLPIDEM TARTRATE (*CRX) 5 MG TABLET 10 MG PO (21:45)
[2021-09-10] MEDS: rOPINIRole HCL 1 MG TABLET PO (21:46)
[2021-09-10] MEDS: traZODone HCL 50 MG TABLET 100 MG PO (21:46)
[2021-09-10] MEDS: SOLIFENACIN 5 MG TABLET PO (21:46)
[2021-09-10] MEDS: ALBUTEROL SULFATE NEB 2.5 MG/0.5 ML INH INHALATION (22:19)
[2021-09-10] MEDS: IPRATROPIUM BR 0.02% INH SOLN 0.5 MG/2.5 ML VIAL INHALATION (22:20)
[2021-09-11] VITALS (10 sets, daily range): BP systolic 107–149; BP diastolic 55–78; PULSE 76–113; RESP 16–32; TEMP 36.6–37.1; O2SAT 96–100
[2021-09-11] MEDS: VANCOMYCIN ORAL 125 MG/2.5 ML SYRUP PO ×4 (00:03→17:15)
[2021-09-11] MEDS: SODIUM CHLORIDE 0.9% IV 1,000 ML 125 ML IV CONT ×2 (02:03→12:10)
[2021-09-11 06:10] LABS: Hematocrit 36.2 % (37.0-47.0); Hemoglobin 12.2 g/dL (12.0-15.0); Mean Corpuscular HGB Conc 33.7 g/dl (32-36); Mean Corpuscular Volume 97.8 fl (80-100); Platelet Count Result 250 k/mm3 (150-375); Red Cell Distribution Width 12.3 % (11.5-14.5); White Blood Count 22.8 K/mm3 (4.5-10.0)
[2021-09-11 06:22] LABS: Anion Gap 4 mmol/L (8-16); Blood Urea Nitrogen 29 mg/dL (7-17); Calcium 6.2 mg/dL (8.4-10.2); Carbon Dioxide 22 mmol/L (22-30); Chloride 110 mmol/L (98-107); Estimated CRCL calculation 25 ml/min; Estimated Glomerular Filt Rate 41; Glucose 137 mg/dL (65-110); Potassium 3.4 mmol/L (3.4-5.0); Sodium 136 mmol/L (137-145)
[2021-09-11] MEDS: ONDANSETRON INJ 4 MG/2 ML VIAL IV PUSH (08:54)
[2021-09-11] MEDS: MORPHINE SULFATE (*CRX) 4 MG/ML INJ IV PUSH (08:54)
[2021-09-11] MEDS: PREGABALIN (*CRX) 75 MG CAPSULE 150 MG PO ×2 (09:37→17:15)
[2021-09-11] MEDS: ISOSORBIDE MONONITRATE 30 MG TAB.ER.24H PO (09:38)
[2021-09-11] MEDS: amLODIPine BESYLATE 2.5 MG TABLET PO (09:39)
[2021-09-11] MEDS: PANTOPRAZOLE 40 MG TABLET PO (09:39)
[2021-09-11] MEDS: METOPROLOL TARTRATE 25 MG TABLET PO ×2 (09:39→19:57)
[2021-09-11] MEDS: clonazePAM (*CRX) 0.5 MG TABLET PO ×2 (09:40→17:15)
[2021-09-11] MEDS: predniSONE 5 MG TABLET PO (09:40)
[2021-09-11] MEDS: ROSUVASTATIN 10 MG TABLET 20 MG PO (09:40)
[2021-09-11] MEDS: HYDROXYCHLOROQUINE SULFATE 200 MG TABLET PO ×2 (09:41→17:15)
[2021-09-11] MEDS: ASPIRIN 81 MG CHEWABLE TABLET PO (09:41)
[2021-09-11] MEDS: CLOPIDOGREL BISULFATE 75 MG TABLET PO (09:41)
--- NOTE | 2021-09-11 11:50 | PCNFU ---
Nutrition Follow-Up Complete: Inadequate po intake related to diet order and altered GI function as evidenced by NPO status and pt report of nausea/diarrhea Goal:Meet nutritional needs Pt is progressing to goal Pt current nutrition is now advanced to regular. Nutrition recommendation: Add ensure compact TID with meals Last recorded weight is 43.1 kg - stable at this time. Bowel Motility:+BM 4/ Labs Reviewed:BUN: 29, CRE: 1.3 Meds Noted: Skin:WNL Additional Notes: pt diet now advanced to regular, drinks Boost shakes at home, will send Ensure compact with meals. No N/V noted at this time. Tolerating diet. Monitor for intake/tolerance, wt, labs. Follow up in 5 days.
--- NOTE | 2021-09-11 14:00 | PC.NURSE ---
On 09/11/21, the student, [ Marlon Mathur], provided care and completed [facility] documentation on this patient. I have reviewed the student's documentation and agree with the findings.
--- NOTE | 2021-09-11 15:24 | PCCCNOTE ---
On 09/11/21, the student, [Elle Last], provided care and completed [facility] documentation on this patient. I have reviewed the student's documentation and agree with the findings.
--- NOTE | 2021-09-11 16:51 | PM.IMPN ---
Progress Note: A&P Assessment and Plan (1) Leucocytosis: Qualifiers: Leukocytosis type: unspecified Qualified Code(s): D72.829 - Elevated white blood cell count, unspecified Code(s): D72.829 - Elevated white blood cell count, unspecified Status: Acute (2) Hydronephrosis, left: Code(s): N13.30 - Unspecified hydronephrosis Status: Acute (3) JOANN (acute kidney injury): Code(s): N17.9 - Acute kidney failure, unspecified Status: Acute (4) Calculus, ureteral: Code(s): N20.1 - Calculus of ureter Status: Acute (5) Calculus of distal left ureter: Code(s): N20.1 - Calculus of ureter Status: Acute Additional Plan pt returns to ER w recurrent symptoms recently admitted for nephrolithiasis w hydronephrosis. pt had stent temporarily placed last visit. She is found today to have retained stone and is scheduled to go to ER w Urology for cysto, stent, and stone extraction. pt is seen postoperatively and complains of pain poorly controlled w morphine admit to med surg post op orders per Urology percocet 10/325 and 5/325 PRN for pain scales 7-10 and 4-6 cont home meds cardiac diet post operatively duonebs SCDs 09/10/21 pain improving Tolerating ureteral stent Will remain in place 10-14 days to let ureteral edema subside. Continue Pip/Tazo cont current care 09/11/21 cont to improve slowly pt reassured cont current care cont zosyn pt remains on vanco for empirical tx of c dif probiotic added Subjective Date/time seen: 09/11/21 16:51 pt feeling somewhat better but still not at her baseline Exam Narrative: GEN: NAD, AAOx3, cooperative HEENT: NCAT, MMM, EOMI Neck: no JVD Lungs: symmetric chest rise, no use of accessory muscles Ext: moves all, no cyanosis, no clubbing, no edema Neuro: no focal neurological deficits, CN intact Psych: mood and affect congruent Objective Data Vital Signs Vital Signs: Vital Signs - 24 hr 09/10/21 20:00 09/10/21 20:11 09/10/21 22:00 Temperature 99.1 F Pulse Rate 81 Respiratory Rate 18 Blood Pressure 92/78 L Pulse Oximetry 94 94 97 09/10/21 22:20 09/10/21 22:30 09/11/21 05:59 Temperature 98.5 F Pulse Rate 83 80 100 Respiratory Rate 20 20 32 H Blood Pressure 142/56 H Pulse Oximetry 96 09/11/21 06:51 09/11/21 08:00 09/11/21 09:00 Temperature 98.4 F 98 F Pulse Rate 113 H 104 H Respiratory Rate 26 H 21 H 20 Blood Pressure 149/60 H 146/78 H Pulse Oximetry 100 99 09/11/21 09:39 09/11/21 13:52 Temperature 98.8 F Pulse Rate 104 H 76 Respiratory Rate 25 H Blood Pressure 107/57 L Pulse Oximetry 99 Intake/Output Intake/Output: Intake & Output 09/08/21 09/09/21 09/10/21 09/11/21 23:59 23:59 23:59 23:59 Intake Total 1110 3772 2350 Output Total 700 1250 300 Balance 410 2522 2050 Meds/Results Medications: Active Medications Generic Name Dose Route Start Last Admin Trade Name Freq PRN Reason Stop Dose Admin Acetaminophen/Butalbital/Caffeine 1 tab 09/09/21 16:49 Acetaminophen/Butalbital/Caffeine 325-50-40 Mg Tablet (Fioricet) PO QID PRN Headache Albuterol 2.5 mg 09/09/21 16:55 09/10/21 22:19 Albuterol Sulfate Neb 2.5 Mg/0.5 Ml Inh INHALATION 2.5 mg Q6HRT PRN Administration Shortness Of Breath Amlodipine Besylate 2.5 mg 09/10/21 09:00 09/11/21 09:39 Amlodipine Besylate 2.5 Mg Tablet PO 2.5 mg DAILY ABBIE Administration Aspirin 81 mg 09/10/21 08:00 09/11/21 09:41 Aspirin 81 Mg Chewable Tablet PO 81 mg DAILY@0800 ABBIE Administration Clonazepam 0.5 mg 09/09/21 17:00 09/11/21 09:40 Clonazepam (*Crx) 0.5 Mg Tablet PO 0.5 mg BID ABBIE Administration Clopidogrel Bisulfate 75 mg 09/10/21 09:00 09/11/21 09:41 Clopidogrel Bisulfate 75 Mg Tablet PO 75 mg DAILY ABBIE Administration Cyclosporine 1 drop 09/09/21 21:00 09/11/21 09:42 Cyclosporine 0.4 Ml Ophth Solution EACH EYE Not Given Q
[2021-09-11] MEDS: SACCHAROMYCES BOULARDII 250 MG CAPSULE PO (17:15)
[2021-09-11] MEDS: SOLIFENACIN 5 MG TABLET PO (19:55)
[2021-09-11] MEDS: rOPINIRole HCL 1 MG TABLET PO (19:55)
[2021-09-11] MEDS: traZODone HCL 50 MG TABLET 100 MG PO (19:56)
[2021-09-11] MEDS: ZOLPIDEM TARTRATE (*CRX) 5 MG TABLET 10 MG PO (19:56)
[2021-09-11] MEDS: FLUTICASONE/SALMETEROL 115-21 MCG INHALER 1 PUFF 2 PUFF INHALATION (20:33)
[2021-09-12] VITALS (11 sets, daily range): BP systolic 106–115; BP diastolic 51–70; PULSE 72–91; RESP 14–22; TEMP 37.1–37.5; O2SAT 94–100
[2021-09-12] MEDS: VANCOMYCIN ORAL 125 MG/2.5 ML SYRUP PO ×4 (00:51→17:03)
[2021-09-12] MEDS: SODIUM CHLORIDE 0.9% IV 1,000 ML 125 ML IV CONT ×2 (00:52→08:35)
[2021-09-12] MEDS: ALBUTEROL SULFATE NEB 2.5 MG/0.5 ML INH INHALATION ×2 (05:29→17:29)
[2021-09-12] MEDS: oxyCODONE/ACETAMINOPHEN (*CRX) 5-325 MG TABLET 1 TABLET PO ×2 (05:30→21:23)
[2021-09-12] MEDS: IPRATROPIUM BR 0.02% INH SOLN 0.5 MG/2.5 ML VIAL INHALATION ×2 (05:30→17:30)
[2021-09-12 05:57] LABS: Hematocrit 36.7 % (37.0-47.0); Hemoglobin 11.9 g/dL (12.0-15.0); Mean Corpuscular HGB Conc 32.4 g/dl (32-36); Mean Corpuscular Hemoglobin 32.7 pg (26-34); Mean Corpuscular Volume 100.8 fl (80-100); Mean Platelet Volume 9.9 fl (7.4-10.4); Platelet Count Result 241 k/mm3 (150-375); Red Blood Count 3.64 M/mm3 (4.2-5.4); Red Cell Distribution Width 12.3 % (11.5-14.5); White Blood Count 21.1 K/mm3 (4.5-10.0)
[2021-09-12 06:12] LABS: Anion Gap 2 mmol/L (8-16); Blood Urea Nitrogen 18 mg/dL (7-17); Calcium 5.7 mg/dL (8.4-10.2); Carbon Dioxide 24 mmol/L (22-30); Chloride 112 mmol/L (98-107); Estimated CRCL calculation 27 ml/min; Estimated Glomerular Filt Rate 45; Glucose 95 mg/dL (65-110); Potassium 3.4 mmol/L (3.4-5.0); Sodium 138 mmol/L (137-145)
[2021-09-12] MEDS: ISOSORBIDE MONONITRATE 30 MG TAB.ER.24H PO (08:35)
[2021-09-12] MEDS: ROSUVASTATIN 10 MG TABLET 20 MG PO (08:35)
[2021-09-12] MEDS: predniSONE 5 MG TABLET PO (08:35)
[2021-09-12] MEDS: METOPROLOL TARTRATE 25 MG TABLET PO ×2 (08:36→21:22)
[2021-09-12] MEDS: PANTOPRAZOLE 40 MG TABLET PO (08:36)
[2021-09-12] MEDS: HYDROXYCHLOROQUINE SULFATE 200 MG TABLET PO ×2 (08:37→17:03)
[2021-09-12] MEDS: SACCHAROMYCES BOULARDII 250 MG CAPSULE PO ×3 (08:37→17:03)
[2021-09-12] MEDS: CLOPIDOGREL BISULFATE 75 MG TABLET PO (08:37)
[2021-09-12] MEDS: ASPIRIN 81 MG CHEWABLE TABLET PO (08:37)
[2021-09-12] MEDS: amLODIPine BESYLATE 2.5 MG TABLET PO (08:37)
[2021-09-12] MEDS: PREGABALIN (*CRX) 75 MG CAPSULE 150 MG PO ×2 (08:51→17:03)
[2021-09-12] MEDS: clonazePAM (*CRX) 0.5 MG TABLET PO ×2 (08:51→17:03)
[2021-09-12] MEDS: MORPHINE SULFATE (*CRX) 2 MG/ML INJ IV PUSH (08:52)
[2021-09-12] MEDS: FLUTICASONE/SALMETEROL 115-21 MCG INHALER 1 PUFF 2 PUFF INHALATION ×2 (09:07→20:12)
[2021-09-12 12:06] LABS: Albumin Level 2.3 g/dL (3.5-5.1)
[2021-09-12] MEDS: PHENAZOPYRIDINE HCL 100 MG TABLET PO ×2 (12:18→17:03)
--- NOTE | 2021-09-12 17:06 | PM.IMPN ---
Progress Note: A&P Assessment and Plan (1) Leucocytosis: Qualifiers: Leukocytosis type: unspecified Qualified Code(s): D72.829 - Elevated white blood cell count, unspecified Code(s): D72.829 - Elevated white blood cell count, unspecified Status: Acute (2) Hydronephrosis, left: Code(s): N13.30 - Unspecified hydronephrosis Status: Acute (3) JOANN (acute kidney injury): Code(s): N17.9 - Acute kidney failure, unspecified Status: Acute (4) Calculus, ureteral: Code(s): N20.1 - Calculus of ureter Status: Acute (5) Calculus of distal left ureter: Code(s): N20.1 - Calculus of ureter Status: Acute Additional Plan pt returns to ER w recurrent symptoms recently admitted for nephrolithiasis w hydronephrosis. pt had stent temporarily placed last visit. She is found today to have retained stone and is scheduled to go to ER w Urology for cysto, stent, and stone extraction. pt is seen postoperatively and complains of pain poorly controlled w morphine admit to med surg post op orders per Urology percocet 10/325 and 5/325 PRN for pain scales 7-10 and 4-6 cont home meds cardiac diet post operatively duonebs SCDs 09/10/21 pain improving Tolerating ureteral stent Will remain in place 10-14 days to let ureteral edema subside. Continue Pip/Tazo cont current care 09/11/21 cont to improve slowly pt reassured cont current care cont zosyn pt remains on vanco for empirical tx of c dif probiotic added 09/12/21 renal fxn improving on vanco PO and zosyn diarrhea improving cXR lasix azo percocet 10/325 and 5/325 morphine for breakthrough cont supportive care anticipate dc in 24-48hrs Subjective Date/time seen: 09/12/21 17:06 feeling a little better still requesting morphine Exam Narrative: GEN: NAD, AAOx3, cooperative HEENT: NCAT, MMM, EOMI Neck: no JVD Lungs: symmetric chest rise, no use of accessory muscles, RLL w decreased breath sounds Ext: moves all, no cyanosis, no clubbing, no edema Neuro: no focal neurological deficits, CN intact Psych: mood and affect congruent Objective Data Vital Signs Vital Signs: Vital Signs - 24 hr 09/11/21 19:57 09/11/21 20:33 09/11/21 21:08 Temperature 98.5 F Pulse Rate 80 84 Respiratory Rate 16 Blood Pressure 110/64 Pulse Oximetry 99 99 09/12/21 05:34 09/12/21 05:41 09/12/21 06:43 Temperature 98.8 F Pulse Rate 85 85 87 Respiratory Rate 22 H 18 14 Blood Pressure 115/51 L Pulse Oximetry 98 09/12/21 08:36 09/12/21 09:11 09/12/21 14:00 Temperature 99.5 F Pulse Rate 88 76 Respiratory Rate 18 Blood Pressure 106/70 Pulse Oximetry 98 94 Intake/Output Intake/Output: Intake & Output 09/09/21 09/10/21 09/11/21 09/12/21 23:59 23:59 23:59 23:59 Intake Total 1110 3772 4110 1790 Output Total 700 1250 300 500 Balance 410 2522 3810 1290 Meds/Results Medications: Active Medications Generic Name Dose Route Start Last Admin Trade Name Freq PRN Reason Stop Dose Admin Acetaminophen/Butalbital/Caffeine 1 tab 09/09/21 16:49 Acetaminophen/Butalbital/Caffeine 325-50-40 Mg Tablet (Fioricet) PO QID PRN Headache Albuterol 2.5 mg 09/09/21 16:55 09/12/21 05:29 Albuterol Sulfate Neb 2.5 Mg/0.5 Ml Inh INHALATION 2.5 mg Q6HRT PRN Administration Shortness Of Breath Amlodipine Besylate 2.5 mg 09/10/21 09:00 09/12/21 08:37 Amlodipine Besylate 2.5 Mg Tablet PO 2.5 mg DAILY ABBIE Administration Aspirin 81 mg 09/10/21 08:00 09/12/21 08:37 Aspirin 81 Mg Chewable Tablet PO 81 mg DAILY@0800 ABBIE Administration Clonazepam 0.5 mg 09/09/21 17:00 09/12/21 17:03 Clonazepam (*Crx) 0.5 Mg Tablet PO 0.5 mg BID ABBIE Administration Clopidogrel Bisulfate 75 mg 09/10/21 09:00 09/12/21 08:37 Clopidogrel Bisulfate 75 Mg Tablet PO 75 mg DAILY ABBIE Administration Cyclosporine 1 drop 09/09/21 21:00 09/12/21 08:38 Cyclos
[2021-09-12] MEDS: FUROSEMIDE INJ 40 MG/4 ML VIAL IV PUSH (17:34)
[2021-09-12] MEDS: rOPINIRole HCL 1 MG TABLET PO (21:22)
[2021-09-12] MEDS: traZODone HCL 50 MG TABLET 100 MG PO (21:22)
[2021-09-12] MEDS: SOLIFENACIN 5 MG TABLET PO (21:22)
[2021-09-12] MEDS: ZOLPIDEM TARTRATE (*CRX) 5 MG TABLET 10 MG PO (21:22)
[2021-09-12] MEDS: ONDANSETRON HCL ODT 4 MG TABLET 8 MG PO (21:23)
[2021-09-12] MEDS: oxyCODONE HCL (*CRX) 5 MG TAB IR PO (21:24)
[2021-09-13] VITALS (16 sets, daily range): BP systolic 105–114; BP diastolic 52–59; PULSE 80–91; RESP 18–20; TEMP 36.4–36.9; O2SAT 87–96
[2021-09-13] MEDS: VANCOMYCIN ORAL 125 MG/2.5 ML SYRUP PO ×4 (00:02→17:43)
[2021-09-13] MEDS: oxyCODONE HCL (*CRX) 5 MG TAB IR PO ×4 (06:03→20:50)
[2021-09-13] MEDS: oxyCODONE/ACETAMINOPHEN (*CRX) 5-325 MG TABLET 1 TABLET PO ×4 (06:03→20:50)
[2021-09-13] MEDS: IPRATROPIUM BR 0.02% INH SOLN 0.5 MG/2.5 ML VIAL INHALATION ×2 (06:20→14:14)
[2021-09-13] MEDS: ALBUTEROL SULFATE NEB 2.5 MG/0.5 ML INH INHALATION ×2 (06:20→14:14)
[2021-09-13] MEDS: clonazePAM (*CRX) 0.5 MG TABLET PO ×2 (08:02→16:40)
[2021-09-13] MEDS: PREGABALIN (*CRX) 75 MG CAPSULE 150 MG PO ×2 (08:02→16:39)
[2021-09-13] MEDS: SACCHAROMYCES BOULARDII 250 MG CAPSULE PO ×3 (08:04→16:41)
[2021-09-13] MEDS: amLODIPine BESYLATE 2.5 MG TABLET PO (08:04)
[2021-09-13] MEDS: ASPIRIN 81 MG CHEWABLE TABLET PO (08:04)
[2021-09-13] MEDS: ROSUVASTATIN 10 MG TABLET 20 MG PO (08:04)
[2021-09-13] MEDS: HYDROXYCHLOROQUINE SULFATE 200 MG TABLET PO ×2 (08:05→16:40)
[2021-09-13] MEDS: PHENAZOPYRIDINE HCL 100 MG TABLET PO ×3 (08:05→16:40)
[2021-09-13] MEDS: PANTOPRAZOLE 40 MG TABLET PO (08:05)
[2021-09-13] MEDS: ISOSORBIDE MONONITRATE 30 MG TAB.ER.24H PO (08:05)
[2021-09-13] MEDS: predniSONE 5 MG TABLET PO (08:05)
[2021-09-13] MEDS: CLOPIDOGREL BISULFATE 75 MG TABLET PO (08:05)
[2021-09-13] MEDS: METOPROLOL TARTRATE 25 MG TABLET PO ×2 (08:05→20:51)
[2021-09-13] MEDS: FLUTICASONE/SALMETEROL 115-21 MCG INHALER 1 PUFF 2 PUFF INHALATION ×2 (08:43→20:32)
[2021-09-13 09:24] LABS: Basophils Absolute Auto 0.1 K/mm3 (0.0-0.1); Basophils Percent Auto 0.8 % (0.2-1.2); Eosinophils Absolute Auto 0.1 K/mm3 (0-0.3); Eosinophils Percent Auto 0.8 % (0-4.4); Hematocrit 35.1 % (37.0-47.0); Hemoglobin 11.6 g/dL (12.0-15.0); Immature Granulocyte Absolute 0.87 K/mm3 (0.00-0.031); Immature Granulocyte Percent A 5.2 % (0-0.5); Lymphocytes Absolute Auto 1.44 K/mm3 (0.9-3.2); Lymphocytes Percent Auto 8.7 % (18.3-44.2); Mean Corpuscular Hemoglobin 32.1 pg (26-34); Mean Corpuscular Volume 97.2 fl (80-100); Mean Platelet Volume 9.5 fl (7.4-10.4); Monocytes Absolute Auto 1.9 K/mm3 (0.1-0.6); Monocytes Percent Auto 11.5 % (2.6-8.5); Neutrophils Absolute Auto 12.1 K/mm3 (1.3-6.7); Platelet Count Result 244 k/mm3 (150-375); Red Blood Count 3.61 M/mm3 (4.2-5.4); Red Cell Distribution Width 12.2 % (11.5-14.5); White Blood Count 16.6 K/mm3 (4.5-10.0)
[2021-09-13] MEDS: CALCIUM GLUC 1,000 MG/NS 50 ML 1,000 MG/50 ML BAG 100 MG IVPB (09:33)
[2021-09-13 09:41] LABS: Alanine Aminotransferase 22 U/L (4-35); Albumin Level 2.6 g/dL (3.5-5.1); Alkaline Phosphatase 82 U/L (38-126); Anion Gap 5 mmol/L (8-16); Aspartate Amino Transferase 25 U/L (14-36); Bilirubin,Total 0.2 mg/dL (0.2-1.3); Blood Urea Nitrogen 13 mg/dL (7-17); Calcium 5.7 mg/dL (8.4-10.2); Carbon Dioxide 28 mmol/L (22-30); Chloride 105 mmol/L (98-107); Estimated CRCL calculation 25 ml/min; Estimated Glomerular Filt Rate 41; Glucose 131 mg/dL (65-110); Potassium 2.9 mmol/L (3.4-5.0); Sodium 138 mmol/L (137-145)
[2021-09-13] MEDS: POTASSIUM CHLORIDE 20 MEQ TABLET 60 MEQ PO (14:11)
--- NOTE | 2021-09-13 14:42 | PCRCNOTE ---
Home eval completed. Patient has home oxygen at 2lpm with [facility]. Patients requirements remain the same. RN notified.
[2021-09-13] MEDS: MAGNESIUM SULFATE 3GM/D5W100ML 3 GM/100 ML BAG IVPB (15:09)
--- NOTE | 2021-09-13 16:24 | PM.IMPN ---
Progress Note: A&P Assessment and Plan (1) Hydronephrosis, left: Code(s): N13.30 - Unspecified hydronephrosis Status: Acute (2) Leucocytosis: Qualifiers: Leukocytosis type: unspecified Qualified Code(s): D72.829 - Elevated white blood cell count, unspecified Code(s): D72.829 - Elevated white blood cell count, unspecified Status: Acute (3) JOANN (acute kidney injury): Code(s): N17.9 - Acute kidney failure, unspecified Status: Acute (4) Calculus, ureteral: Code(s): N20.1 - Calculus of ureter Status: Acute Additional Plan pt returns to ER w recurrent symptoms recently admitted for nephrolithiasis w hydronephrosis. pt had stent temporarily placed last visit. She is found today to have retained stone and is scheduled to go to ER w Urology for cysto, stent, and stone extraction. pt is seen postoperatively and complains of pain poorly controlled w morphine admit to med surg post op orders per Urology percocet 10/325 and 5/325 PRN for pain scales 7-10 and 4-6 cont home meds cardiac diet post operatively duonebs SCDs 09/10/21 pain improving Tolerating ureteral stent Will remain in place 10-14 days to let ureteral edema subside. Continue Pip/Tazo cont current care 09/11/21 cont to improve slowly pt reassured cont current care cont zosyn pt remains on vanco for empirical tx of c dif probiotic added 09/12/21 renal fxn improving on vanco PO and zosyn diarrhea improving cXR lasix azo percocet 10/325 and 5/325 morphine for breakthrough cont supportive care anticipate dc in 24-48hrs 09/13/21 labs improving cont abx replete Mg and K phos in am cont current care anticipate dc in am after am labs reviewed Subjective Date/time seen: 09/13/21 16:24 feeling better has not requested IV morphine, noted to have electrolyte imbalance requiring inpt treatment but pt would like to go home as soon as possible. we agree tomorrow after repeat labs reviewed if stable she is home O2 dependent Exam Narrative: GEN: NAD, AAOx3, cooperative HEENT: NCAT, MMM, EOMI Neck: no JVD Lungs: symmetric chest rise, no use of accessory muscles, b/l crackles Ext: moves all, no cyanosis, no clubbing, no edema Neuro: no focal neurological deficits, CN intact Psych: mood and affect congruent Objective Data Vital Signs Vital Signs: Vital Signs - 24 hr 09/12/21 17:34 09/12/21 17:38 09/12/21 20:00 Temperature Pulse Rate 72 78 Respiratory Rate 22 H 20 Blood Pressure Pulse Oximetry 98 09/12/21 20:13 09/12/21 23:39 09/13/21 06:22 Temperature 98.9 F Pulse Rate 91 80 Respiratory Rate 16 20 Blood Pressure 115/59 L Pulse Oximetry 98 100 09/13/21 06:33 09/13/21 08:00 09/13/21 08:05 Temperature Pulse Rate 83 88 Respiratory Rate 20 Blood Pressure Pulse Oximetry 96 09/13/21 08:44 09/13/21 08:49 09/13/21 14:00 Temperature Pulse Rate 80 83 Respiratory Rate 20 Blood Pressure Pulse Oximetry 94 87 L 09/13/21 14:03 09/13/21 14:12 09/13/21 14:22 Temperature Pulse Rate 90 80 82 Respiratory Rate 20 20 Blood Pressure Pulse Oximetry 92 09/13/21 14:25 09/13/21 14:39 09/13/21 15:37 Temperature 97.6 F Pulse Rate 88 87 91 Respiratory Rate 18 Blood Pressure 105/52 L Pulse Oximetry 93 91 95 Intake/Output Intake/Output: Intake & Output 09/10/21 09/11/21 09/12/21 09/13/21 23:59 23:59 23:59 23:59 Intake Total 3772 4110 1960 990 Output Total 0996 165 7958 1700 Balance 2522 3810 760 -710 Meds/Results Medications: Active Medications Generic Name Dose Route Start Last Admin Trade Name Freq PRN Reason Stop Dose Admin Acetaminophen/Butalbital/Caffeine 1 tab 09/09/21 16:49 Acetaminophen/Butalbital/Caffeine 325-50-40 Mg Tablet (Fioricet) PO QID PRN Headache Albuterol 2.5 mg 09/09/21 16:55 09/13/21 14:14 Albuterol Sulfate Neb 2.5 Mg/0.5 Ml Inh INHALATION 2.5 m
[2021-09-13] MEDS: ZOLPIDEM TARTRATE (*CRX) 5 MG TABLET 10 MG PO (20:49)
[2021-09-13] MEDS: rOPINIRole HCL 1 MG TABLET PO (20:51)
[2021-09-13] MEDS: SOLIFENACIN 5 MG TABLET PO (20:51)
[2021-09-13] MEDS: traZODone HCL 50 MG TABLET 100 MG PO (20:52)
[2021-09-14] VITALS (12 sets, daily range): BP systolic 105–126; BP diastolic 49–60; PULSE 86–99; RESP 18; TEMP 36–37.7; O2SAT 89–100
[2021-09-14] MEDS: VANCOMYCIN ORAL 125 MG/2.5 ML SYRUP PO ×4 (01:08→17:57)
[2021-09-14] MEDS: oxyCODONE HCL (*CRX) 5 MG TAB IR PO ×3 (05:22→20:58)
[2021-09-14] MEDS: oxyCODONE/ACETAMINOPHEN (*CRX) 5-325 MG TABLET 1 TABLET PO ×3 (05:23→20:59)
[2021-09-14] MEDS: FLUTICASONE/SALMETEROL 115-21 MCG INHALER 1 PUFF 2 PUFF INHALATION ×2 (07:45→19:48)
[2021-09-14] MEDS: ALBUTEROL SULFATE NEB 2.5 MG/0.5 ML INH INHALATION (07:45)
[2021-09-14] MEDS: IPRATROPIUM BR 0.02% INH SOLN 0.5 MG/2.5 ML VIAL INHALATION (07:45)
[2021-09-14] MEDS: SACCHAROMYCES BOULARDII 250 MG CAPSULE PO ×3 (08:19→17:19)
[2021-09-14] MEDS: PANTOPRAZOLE 40 MG TABLET PO (08:19)
[2021-09-14] MEDS: amLODIPine BESYLATE 2.5 MG TABLET PO (08:19)
[2021-09-14] MEDS: ASPIRIN 81 MG CHEWABLE TABLET PO (08:19)
[2021-09-14] MEDS: HYDROXYCHLOROQUINE SULFATE 200 MG TABLET PO ×2 (08:19→17:19)
[2021-09-14] MEDS: ISOSORBIDE MONONITRATE 30 MG TAB.ER.24H PO (08:19)
[2021-09-14] MEDS: METOPROLOL TARTRATE 25 MG TABLET PO ×2 (08:20→20:56)
[2021-09-14] MEDS: ROSUVASTATIN 10 MG TABLET 20 MG PO (08:20)
[2021-09-14] MEDS: CLOPIDOGREL BISULFATE 75 MG TABLET PO (08:20)
[2021-09-14] MEDS: PREGABALIN (*CRX) 75 MG CAPSULE 150 MG PO ×2 (08:22→17:18)
[2021-09-14] MEDS: clonazePAM (*CRX) 0.5 MG TABLET PO ×2 (08:22→17:19)
[2021-09-14] MEDS: PHENAZOPYRIDINE HCL 100 MG TABLET PO ×3 (08:25→17:18)
[2021-09-14] MEDS: predniSONE 5 MG TABLET PO (08:25)
[2021-09-14 11:31] LABS: Basophils Absolute Auto 0.2 K/mm3 (0.0-0.1); Basophils Percent Auto 0.9 % (0.2-1.2); Eosinophils Absolute Auto 0.1 K/mm3 (0-0.3); Eosinophils Percent Auto 0.5 % (0-4.4); Hematocrit 34.2 % (37.0-47.0); Hemoglobin 11.2 g/dL (12.0-15.0); Immature Granulocyte Absolute 0.99 K/mm3 (0.00-0.031); Immature Granulocyte Percent A 5.7 % (0-0.5); Lymphocytes Absolute Auto 0.79 K/mm3 (0.9-3.2); Lymphocytes Percent Auto 4.6 % (18.3-44.2); Mean Corpuscular HGB Conc 32.7 g/dl (32-36); Mean Corpuscular Hemoglobin 32.6 pg (26-34); Mean Corpuscular Volume 99.4 fl (80-100); Mean Platelet Volume 9.6 fl (7.4-10.4); Monocytes Absolute Auto 1.6 K/mm3 (0.1-0.6); Monocytes Percent Auto 9.2 % (2.6-8.5); Neutrophils Absolute Auto 13.7 K/mm3 (1.3-6.7); Neutrophils Percent Auto 79.1 % (45.5-73.1); Platelet Count Result 265 k/mm3 (150-375); Red Blood Count 3.44 M/mm3 (4.2-5.4); Red Cell Distribution Width 12.3 % (11.5-14.5); White Blood Count 17.3 K/mm3 (4.5-10.0)
[2021-09-14 11:41] LABS: Alanine Aminotransferase 22 U/L (4-35); Albumin Level 2.7 g/dL (3.5-5.1); Alkaline Phosphatase 86 U/L (38-126); Anion Gap 5 mmol/L (8-16); Aspartate Amino Transferase 31 U/L (14-36); Bilirubin,Total 0.3 mg/dL (0.2-1.3); Blood Urea Nitrogen 12 mg/dL (7-17); Calcium 6.2 mg/dL (8.4-10.2); Carbon Dioxide 27 mmol/L (22-30); Chloride 105 mmol/L (98-107); Estimated CRCL calculation 30 ml/min; Estimated Glomerular Filt Rate 49; Glucose 127 mg/dL (65-110); Magnesium 1.6 mg/dL (1.6-2.3); Potassium 3.5 mmol/L (3.4-5.0); Sodium 137 mmol/L (137-145)
[2021-09-14] MEDS: ONDANSETRON HCL ODT 4 MG TABLET 8 MG PO (12:53)
--- NOTE | 2021-09-14 13:00 | PM.IMPN ---
Progress Note: A&P Assessment and Plan (1) Hydronephrosis, left: Code(s): N13.30 - Unspecified hydronephrosis Status: Acute (2) Leucocytosis: Qualifiers: Leukocytosis type: unspecified Qualified Code(s): D72.829 - Elevated white blood cell count, unspecified Code(s): D72.829 - Elevated white blood cell count, unspecified Status: Acute (3) JOANN (acute kidney injury): Code(s): N17.9 - Acute kidney failure, unspecified Status: Acute (4) Calculus, ureteral: Code(s): N20.1 - Calculus of ureter Status: Acute Additional Plan pt returns to ER w recurrent symptoms recently admitted for nephrolithiasis w hydronephrosis. pt had stent temporarily placed last visit. She is found today to have retained stone and is scheduled to go to ER w Urology for cysto, stent, and stone extraction. pt is seen postoperatively and complains of pain poorly controlled w morphine admit to med surg post op orders per Urology percocet 10/325 and 5/325 PRN for pain scales 7-10 and 4-6 cont home meds cardiac diet post operatively duonebs SCDs 09/10/21 pain improving Tolerating ureteral stent Will remain in place 10-14 days to let ureteral edema subside. Continue Pip/Tazo cont current care 09/11/21 cont to improve slowly pt reassured cont current care cont zosyn pt remains on vanco for empirical tx of c dif probiotic added 09/12/21 renal fxn improving on vanco PO and zosyn diarrhea improving cXR lasix azo percocet 10/325 and 5/325 morphine for breakthrough cont supportive care anticipate dc in 24-48hrs 09/13/21 labs improving cont abx replete Mg and K phos in am cont current care anticipate dc in am after am labs reviewed 09/14/21 cont to replete electrolytes Ca++, Mg++, K+ pt w abd distention today STAT KUB simethicone miralax colace hold dc possible dc in am when pt clinically improves Subjective Date/time seen: 09/14/21 13:00 pt complains of abd pain and distention last BM days ago nervous to use laxative as this was associated w her first episode of diarrhea (colitis ) Exam Narrative: GEN: NAD, AAOx3, cooperative HEENT: NCAT, MMM, EOMI Neck: no JVD Lungs: symmetric chest rise, use of accessory muscles noted, b/l crackles Abd: distended, TTP, tympanic, hyperactive bowel sounds Ext: moves all, no cyanosis, no clubbing Neuro: no focal neurological deficits, CN intact Psych: mood and affect congruent Objective Data Vital Signs Vital Signs: Vital Signs - 24 hr 09/13/21 14:00 09/13/21 14:03 09/13/21 14:12 Temperature Pulse Rate 83 90 80 Respiratory Rate 20 Blood Pressure Pulse Oximetry 87 L 92 09/13/21 14:22 09/13/21 14:25 09/13/21 14:39 Temperature Pulse Rate 82 88 87 Respiratory Rate 20 Blood Pressure Pulse Oximetry 93 91 09/13/21 15:37 09/13/21 20:36 09/13/21 20:51 Temperature 97.6 F Pulse Rate 91 90 Respiratory Rate 18 Blood Pressure 105/52 L Pulse Oximetry 95 91 09/13/21 21:56 09/14/21 06:19 09/14/21 07:49 Temperature 98.5 F 99.8 F H Pulse Rate 90 96 90 Respiratory Rate 18 18 18 Blood Pressure 114/59 L 120/49 L Pulse Oximetry 93 93 09/14/21 07:58 09/14/21 08:00 09/14/21 08:08 Temperature Pulse Rate 86 87 Respiratory Rate 18 18 Blood Pressure Pulse Oximetry 99 09/14/21 08:20 Temperature Pulse Rate 99 Respiratory Rate Blood Pressure 118/56 L Pulse Oximetry 91 Intake/Output Intake/Output: Intake & Output 09/11/21 09/12/21 09/13/21 09/14/21 23:59 23:59 23:59 23:59 Intake Total 4110 1960 1258 270 Output Total 300 1200 1700 1200 Balance [phone] -[phone] Meds/Results Medications: Active Medications Generic Name Dose Route Start Last Admin Trade Name Freq PRN Reason Stop Dose Admin Acetaminophen/Butalbital/Caffeine 1 tab 09/09/21 16:49 Acetaminophen/Butalbital/Caffeine 325-50-40 Mg Tablet (Fioricet) PO QID PRN Heada
[2021-09-14] MEDS: SIMETHICONE 125 MG CHEW TAB PO ×3 (13:38→20:56)
[2021-09-14] MEDS: DOCUSATE SODIUM 100 MG CAPSULE PO (13:38)
[2021-09-14] MEDS: POTASSIUM CHLORIDE 20 MEQ TABLET 40 MEQ PO (13:38)
[2021-09-14] MEDS: CALCIUM GLUC 1,000 MG/NS 50 ML 1,000 MG/50 ML BAG 100 MG IVPB (13:52)
[2021-09-14] MEDS: MAGNESIUM SULF 1 GM/D5W 100 ML 1 GM/100 ML BAG IVPB (14:27)
[2021-09-14] MEDS: traZODone HCL 50 MG TABLET 100 MG PO (20:56)
[2021-09-14] MEDS: ZOLPIDEM TARTRATE (*CRX) 5 MG TABLET 10 MG PO (20:56)
[2021-09-14] MEDS: rOPINIRole HCL 1 MG TABLET PO (20:56)
[2021-09-14] MEDS: SOLIFENACIN 5 MG TABLET PO (20:56)
[2021-09-15] VITALS (7 sets, daily range): BP systolic 110; BP diastolic 52; PULSE 88–90; RESP 16–18; TEMP 36.6; O2SAT 93–97
[2021-09-15] MEDS: VANCOMYCIN ORAL 125 MG/2.5 ML SYRUP PO ×4 (00:18→17:31)
[2021-09-15] MEDS: oxyCODONE/ACETAMINOPHEN (*CRX) 5-325 MG TABLET 1 TABLET PO ×2 (05:14→11:29)
[2021-09-15] MEDS: oxyCODONE HCL (*CRX) 5 MG TAB IR PO ×2 (05:14→11:29)
[2021-09-15] MEDS: ALBUTEROL SULFATE NEB 2.5 MG/0.5 ML INH INHALATION (05:33)
[2021-09-15] MEDS: IPRATROPIUM BR 0.02% INH SOLN 0.5 MG/2.5 ML VIAL INHALATION (05:34)
[2021-09-15] MEDS: clonazePAM (*CRX) 0.5 MG TABLET PO ×2 (08:32→17:20)
[2021-09-15] MEDS: PREGABALIN (*CRX) 75 MG CAPSULE 150 MG PO ×2 (08:32→17:19)
[2021-09-15] MEDS: SIMETHICONE 125 MG CHEW TAB PO ×3 (08:32→17:25)
[2021-09-15] MEDS: PHENAZOPYRIDINE HCL 100 MG TABLET PO ×3 (08:32→17:24)
[2021-09-15] MEDS: ASPIRIN 81 MG CHEWABLE TABLET PO (08:32)
[2021-09-15] MEDS: ISOSORBIDE MONONITRATE 30 MG TAB.ER.24H PO (08:32)
[2021-09-15] MEDS: ROSUVASTATIN 10 MG TABLET 20 MG PO (08:32)
[2021-09-15] MEDS: SACCHAROMYCES BOULARDII 250 MG CAPSULE PO ×3 (08:33→17:25)
[2021-09-15] MEDS: CLOPIDOGREL BISULFATE 75 MG TABLET PO (08:33)
[2021-09-15] MEDS: HYDROXYCHLOROQUINE SULFATE 200 MG TABLET PO ×2 (08:33→17:25)
[2021-09-15] MEDS: amLODIPine BESYLATE 2.5 MG TABLET PO (08:33)
[2021-09-15] MEDS: METOPROLOL TARTRATE 25 MG TABLET PO (08:33)
[2021-09-15] MEDS: PANTOPRAZOLE 40 MG TABLET PO (08:33)
[2021-09-15] MEDS: predniSONE 5 MG TABLET PO (08:33)
[2021-09-15] MEDS: FLUTICASONE/SALMETEROL 115-21 MCG INHALER 1 PUFF 2 PUFF INHALATION (08:56)
--- NOTE | 2021-09-15 11:21 | PCNFU ---
Addendum entered by Lupe Cohen RD, LDN 09/15/21 11:28: No order for Ensure compact at this time, Recommend to restart Ensure compact TID with meals, vanilla flavor Original Note: Nutrition Follow-Up Complete: Underweight related to suboptimal po intake as evidenced by pt report and hx of poor intake and wt loss Goal:Meet nutritional needs Pt is progressing towards goal Pt current nutrition is heart healthy. Nutrition recommendation: Continue with current plan of care. Make sure supplement is vanilla Last recorded weight is 43.1 kg - stable. Bowel Motility:+BM 09/15 Labs Reviewed:CRE: 1.1 Meds Noted:morphine Skin:WNL Additional Notes: Pt states varied intake of meals, noted family is bringing in food occassionally. Pt states she has an outpatient appointment with a dietitian for high calorie diet. Drinks Boost shakes regularly at home. Discussed simple ways to increase calories. Encouraged intake of Ensures, will make sure they are vanilla flavor per pt preference. Monitor for diet order, intake/tolerance, wt. Follow up in 5 days.
[2021-09-15] MEDS: OXYBUTYNIN CHLORIDE 5 MG TABLET PO ×2 (13:13→17:26)
[2021-09-15 14:11] LABS: Basophils Absolute Auto 0.1 K/mm3 (0.0-0.1); Basophils Percent Auto 0.6 % (0.2-1.2); Eosinophils Absolute Auto 0.1 K/mm3 (0-0.3); Eosinophils Percent Auto 0.5 % (0-4.4); Hematocrit 33.1 % (37.0-47.0); Hemoglobin 11.1 g/dL (12.0-15.0); Immature Granulocyte Absolute 0.87 K/mm3 (0.00-0.031); Immature Granulocyte Percent A 5.1 % (0-0.5); Lymphocytes Absolute Auto 0.61 K/mm3 (0.9-3.2); Lymphocytes Percent Auto 3.6 % (18.3-44.2); Mean Corpuscular HGB Conc 33.5 g/dl (32-36); Mean Corpuscular Hemoglobin 32.6 pg (26-34); Mean Corpuscular Volume 97.1 fl (80-100); Mean Platelet Volume 9.8 fl (7.4-10.4); Monocytes Absolute Auto 1.1 K/mm3 (0.1-0.6); Monocytes Percent Auto 6.2 % (2.6-8.5); Neutrophils Absolute Auto 14.4 K/mm3 (1.3-6.7); Platelet Count Result 317 k/mm3 (150-375); Red Blood Count 3.41 M/mm3 (4.2-5.4); Red Cell Distribution Width 12.3 % (11.5-14.5); White Blood Count 17.1 K/mm3 (4.5-10.0)
--- NOTE | 2021-09-15 14:53 | PM.DS ---
DS: Admitting Diagnosis Discharge Date 09/15/21 Admitting Diagnosis (1) Hydronephrosis, left: Code(s): N13.30 - Unspecified hydronephrosis Status: Acute (2) Leucocytosis: Qualifiers: Leukocytosis type: unspecified Qualified Code(s): D72.829 - Elevated white blood cell count, unspecified Code(s): D72.829 - Elevated white blood cell count, unspecified Status: Acute (3) JOANN (acute kidney injury): Code(s): N17.9 - Acute kidney failure, unspecified Status: Acute (4) Calculus, ureteral: Code(s): N20.1 - Calculus of ureter Status: Acute DS: Discharge Diagnosis Discharge Diagnosis (1) Hydronephrosis, left: Code(s): N13.30 - Unspecified hydronephrosis Status: Acute (2) Leucocytosis: Qualifiers: Leukocytosis type: unspecified Qualified Code(s): D72.829 - Elevated white blood cell count, unspecified Code(s): D72.829 - Elevated white blood cell count, unspecified Status: Acute (3) JOANN (acute kidney injury): Code(s): N17.9 - Acute kidney failure, unspecified Status: Acute (4) Calculus, ureteral: Code(s): N20.1 - Calculus of ureter Status: Acute (5) Colitis: Code(s): K52.9 - Noninfective gastroenteritis and colitis, unspecified Status: Acute (6) Hypoxia: Code(s): R09.02 - Hypoxemia Status: Acute (7) Pyelonephritis of left kidney: Code(s): N12 - Tubulo-interstitial nephritis, not specified as acute or chronic Status: Acute (8) Calculus of distal left ureter: Code(s): N20.1 - Calculus of ureter Status: Acute (9) Acute kidney injury: Code(s): N17.9 - Acute kidney failure, unspecified Status: Acute (10) CAD (coronary artery disease): Code(s): I25.10 - Atherosclerotic heart disease of [place] coronary artery without angina pectoris Status: Acute (11) Acute on chronic diastolic CHF (congestive heart failure): Code(s): I50.33 - Acute on chronic diastolic (congestive) heart failure Status: Acute (12) Hypercholesteremia: Code(s): E78.00 - Pure hypercholesterolemia, unspecified Status: Acute (13) Lupus: Code(s): M32.9 - Systemic lupus erythematosus, unspecified Status: Acute (14) Anxiety: Code(s): F41.9 - Anxiety disorder, unspecified Status: Acute (15) COPD (chronic obstructive pulmonary disease): Code(s): J44.9 - Chronic obstructive pulmonary disease, unspecified Status: Acute (16) Mild cognitive impairment with memory loss: Code(s): G31.84 - Mild cognitive impairment, so stated Status: Acute DS: Summary Hospital Course Reason for hospitalization: flank pain Hospital Course: pt returns to ER w recurrent symptoms recently admitted for nephrolithiasis w hydronephrosis. pt had stent temporarily placed last visit. She is found today to have retained stone and is scheduled to go to ER w Urology for cysto, stent, and stone extraction. pt is seen postoperatively and complains of pain poorly controlled w morphine admit to med surg post op orders per Urology percocet 10/325 and 5/325 PRN for pain scales 7-10 and 4-6 cont home meds cardiac diet post operatively duonebs SCDs 09/10/21 pain improving Tolerating ureteral stent Will remain in place 10-14 days to let ureteral edema subside. Continue Pip/Tazo cont current care 09/11/21 cont to improve slowly pt reassured cont current care cont Zosyn pt remains on Vanco for empirical tx of c dif probiotic added 09/12/21 renal fxn improving on vanco PO and zosyn diarrhea improving cXR lasix azo percocet 10/325 and 5/325 morphine for breakthrough cont supportive care anticipate dc in 24-48hrs 09/13/21 labs improving cont abx replete Mg and K phos in am cont current care anticipate dc in am after am labs reviewed 09/14/21 cont to replete electrolytes Ca++, Mg++, K+ pt w abd distention today STA
[2021-09-15 15:01] LABS: Alanine Aminotransferase 20 U/L (4-35); Albumin Level 2.7 g/dL (3.5-5.1); Alkaline Phosphatase 86 U/L (38-126); Anion Gap 5 mmol/L (8-16); Aspartate Amino Transferase 29 U/L (14-36); Bilirubin,Total 0.4 mg/dL (0.2-1.3); Blood Urea Nitrogen 12 mg/dL (7-17); Calcium 6.8 mg/dL (8.4-10.2); Carbon Dioxide 29 mmol/L (22-30); Chloride 101 mmol/L (98-107); Estimated CRCL calculation 36 ml/min; Estimated Glomerular Filt Rate > 60; Glucose 119 mg/dL (65-110); Magnesium 1.5 mg/dL (1.6-2.3); Potassium 3.3 mmol/L (3.4-5.0); Sodium 135 mmol/L (137-145)
[2021-09-15] MEDS: POTASSIUM CHLORIDE 20 MEQ TABLET 40 MEQ PO (15:40)
[2021-09-15] MEDS: MAGNESIUM SULF 4 GM/WATER100ML 4 GM/100 ML BAG IVPB (15:52)
== END 2021-09-15 19:15 | disposition home or self-care (01) | DRG 660 ==
LOC: ANHED 09-09 00:07 → ANH3MEDSUR 09-09 03:42
PROVIDERS: Urology; Admitting Provider Internal Medicine; Emergency Provider Emergency Medicine; PCP Hospitalist; Visit Provider Hospitalist
PROC: 0T778DZ Dilation of Left Ureter with Intraluminal Device, Via Natural or Artificial Opening Endoscopic (ICD-10-PCS; CPT 52352; principal; 2021-09-09 12:30)
DX: N13.2 Hydronephrosis with renal and ureteral calculous obstruction (principal); I50.32 Chronic diastolic (congestive) heart failure; N17.9 Acute kidney failure, unspecified; D72.829 Elevated white blood cell count, unspecified; J44.9 Chronic obstructive pulmonary disease, unspecified; E78.00 Pure hypercholesterolemia, unspecified; M32.9 Systemic lupus erythematosus, unspecified; G25.81 Restless legs syndrome; F41.9 Anxiety disorder, unspecified; K52.9 Noninfective gastroenteritis and colitis, unspecified; R09.02 Hypoxemia; I25.10 Atherosclerotic heart disease of native coronary artery without angina pectoris; Z87.891 Personal history of nicotine dependence; Z90.49 Acquired absence of other specified parts of digestive tract; Z90.710 Acquired absence of both cervix and uterus; Z95.5 Presence of coronary angioplasty implant and graft; Z79.52 Long term (current) use of systemic steroids
CPT/HCPCS: 36415; 71045; 74018; 74176; 74420; 80048; 80053; 81001; 82040; 82330; 82365; 82570; 83605; 83690; 83735; 84300; 85025; 85027; 87040; 87086; 87088; 88300; 94618; 94640; 96361; 96365; 96375; 96376; 97110; 97116; 97161; 97165; 97530; 99285; A9270; C1758; C1769; C2617; G0378; J0610; J1940; J2270; J2405; J2543; J2704; J3010; J3475; J7030; J7040; J7120; J7512; Q9966

== ENCOUNTER 2021-09-12 08:00 | Outpatient (RCR) | payer MEDICARE, SELFPAY | END 2021-09-22 11:02 | disposition home or self-care (01) | PROVIDERS: PCP Hospitalist; Referring Provider Internal Medicine Cardiovascular Disease; Visit Provider Internal Medicine Cardiovascular Disease | DX: Z98.61 Coronary angioplasty status (principal) | CPT/HCPCS: 93798 ==

== ENCOUNTER 2021-10-16 11:22 | Inpatient (IN) | payer MEDICARE, SELFPAY ==
[2021-10-16] VITALS (11 sets, daily range): BP systolic 91–158; BP diastolic 50–85; PULSE 72–102; RESP 16–35; TEMP 36.6–36.8; O2SAT 95–100; BMI 17.3
--- NOTE | ~2021-10-16 | XR_ITS ---
EXAMINATION: XR chest 2V DATE: 10/16/2021 13:36 INDICATION: Sepsis, history of COPD TECHNIQUE: PA and lateral views of the chest are obtained. COMPARISON: 09/15/2021 FINDINGS: There is a nodular opacity of the medial right lung base in the location of a small cavitar y space which has been demonstrated to intermittently fill with fluid on previous CT scans. The lungs are hyperinflated. There is no pleural effusion or pneumothorax. The cardiomediastinal silhouette is normal. There is moderate thoracic spondylosis. IMPRESSION: 1. No acute cardiopulmonary abnormality. Reviewed, dictated and finalized at location A.
--- NOTE | ~2021-10-16 | CT_ITS ---
EXAMINATION: CT abdomen pelvis w con DATE: 10/16/2021 14:57 INDICATION: Abdominal pain TECHNIQUE: Computed tomography (CT) of the abdomen and pelvis was performed with 100 mL Omnipaque-350 intravenous contrast. Automated exposure control and iterative reconstruction technique were employe d. The dose-length product was 160.39 mGy-cm. COMPARISON: 09/08/2021 FINDINGS: Moderate emphysema at the visualized lower lungs. There is bronchiectasis with dilated mucus filled b ronchi in the anterobasilar segment of the right lower lobe. Heart size is normal. Small pericardial effusion. No pleural effusion. There is mild intra and extra hepatic ductal or ductal dilation which is likely related to prior cholecystectomy with surgical clips at the gallbladder fossa. Dystrophic c alcific a cyst at the head of the pancreas likely sequela of chronic pancreatitis. Spleen and bilater al adrenal glands are normal There is asymmetric mild right renal atrophy. There are couple 2 mm nono bstructing stones at a lower pole calyx of the left kidney. There is marked edematous wall thickening throughout the colon consistent with pancolitis. No pneumatosis. Small bowel is normal with no obstr uction. The appendix is not visualized. No pericecal inflammatory change to suggest acute appendiciti s. Bladder is normal. The uterus is not identified and has likely been surgically resected. Small amount of ascites pelvis. No abscess or free intraperineal gas. No pathologically enlarged abdominal or pelvic lymphadenopathy. There is calcified atherosclerosis of the aorta and many of the other flor audra. Suggestion of potentially minimally significant stenosis at the origin of the right renal arter y. Mild degenerative skeletal changes in the lumbar and lower thoracic spine and bilateral hip and sa croiliac joints. IMPRESSION: 1. Pancolitis with marked edematous wall thickening the colon which could be infectious, inflammatory or less likely ischemic in etiology. 2. Small amount of likely reactive ascites in the pelvis. No abscess or free intraperitoneal gas. 3. Couple nonobstructing 2 mm left renal stones. 3. Small pericardial effusion. 4. Moderate emphysema and bronchiectasis with dilated fluid-filled bronchi in the anterobasilar segme nt of the right lower lobe. Reviewed, dictated and finalized at location A. IMPRESSION: 1. Pancolitis with marked edematous wall thickening the colon which could be in fectious, inflammatory or less likely ischemic in etiology. 2. Small amount of likely reactive ascites in the pelvis. No abscess or free in traperitoneal gas. 3. Couple nonobstructing 2 mm left renal stones. 3. Small pericardial effusion. 4. Moderate emphysema and bronchiectasis with dilated fluid-filled bronchi in t he anterobasilar segment of the right lower lobe.
[2021-10-16 12:02] LABS: Basophils Absolute Auto 0.1 K/mm3 (0.0-0.1); Basophils Percent Auto 0.5 % (0.2-1.2); Eosinophils Percent Auto 0.2 % (0-4.4); Hematocrit 31.7 % (37.0-47.0); Hemoglobin 10.1 g/dL (12.0-15.0); Immature Granulocyte Absolute 0.09 K/mm3 (0.00-0.031); Immature Granulocyte Percent A 0.5 % (0-0.5); Lymphocytes Absolute Auto 1.78 K/mm3 (0.9-3.2); Lymphocytes Percent Auto 9.6 % (18.3-44.2); Mean Corpuscular HGB Conc 31.9 g/dl (32-36); Mean Corpuscular Hemoglobin 31.2 pg (26-34); Mean Corpuscular Volume 97.8 fl (80-100); Mean Platelet Volume 9.3 fl (7.4-10.4); Monocytes Absolute Auto 1.2 K/mm3 (0.1-0.6); Monocytes Percent Auto 6.4 % (2.6-8.5); Neutrophils Absolute Auto 15.3 K/mm3 (1.3-6.7); Neutrophils Percent Auto 82.8 % (45.5-73.1); Platelet Count Result 225 k/mm3 (150-375); Red Blood Count 3.24 M/mm3 (4.2-5.4); Red Cell Distribution Width 13.7 % (11.5-14.5); White Blood Count 18.5 K/mm3 (4.5-10.0)
[2021-10-16 12:03] LABS: Appearance Urine Clear (Clear); Bilirubin Urine 1+ (Negative); Blood Urine Negative (Negative); Color Urine Yellow (Yellow); Glucose Urine UA Negative (Negative); Ketones Urine 1+ mg/dL (Negative); Leukocyte Esterase Ur Negative LEU/UL (Negative); Nitrate Urine Negative (Negative); Protein Urine 2+ mg/dL (Negative); Specific Grav Ur >= 1.030 (1.001-1.035); Urobilinogen Urine 0.2 mg/dL (<2.0); pH Urine 5.5 (5.0-9.0)
[2021-10-16 12:14] LABS: Add Urine Microscopic? YES
[2021-10-16 12:18] LABS: Alanine Aminotransferase 13 U/L (6-35); Albumin Level 3.5 g/dL (3.5-5.1); Alkaline Phosphatase 62 U/L (38-126); Anion Gap 6 mmol/L (8-16); Aspartate Amino Transferase 19 U/L (14-36); Bilirubin,Total 0.8 mg/dL (0.2-1.3); Blood Urea Nitrogen 28 mg/dL (7-17); Calcium 9.4 mg/dL (8.4-10.2); Carbon Dioxide 32 mmol/L (22-30); Chloride 98 mmol/L (98-107); Estimated CRCL calculation 29 ml/min; Estimated Glomerular Filt Rate 49; Glucose 119 mg/dL (65-110); Potassium 3.4 mmol/L (3.4-5.0); Sodium 136 mmol/L (137-145)
[2021-10-16 12:21] LABS: Mucus Urine Few /lpf; RBC Urine 0-2 /hpf (0-2); Squamous Epithelial Cell Urine Rare /hpf (Few)
[2021-10-16 12:35] LABS: Lipase < 10 U/L (23-300)
--- NOTE | 2021-10-16 13:01 | ED.RECABL ---
HPI - Recheck/Abnormal Lab/Rx General Chief Complaint: Recheck/Abnormal Lab/Rx Stated Complaint: low BP Time Seen by Provider: 10/16/21 13:00 Source: patient and family Mode of arrival: wheelchair Limitations: no limitations History of Present Illness HPI narrative: The patient is a 66-year-old female with a history of COPD, hypoxic respiratory failure requiring 2 L oxygen via nasal cannula, lupus, congestive heart failure with preserved ejection fraction, hyperlipidemia, hypertension, coronary artery disease, presenting to the emergency department for evaluation of hypotension found at outpatient pulmonology visit. Patient was noted to have blood pressure 60s/50s in the pulmonology office of Dr. Poe this morning. Per my chart review, patient had numerous checks with blood pressure cuff and manual blood pressure. Patient was sent here for evaluation of this. She is otherwise asymptomatic. At the time of arrival patient's blood pressure is 109/57. Recheck at 1259 was 114/51. Patient was noted to be borderline febrile with Dr. Terrazas's office this morning but is afebrile here. She is reporting 2 days worth of mild, diffuse abdominal pain with associated loose stools. She is denying any current chest pain, worsening cough or increased sputum production. Denies pleuritic chest pain. She does report worsening shortness of breath with exertion from baseline. She has not had an increase in her oxygen requirement. Patient denies dysuria or hematuria. Denies rash or lesions. Patient continues on oral prednisone therapy, dosing every other day. She denies lightheadedness, dizziness, syncopal events. She has been ambulatory. Patient does report lack of appetite and decreased oral intake. Related Data Home Medications Medication Instructions Recorded Confirmed prednisone 5 mg PO QMWF 06/03/21 10/16/21 amlodipine 2.5 mg PO DAILY 06/04/21 10/16/21 hydroxychloroquine 200 mg PO DAILY 06/04/21 10/16/21 pregabalin 150 mg PO BID 06/04/21 10/16/21 ropinirole 1 mg PO HS 06/04/21 10/16/21 solifenacin 5 mg PO HS 06/04/21 10/16/21 trazodone 100 mg PO HS 06/04/21 10/16/21 zolpidem 10 mg PO HS 06/04/21 10/16/21 budesonide-formoterol 2 puff INHALATION Q12H 09/03/21 10/16/21 snftuszaes-scztabxitahaq-djsd 50 tablet PO QID PRN 09/03/21 10/16/21 clonazepam 0.5 mg PO BID 09/03/21 10/16/21 denosumab 60 mg SUBCUT [id number] 09/03/21 10/16/21 omeprazole 40 mg PO DAILY 09/03/21 10/16/21 clopidogrel 75 mg PO DAILY 09/05/21 10/16/21 isosorbide mononitrate 30 mg PO DAILY 09/05/21 10/16/21 metoprolol tartrate 25 mg PO BID 09/05/21 10/16/21 nitroglycerin 0.4 mg SUBLINGUAL Q5MIN PRN 09/05/21 10/16/21 albuterol sulfate [ProAir HFA] 2 puff INHALATION Q4-6H PRN 09/12/21 10/16/21 Allergies Allergy/AdvReac Type Severity Reaction Status Date / Time Penicillins AdvReac Unknown Verified 10/16/21 20:41 Sulfa (Sulfonamide AdvReac Unknown Verified 10/16/21 20:41 Antibiotics) Review of Systems Review of Systems: CONSTITUTIONAL: Denies fever, chills, or sweats. EYES: Denies visual changes, redness, or discharge. ENT: Denies rhinorrhea, congestion, sore throat, or otalgia. CARDIOVASCULAR: Denies chest pain, palpitations, or edema. RESPIRATORY: Reports chronic cough, reports shortness of breath worsened from baseline GASTROINTESTINAL: Reports abdominal pain, nausea without vomiting, reports loose stools GENITOURINARY: Denies dysuria or hematuria. SKIN: Denies rash or itching. MUSCULOSKELETAL: Denies back pain, joint pain, or myalgia. NEUROLOGIC: Denies headache, numbness, reports feeling generally weak PMFSH Past Medical History Medical History Altered mental status Anxiety Cataracts, bilateral developing CHF (congestive heart failure) Echo 06/03/2021: Normal EF 60-65%, global longitudinal strain abnormal-14%, diastolic dysfunction grade 1, E/E tendon is mildly elevated, elevated right atrial pressures
[2021-10-16 13:38] LABS: CRP 25.2 mg/dL (<1.0)
[2021-10-16 13:44] LABS: Lactic Acid Reflex 1.8 mmol/L (0.7-2.0)
--- NOTE | 2021-10-16 13:44 | ECG_ITS ---
Measurements Intervals [place] Rate: 85 P: 82 MI: 142 QRS: 66 QRSD: 105 T: 59 QT: 367 QTc: 439 Interpretive Statements SINUS RHYTHM FREQUENT VENTRICULAR PREMATURE COMPLEXES INCOMPLETE RIGHT BUNDLE BRANCH BLOCK BORDERLINE ST-T WAVE ABNORMALITY- ANTEROLAT/HIGH LAT LEADS BASELINE ARTIFACT- I, III, AVL, V1, V4-V6 ABNORMAL ECG Electronically Signed On 10-16-2021 14:03:24 CDT by Gopi Riggs D.O.
[2021-10-16 14:03] LABS: SARS-CoV-2 RNA PCR Negative
[2021-10-16 14:33] LABS: Erythrocyte Sedimentation Rate 76 mm/hr (0-20)
[2021-10-16 14:37] LABS: Procalcitonin 1.7 ng/mL
--- NOTE | 2021-10-16 16:46 | PC.NURSE ---
Patient walked with Pulse Ox down [place] without success, patient's oxygen dropped to 89% on home 2L and patient also became dizzy. EDP notified
--- NOTE | 2021-10-16 22:19 | ADMGEN ---
This patient, Suma Scott, was admitted to [facility] Surg Room 321-01. Patient/family oriented to hospital policies and general routines including ID bracelet, bed and alarms, visiting hours, pain management, procedures, bathroom and other care routines, personal items, smoking policy, room service/diet, and visiting hours. Information on how to activate the Rapid Response Team has been discussed. Patient/Family are encouraged to report perceived risks to care and to ask questions if they do not understand what they are told or what they should do.
[2021-10-16] MEDS: DICYCLOMINE HCL INJ 20 MG/2 ML VIAL IM (22:53)
--- NOTE | 2021-10-16 23:37 | PM.IMHP ---
H&P: HPI History of Present Illness Date/Time: Greater than 30 minutes spent reviewing chart, evaluating, treating, and counseling patient. Expect patient to be admitted to hospital for greater than 48 hours, will admit as inpatient. 10/16/21 23:37 66 yo F PMHx of depression/anxiety, CAD s/p PCI of LAD and circumflex 06/2021, HFpEF (LVEF 60-65% on TTE 05/2021), COPD on 2 L O2, h/o lupus on prednisone and hydroxychlorquine, HTN/HLD, RLS. Recent admission 08/2021 for renal stone s/p L ureteral stent placement, was treated for UTI then. Also treated for PNA with doxycycline and cefidinir 09/2021 and was placed on ppx oral vanc at that time. Presents with couple days of diffuse abdominal pain and diarrhea. Patient reports nausea, but no vomiting. Patient initially having loose brown stool at home, denies blood or mucous in stool. Patient states she began having watery diarrhea while in ED, and had another episode while interviewing patient. Patient denies fevers/chills, worsening SOB, cough, chest pain, vomiting, dysuria, hematuria. Patient was at pulmonology appt today when her vitals showed she was hypotensive and sent to ER. In ED, patient pressure in low 100s and slightly tachycardic. Labs remarkable for WBC 18.5 K, Hb 10 (baseline around 11-12), Cr 1.1 (at baseline). CT A/P done that shows pancolitis. Blood cultures drawn, stool culture and C diff ordered. Chief Complaint: diarrhea, hypotension Review of Systems Review of Systems: 10 point ROS completed, negative unless otherwise specified in HPI [facility] Past Medical History Medical History (Updated 10/16/21 @ 23:56 by Julius Rosen DO) Altered mental status Anxiety Cataracts, bilateral developing CHF (congestive heart failure) Echo 06/03/2021: Normal EF 60-65%, global longitudinal strain abnormal-14%, diastolic dysfunction grade 1, E/E tendon is mildly elevated, elevated right atrial pressures at 10mmHg COPD (chronic obstructive pulmonary disease) Hypercholesteremia Lupus Mild cognitive impairment with memory loss Restless leg syndrome Surgical History Surgical History H/O hysterectomy for benign disease History of heart artery stent (06/23/21) High-grade stenosis near ostial LAD stented following deployment of the stent there was plaque shifting into the ostium of the circumflex causing 80 90% stenosis with subsequent placement of stent at the ostium of the circumflex with migration of the circumflex stent and to the path of the main coronary artery had which time the stent was crushed History of lithotripsy Hx of cholecystectomy Family History Family History (Updated 10/16/21 @ 22:20 by Lupe Lees RN) Father , 56 years old Heart disease COPD (chronic obstructive pulmonary disease) Mother , 62 years old No problems noted. Sibling No problems noted. Social History Social History Social History: She lives at home with her of 49 years. She has smoked 1 pack of cigarettes per day since he was a teenager but quit smoking on the 03 of June. 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 Smoking packs per day: 1 Smoking cigarettes per day: 20.0 Years smoked: 50 Smoking pack-years: 50.00 Smoking status: Former smoker Second hand tobacco smoke exposure: Yes Alcohol intake: never Substance use: current Substance use type: painkillers Gender identity (if verbalized by the patient): Female Spiritual care concerns: No Meds Home Medications and Allergies Home Medications Medication Instructions Recorded Confirmed Type prednisone 5 mg PO QMWF 06/03/21 10/16/21 History amlodipine 2.5 mg PO DAILY 06/04/21 10/16/21 History hydroxychloroquine 200 mg PO DAILY 06/04/21 10/16/21 History pregabalin 150 mg PO BID 06/04/21
[2021-10-17] VITALS (9 sets, daily range): BP systolic 112–151; BP diastolic 48–63; PULSE 77–102; RESP 16–18; TEMP 36.6–37; O2SAT 93–95; BMI 17.3
[2021-10-17] MEDS: traZODone HCL 50 MG TABLET 100 MG PO ×2 (00:18→20:28)
[2021-10-17] MEDS: rOPINIRole HCL 1 MG TABLET PO ×2 (00:19→20:29)
[2021-10-17] MEDS: CLOPIDOGREL BISULFATE 75 MG TABLET PO ×2 (00:19→13:35)
[2021-10-17] MEDS: ASPIRIN 81 MG CHEWABLE TABLET PO ×2 (00:19→09:30)
[2021-10-17] MEDS: PREGABALIN (*CRX) 75 MG CAPSULE 150 MG PO ×3 (00:19→17:02)
[2021-10-17] MEDS: ZOLPIDEM TARTRATE (*CRX) 5 MG TABLET 10 MG PO ×2 (00:20→20:29)
[2021-10-17] MEDS: metroNIDAZOLE 500 MG/ISO 100ML 500 MG/100 ML BAG 100 MG IVPB ×4 (00:20→20:30)
[2021-10-17] MEDS: LACTATED RINGERS 1,000 ML 80 ML IV CONT ×2 (00:20→15:45)
[2021-10-17 02:16] LABS: Toxigenic C. Diff POSITIVE (NEGATIVE)
[2021-10-17 06:27] LABS: Basophils Absolute Auto 0.1 K/mm3 (0.0-0.1); Basophils Percent Auto 0.4 % (0.2-1.2); Eosinophils Absolute Auto 0.1 K/mm3 (0-0.3); Eosinophils Percent Auto 0.4 % (0-4.4); Hematocrit 29.5 % (37.0-47.0); Hemoglobin 9.3 g/dL (12.0-15.0); Immature Granulocyte Absolute 0.17 K/mm3 (0.00-0.031); Lymphocytes Absolute Auto 1.18 K/mm3 (0.9-3.2); Lymphocytes Percent Auto 7.2 % (18.3-44.2); Mean Corpuscular HGB Conc 31.5 g/dl (32-36); Mean Corpuscular Volume 98.3 fl (80-100); Mean Platelet Volume 9.4 fl (7.4-10.4); Monocytes Absolute Auto 1.6 K/mm3 (0.1-0.6); Monocytes Percent Auto 10.1 % (2.6-8.5); Neutrophils Absolute Auto 13.2 K/mm3 (1.3-6.7); Neutrophils Percent Auto 80.9 % (45.5-73.1); Platelet Count Result 194 k/mm3 (150-375); Red Cell Distribution Width 13.6 % (11.5-14.5); White Blood Count 16.3 K/mm3 (4.5-10.0)
[2021-10-17 06:39] LABS: Alanine Aminotransferase 9 U/L (6-35); Albumin Level 3.1 g/dL (3.5-5.1); Alkaline Phosphatase 56 U/L (38-126); Anion Gap 6 mmol/L (8-16); Aspartate Amino Transferase 16 U/L (14-36); Bilirubin,Total 0.6 mg/dL (0.2-1.3); Blood Urea Nitrogen 28 mg/dL (7-17); Calcium 8.9 mg/dL (8.4-10.2); Carbon Dioxide 30 mmol/L (22-30); Chloride 98 mmol/L (98-107); Estimated CRCL calculation 32 ml/min; Estimated Glomerular Filt Rate 55; Glucose 106 mg/dL (65-110); Potassium 3.4 mmol/L (3.4-5.0); Sodium 134 mmol/L (137-145)
[2021-10-17] MEDS: VANCOMYCIN ORAL 125 MG/2.5 ML SYRUP PO ×4 (06:45→23:37)
[2021-10-17 07:03] LABS: Magnesium 1.4 mg/dL (1.6-2.3)
--- NOTE | 2021-10-17 07:54 | PM.IMPN ---
Progress Note: A&P Assessment and Plan (1) Pancolitis: Code(s): K51.00 - Ulcerative (chronic) pancolitis without complications Status: Acute Assessment and Plan: - + C-diff. - Move patient to private room - Initiate contact isolation. - Continue IV flagyl, and oral Vancocin. - Blood cx and stool studies pending. - Continue daily labs and monitor VS. - Continue IVF for hydration. - Potassium and Mag currently stable at 3.4 and 1.4 respectively. (2) Hypotension: Code(s): I95.9 - Hypotension, unspecified Status: Acute Assessment and Plan: - Continue to monitor pressures. - Currently stable at 151/63. (3) CAD (coronary artery disease): Code(s): I25.10 - Atherosclerotic heart disease of [place] coronary artery without angina pectoris Status: Acute Assessment and Plan: - Restart Imdur today as her hypotension has resolved. - Continue to monitor BP. - Continue Coreg, plavix and ASA. (4) Hypercholesteremia: Code(s): E78.00 - Pure hypercholesterolemia, unspecified Status: Acute Assessment and Plan: - Continue crestor (5) COPD (chronic obstructive pulmonary disease): Code(s): J44.9 - Chronic obstructive pulmonary disease, unspecified Status: Acute Assessment and Plan: - Symbicort and duoneb prn (6) Lupus: Code(s): M32.9 - Systemic lupus erythematosus, unspecified Status: Acute Assessment and Plan: - Continue prednisone. Hold hydroxychlorquine given high risk of Qtc prolongation while patient is using prn zofran for nausea in acute setting (7) Anxiety: Code(s): F41.9 - Anxiety disorder, unspecified Status: Acute Assessment and Plan: - Continue trazodone (8) Restless leg syndrome: Code(s): G25.81 - Restless legs syndrome Status: Inactive Assessment and Plan: - continue ropinorole (9) Insomnia: Code(s): G47.00 - Insomnia, unspecified Status: Acute Assessment and Plan: - continue ambien (10) C. difficile colitis: Code(s): A04.72 - Enterocolitis due to Clostridium difficile, not specified as recurrent Status: Acute Assessment and Plan: - Continue IV Flagyl and oral Vancocin. - Maintain isolation - Continue to monitor for hydration and stability. Time Spent With Patient Time with patient: 15 - 25 minutes Subjective Date/time seen: 10/17/21 1015 Interval history: This pt. was examined at the bedside in interval assessment. She continues to have abdominal pain and diarrhea. No N/V, but she endorses a decreased appetite. No CP, dyspnea or urinary complaints. She continues on Flagyl and oral Vancocin as well as IVF for hydration. Review of Systems Review of Systems: All systems reviewed & are unremarkable except as noted in HPI and below Exam Const: General: uncomfortable Other: Secondary to abdominal pain. Appears overall thin and as if she does not feel well. HENMT: Mouth: Yes moist mucous membranes Eyes: Sclera: sclerae normal Neck: Neck: supple and no JVD Lymphatic: lymphadenopathy not noted Resp: Effort & Inspection: normal respiratory effort Auscultation: clear to auscultation bilaterally Cardio: Rate: regular rate Rhythm: regular rhythm GI: GI Palp: Yes Soft to palpation, Yes Tenderness to palpation present (GI) (Worse in RLQ and LLQ ) and Yes Guarding due to palpation present (GI) Auscultation: abnormal bowel sounds (hyperactive) Skin: General skin exam: normal color and no rashes or lesions noted Neuro: General: gait normal Cognition (Neuro): normal cognition Speech: normal speech Motor exam (neuro): 5/5 motor strength present throughout and Normal motor muscle tone present throughout Sensory Exam: normal sensation Extrem: General: normal to inspection Psych: Mental Status: mental status grossly normal Affect: normal affect Thought content: Yes Normal thought content present Objective Data
[2021-10-17] MEDS: FLUTICASONE/SALMETEROL 115-21 MCG INHALER 1 PUFF 2 PUFF INHALATION ×2 (08:34→20:10)
[2021-10-17] MEDS: ENOXAPARIN 30 MG/0.3 ML SYRINGE SUB-Q (09:28)
--- NOTE | 2021-10-17 09:28 | PM.CNPUL ---
Assessment and Plan Assessment and plan (1) COPD (chronic obstructive pulmonary disease): Code(s): J44.9 - Chronic obstructive pulmonary disease, unspecified Status: Acute Assessment and Plan: 66-year-old female with a history of severe centrilobular emphysema by chest CT, chronic hypoxemic respiratory failure with frequent COPD exacerbations over the last few years was found to have low blood pressure during her 1st office visit to pulmonary clinic. Patient's history and physical exam suggest stable respiratory status. There is no evidence of COPD exacerbation currently. The right lower lobe infiltrate seen on abdominal CT was also seen on previous chest imaging studies and may represent mucus plugging. No previous PFTs are available. I would continue with current maintenance bronchodilator regimen. The patient needs to to make a new appointment with the Pulmonary Services regarding chronic hypoxemic respiratory failure and advanced COPD. Will sign off please call with any questions. (2) Colitis: Code(s): K52.9 - Noninfective gastroenteritis and colitis, unspecified Status: Acute (3) Hypoxemic respiratory failure, chronic: Code(s): J96.11 - Chronic respiratory failure with hypoxia Status: Acute History of Present Illness History of Present Illness Consult date: 10/17/21 Chief complaint: Colitis, dehydration, hypoxia Narrative: This 66-year-old female was admitted into the hospital yesterday after she was found to have low blood pressure in the outpatient Pulmonary Clinic. She history of COPD (quit tobacco 05/2021) with hypoxemic respiratory failure requiring 2 L with rest and ambulation on 09/05/2021, CT scan 06/03/2021 with severe apical predominant panlobular emphysema, lupus (on prednisone 5 Q day and hydroxychloroquine 200 BID), CHF (EF 60-65% with Grade 1 DD), mild dementia, HTN, CAD with stent to LAD and Circ on 06/23/2021, recurrent left nephrolithiasis with hydronephrosis s/p left stone extraction and left ureteral stent placement 09/09/21, restless legs syndrome on ropinirole 0.5 mg. The reason for pulmonary consultation is not quite clear the patient stated that she has had no new respiratory issues such as cough, sputum production chills hemoptysis chest pain palpitations or lower extremity edema. She has had abdominal pain and current workup with diagnostic studies suggest some sort of colitis for which she has been on treatment. Chest imaging studies showed no active lung disease. On abdominal CT, there was moderate emphysema and bronchiectasis with dilated fluid-filled bronchi in the anterobasilar segment of the right lower lobe. this finding in the right lower lobe was also found on previous chest imaging studies and may represent mucus plugging. Review of Systems Review of Systems: Patient has no significant weight changes. She has no orthopnea. She has no acid reflux disease. She has had loose stools and mild abdominal pain for the last 3 days. She has no urinary complaints. The remainder of the 12 point system review is negative. [facility] Past Medical History Medical History (Updated 10/17/21 @ 09:40 by Primo Aguilar MD) Altered mental status Anxiety Cataracts, bilateral developing CHF (congestive heart failure) Echo 06/03/2021: Normal EF 60-65%, global longitudinal strain abnormal-14%, diastolic dysfunction grade 1, E/E tendon is mildly elevated, elevated right atrial pressures at 10mmHg COPD (chronic obstructive pulmonary disease) Hypercholesteremia Lupus Mild cognitive impairment with memory loss Restless leg syndrome Surgical History Surgical History H/O hysterectomy for benign disease History of heart artery stent (06/23/21) High-grade stenosis near ostial LAD stented following deployment of the stent there was plaque shifting into the ostium of the circumflex causing 80 90% stenosis with subsequ
[2021-10-17] MEDS: METOPROLOL TARTRATE 25 MG TABLET PO ×2 (09:29→20:29)
[2021-10-17] MEDS: ISOSORBIDE MONONITRATE 30 MG TAB.ER.24H PO (09:30)
[2021-10-17] MEDS: predniSONE 5 MG TABLET PO (09:30)
[2021-10-17] MEDS: PANTOPRAZOLE 40 MG TABLET PO (09:31)
[2021-10-17] MEDS: clonazePAM (*CRX) 0.5 MG TABLET PO ×2 (09:34→17:02)
[2021-10-17] MEDS: oxyCODONE/ACETAMINOPHEN (*CRX) 5-325 MG TABLET 1 TABLET PO ×2 (14:52→20:29)
[2021-10-17] MEDS: ROSUVASTATIN 10 MG TABLET 20 MG PO (17:03)
[2021-10-17] MEDS: SOLIFENACIN 5 MG TABLET PO (20:29)
[2021-10-18] MEDS: LACTATED RINGERS 1,000 ML 80 ML IV CONT (03:53)
[2021-10-18 05:26] VITALS: BP 103/42; PULSE 70; RESP 16; TEMP 36.4; O2SAT 93
[2021-10-18] MEDS: metroNIDAZOLE 500 MG/ISO 100ML 500 MG/100 ML BAG 100 MG IVPB ×3 (06:03→21:50)
[2021-10-18] MEDS: VANCOMYCIN ORAL 125 MG/2.5 ML SYRUP PO ×4 (06:03→23:33)
[2021-10-18] MEDS: FLUTICASONE/SALMETEROL 115-21 MCG INHALER 1 PUFF 2 PUFF INHALATION ×2 (06:23→20:45)
[2021-10-18 07:48] LABS: Basophils Percent Auto 0.3 % (0.2-1.2); Eosinophils Absolute Auto 0.3 K/mm3 (0-0.3); Eosinophils Percent Auto 2.6 % (0-4.4); Hematocrit 26.2 % (37.0-47.0); Hemoglobin 8.5 g/dL (12.0-15.0); Immature Granulocyte Absolute 0.13 K/mm3 (0.00-0.031); Immature Granulocyte Percent A 1.1 % (0-0.5); Lymphocytes Absolute Auto 1.81 K/mm3 (0.9-3.2); Lymphocytes Percent Auto 15.4 % (18.3-44.2); Mean Corpuscular HGB Conc 32.4 g/dl (32-36); Mean Corpuscular Hemoglobin 31.4 pg (26-34); Mean Corpuscular Volume 96.7 fl (80-100); Mean Platelet Volume 9.7 fl (7.4-10.4); Monocytes Absolute Auto 1.2 K/mm3 (0.1-0.6); Monocytes Percent Auto 9.8 % (2.6-8.5); Neutrophils Absolute Auto 8.3 K/mm3 (1.3-6.7); Neutrophils Percent Auto 70.8 % (45.5-73.1); Platelet Count Result 199 k/mm3 (150-375); Red Blood Count 2.71 M/mm3 (4.2-5.4); Red Cell Distribution Width 13.3 % (11.5-14.5); White Blood Count 11.7 K/mm3 (4.5-10.0)
[2021-10-18 08:08] LABS: Alanine Aminotransferase 7 U/L (6-35); Albumin Level 2.8 g/dL (3.5-5.1); Alkaline Phosphatase 59 U/L (38-126); Anion Gap 5 mmol/L (8-16); Aspartate Amino Transferase 14 U/L (14-36); Bilirubin,Total 0.3 mg/dL (0.2-1.3); Blood Urea Nitrogen 17 mg/dL (7-17); Calcium 8.9 mg/dL (8.4-10.2); Carbon Dioxide 30 mmol/L (22-30); Chloride 102 mmol/L (98-107); Estimated CRCL calculation 40 ml/min; Estimated Glomerular Filt Rate > 60; Glucose 111 mg/dL (65-110); Magnesium 1.5 mg/dL (1.6-2.3); Potassium 3.2 mmol/L (3.4-5.0); Sodium 137 mmol/L (137-145)
[2021-10-18 08:32] VITALS: PULSE 80
[2021-10-18] MEDS: CLOPIDOGREL BISULFATE 75 MG TABLET PO (08:32)
[2021-10-18] MEDS: ISOSORBIDE MONONITRATE 30 MG TAB.ER.24H PO (08:32)
[2021-10-18] MEDS: PANTOPRAZOLE 40 MG TABLET PO (08:32)
[2021-10-18] MEDS: METOPROLOL TARTRATE 25 MG TABLET PO ×2 (08:32→19:47)
[2021-10-18] MEDS: clonazePAM (*CRX) 0.5 MG TABLET PO (08:32)
[2021-10-18] MEDS: ASPIRIN 81 MG CHEWABLE TABLET PO (08:32)
[2021-10-18] MEDS: PREGABALIN (*CRX) 75 MG CAPSULE 150 MG PO ×2 (08:32→16:55)
[2021-10-18] MEDS: ENOXAPARIN 30 MG/0.3 ML SYRINGE SUB-Q (08:32)
[2021-10-18] MEDS: POTASSIUM CHLORIDE 20 MEQ TABLET 40 MEQ PO ×2 (08:45→13:07)
[2021-10-18] MEDS: MAGNESIUM SULF 2 GM/WATER 50ML 2 GM/50 ML BAG IVPB (08:45)
[2021-10-18] MEDS: oxyCODONE HCL (*CRX) 2.5 MG TAB IR PO ×2 (08:51→19:49)
[2021-10-18 09:00] VITALS: O2SAT 93
[2021-10-18 14:00] VITALS: BP 104/41; PULSE 77; RESP 16; TEMP 36.5; O2SAT 97
--- NOTE | 2021-10-18 14:26 | PM.IMPN ---
Progress Note: A&P Assessment and Plan (1) Pancolitis: Code(s): K51.00 - Ulcerative (chronic) pancolitis without complications Status: Acute Assessment and Plan: - + C-diff. - Move patient to private room - Initiate contact isolation. - Continue IV flagyl, and oral Vancocin. - Continue daily labs and monitor VS. - Continue IVF for hydration. - 10/18: Repleted potassium and magnesium. Reduce narcotics and eliminate anticholinergics due to risk for toxic megacolon. Increased prednisone to stress dose 20 mg daily. (2) Hypotension: Code(s): I95.9 - Hypotension, unspecified Status: Acute Assessment and Plan: - Continue to monitor pressures. -10/18 BP reviewed and declining to low 100s, so increased prednisone to 20 mg daily. Monitor. (3) CAD (coronary artery disease): Code(s): I25.10 - Atherosclerotic heart disease of [place] coronary artery without angina pectoris Status: Acute Assessment and Plan: - Restart Imdur today as her hypotension has resolved. - Continue to monitor BP. - Continue Coreg, plavix and ASA. (4) Hypercholesteremia: Code(s): E78.00 - Pure hypercholesterolemia, unspecified Status: Acute Assessment and Plan: - Continue crestor (5) COPD (chronic obstructive pulmonary disease): Code(s): J44.9 - Chronic obstructive pulmonary disease, unspecified Status: Acute Assessment and Plan: - Symbicort and duoneb prn (6) Lupus: Code(s): M32.9 - Systemic lupus erythematosus, unspecified Status: Acute Assessment and Plan: - Continue prednisone but at increased dose. Hold hydroxychlorquine given high risk of Qtc prolongation while patient is using prn zofran for nausea in acute setting (7) Anxiety: Code(s): F41.9 - Anxiety disorder, unspecified Status: Acute Assessment and Plan: - Continue trazodone (8) Restless leg syndrome: Code(s): G25.81 - Restless legs syndrome Status: Inactive Assessment and Plan: - continue ropinorole (9) Insomnia: Code(s): G47.00 - Insomnia, unspecified Status: Acute Assessment and Plan: - continue ambien (10) C. difficile colitis: Code(s): A04.72 - Enterocolitis due to Clostridium difficile, not specified as recurrent Status: Acute Assessment and Plan: - Continue IV Flagyl and oral Vancocin. - Maintain isolation - Continue to monitor for hydration and stability. Subjective Date/time seen: 10/18/21 14:26 Interval history: Clostridium difficile colitis 10/18 visit. Still with poor appetite. [id number] abdominal aching. Mostly lower abdomen. Diarrhea this morning but less than yesterday. No bleeding. No emesis. Denied chest pain or shortness of breath. Review of Systems Review of Systems: All systems reviewed & are unremarkable except as noted in HPI and below Exam Narrative: HEENT: PERRL, sclerae nonicteric, pharyngeal mucosa pink and intact NECK: No JVD CHEST: Clear to auscultation. Normal effort. HEART: NL S1/S2, regular ABDOMEN: BS+, soft, tender across lower abdomen without rebound or guarding EXTREMITIES: No cyanosis, edema, or clubbing NEUROLOGIC: CN intact and symmetric to inspection. MUSCULOSKELETAL: Tone and strength symmetric. PSYCH: Alert. Oriented to person, place, and time. Objective Data Vital Signs Vital Signs: Vital Signs - 24 hr 10/17/21 20:11 10/17/21 20:29 10/17/21 21:52 Temperature 98.6 F Pulse Rate 78 84 Respiratory Rate 16 Blood Pressure 124/59 L Pulse Oximetry 95 93 10/18/21 05:26 10/18/21 08:32 10/18/21 09:00 Temperature 97.5 F L Pulse Rate 70 80 Respiratory Rate 16 Blood Pressure 103/42 L Pulse Oximetry 93 93 Intake/Output Intake/Output: Intake & Output 10/15/21 10/16/21 10/17/21 10/18/21 23:59 23:59 23:59 23:59 Intake Total 1450 2140 Output Total 500 Balance 950 2140 Meds/Results Medicati
[2021-10-18] MEDS: ROSUVASTATIN 10 MG TABLET 20 MG PO (16:59)
[2021-10-18 19:47] VITALS: PULSE 88
[2021-10-18] MEDS: rOPINIRole HCL 1 MG TABLET PO (19:47)
[2021-10-18] MEDS: traZODone HCL 50 MG TABLET 100 MG PO (19:48)
[2021-10-18] MEDS: predniSONE 20 MG TABLET PO (19:48)
[2021-10-18] MEDS: ZOLPIDEM TARTRATE (*CRX) 5 MG TABLET PO (19:49)
[2021-10-18 22:00] VITALS: BP 88/49; PULSE 71; RESP 16; TEMP 36.6; O2SAT 99
[2021-10-19] VITALS (8 sets, daily range): BP systolic 114–137; BP diastolic 51–73; PULSE 68–79; RESP 18–20; TEMP 36.5–36.6; O2SAT 95–100
[2021-10-19] MEDS: VANCOMYCIN ORAL 125 MG/2.5 ML SYRUP PO ×3 (05:54→17:14)
[2021-10-19] MEDS: metroNIDAZOLE 500 MG/ISO 100ML 500 MG/100 ML BAG 100 MG IVPB ×3 (05:54→22:52)
[2021-10-19] MEDS: LACTATED RINGERS 1,000 ML 80 ML IV CONT (05:58)
[2021-10-19] MEDS: FLUTICASONE/SALMETEROL 115-21 MCG INHALER 1 PUFF 2 PUFF INHALATION ×2 (08:23→20:30)
[2021-10-19] MEDS: predniSONE 20 MG TABLET PO (08:28)
[2021-10-19] MEDS: ENOXAPARIN 30 MG/0.3 ML SYRINGE SUB-Q (08:28)
[2021-10-19] MEDS: METOPROLOL TARTRATE 25 MG TABLET PO ×2 (08:28→22:51)
[2021-10-19] MEDS: ISOSORBIDE MONONITRATE 30 MG TAB.ER.24H PO (08:28)
[2021-10-19] MEDS: PREGABALIN (*CRX) 75 MG CAPSULE 150 MG PO ×2 (08:28→17:14)
[2021-10-19] MEDS: CLOPIDOGREL BISULFATE 75 MG TABLET PO (08:28)
[2021-10-19] MEDS: PANTOPRAZOLE 40 MG TABLET PO (08:28)
[2021-10-19] MEDS: ASPIRIN 81 MG CHEWABLE TABLET PO (08:28)
[2021-10-19 10:23] LABS: Basophils Percent Auto 0.3 % (0.2-1.2); Eosinophils Percent Auto 0.1 % (0-4.4); Hematocrit 23.8 % (37.0-47.0); Hemoglobin 7.8 g/dL (12.0-15.0); Immature Granulocyte Absolute 0.07 K/mm3 (0.00-0.031); Lymphocytes Absolute Auto 1.14 K/mm3 (0.9-3.2); Lymphocytes Percent Auto 16.3 % (18.3-44.2); Mean Corpuscular HGB Conc 32.8 g/dl (32-36); Mean Corpuscular Hemoglobin 31.3 pg (26-34); Mean Corpuscular Volume 95.6 fl (80-100); Mean Platelet Volume 9.2 fl (7.4-10.4); Monocytes Absolute Auto 0.7 K/mm3 (0.1-0.6); Monocytes Percent Auto 9.7 % (2.6-8.5); Neutrophils Absolute Auto 5.1 K/mm3 (1.3-6.7); Neutrophils Percent Auto 72.6 % (45.5-73.1); Platelet Count Result 208 k/mm3 (150-375); Red Blood Count 2.49 M/mm3 (4.2-5.4); Red Cell Distribution Width 13.3 % (11.5-14.5)
[2021-10-19] MEDS: ONDANSETRON INJ 4 MG/2 ML VIAL IV PUSH ×2 (10:28→17:14)
[2021-10-19] MEDS: oxyCODONE HCL (*CRX) 2.5 MG TAB IR PO ×3 (10:28→22:51)
[2021-10-19 10:40] LABS: Alanine Aminotransferase 7 U/L (6-35); Albumin Level 2.7 g/dL (3.5-5.1); Alkaline Phosphatase 49 U/L (38-126); Anion Gap 3 mmol/L (8-16); Aspartate Amino Transferase 16 U/L (14-36); Bilirubin,Total 0.2 mg/dL (0.2-1.3); Blood Urea Nitrogen 15 mg/dL (7-17); Calcium 8.9 mg/dL (8.4-10.2); Carbon Dioxide 31 mmol/L (22-30); Chloride 103 mmol/L (98-107); Estimated CRCL calculation 45 ml/min; Estimated Glomerular Filt Rate > 60; Glucose 123 mg/dL (65-110); Magnesium 1.7 mg/dL (1.6-2.3); Potassium 4.5 mmol/L (3.4-5.0); Sodium 137 mmol/L (137-145)
[2021-10-19] MEDS: ACETAMINOPHEN 325 MG TABLET 650 MG PO ×2 (13:09→22:51)
[2021-10-19] MEDS: ROSUVASTATIN 10 MG TABLET 20 MG PO (17:14)
--- NOTE | 2021-10-19 17:50 | PM.IMPN ---
Progress Note: A&P Assessment and Plan (1) C. difficile colitis: Code(s): A04.72 - Enterocolitis due to Clostridium difficile, not specified as recurrent Status: Acute Assessment and Plan: - Continue IV Flagyl and oral Vancocin. (2) Pancolitis: Code(s): K51.00 - Ulcerative (chronic) pancolitis without complications Status: Acute Assessment and Plan: - + C-diff. - Moved patient to private room - Initiated contact isolation. - Continued IV flagyl, and oral Vancocin. - 10/18: Repleted potassium and magnesium. Reduce narcotics and eliminate anticholinergics due to risk for toxic megacolon. Increased prednisone to stress dose 20 mg daily. - 10/19: Reduced prednisone to 10 mg daily, then continue to wean to baseline dose of 5mg q MWF. (3) Hypotension: Code(s): I95.9 - Hypotension, unspecified Status: Acute Assessment and Plan: - Continue to monitor pressures. -10/18 BP reviewed and declining to low 100s, so increased prednisone to 20 mg daily. Monitor. - 10/19 BP normalized. (4) CAD (coronary artery disease): Code(s): I25.10 - Atherosclerotic heart disease of [place] coronary artery without angina pectoris Status: Acute Assessment and Plan: - Restart Imdur today as her hypotension has resolved. - Continue to monitor BP. - Continue Coreg, plavix and ASA. (5) Hypercholesteremia: Code(s): E78.00 - Pure hypercholesterolemia, unspecified Status: Acute Assessment and Plan: - Continue crestor (6) COPD (chronic obstructive pulmonary disease): Code(s): J44.9 - Chronic obstructive pulmonary disease, unspecified Status: Acute Assessment and Plan: - Symbicort and duoneb prn (7) Lupus: Code(s): M32.9 - Systemic lupus erythematosus, unspecified Status: Acute Assessment and Plan: - Continue prednisone but at increased dose. Hold hydroxychlorquine given high risk of Qtc prolongation while patient is using prn zofran for nausea in acute setting (8) Anxiety: Code(s): F41.9 - Anxiety disorder, unspecified Status: Acute Assessment and Plan: - Continue trazodone (9) Restless leg syndrome: Code(s): G25.81 - Restless legs syndrome Status: Inactive Assessment and Plan: - continue ropinorole (10) Insomnia: Code(s): G47.00 - Insomnia, unspecified Status: Acute Assessment and Plan: - continue ambien Subjective Date/time seen: 10/19/21 17:50 Interval history: Five hundred fifteen visit. Follow-up C diff colitis. Less abdominal plain. Only 1 episode of diarrhea this morning. Better appetite. No nausea or vomiting. No chest pain or shortness of breath or swelling. No bleeding. Review of Systems Review of Systems: All systems reviewed & are unremarkable except as noted in HPI and below Exam Narrative: HEENT: PERRL, sclerae nonicteric, pharyngeal mucosa pink and intact NECK: No JVD CHEST: Clear to auscultation. Normal effort. HEART: NL S1/S2, regular ABDOMEN: BS+, soft, tender across lower abdomen without rebound or guarding EXTREMITIES: No cyanosis, edema, or clubbing NEUROLOGIC: CN intact and symmetric to inspection. MUSCULOSKELETAL: Tone and strength symmetric. PSYCH: Alert. Oriented to person, place, and time. Objective Data Vital Signs Vital Signs: Vital Signs - 24 hr 10/18/21 19:47 10/18/21 22:00 10/19/21 06:00 Temperature 97.8 F 97.7 F Pulse Rate 88 71 69 Respiratory Rate 16 18 Blood Pressure 88/49 L 114/73 Pulse Oximetry 99 98 10/19/21 08:28 10/19/21 08:50 10/19/21 14:00 Temperature 97.9 F Pulse Rate 70 68 Respiratory Rate 20 Blood Pressure 137/56 L Pulse Oximetry 98 96 Intake/Output Intake/Output: Intake & Output 10/16/21 10/17/21 10/18/21 10/19/21 23:59 23:59 23:59 23:59 Intake Total 1450 4820 2320 Output Total 500 Balance 950 4820 2320 Meds/Results Medications: Active Me
[2021-10-19] MEDS: traZODone HCL 50 MG TABLET 100 MG PO (22:50)
[2021-10-19] MEDS: clonazePAM (*CRX) 0.5 MG TABLET PO (22:50)
[2021-10-19] MEDS: rOPINIRole HCL 1 MG TABLET PO (22:52)
[2021-10-20] VITALS (8 sets, daily range): BP systolic 122–144; BP diastolic 56–63; PULSE 60–69; RESP 16–18; TEMP 36.4–37; O2SAT 94–100
[2021-10-20] MEDS: VANCOMYCIN ORAL 125 MG/2.5 ML SYRUP PO ×5 (00:02→23:20)
[2021-10-20] MEDS: metroNIDAZOLE 500 MG/ISO 100ML 500 MG/100 ML BAG 100 MG IVPB ×3 (05:35→21:13)
[2021-10-20] MEDS: oxyCODONE HCL (*CRX) 2.5 MG TAB IR PO ×3 (05:36→21:19)
[2021-10-20 06:35] LABS: Basophils Absolute Auto 0.1 K/mm3 (0.0-0.1); Basophils Percent Auto 0.8 % (0.2-1.2); Eosinophils Absolute Auto 0.1 K/mm3 (0-0.3); Eosinophils Percent Auto 1.9 % (0-4.4); Hematocrit 24.8 % (37.0-47.0); Hemoglobin 7.8 g/dL (12.0-15.0); Immature Granulocyte Absolute 0.12 K/mm3 (0.00-0.031); Immature Granulocyte Percent A 1.9 % (0-0.5); Lymphocytes Absolute Auto 1.74 K/mm3 (0.9-3.2); Lymphocytes Percent Auto 28.2 % (18.3-44.2); Mean Corpuscular HGB Conc 31.5 g/dl (32-36); Mean Corpuscular Hemoglobin 30.6 pg (26-34); Mean Corpuscular Volume 97.3 fl (80-100); Mean Platelet Volume 9.3 fl (7.4-10.4); Monocytes Absolute Auto 0.7 K/mm3 (0.1-0.6); Monocytes Percent Auto 11.2 % (2.6-8.5); Neutrophils Absolute Auto 3.5 K/mm3 (1.3-6.7); Platelet Count Result 240 k/mm3 (150-375); Red Blood Count 2.55 M/mm3 (4.2-5.4); Red Cell Distribution Width 13.3 % (11.5-14.5); White Blood Count 6.2 K/mm3 (4.5-10.0)
[2021-10-20 06:46] LABS: Alanine Aminotransferase 8 U/L (6-35); Albumin Level 2.7 g/dL (3.5-5.1); Alkaline Phosphatase 47 U/L (38-126); Anion Gap 0 mmol/L (8-16); Aspartate Amino Transferase 16 U/L (14-36); Bilirubin,Total 0.1 mg/dL (0.2-1.3); Blood Urea Nitrogen 19 mg/dL (7-17); Carbon Dioxide 36 mmol/L (22-30); Chloride 103 mmol/L (98-107); Estimated CRCL calculation 32 ml/min; Estimated Glomerular Filt Rate 55; Glucose 93 mg/dL (65-110); Magnesium 1.5 mg/dL (1.6-2.3); Potassium 3.6 mmol/L (3.4-5.0); Sodium 139 mmol/L (137-145)
[2021-10-20] MEDS: FLUTICASONE/SALMETEROL 115-21 MCG INHALER 1 PUFF 2 PUFF INHALATION ×2 (08:18→20:55)
[2021-10-20] MEDS: PREGABALIN (*CRX) 75 MG CAPSULE 150 MG PO ×2 (08:34→17:56)
[2021-10-20] MEDS: METOPROLOL TARTRATE 25 MG TABLET PO ×2 (08:34→21:13)
[2021-10-20] MEDS: ISOSORBIDE MONONITRATE 30 MG TAB.ER.24H PO (08:38)
[2021-10-20] MEDS: ENOXAPARIN 30 MG/0.3 ML SYRINGE SUB-Q (08:38)
[2021-10-20] MEDS: ASPIRIN 81 MG CHEWABLE TABLET PO (08:38)
[2021-10-20] MEDS: CLOPIDOGREL BISULFATE 75 MG TABLET PO (08:38)
[2021-10-20] MEDS: PANTOPRAZOLE 40 MG TABLET PO (08:38)
[2021-10-20] MEDS: predniSONE 10 MG TABLET PO (08:39)
[2021-10-20] MEDS: MAGNESIUM SULF 1 GM/D5W 100 ML 1 GM/100 ML BAG IVPB (10:35)
[2021-10-20 10:52] LABS: Transferrin 120 mg/dL (206-381)
[2021-10-20 10:54] LABS: Immature Reticulocyte Fraction 9.6 % (3.0-15.9); Reticulocyte Hemoglobin Conten 26.1 pg (28.2-35.7); Reticulocyte Percent 1.15 % (0.7-4.3); Reticulocytes Absolute 0.03 B/L (32.2-175.7)
[2021-10-20 11:35] LABS: Iron 91 ug/dL (37-170)
[2021-10-20 11:45] LABS: Percent Iron Saturation 46 % (20-50)
[2021-10-20 11:52] LABS: Folic Acid 6.6 ng/mL (2.76->20)
--- NOTE | 2021-10-20 14:34 | PM.IMPN ---
Progress Note: A&P Assessment and Plan (1) C. difficile colitis: Code(s): A04.72 - Enterocolitis due to Clostridium difficile, not specified as recurrent Status: Acute Assessment and Plan: - Continue IV Flagyl and oral Vancocin. 10/20/21: - Continue current medications. Will likely discharge to home tomorrow. (2) Pancolitis: Code(s): K51.00 - Ulcerative (chronic) pancolitis without complications Status: Acute Assessment and Plan: - + C-diff. - Moved patient to private room - Initiated contact isolation. - Continued IV flagyl, and oral Vancocin. - 10/18: Repleted potassium and magnesium. Reduce narcotics and eliminate anticholinergics due to risk for toxic megacolon. Increased prednisone to stress dose 20 mg daily. - 10/19: Reduced prednisone to 10 mg daily, then continue to wean to baseline dose of 5mg q MWF. - 10/20/21: We will continue same medications as outpatient. (3) Hypotension: Code(s): I95.9 - Hypotension, unspecified Status: Acute Assessment and Plan: - Continue to monitor pressures. -10/18 BP reviewed and declining to low 100s, so increased prednisone to 20 mg daily. Monitor. - 10/19 BP normalized. - 10/20/21: Remains Normal. (4) CAD (coronary artery disease): Code(s): I25.10 - Atherosclerotic heart disease of [place] coronary artery without angina pectoris Status: Acute Assessment and Plan: - Restart Imdur today as her hypotension has resolved. - Continue to monitor BP. - Continue Coreg, plavix and ASA. - 10/20/2021: Pt's BP is stable. Will continue current medications. (5) Hypercholesteremia: Code(s): E78.00 - Pure hypercholesterolemia, unspecified Status: Acute Assessment and Plan: - Continue crestor (6) COPD (chronic obstructive pulmonary disease): Code(s): J44.9 - Chronic obstructive pulmonary disease, unspecified Status: Acute Assessment and Plan: - Symbicort and duoneb prn - 10/20/21: At baseline without any signs of acute exacerbation. (7) Lupus: Code(s): M32.9 - Systemic lupus erythematosus, unspecified Status: Acute Assessment and Plan: - Continue prednisone but at increased dose. Hold hydroxychlorquine given high risk of Qtc prolongation while patient is using prn zofran for nausea in acute setting - 10/20/21: Will resume Hydroxychloroquine at discharge and discharge her also with a steroid taper dose. (8) Anxiety: Code(s): F41.9 - Anxiety disorder, unspecified Status: Acute Assessment and Plan: - Continue trazodone (9) Restless leg syndrome: Code(s): G25.81 - Restless legs syndrome Status: Inactive Assessment and Plan: - continue ropinorole (10) Insomnia: Qualifiers: Insomnia type: unspecified Qualified Code(s): G47.00 - Insomnia, unspecified Code(s): G47.00 - Insomnia, unspecified Status: Acute Assessment and Plan: - continue ambien Time Spent With Patient Time with patient: 15 - 25 minutes Subjective Date/time seen: 10/20/21 14:34 Pt. was evaluated at the bedside in interval assessment to see how pt. is feeling. She reports that she is feeling better overall. She has no CP, dyspnea, N/V, and her diarrhea is looking better. She continues on home oxygen at this time, but reports overall that she is feeling better. No CP, Dyspnea, N/V. Her stools have drastically decreased in number today. Review of Systems Review of Systems: All systems reviewed & are unremarkable except as noted in HPI and below Exam Const: General: comfortable and no acute distress HENMT: Mouth: Yes moist mucous membranes Eyes: Sclera: sclerae normal Neck: Neck: supple and no JVD Lymphatic: lymphadenopathy not noted Resp: Effort & Inspection: normal respiratory effort Auscultation: clear to auscultation bilaterally Cardio: Rate: regular rate Rhythm: regular rhythm GI: GI Palp: Yes Soft to p
[2021-10-20] MEDS: IPRATROPIUM BR 0.02% INH SOLN 0.5 MG/2.5 ML VIAL INHALATION (17:07)
[2021-10-20] MEDS: ALBUTEROL SULFATE NEB 2.5 MG/0.5 ML INH INHALATION (17:07)
[2021-10-20] MEDS: ROSUVASTATIN 10 MG TABLET 20 MG PO (17:56)
[2021-10-20] MEDS: rOPINIRole HCL 1 MG TABLET PO (21:13)
[2021-10-20] MEDS: traZODone HCL 50 MG TABLET 100 MG PO (21:13)
[2021-10-20] MEDS: clonazePAM (*CRX) 0.5 MG TABLET PO (21:13)
[2021-10-20] MEDS: ZOLPIDEM TARTRATE (*CRX) 5 MG TABLET PO (21:19)
[2021-10-21 05:36] VITALS: BP 132/78; PULSE 70; RESP 17; TEMP 36.6; O2SAT 100
[2021-10-21] MEDS: metroNIDAZOLE 500 MG/ISO 100ML 500 MG/100 ML BAG 100 MG IVPB (05:38)
[2021-10-21] MEDS: VANCOMYCIN ORAL 125 MG/2.5 ML SYRUP PO (05:38)
[2021-10-21] MEDS: oxyCODONE HCL (*CRX) 2.5 MG TAB IR PO (05:45)
[2021-10-21 06:21] LABS: Basophils Absolute Auto 0.1 K/mm3 (0.0-0.1); Eosinophils Absolute Auto 0.3 K/mm3 (0-0.3); Eosinophils Percent Auto 3.6 % (0-4.4); Hematocrit 26.1 % (37.0-47.0); Hemoglobin 8.3 g/dL (12.0-15.0); Immature Granulocyte Absolute 0.34 K/mm3 (0.00-0.031); Immature Granulocyte Percent A 4.9 % (0-0.5); Lymphocytes Absolute Auto 2.14 K/mm3 (0.9-3.2); Lymphocytes Percent Auto 30.6 % (18.3-44.2); Mean Corpuscular HGB Conc 31.8 g/dl (32-36); Mean Corpuscular Hemoglobin 30.7 pg (26-34); Mean Corpuscular Volume 96.7 fl (80-100); Mean Platelet Volume 9.1 fl (7.4-10.4); Monocytes Absolute Auto 0.9 K/mm3 (0.1-0.6); Monocytes Percent Auto 12.3 % (2.6-8.5); Neutrophils Absolute Auto 3.3 K/mm3 (1.3-6.7); Neutrophils Percent Auto 47.6 % (45.5-73.1); Platelet Count Result 297 k/mm3 (150-375); Red Cell Distribution Width 13.3 % (11.5-14.5)
[2021-10-21 06:30] LABS: Alanine Aminotransferase 9 U/L (6-35); Albumin Level 2.5 g/dL (3.5-5.1); Alkaline Phosphatase 51 U/L (38-126); Anion Gap 1 mmol/L (8-16); Aspartate Amino Transferase 22 U/L (14-36); Bilirubin,Total 0.1 mg/dL (0.2-1.3); Blood Urea Nitrogen 16 mg/dL (7-17); Calcium 8.5 mg/dL (8.4-10.2); Carbon Dioxide 35 mmol/L (22-30); Chloride 103 mmol/L (98-107); Estimated CRCL calculation 45 ml/min; Estimated Glomerular Filt Rate > 60; Glucose 99 mg/dL (65-110); Magnesium 1.5 mg/dL (1.6-2.3); Potassium 3.5 mmol/L (3.4-5.0); Sodium 139 mmol/L (137-145)
--- NOTE | 2021-10-21 07:23 | PM.DS ---
DS: Admitting Diagnosis Discharge Date 10/21/2021 Admitting Diagnosis Pancolitis, Hypotension, CAD, HLD, COPD, Lupus, Anxiety, RLS, Insomnia DS: Discharge Diagnosis Discharge Diagnosis (1) C. difficile colitis: Code(s): A04.72 - Enterocolitis due to Clostridium difficile, not specified as recurrent Status: Acute Assessment and Plan: - Continue IV Flagyl and oral Vancocin. 10/20/21: - Continue current medications. Will likely discharge to home tomorrow. - 10/18/21, Day of discharge - Pt. stable today with VS, labs. She is having no further watery diarrhea. She will be discharged to home on po Vancomycin 125 mg Q6 hrs for an additional 6 days. In addition, we will continue Flagyl po 500 mg TID for the same length of time along with a probiotic. She will follow up with her PCP in one week. (2) Pancolitis: Code(s): K51.00 - Ulcerative (chronic) pancolitis without complications Status: Acute Assessment and Plan: - + C-diff. - Moved patient to private room - Initiated contact isolation. - Continued IV flagyl, and oral Vancocin. - 10/18: Repleted potassium and magnesium. Reduce narcotics and eliminate anticholinergics due to risk for toxic megacolon. Increased prednisone to stress dose 20 mg daily. - 10/19: Reduced prednisone to 10 mg daily, then continue to wean to baseline dose of 5mg q MWF. - 10/20/21: We will continue same medications as outpatient. - 10/21/21, date of discharge: Will continue Prednisone 10 mg daily for three days, then transition to 10 mg every other day for 3 doses, then back to baseline of 5 mg every M-W-. (3) Hypotension: Code(s): I95.9 - Hypotension, unspecified Status: Acute Assessment and Plan: - Continue to monitor pressures. -10/18 BP reviewed and declining to low 100s, so increased prednisone to 20 mg daily. Monitor. - 10/19 BP normalized. - 10/20/21: Remains Normal. - 10/21/21, Date of discharge - Stable at 132/78. (4) CAD (coronary artery disease): Code(s): I25.10 - Atherosclerotic heart disease of [place] coronary artery without angina pectoris Status: Acute Assessment and Plan: - Restart Imdur today as her hypotension has resolved. - Continue to monitor BP. - Continue Coreg, plavix and ASA. - 10/20/2021: Pt's BP is stable. Will continue current medications. - 10/21/21, Date of discharge: No further complications or changes in treatment. (5) Hypercholesteremia: Code(s): E78.00 - Pure hypercholesterolemia, unspecified Status: Acute Assessment and Plan: - Continue crestor - 10/21/21, date of discharge: Continue current home medication. (6) COPD (chronic obstructive pulmonary disease): Code(s): J44.9 - Chronic obstructive pulmonary disease, unspecified Status: Acute Assessment and Plan: - Symbicort and duoneb prn - 10/20/21: At baseline without any signs of acute exacerbation. - 10/21/21, date of discharge: Will continue Prednisone 10 mg daily for three days, then transition to 10 mg every other day for 3 doses, then back to baseline of 5 mg every M-W-. At baseline with oxygen requirement. (7) Lupus: Code(s): M32.9 - Systemic lupus erythematosus, unspecified Status: Acute Assessment and Plan: - Continue prednisone but at increased dose. Hold hydroxychlorquine given high risk of Qtc prolongation while patient is using prn zofran for nausea in acute setting - 10/20/21: Will resume Hydroxychloroquine at discharge and discharge her also with a steroid taper dose. - 10/21/21, date of discharge: Continue to taper prednisone as noted in COPD plan. Will also restart Hydroxychloroquine at time of dishcharge. (8) Anxiety: Code(s): F41.9 - Anxiety disorder, unspecified Status: Acute Assessment and Plan: - Continue trazodone - 10/21/21, date of discharge: No current issues. (9) Restless leg syndrome: Code(s): G25.81 - Restless legs syndrome
[2021-10-21] MEDS: ENOXAPARIN 30 MG/0.3 ML SYRINGE SUB-Q (08:45)
[2021-10-21 08:46] VITALS: PULSE 72
[2021-10-21] MEDS: ASPIRIN 81 MG CHEWABLE TABLET PO (08:46)
[2021-10-21] MEDS: CLOPIDOGREL BISULFATE 75 MG TABLET PO (08:46)
[2021-10-21] MEDS: ISOSORBIDE MONONITRATE 30 MG TAB.ER.24H PO (08:46)
[2021-10-21] MEDS: predniSONE 10 MG TABLET PO (08:46)
[2021-10-21] MEDS: PANTOPRAZOLE 40 MG TABLET PO (08:46)
[2021-10-21] MEDS: PREGABALIN (*CRX) 75 MG CAPSULE 150 MG PO (08:46)
[2021-10-21] MEDS: METOPROLOL TARTRATE 25 MG TABLET PO (08:46)
[2021-10-21] MEDS: FLUTICASONE/SALMETEROL 115-21 MCG INHALER 1 PUFF 2 PUFF INHALATION (09:16)
[2021-10-21 09:30] VITALS: O2SAT 100
== END 2021-10-21 10:30 | disposition home or self-care (01) | DRG 372 ==
LOC: ANHED 13:41 → ANH3MEDSUR 19:31
PROVIDERS: Emergency Medicine; Admitting Provider Internal Medicine; Emergency Provider Emergency Medicine; PCP Hospitalist; Visit Provider Nurse Practitioner Adult Health
DX: A04.72 Enterocolitis due to Clostridium difficile, not specified as recurrent (principal); K51.00 Ulcerative (chronic) pancolitis without complications; J96.11 Chronic respiratory failure with hypoxia; I95.9 Hypotension, unspecified; I25.10 Atherosclerotic heart disease of native coronary artery without angina pectoris; Z20.822 Contact with and (suspected) exposure to COVID-19; E78.00 Pure hypercholesterolemia, unspecified; J44.9 Chronic obstructive pulmonary disease, unspecified; M32.9 Systemic lupus erythematosus, unspecified; F41.9 Anxiety disorder, unspecified; E86.0 Dehydration; G25.81 Restless legs syndrome; G47.00 Insomnia, unspecified; Z99.81 Dependence on supplemental oxygen; I50.9 Heart failure, unspecified; Z79.52 Long term (current) use of systemic steroids; Z87.891 Personal history of nicotine dependence; Z79.899 Other long term (current) drug therapy; Z79.51 Long term (current) use of inhaled steroids; R00.0 Tachycardia, unspecified
CPT/HCPCS: 36415; 71046; 74177; 80053; 81001; 82607; 82728; 82746; 83540; 83550; 83605; 83690; 83735; 84145; 84466; 85025; 85046; 85652; 86140; 87040; 87045; 87086; 87269; 87272; 87427; 87493; 89055; 93005; 94640; 96361; 96365; 96366; 96367; 96372; 97161; 99285; A9270; C9803; G0378; J0500; J0692; J1650; J2405; J3475; J7120; J7512; Q9967; U0003; U0005

== ENCOUNTER 2021-11-08 12:35 | Emergency (ER) | payer MEDICARE, SELFPAY ==
[2021-11-08 12:40] VITALS: BP 158/71; PULSE 73; RESP 16; TEMP 36.3; O2SAT 100
--- NOTE | 2021-11-08 12:53 | ED.NAVMDI ---
HPI - Nausea/Vomiting/Diarrhea General Chief complaint: Nausea/Vomiting/Diarrhea Stated complaint: dehydration Time Seen by Provider: 11/08/21 12:53 Source: patient Mode of arrival: ambulatory Limitations: no limitations History of Present Illness HPI Narrative: 66-year-old female, ex-smoker with mild cognitive impairment, coronary artery disease status post LAD/ circumflex stents, COPD on home oxygen, lupus on hydroxychloroquine and prednisone developed kidney stones status post left ureteric stent and UTI in August of this year. The following month she developed pneumonia and was treated with doxycycline and cefdinir. Last month she developed abdominal pain, diarrhea and was admitted in [facility] from 10/19/2019 to 10/21/2021 for C diff colitis, pancolitis and hypovolemic shock. She was treated with IV Flagyl and oral vancomycin which she stopped on 10/28/2021. She presents to the ER with a 2 day history of -- diffuse abdominal pain -- fever with a T-max of 101? -- multiple episodes of watery diarrhea. no hematemesis or melena or hematochezia. MD elicited complaint: nausea, diarrhea and abdominal pain Pertinent past history: anorexia Onset (ago): day(s) ( started 2 days ago) Description of vomiting: watery and foul-smelling Description of diarrhea: lose Associated nausea: Yes Associated abdominal pain: Yes Location of pain: diffuse Radiation: diffuse Pain consistency: intermittent Severity: mild Quality: cramping Exacerbating factors: eating Relieving factors: none Associated symptoms: denies other symptoms Related Data Home Medications Medication Instructions Recorded Confirmed amlodipine 2.5 mg tablet 2.5 mg PO DAILY 06/04/21 11/08/21 hydroxychloroquine 200 mg tablet 200 mg PO DAILY 06/04/21 11/08/21 pregabalin 150 mg capsule 150 mg PO BID 06/04/21 11/08/21 ropinirole 0.5 mg tablet 1 mg PO HS 06/04/21 11/08/21 solifenacin 5 mg tablet 5 mg PO HS 06/04/21 11/08/21 trazodone 50 mg tablet 100 mg PO HS 06/04/21 11/08/21 zolpidem 10 mg tablet 10 mg PO HS 06/04/21 11/08/21 budesonide-formoterol HFA 160 2 puff inhalation Q12H 09/03/21 11/08/21 mcg-4.5 mcg/actuation aerosol inhaler wloqcctpcx-porczkwjtpafj-nugmqugi 50 tablet PO QID PRN Pain 09/03/21 11/08/21 50 mg-325 mg-40 mg tablet clonazepam 0.5 mg tablet 0.5 mg PO BID 09/03/21 11/08/21 denosumab 60 mg/mL subcutaneous 60 mg subcut [id number] 09/03/21 11/08/21 syringe clopidogrel 75 mg tablet 75 mg PO DAILY 09/05/21 11/08/21 isosorbide mononitrate 30 mg 30 mg PO DAILY 09/05/21 11/08/21 tablet,extended release 24 hr metoprolol tartrate 25 mg tablet 25 mg PO BID 09/05/21 11/08/21 nitroglycerin 0.4 mg sublingual 0.4 mg sublingual Q5MIN PRN Chest 09/05/21 11/08/21 tablet Pain albuterol sulfate 90 mcg/actuation 2 puff inhalation Q4-6H PRN 09/12/21 11/08/21 aerosol inhaler (ProAir HFA) shortness of breath Allergies Allergy/AdvReac Type Severity Reaction Status Date / Time Penicillins AdvReac Unknown Verified 11/08/21 12:54 Sulfa (Sulfonamide AdvReac Unknown Verified 11/08/21 12:54 Antibiotics) Review of Systems Review of Systems: All systems reviewed & are unremarkable except as noted in HPI and below Constitutional: Constitutional: Reports as per HPI and Reports no additional constitutional complaints Eyes: Eyes: Reports as per HPI and Reports no additional eye complaints ENT: Reports system reviewed and no additional complaints, except as documented and Reports as per HPI Cardiovascular: Cardiovascular: Reports as per HPI and Reports no additional cardiovascular complaints Respiratory: Respiratory: Reports as per HPI, Reports no additional respiratory complaints, Reports cough and Reports dyspnea Gastrointestinal: Gastrointestinal: Reports abdominal pain, Reports diarrhea and Reports nausea Genitourinary: Genitourinary: Reports no additional female genitourinary complaints Musculoskeletal: Musculoskeletal: Reports no additional musc
[2021-11-08] MEDS: ONDANSETRON INJ 4 MG/2 ML VIAL IV PUSH (13:48)
[2021-11-08] MEDS: LACTATED RINGERS 1,000 ML 999 ML IV CONT (13:49)
[2021-11-08 14:01] VITALS: BP 150/86; PULSE 86; RESP 16; O2SAT 99
[2021-11-08 14:01] LABS: Basophils Absolute Auto 0.05 K/mm3 (0.00-0.10); Basophils Percent Auto 0.6 % (0.0-1.0); Eosinophils Absolute Auto 0.36 K/mm3 (0.02-0.50); Eosinophils Percent Auto 4.7 % (1.0-6.0); Hematocrit 29.8 % (35.0-42.0); Hemoglobin 9.4 g/dL (11.7-13.8); Immature Granulocyte Absolute 0.03 K/mm3 (0.00-0.00); Immature Granulocyte Percent A 0.4 % (0.0-0.0); Lymphocytes Absolute Auto 1.66 K/mm3 (1.10-4.50); Lymphocytes Percent Auto 21.5 % (18.0-42.0); Mean Corpuscular HGB Conc 31.5 g/dL (32.0-36.0); Mean Corpuscular Volume 98.3 fL (78.0-102.0); Mean Platelet Volume 9.5 fl (9.2-11.8); Monocytes Absolute Auto 0.69 K/mm3 (0.10-0.90); Monocytes Percent Auto 8.9 % (2.0-11.0); Neutrophils Absolute Auto 4.9 K/mm3 (1.7-7.2); Neutrophils Percent Auto 63.9 % (50.0-70.0); Platelet Count Result 181 K/mm3 (150-420); Red Blood Count 3.03 M/mm3 (4.20-5.40); Red Cell Distribution Width 14.6 % (11.6-14.4); White Blood Count 7.7 K/mm3 (4.8-10.8)
[2021-11-08 14:03] VITALS: O2SAT 100
--- NOTE | 2021-11-08 14:05 | PC.NURSE ---
PT IS AWARE OF NEED OF STOOL AND URINE SPECIMEN. PT TO USE CALL LIGHT WHEN SHE IS ABLE TO PROVIDE SAMPLES. IVF INFUSING ORDERED WITHOUT DIFFICULTY. PT IS EXTREMELY ANXIOUS WITH NEEDLE STICKS, LEFT WRIST IV SITE INFILTRATED, DC SITE AND DRESSING APPLIED. NEW SITE ESTABLISHED. AT BEDSIDE. WILL CONTINUE TO MONITOR.
[2021-11-08 14:20] LABS: Troponin I 8.3 ng/L (0.00-60.4)
[2021-11-08 14:32] LABS: Alanine Aminotransferase 18 U/L (14-59); Albumin Level 3.2 g/dL (3.4-5.0); Alkaline Phosphatase 59 U/L (46-116); Anion Gap 5 mmol/L (8-16); Aspartate Amino Transferase 15 U/L (15-37); Bilirubin,Total 0.3 mg/dL (0.00-1.00); Blood Urea Nitrogen 21 mg/dL (7-18); Calcium 9.3 mg/dL (8.5-10.1); Carbon Dioxide 28 mmol/L (21-32); Chloride 111 mmol/L (98-108); Estimated CRCL calculation 35 ml/min; Estimated Glomerular Filt Rate > 60; Glucose 112 mg/dL (70-99); Lipase 139 U/L (73-393); Osmolality Calculated 302 mOsm/kg (285-295); Potassium 3.9 mmol/L (3.5-5.1); Sodium 144 mmol/L (136-145); Total Protein 6.3 g/dL (6.4-8.2)
--- NOTE | 2021-11-08 15:33 | PC.NURSE ---
pt up to rr, provides small amount of urine and approx quarter size mucus yellow stool. seedy appearance not noted. 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 pt ambulated to rr without difficulty. specimens sent to lab.
[2021-11-08 15:35] VITALS: BP 138/60; PULSE 68; RESP 16; TEMP 36.8; O2SAT 99
[2021-11-08 15:36] LABS: Add Urine Microscopic? YES; Appearance Urine Clear (Clear); Bilirubin Urine Negative (Negative); Blood Urine Negative (Negative); Color Urine Yellow (Yellow); Glucose Urine UA Negative (Negative); Ketones Urine Negative (Negative); Leukocyte Esterase Ur 1+ LEU/UL (Negative); Nitrate Urine Negative (Negative); Protein Urine Negative (Negative); Specific Grav Ur >= 1.030 (1.010-1.020); Urobilinogen Urine 0.2 mg/dL (0.2-1.0)
[2021-11-08 15:43] LABS: Bacteria Urine 1+ /hpf; RBC Urine None seen /hpf (0-2); Squamous Epithelial Cell Urine Rare /hpf (Few)
[2021-11-08 15:48] LABS: Occult Blood Negative (Negative)
[2021-11-08 16:36] VITALS: BP 140/88; PULSE 70; RESP 16; O2SAT 100
== END 2021-11-08 16:15 | disposition home or self-care (01) ==
PROVIDERS: Emergency Provider Internal Medicine Critical Care Medicine; PCP Hospitalist
DX: R19.7 Diarrhea, unspecified (principal); D64.9 Anemia, unspecified; N39.0 Urinary tract infection, site not specified
CPT/HCPCS: 36415; 80053; 81001; 82272; 83690; 84484; 85025; 87045; 87086; 87088; 87324; 87427; 89055; 96361; 96374; 99284; J2405; J7120

== ENCOUNTER 2021-11-16 13:53 | Inpatient (IN) | payer MEDICARE, SELFPAY ==
--- NOTE | ~2021-11-16 | CT_ITS ---
EXAMINATION: CT abdomen pelvis wo con DATE: 11/16/2021 15:30 INDICATION: lower abd pain TECHNIQUE: Computed tomography (CT) of the abdomen and pelvis was performed without intravenous contr ast. Automated exposure control and iterative reconstruction technique were employed. The dose-length product was 157.91 mGy-cm. COMPARISON: 10/24/2021. FINDINGS: Lower thorax: Stable small volume pericardial effusion. Bibasilar emphysematous and senescent change. Right middle lobe bronchiectasis with mucous/fluid. Liver: Normal. Biliary/Gallbladder: Gallbladder is absent. No bile duct dilation. Pancreas: No mass or duct dilation. Chronic pancreatic calcification versus adjacent vascular calcifi cation. Spleen: Normal. Adrenals:No mass. Kidneys: Right renal atrophy. Punctate bilateral nonobstructive renal calculi. GI tract: Diffuse colonic wall thickening, decreased since the prior study. Appendix not confidently visualized. Mesentery/Peritoneum: No ascites, mass, or free air. Retroperitoneum: No mass. Extensive abdominal arterial calcification. Pelvis: Absent uterus, otherwise pelvic organs are within normal limits. Soft Tissues: Soft tissues and body wall unremarkable. Bones: No acute osseous finding. IMPRESSION: Diffuse colonic wall thickening, decreased since the prior study, may reflect resolving pancolitis. R ecurrent colitis cannot be excluded. Stable small volume pericardial effusion. Stable right middle lo be bronchiectasis with mucous/fluid filled bronchi. Reviewed, dictated and finalized at location K. IMPRESSION: Diffuse colonic wall thickening, decreased since the prior study, may reflect r esolving pancolitis. Recurrent colitis cannot be excluded. Stable small volume pericardial effusion. Stable right middle lobe bronchiectasis with mucous/fluid filled bronchi.
[2021-11-16 13:59] VITALS: BP 111/94; PULSE 112; RESP 19; TEMP 37; O2SAT 99
[2021-11-16 14:19] LABS: Basophils Absolute Auto 0.1 K/mm3 (0.0-0.1); Basophils Percent Auto 0.6 % (0.2-1.2); Eosinophils Absolute Auto 0.3 K/mm3 (0-0.3); Eosinophils Percent Auto 1.9 % (0-4.4); Hematocrit 32.7 % (37.0-47.0); Hemoglobin 10.4 g/dL (12.0-15.0); Immature Granulocyte Percent A 0.7 % (0-0.5); Lymphocytes Absolute Auto 1.87 K/mm3 (0.9-3.2); Mean Corpuscular HGB Conc 31.8 g/dl (32-36); Mean Corpuscular Volume 97.3 fl (80-100); Mean Platelet Volume 9.2 fl (7.4-10.4); Monocytes Absolute Auto 1.2 K/mm3 (0.1-0.6); Monocytes Percent Auto 8.6 % (2.6-8.5); Neutrophils Absolute Auto 10.8 K/mm3 (1.3-6.7); Neutrophils Percent Auto 75.2 % (45.5-73.1); Platelet Count Result 239 k/mm3 (150-375); Red Blood Count 3.36 M/mm3 (4.2-5.4); Red Cell Distribution Width 14.4 % (11.5-14.5); White Blood Count 14.4 K/mm3 (4.5-10.0)
[2021-11-16 14:30] LABS: Alanine Aminotransferase 9 U/L (6-35); Alkaline Phosphatase 61 U/L (38-126); Anion Gap 3 mmol/L (8-16); Aspartate Amino Transferase 15 U/L (14-36); Bilirubin,Total 0.4 mg/dL (0.2-1.3); Blood Urea Nitrogen 20 mg/dL (7-17); Calcium 9.8 mg/dL (8.4-10.2); Carbon Dioxide 34 mmol/L (22-30); Chloride 102 mmol/L (98-107); Estimated CRCL calculation 43 ml/min; Estimated Glomerular Filt Rate > 60; Glucose 118 mg/dL (65-110); Lipase 37 U/L (23-300); Potassium 3.4 mmol/L (3.4-5.0); Sodium 139 mmol/L (137-145)
[2021-11-16 15:32] VITALS: BP 148/73
[2021-11-16] MEDS: SODIUM CHLORIDE 0.9% IV 1,000 ML 999 ML IV CONT (15:59)
[2021-11-16 16:08] LABS: Appearance Urine Clear (Clear); Bilirubin Urine Negative (Negative); Blood Urine Negative (Negative); Color Urine Yellow (Yellow); Glucose Urine UA Negative (Negative); Ketones Urine Negative (Negative); Leukocyte Esterase Ur Negative LEU/UL (Negative); Nitrate Urine Negative (Negative); Protein Urine 1+ mg/dL (Negative); Specific Grav Ur >= 1.030 (1.001-1.035); Urobilinogen Urine 0.2 mg/dL (<2.0)
[2021-11-16 16:20] LABS: Mucus Urine Rare /lpf; RBC Urine 0-2 /hpf (0-2); Squamous Epithelial Cell Urine Rare /hpf (Few)
[2021-11-16 16:21] LABS: Add Urine Microscopic? YES
[2021-11-16] MEDS: MORPHINE SULFATE (*CRX) 2 MG/ML INJ IV PUSH ×2 (16:33→21:57)
--- NOTE | 2021-11-16 16:50 | ED.GENADULT ---
HPI - General Adult General Chief complaint: Nausea/Vomiting/Diarrhea Stated complaint: DIARRHEA, HX OF C DIFF Time Seen by Provider: 11/16/21 15:03 Source: RN notes reviewed History of Present Illness HPI narrative: Patient presents emergency department from home for diarrhea. Patient states that she has been having diarrhea for the past several weeks she states been associate with lower abdominal pain is progressively worse the pain is located bilateral lower abdomen described as sharp and stabbing in nature. Patient states she does have a history of C. difficile approximately 2 months ago that had resolved but feels like her C. difficile is coming back states she was recently seen in the ER at [facility] and did have a UTI and was started on Macrobid for 3 days she denies any fevers or chills chest pain nausea vomiting or any other symptoms Related Data Home Medications Medication Instructions Recorded Confirmed amlodipine 2.5 mg tablet 2.5 mg PO DAILY 06/04/21 11/08/21 hydroxychloroquine 200 mg tablet 200 mg PO DAILY 06/04/21 11/08/21 pregabalin 150 mg capsule 150 mg PO BID 06/04/21 11/08/21 ropinirole 0.5 mg tablet 1 mg PO HS 06/04/21 11/08/21 solifenacin 5 mg tablet 5 mg PO HS 06/04/21 11/08/21 trazodone 50 mg tablet 100 mg PO HS 06/04/21 11/08/21 zolpidem 10 mg tablet 10 mg PO HS 06/04/21 11/08/21 budesonide-formoterol HFA 160 2 puff inhalation Q12H 09/03/21 11/08/21 mcg-4.5 mcg/actuation aerosol inhaler matlnjhkme-gzkebwrrcgezj-llmszwpn 50 tablet PO QID PRN Pain 09/03/21 11/08/21 50 mg-325 mg-40 mg tablet clonazepam 0.5 mg tablet 0.5 mg PO BID 09/03/21 11/08/21 denosumab 60 mg/mL subcutaneous 60 mg subcut [id number] 09/03/21 11/08/21 syringe clopidogrel 75 mg tablet 75 mg PO DAILY 09/05/21 11/08/21 isosorbide mononitrate 30 mg 30 mg PO DAILY 09/05/21 11/08/21 tablet,extended release 24 hr metoprolol tartrate 25 mg tablet 25 mg PO BID 09/05/21 11/08/21 nitroglycerin 0.4 mg sublingual 0.4 mg sublingual Q5MIN PRN Chest 09/05/21 11/08/21 tablet Pain albuterol sulfate 90 mcg/actuation 2 puff inhalation Q4-6H PRN 09/12/21 11/08/21 aerosol inhaler (ProAir HFA) shortness of breath Allergies Allergy/AdvReac Type Severity Reaction Status Date / Time Penicillins AdvReac Gastrointestinal Verified 11/16/21 14:04 Upset Sulfa (Sulfonamide AdvReac Unknown Verified 11/08/21 12:54 Antibiotics) Review of Systems Review of Systems: Gen.: Denies fevers or chills ENT: Denies congestion Respiratory: Denies shortness of breath or cough CV: Denies chest pain or palpitations GI: See HPI denies burning, urgency, frequency or hematuria Musculoskeletal: Denies back pain or muscle pain Neuro: Denies numbness, tingling, weakness or focal weakness Skin: Denies rash Except as documented, all other systems reviewed and negative [facility] Past Medical History Medical History Altered mental status Anxiety Cataracts, bilateral developing CHF (congestive heart failure) Echo 06/03/2021: Normal EF 60-65%, global longitudinal strain abnormal-14%, diastolic dysfunction grade 1, E/E tendon is mildly elevated, elevated right atrial pressures at 10mmHg COPD (chronic obstructive pulmonary disease) Hypercholesteremia Lupus Mild cognitive impairment with memory loss Restless leg syndrome Surgical History Surgical History H/O hysterectomy for benign disease History of heart artery stent (06/23/21) High-grade stenosis near ostial LAD stented following deployment of the stent there was plaque shifting into the ostium of the circumflex causing 80 90% stenosis with subsequent placement of stent at the ostium of the circumflex with migration of the circumflex stent and to the path of the main coronary artery had which time the stent was crushed History of lithotripsy Hx of cholecystectomy Family History Family H
[2021-11-16 17:02] LABS: Lactic Acid Reflex 0.9 mmol/L (0.7-2.0)
[2021-11-16] MEDS: SODIUM CHLORIDE 0.9% IV 1,000 ML 100 ML IV CONT (17:14)
[2021-11-16 18:21] LABS: Toxigenic C. Diff POSITIVE (NEGATIVE)
--- NOTE | 2021-11-16 18:47 | ADMGEN ---
This patient, Suma Scott, was admitted to Medical Room 242-01. Patient/family oriented to hospital policies and general routines including ID bracelet, bed and alarms, visiting hours, pain management, procedures, bathroom and other care routines, personal items, smoking policy, room service/diet, and visiting hours. Information on how to activate the Rapid Response Team has been discussed. Patient/Family are encouraged to report perceived risks to care and to ask questions if they do not understand what they are told or what they should do.
[2021-11-16 19:04] VITALS: BP 142/61; PULSE 94; RESP 17; TEMP 36.6; O2SAT 100
[2021-11-16] MEDS: FIDAXOMICIN 200 MG TABLET PO (20:11)
--- NOTE | 2021-11-16 20:13 | PM.IMHP ---
H&P: HPI History of Present Illness Date/Time: Patient was placed observation status for expected length of stay less than 23 hours for management, will plan to re-evaluate tomorrow for improvement. 11/16/21 20:13 Chief Complaint: Diarrhea Narrative: Ms. Scott is a 66-year-old female who presented emergency room with complaints of abdominal pain and diarrhea. Patient states that she was hospitalized approximately 2 months ago for C difficile and finished her full closure treatment of vancomycin and Flagyl and was having normal stools approximately 1 week after discharge and then began having diarrhea that would come and go. Patient states on this week she had a T-max of 100.1?. Patient states she went to an outside emergency room was diagnosed with a urinary tract infection was placed on Macrobid for 3 days. Patient states she took the full course of Macrobid for 3 days and after that began having abdominal pain for the last 48 hours. Patient states that when she has a bowel movement this makes the abdominal pain much worse. Patient states she has not been able to eat for the last 2 days because of abdominal cramping. Patient states she has been nauseated with no vomiting. Patient denies any chest pain, shortness breast, lightheadedness, dizziness, syncopal, or near syncopal episodes. Upon evaluation in emergency room patient underwent CT scan that showed rodrigues colitis and a stool specimen was sent for C difficile. Patient has a known history of congestive heart failure with an ejection fraction of 60-65% on echo Doppler from 2020. Patient also has a known history of coronary artery disease status post stent placement, COPD, dyslipidemia, mild cognitive impairment with memory loss, lupus, and restless leg syndrome. Review of Systems Review of Systems: A 12 point review of systems was completed patient all pertinent positive and negative per HPI the remainder are unremarkable. [facility] Past Medical History Medical History Altered mental status Anxiety Cataracts, bilateral developing CHF (congestive heart failure) Echo 06/03/2021: Normal EF 60-65%, global longitudinal strain abnormal-14%, diastolic dysfunction grade 1, E/E tendon is mildly elevated, elevated right atrial pressures at 10mmHg COPD (chronic obstructive pulmonary disease) Hypercholesteremia Lupus Mild cognitive impairment with memory loss Restless leg syndrome Surgical History Surgical History H/O hysterectomy for benign disease History of heart artery stent (06/23/21) High-grade stenosis near ostial LAD stented following deployment of the stent there was plaque shifting into the ostium of the circumflex causing 80 90% stenosis with subsequent placement of stent at the ostium of the circumflex with migration of the circumflex stent and to the path of the main coronary artery had which time the stent was crushed History of lithotripsy Hx of cholecystectomy Family History Family History Father , 56 years old Heart disease COPD (chronic obstructive pulmonary disease) Mother , 62 years old No problems noted. Sibling No problems noted. Social History Social History Social History: She lives at home with her of 49 years. She has smoked 1 pack of cigarettes per day since he was a teenager but quit smoking on the 03 of June. 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 Smoking packs per day: 0.75 Smoking cigarettes per day: 15.0 Years smoked: 45 Smoking pack-years: 33.75 Smoking status: Former smoker Tobacco type: cigarettes Second hand tobacco smoke exposure: Yes Alcohol intake: never Substance use: never S
[2021-11-16 21:14] VITALS: O2SAT 98
[2021-11-16] MEDS: ONDANSETRON INJ 4 MG/2 ML VIAL IV PUSH (22:11)
[2021-11-16] MEDS: ALBUTEROL SULFATE (*SP) INHALER 1 PUFF (22:12)
[2021-11-16] MEDS: ZOLPIDEM TARTRATE (*CRX) 5 MG TABLET 10 MG PO (22:39)
[2021-11-16] MEDS: traZODone HCL 50 MG TABLET 100 MG PO (22:40)
[2021-11-16] MEDS: PREGABALIN (*CRX) 75 MG CAPSULE 150 MG PO (22:40)
[2021-11-16] MEDS: ROSUVASTATIN 10 MG TABLET 20 MG PO (22:40)
[2021-11-16] MEDS: SOLIFENACIN 5 MG TABLET PO (22:41)
[2021-11-16] MEDS: rOPINIRole HCL 1 MG TABLET PO (22:41)
[2021-11-16] MEDS: METOPROLOL TARTRATE 50 MG TAB PO (22:41)
[2021-11-16] MEDS: clonazePAM (*CRX) 0.5 MG TABLET PO (22:41)
[2021-11-17] VITALS (7 sets, daily range): BP systolic 122–139; BP diastolic 56–63; PULSE 79–94; RESP 12–17; TEMP 36.5–37.4; O2SAT 95–99; BMI 16.6
[2021-11-17] MEDS: ALBUTEROL SULFATE (*SP) AEROSOL 1 PUFF 2 PUFF INHALATION ×3 (03:27→20:57)
[2021-11-17 05:45] LABS: Basophils Absolute Auto 0.1 K/mm3 (0.0-0.1); Basophils Percent Auto 0.6 % (0.2-1.2); Eosinophils Absolute Auto 0.1 K/mm3 (0-0.3); Eosinophils Percent Auto 0.7 % (0-4.4); Hematocrit 30.7 % (37.0-47.0); Hemoglobin 9.9 g/dL (12.0-15.0); Immature Granulocyte Percent A 0.6 % (0-0.5); Lymphocytes Absolute Auto 1.51 K/mm3 (0.9-3.2); Lymphocytes Percent Auto 9.1 % (18.3-44.2); Mean Corpuscular HGB Conc 32.2 g/dl (32-36); Mean Corpuscular Hemoglobin 31.4 pg (26-34); Mean Corpuscular Volume 97.5 fl (80-100); Mean Platelet Volume 9.2 fl (7.4-10.4); Monocytes Absolute Auto 1.2 K/mm3 (0.1-0.6); Monocytes Percent Auto 7.5 % (2.6-8.5); Neutrophils Absolute Auto 13.5 K/mm3 (1.3-6.7); Neutrophils Percent Auto 81.5 % (45.5-73.1); Platelet Count Result 210 k/mm3 (150-375); Red Blood Count 3.15 M/mm3 (4.2-5.4); Red Cell Distribution Width 14.2 % (11.5-14.5); White Blood Count 16.5 K/mm3 (4.5-10.0)
[2021-11-17 05:55] LABS: Alanine Aminotransferase 8 U/L (6-35); Albumin Level 3.6 g/dL (3.5-5.1); Alkaline Phosphatase 65 U/L (38-126); Anion Gap 6 mmol/L (8-16); Aspartate Amino Transferase 16 U/L (14-36); Bilirubin,Total 0.6 mg/dL (0.2-1.3); Blood Urea Nitrogen 20 mg/dL (7-17); Calcium 9.3 mg/dL (8.4-10.2); Carbon Dioxide 29 mmol/L (22-30); Chloride 102 mmol/L (98-107); Estimated CRCL calculation 43 ml/min; Estimated Glomerular Filt Rate > 60; Glucose 78 mg/dL (65-110); Potassium 3.4 mmol/L (3.4-5.0); Sodium 137 mmol/L (137-145)
[2021-11-17] MEDS: SODIUM CHLORIDE 0.9% IV 1,000 ML 100 ML IV CONT ×2 (05:57→20:30)
[2021-11-17] MEDS: MORPHINE SULFATE (*CRX) 2 MG/ML INJ IV PUSH ×3 (05:59→21:35)
[2021-11-17] MEDS: ONDANSETRON INJ 4 MG/2 ML VIAL IV PUSH ×2 (06:02→21:35)
--- NOTE | 2021-11-17 07:23 | PM.IMPN ---
Progress Note: A&P Assessment and Plan (1) C. difficile colitis: Code(s): A04.72 - Enterocolitis due to Clostridium difficile, not specified as recurrent Status: Acute Assessment and Plan: Noted on CT scan and c-diff positive. Patient was treated with vancomycin and Flagyl starting 10/16 with previous hospitalization. - Continue contact precautions. - NPO except ice chips and sips until pain significantly improved. - Continue fidaxomicin 200 mg p.o. b.i.d. x10 days. Will check insurance coverage as this medication is costly. If unable to afford, she will need pulse dosing of oral vancomycin. - Continue IV fluids until able to take PO. - Change morphine to 2 mg Q2 hours PRN pain. - Zofran 4 mg IV PRN nausea/emesis. - Repeat electrolytes as needed: Mag 1.5 give 2g mag sulfate IVPB and IVPB 40 mEQ KCl for K3.4 (2) COPD (chronic obstructive pulmonary disease): Code(s): J44.9 - Chronic obstructive pulmonary disease, unspecified Status: Acute Assessment and Plan: Not in acute exacerbation. - Continue ProAir 2 puffs Q4-5 hours as needed SOB/wheezing. (3) Anemia: Qualifiers: Anemia type: iron deficiency Iron deficiency anemia type: unspecified iron deficiency Qualified Code(s): D50.9 - Iron deficiency anemia, unspecified Code(s): D64.9 - Anemia, unspecified Status: Acute Assessment and Plan: H/H 9.03/06 and stable from prior hospitalizations. - no s/s bleeding. - iron panel shows low serum iron and saturation - Likely chronic and may be secondary to nutrition deficit given cachexia and prior colitis. - will start ferrous sulfate 1 tab Q48 hours when patient is able to tolerate PO. - outpatient EGD/colonoscopy to rule out chronic blood loss given DAPT use and prednisone use. (4) CAD (coronary artery disease): Qualifiers: Coronary Disease-Associated Artery/Lesion type: [place] artery [place] vs. transplanted heart: [place] heart Associated angina: without angina Qualified Code(s): I25.10 - Atherosclerotic heart disease of [place] coronary artery without angina pectoris Code(s): I25.10 - Atherosclerotic heart disease of [place] coronary artery without angina pectoris Status: Chronic Assessment and Plan: -Continue home medications: aspirin, plavix, metoprolol tartrate bid, isosorbide mononitrate and statin and tolerated. (5) Chronic diastolic CHF (congestive heart failure): Code(s): I50.32 - Chronic diastolic (congestive) heart failure Status: Acute Assessment and Plan: -Monitor daily weights and I/O -Continue medications as above as tolerated. (6) Lupus: Code(s): M32.9 - Systemic lupus erythematosus, unspecified Status: Chronic Assessment and Plan: Given acute infection will hold prednisone and hydroxychloroquine. (7) Mild cognitive impairment with memory loss: Code(s): G31.84 - Mild cognitive impairment, so stated Status: Chronic Assessment and Plan: -To be aware. AOx4 and appears at baseline. Plan Continue oral antibiotic, patient is still NPO with significant pain. Estimated LOS 2-3 days. Time Spent With Patient Time with patient: 15 - 25 minutes Subjective Date/time seen: 11/17/21 07:23 Patient is a 66 yo female with medical history of HFpEF, CAD s/p LAD stent placement in June of this year, COPD, dyslipidemia, mild cognitive impairment, lupus and restless leg syndrome. She presented to the ED with c/o diarrhea for weeks, abdominal pain and known to recently complete vancomycin and metronidazole treatment for c-diff colitis last month. Patient was referred for observation and management of recurrent versus persistent c-diff infection. Patient found lying in bed. She complains of moderate to severe abdominal cramping over with some nausea. No emesis. She feels weak, but denies dizziness, palpitations or chest pain. She still havin
[2021-11-17] MEDS: POTASSIUM CHLORIDE INJ 40 MEQ in SODIUM CHLORIDE 0.9% IV 500 ML 130 MEQ IVPB (07:48)
[2021-11-17] MEDS: FLUTICASONE/SALMETEROL 115-21 MCG INHALER 1 PUFF 2 PUFF INHALATION ×2 (08:06→20:50)
[2021-11-17 08:26] LABS: Iron 27 ug/dL (37-170)
[2021-11-17 08:30] LABS: Magnesium 1.5 mg/dL (1.6-2.3)
[2021-11-17 08:35] LABS: Percent Iron Saturation 11 % (20-50)
[2021-11-17] MEDS: clonazePAM (*CRX) 0.5 MG TABLET PO ×2 (08:53→16:51)
[2021-11-17] MEDS: ISOSORBIDE MONONITRATE 30 MG TAB.ER.24H PO (08:54)
[2021-11-17] MEDS: amLODIPine BESYLATE 5 MG TABLET PO (08:54)
[2021-11-17] MEDS: CLOPIDOGREL BISULFATE 75 MG TABLET PO (08:54)
[2021-11-17] MEDS: ASPIRIN 81 MG CHEWABLE TABLET PO (08:54)
[2021-11-17] MEDS: METOPROLOL TARTRATE 50 MG TAB PO ×2 (08:54→21:34)
[2021-11-17] MEDS: HYDROXYCHLOROQUINE SULFATE 100 MG TABLET PO (08:54)
[2021-11-17] MEDS: FIDAXOMICIN 200 MG TABLET PO ×2 (08:55→21:34)
[2021-11-17] MEDS: ENOXAPARIN 40 MG/0.4 ML SYRINGE SUB-Q (08:55)
[2021-11-17 10:00] LABS: Folic Acid > 20.0 ng/mL (2.76->20)
[2021-11-17] MEDS: MAGNESIUM SULF 2 GM/WATER 50ML 2 GM/50 ML BAG IVPB (13:21)
[2021-11-17] MEDS: PREGABALIN (*CRX) 75 MG CAPSULE 150 MG PO ×2 (13:22→16:51)
--- NOTE | 2021-11-17 14:53 | PCNSR ---
On 11/17/21, the student, Antonette León, provided care and completed [facility] documentation on this patient. I have reviewed the student's documentation and agree with the findings.
[2021-11-17] MEDS: ROSUVASTATIN 10 MG TABLET 20 MG PO (21:33)
[2021-11-17] MEDS: SOLIFENACIN 5 MG TABLET PO (21:33)
[2021-11-17] MEDS: rOPINIRole HCL 1 MG TABLET PO (21:34)
[2021-11-17] MEDS: ZOLPIDEM TARTRATE (*CRX) 5 MG TABLET 10 MG PO (21:34)
[2021-11-17] MEDS: traZODone HCL 50 MG TABLET 100 MG PO (21:34)
[2021-11-18] VITALS (9 sets, daily range): BP systolic 104–131; BP diastolic 43–56; PULSE 72–88; RESP 18–22; TEMP 36.1–37.4; O2SAT 96–100
[2021-11-18] MEDS: MORPHINE SULFATE (*CRX) 2 MG/ML INJ IV PUSH ×2 (04:02→09:49)
[2021-11-18 05:49] LABS: Basophils Absolute Auto 0.1 K/mm3 (0.0-0.1); Basophils Percent Auto 0.4 % (0.2-1.2); Eosinophils Absolute Auto 0.1 K/mm3 (0-0.3); Eosinophils Percent Auto 0.8 % (0-4.4); Hematocrit 27.2 % (37.0-47.0); Hemoglobin 8.9 g/dL (12.0-15.0); Immature Granulocyte Absolute 0.07 K/mm3 (0.00-0.031); Immature Granulocyte Percent A 0.5 % (0-0.5); Lymphocytes Absolute Auto 1.59 K/mm3 (0.9-3.2); Lymphocytes Percent Auto 11.1 % (18.3-44.2); Mean Corpuscular HGB Conc 32.7 g/dl (32-36); Mean Corpuscular Hemoglobin 30.6 pg (26-34); Mean Corpuscular Volume 93.5 fl (80-100); Mean Platelet Volume 9.4 fl (7.4-10.4); Monocytes Absolute Auto 1.2 K/mm3 (0.1-0.6); Monocytes Percent Auto 8.4 % (2.6-8.5); Neutrophils Absolute Auto 11.3 K/mm3 (1.3-6.7); Neutrophils Percent Auto 78.8 % (45.5-73.1); Platelet Count Result 217 k/mm3 (150-375); Red Blood Count 2.91 M/mm3 (4.2-5.4); Red Cell Distribution Width 14.1 % (11.5-14.5); White Blood Count 14.3 K/mm3 (4.5-10.0)
[2021-11-18 06:01] LABS: Anion Gap 7 mmol/L (8-16); Blood Urea Nitrogen 16 mg/dL (7-17); Calcium 8.7 mg/dL (8.4-10.2); Carbon Dioxide 24 mmol/L (22-30); Chloride 105 mmol/L (98-107); Estimated CRCL calculation 50 ml/min; Estimated Glomerular Filt Rate > 60; Glucose 71 mg/dL (65-110); Magnesium 1.6 mg/dL (1.6-2.3); Potassium 3.6 mmol/L (3.4-5.0); Sodium 136 mmol/L (137-145)
[2021-11-18] MEDS: FLUTICASONE/SALMETEROL 115-21 MCG INHALER 1 PUFF 2 PUFF INHALATION (08:22)
--- NOTE | 2021-11-18 08:41 | PM.IMPN ---
Progress Note: A&P Assessment and Plan (1) C. difficile colitis: Code(s): A04.72 - Enterocolitis due to Clostridium difficile, not specified as recurrent Status: Acute Assessment and Plan: Noted on CT scan and c-diff positive. Patient was treated with vancomycin and Flagyl starting 10/16 with previous hospitalization. - Continue contact precautions. - Trial clear liquid diet. - Continue fidaxomicin 200 mg p.o. b.i.d. x10 days. Will check insurance coverage as this medication is costly. If unable to afford, she will need pulse dosing of oral vancomycin. - Change morphine to Dilaudid 0.5 mg IV Q3 hours PRN pain. - Zofran 4 mg IV PRN nausea/emesis. - Repeat electrolytes as needed: Mag 1.6 give additional 2g mag sulfate IVPB and IVPB 40 mEQ KCl for K3.6, glucose 78. - Change IVF to D5NS with 40 mEQ KCl @ 125 mL/hour (2) COPD (chronic obstructive pulmonary disease): Code(s): J44.9 - Chronic obstructive pulmonary disease, unspecified Status: Acute Assessment and Plan: Not in acute exacerbation. - Continue ProAir 2 puffs Q4-5 hours as needed SOB/wheezing. - On home supplemental O2 2L [place]. Get appointment stairs though his office hurts pretty smelling and also a disc least 3 of the chairs but I feel that because not noticed computer he is getting your computer in left where with the sitting in (3) Anemia: Qualifiers: Anemia type: iron deficiency Iron deficiency anemia type: unspecified iron deficiency Qualified Code(s): D50.9 - Iron deficiency anemia, unspecified Code(s): D64.9 - Anemia, unspecified Status: Acute Assessment and Plan: H/H too much stable from prior hospitalizations. - no s/s bleeding. - iron panel shows low serum iron and saturation - Likely chronic and may be secondary to nutrition deficit given cachexia and prior colitis. - will start ferrous sulfate 1 tab Q48 hours when patient is able to tolerate PO. - outpatient EGD/colonoscopy to rule out chronic blood loss given DAPT use and prednisone use. (4) CAD (coronary artery disease): Qualifiers: Associated angina: without angina Coronary Disease-Associated Artery/Lesion type: [place] artery [place] vs. transplanted heart: [place] heart Qualified Code(s): I25.10 - Atherosclerotic heart disease of [place] coronary artery without angina pectoris Code(s): I25.10 - Atherosclerotic heart disease of [place] coronary artery without angina pectoris Status: Chronic Assessment and Plan: -Continue home medications: aspirin, plavix, metoprolol tartrate bid, isosorbide mononitrate and statin and tolerated. (5) Chronic diastolic CHF (congestive heart failure): Code(s): I50.32 - Chronic diastolic (congestive) heart failure Status: Acute Assessment and Plan: -Monitor daily weights and I/O -Continue medications as above as tolerated. (6) Lupus: Code(s): M32.9 - Systemic lupus erythematosus, unspecified Status: Chronic Assessment and Plan: Given acute infection will hold prednisone - Will continue hydroxychloroquine as this does not appear to cause worsening infection. (7) Mild cognitive impairment with memory loss: Code(s): G31.84 - Mild cognitive impairment, so stated Status: Chronic Assessment and Plan: -To be aware. AOx4 and appears at baseline. Time Spent With Patient Time with patient: 15 - 25 minutes Subjective Date/time seen: 11/18/21 08:41 Patient is a 66 yo female with medical history of HFpEF, CAD s/p LAD stent placement in June of this year, COPD, dyslipidemia, mild cognitive impairment, lupus and restless leg syndrome. She presented to the ED with c/o diarrhea for weeks, abdominal pain and known to recently complete vancomycin and metronidazole treatment for c-diff colitis last month. Patient was referred for observation and management of recurrent versus persistent c-diff infection.
[2021-11-18] MEDS: METOPROLOL TARTRATE 50 MG TAB PO ×2 (09:31→21:35)
[2021-11-18] MEDS: HYDROXYCHLOROQUINE SULFATE 100 MG TABLET PO (09:31)
[2021-11-18] MEDS: ISOSORBIDE MONONITRATE 30 MG TAB.ER.24H PO (09:31)
[2021-11-18] MEDS: amLODIPine BESYLATE 5 MG TABLET PO (09:32)
[2021-11-18] MEDS: FIDAXOMICIN 200 MG TABLET PO ×2 (09:32→21:36)
[2021-11-18] MEDS: CLOPIDOGREL BISULFATE 75 MG TABLET PO (09:32)
[2021-11-18] MEDS: ENOXAPARIN 40 MG/0.4 ML SYRINGE SUB-Q (09:33)
[2021-11-18] MEDS: ASPIRIN 81 MG CHEWABLE TABLET PO (09:33)
[2021-11-18] MEDS: clonazePAM (*CRX) 0.5 MG TABLET PO (09:46)
[2021-11-18] MEDS: PREGABALIN (*CRX) 75 MG CAPSULE 150 MG PO ×2 (09:46→21:33)
[2021-11-18] MEDS: MAGNESIUM SULF 2 GM/WATER 50ML 2 GM/50 ML BAG IVPB (09:50)
[2021-11-18] MEDS: ONDANSETRON INJ 4 MG/2 ML VIAL IV PUSH (10:01)
[2021-11-18] MEDS: KCL 40 MEQ/D5/0.9% SOD CHL 1,000 ML 125 ML IV CONT ×2 (12:30→21:34)
[2021-11-18] MEDS: oxyCODONE/ACETAMINOPHEN (*CRX) 5-325 MG TABLET 1 TABLET PO (12:33)
[2021-11-18] MEDS: HYDROmorphone HCL INJ (*CRX) 1 MG/ML SYR 0.5 MG IV PUSH ×2 (17:42→21:31)
--- NOTE | 2021-11-18 18:50 | PC.NURSE ---
pt wishes to get klonpin and lyrica at bedtime, as she takes them at home
[2021-11-18] MEDS: rOPINIRole HCL 1 MG TABLET PO (21:36)
[2021-11-18] MEDS: ROSUVASTATIN 10 MG TABLET 20 MG PO (21:36)
[2021-11-18] MEDS: SOLIFENACIN 5 MG TABLET PO (21:37)
[2021-11-18] MEDS: FLUTICASONE/SALMETEROL 115-21 MCG (*SP) INHALER 2 PUFF INHALATION (22:20)
[2021-11-18] MEDS: traZODone HCL 50 MG TABLET 100 MG PO (22:23)
[2021-11-18] MEDS: ZOLPIDEM TARTRATE (*CRX) 5 MG TABLET 10 MG PO (22:23)
[2021-11-19] VITALS (12 sets, daily range): BP systolic 103–134; BP diastolic 44–63; PULSE 65–90; RESP 16–20; TEMP 36.1–36.9; O2SAT 95–100
[2021-11-19] MEDS: HYDROmorphone HCL INJ (*CRX) 1 MG/ML SYR 0.5 MG IV PUSH ×2 (04:43→11:20)
[2021-11-19 05:29] LABS: Basophils Percent Auto 0.5 % (0.2-1.2); Eosinophils Absolute Auto 0.2 K/mm3 (0-0.3); Eosinophils Percent Auto 2.8 % (0-4.4); Hematocrit 27.8 % (37.0-47.0); Hemoglobin 8.8 g/dL (12.0-15.0); Immature Granulocyte Absolute 0.05 K/mm3 (0.00-0.031); Immature Granulocyte Percent A 0.6 % (0-0.5); Lymphocytes Absolute Auto 1.56 K/mm3 (0.9-3.2); Lymphocytes Percent Auto 17.9 % (18.3-44.2); Mean Corpuscular HGB Conc 31.7 g/dl (32-36); Mean Corpuscular Hemoglobin 30.8 pg (26-34); Mean Corpuscular Volume 97.2 fl (80-100); Mean Platelet Volume 9.4 fl (7.4-10.4); Monocytes Percent Auto 11.3 % (2.6-8.5); Neutrophils Absolute Auto 5.8 K/mm3 (1.3-6.7); Neutrophils Percent Auto 66.9 % (45.5-73.1); Platelet Count Result 213 k/mm3 (150-375); Red Blood Count 2.86 M/mm3 (4.2-5.4); White Blood Count 8.7 K/mm3 (4.5-10.0)
[2021-11-19 05:46] LABS: Anion Gap 4 mmol/L (8-16); Blood Urea Nitrogen 10 mg/dL (7-17); Calcium 8.8 mg/dL (8.4-10.2); Carbon Dioxide 28 mmol/L (22-30); Chloride 107 mmol/L (98-107); Estimated CRCL calculation 50 ml/min; Estimated Glomerular Filt Rate > 60; Glucose 129 mg/dL (65-110); Magnesium 1.7 mg/dL (1.6-2.3); Potassium 3.7 mmol/L (3.4-5.0); Sodium 139 mmol/L (137-145)
[2021-11-19] MEDS: FLUTICASONE/SALMETEROL 115-21 MCG (*SP) INHALER 2 PUFF INHALATION ×2 (08:18→21:06)
[2021-11-19] MEDS: ALBUTEROL SULFATE (*SP) AEROSOL 1 PUFF 2 PUFF INHALATION (08:19)
[2021-11-19] MEDS: amLODIPine BESYLATE 5 MG TABLET PO (08:30)
[2021-11-19] MEDS: HYDROXYCHLOROQUINE SULFATE 100 MG TABLET PO (08:30)
[2021-11-19] MEDS: clonazePAM (*CRX) 0.5 MG TABLET PO ×2 (08:30→17:11)
[2021-11-19] MEDS: ASPIRIN 81 MG CHEWABLE TABLET PO (08:30)
[2021-11-19] MEDS: CLOPIDOGREL BISULFATE 75 MG TABLET PO (08:30)
[2021-11-19] MEDS: FERROUS SULFATE 324 MG TABLET PO (08:30)
[2021-11-19] MEDS: ENOXAPARIN 40 MG/0.4 ML SYRINGE SUB-Q (08:30)
[2021-11-19] MEDS: FIDAXOMICIN 200 MG TABLET PO ×2 (08:31→21:54)
[2021-11-19] MEDS: METOPROLOL TARTRATE 50 MG TAB PO ×2 (08:31→20:43)
[2021-11-19] MEDS: PREGABALIN (*CRX) 75 MG CAPSULE 150 MG PO ×2 (08:31→17:11)
[2021-11-19] MEDS: ISOSORBIDE MONONITRATE 30 MG TAB.ER.24H PO (08:31)
[2021-11-19] MEDS: KCL 40 MEQ/D5/0.9% SOD CHL 1,000 ML 125 ML IV CONT (08:35)
--- NOTE | 2021-11-19 09:51 | PM.IMPN ---
Progress Note: A&P Assessment and Plan (1) C. difficile colitis: Code(s): A04.72 - Enterocolitis due to Clostridium difficile, not specified as recurrent Status: Acute Assessment and Plan: Noted on CT scan and c-diff positive. Patient was treated with vancomycin and Flagyl starting 10/16 with previous hospitalization. - Continue contact precautions. - Continue fidaxomicin 200 mg p.o. b.i.d. x10 days. Cost for 14 tabs $874 with insurance for medication. Discussed this with the patient and she will talk to her . If unable to afford, she will need pulse dosing of oral vancomycin. - Continue Dilaudid 0.5 mg IV Q3 hours PRN and Percocet 5/325 mg Q4 PRN pain - Zofran 4 mg IV PRN nausea/emesis. - Patient tolerating clear liquid diet. Advance to regular diet. - Decrease IVF to D5NS with 40 mEQ KCl @ 75 mL/hour - Electrolytes stable. (2) COPD (chronic obstructive pulmonary disease): Code(s): J44.9 - Chronic obstructive pulmonary disease, unspecified Status: Acute Assessment and Plan: Not in acute exacerbation. - Continue ProAir 2 puffs Q4-5 hours as needed SOB/wheezing. - On home supplemental O2 2L [place]. - Stable (3) Anemia: Qualifiers: Anemia type: iron deficiency Iron deficiency anemia type: unspecified iron deficiency Qualified Code(s): D50.9 - Iron deficiency anemia, unspecified Code(s): D64.9 - Anemia, unspecified Status: Acute Assessment and Plan: H/H stable from prior hospitalizations. - no s/s bleeding. - iron panel shows low serum iron and saturation - Likely chronic and may be secondary to nutrition deficit given cachexia and prior colitis. - Continue ferrous sulfate 1 tab Q48 hours when patient is able to tolerate PO. - Recommend outpatient EGD/colonoscopy to rule out chronic blood loss given DAPT use and prednisone use. - Stable H/H (4) CAD (coronary artery disease): Qualifiers: Associated angina: without angina Coronary Disease-Associated Artery/Lesion type: [place] artery [place] vs. transplanted heart: [place] heart Qualified Code(s): I25.10 - Atherosclerotic heart disease of [place] coronary artery without angina pectoris Code(s): I25.10 - Atherosclerotic heart disease of [place] coronary artery without angina pectoris Status: Chronic Assessment and Plan: -Continue home medications: aspirin, plavix, metoprolol tartrate bid, isosorbide mononitrate and statin and tolerated. (5) Chronic diastolic CHF (congestive heart failure): Code(s): I50.32 - Chronic diastolic (congestive) heart failure Status: Acute Assessment and Plan: -Monitor daily weights and I/O -Continue medications as above as tolerated. (6) Lupus: Code(s): M32.9 - Systemic lupus erythematosus, unspecified Status: Chronic Assessment and Plan: Given acute infection will hold prednisone - Will continue hydroxychloroquine as this does not appear to cause worsening infection. (7) Mild cognitive impairment with memory loss: Code(s): G31.84 - Mild cognitive impairment, so stated Status: Chronic Assessment and Plan: -To be aware. AOx4 and appears at baseline. (8) Underweight: Code(s): R63.6 - Underweight Status: Acute Assessment and Plan: -Ensure BID -Consult dietitian for nutrition assessment Plan Discharge pending control of pain and diet. Possible DC in 1-2 days. Will plan to continue fidaxomicin at discharge to complete 10 days total therapy, unless patient cannot afford it, then will treat with pulse dose oral vancomycin 125 mg Q6 hours x14 days, then 125 mg Q12 hours x7 days, then 125 mg daily x 7 days, then 125 mg every 48 hours x 2-8 weeks. Subjective Date/time seen: 11/19/21 09:51 Patient is a 66 yo female with medical history of HFpEF, CAD s/p LAD stent placement in June of this year, COPD, dyslipidemia, mild cognitiv
[2021-11-19] MEDS: KCL 40 MEQ/D5/0.9% SOD CHL 1,000 ML 75 ML IV CONT (11:20)
[2021-11-19] MEDS: SIMETHICONE 80 MG TAB.CHEW PO ×2 (17:11→20:41)
[2021-11-19] MEDS: oxyCODONE/ACETAMINOPHEN (*CRX) 5-325 MG TABLET 1 TABLET PO ×2 (17:23→22:27)
[2021-11-19] MEDS: SOLIFENACIN 5 MG TABLET PO (20:40)
[2021-11-19] MEDS: traZODone HCL 50 MG TABLET 100 MG PO (20:40)
[2021-11-19] MEDS: ROSUVASTATIN 10 MG TABLET 20 MG PO (20:42)
[2021-11-19] MEDS: rOPINIRole HCL 1 MG TABLET PO (20:42)
[2021-11-19] MEDS: ZOLPIDEM TARTRATE (*CRX) 5 MG TABLET 10 MG PO (20:43)
[2021-11-20] VITALS (10 sets, daily range): BP systolic 104–115; BP diastolic 35–90; PULSE 65–78; RESP 14–18; TEMP 36.1–36.6; O2SAT 96–100
[2021-11-20 05:56] LABS: Anion Gap 0 mmol/L (8-16); Blood Urea Nitrogen 5 mg/dL (7-17); Calcium 9.1 mg/dL (8.4-10.2); Carbon Dioxide 34 mmol/L (22-30); Chloride 108 mmol/L (98-107); Estimated CRCL calculation 50 ml/min; Estimated Glomerular Filt Rate > 60; Glucose 105 mg/dL (65-110); Potassium 3.8 mmol/L (3.4-5.0); Sodium 142 mmol/L (137-145)
[2021-11-20] MEDS: HYDROmorphone HCL INJ (*CRX) 1 MG/ML SYR 0.5 MG IV PUSH ×4 (06:09→20:45)
[2021-11-20] MEDS: SIMETHICONE 80 MG TAB.CHEW PO ×4 (06:13→20:34)
[2021-11-20] MEDS: FLUTICASONE/SALMETEROL 115-21 MCG (*SP) INHALER 2 PUFF INHALATION ×2 (08:28→19:58)
[2021-11-20] MEDS: METOPROLOL TARTRATE 50 MG TAB PO ×2 (08:33→20:34)
[2021-11-20] MEDS: HYDROXYCHLOROQUINE SULFATE 100 MG TABLET PO (08:33)
[2021-11-20] MEDS: ASPIRIN 81 MG CHEWABLE TABLET PO (08:33)
[2021-11-20] MEDS: FIDAXOMICIN 200 MG TABLET PO ×2 (08:34→20:34)
[2021-11-20] MEDS: CLOPIDOGREL BISULFATE 75 MG TABLET PO (08:34)
[2021-11-20] MEDS: clonazePAM (*CRX) 0.5 MG TABLET PO ×2 (08:34→20:34)
[2021-11-20] MEDS: amLODIPine BESYLATE 5 MG TABLET PO (08:34)
[2021-11-20] MEDS: ENOXAPARIN 40 MG/0.4 ML SYRINGE SUB-Q (08:34)
[2021-11-20] MEDS: PREGABALIN (*CRX) 75 MG CAPSULE 150 MG PO ×2 (08:35→20:37)
--- NOTE | 2021-11-20 08:58 | PM.IMPN ---
Progress Note: A&P Assessment and Plan (1) C. difficile colitis: Code(s): A04.72 - Enterocolitis due to Clostridium difficile, not specified as recurrent Status: Acute Assessment and Plan: Noted on CT scan and c-diff positive. Patient was treated with vancomycin and Flagyl starting 10/16 with previous hospitalization. - Continue contact precautions. - Continue fidaxomicin 200 mg p.o. b.i.d. x10 days. Cost for 14 tabs $874 with insurance for medication. Discussed this with the patient and she will talk to her . If unable to afford, she will need pulse dosing of oral vancomycin. - Continue Dilaudid 0.5 mg IV Q3 hours PRN and Percocet 5/325 mg Q4 PRN pain, try transitioning to oral meds today - Zofran 4 mg IV PRN nausea/emesis. - Patient tolerating regular diet. - Decrease IVF to D5NS with 40 mEQ KCl @ 75 mL/hour - Electrolytes stable. (2) COPD (chronic obstructive pulmonary disease): Code(s): J44.9 - Chronic obstructive pulmonary disease, unspecified Status: Acute Assessment and Plan: Not in acute exacerbation. - Continue ProAir 2 puffs Q4-5 hours as needed SOB/wheezing. - On home supplemental O2 2L [place]. - Stable (3) Anemia: Qualifiers: Anemia type: iron deficiency Iron deficiency anemia type: unspecified iron deficiency Qualified Code(s): D50.9 - Iron deficiency anemia, unspecified Code(s): D64.9 - Anemia, unspecified Status: Acute Assessment and Plan: H/H stable from prior hospitalizations. - no s/s bleeding. - iron panel shows low serum iron and saturation - Likely chronic and may be secondary to nutrition deficit given cachexia and prior colitis. - Continue ferrous sulfate 1 tab Q48 hours. - Recommend outpatient EGD/colonoscopy to rule out chronic blood loss given DAPT use and prednisone use. - Stable H/H (4) CAD (coronary artery disease): Qualifiers: Coronary Disease-Associated Artery/Lesion type: [place] artery [place] vs. transplanted heart: [place] heart Associated angina: without angina Qualified Code(s): I25.10 - Atherosclerotic heart disease of [place] coronary artery without angina pectoris Code(s): I25.10 - Atherosclerotic heart disease of [place] coronary artery without angina pectoris Status: Chronic Assessment and Plan: -Continue home medications: aspirin, plavix, metoprolol tartrate bid, isosorbide mononitrate and statin and tolerated. (5) Chronic diastolic CHF (congestive heart failure): Code(s): I50.32 - Chronic diastolic (congestive) heart failure Status: Acute Assessment and Plan: -Monitor daily weights and I/O -Continue medications as above as tolerated. (6) Lupus: Code(s): M32.9 - Systemic lupus erythematosus, unspecified Status: Chronic Assessment and Plan: Given acute infection will hold prednisone - Will continue hydroxychloroquine as this does not appear to cause worsening infection. (7) Mild cognitive impairment with memory loss: Code(s): G31.84 - Mild cognitive impairment, so stated Status: Chronic Assessment and Plan: -To be aware. AOx4 and appears at baseline. (8) Underweight: Code(s): R63.6 - Underweight Status: Acute Assessment and Plan: -Ensure BID -Consult dietitian for nutrition assessment Plan Discharge pending control of pain and diet. Possible DC in 1-2 days. Will plan to continue fidaxomicin at discharge to complete 10 days total therapy, unless patient cannot afford it, then will treat with pulse dose oral vancomycin 125 mg Q6 hours x14 days, then 125 mg Q12 hours x7 days, then 125 mg daily x 7 days, then 125 mg every 48 hours x 2-8 weeks. Subjective Date/time seen: 11/20/21 08:58 Interval history: Patient is a 66 yo female with medical history of HFpEF, CAD s/p LAD stent placement in June of this year, COPD, dyslipidemia, mild cognitive impa
--- NOTE | 2021-11-20 12:09 | PCNFU ---
Nutrition Follow-Up Complete: Inadequate oral intake related to decreased appetite as evidenced by NPO diet and underweight BMI of 16.7. Goal: Oral intake of 75% or more with Ensure Compact supplement BID (220kcal 8gm protein each) with Banatrol (40kcal each) TID w/ applesauce. - Pt is not meeting current goal, will continue current goal. Pt current nutrition is regular. Last recorded weight is 41.3 kg, no new wt changes reported. Bowel Motility: +BM (11/19) Labs Reviewed: BUN 5, Cr .60, Meds Noted:[place]y spray nasal, Zofran, Ferrous Sulfate Skin: WNL Additional Notes: Pt is eating 30% of her meals. Reports she has an improved appetite, but still not great. Pt also mentions she will drink her Ensure Enlive BID (350kcal, 20gm pro each) BID supplement as long as it's vanilla flavor. Pt was also instructed to eat the apple sauce with her meals TID that contains Banatrol (TID, 40kcal) to help with stool bulking. Monitor changes in wt, oral intake %, and labs every 5 days.
--- NOTE | 2021-11-20 13:20 | PCNSR ---
On 11/20/21, the student,Antonette León, provided care and completed [facility] documentation on this patient. I have reviewed the student's documentation and agree with the findings.
[2021-11-20] MEDS: oxyCODONE/ACETAMINOPHEN (*CRX) 5-325 MG TABLET 1 TABLET PO (16:22)
[2021-11-20] MEDS: ALBUTEROL SULFATE (*SP) AEROSOL 1 PUFF 2 PUFF INHALATION (17:45)
[2021-11-20] MEDS: ZOLPIDEM TARTRATE (*CRX) 5 MG TABLET 10 MG PO (20:33)
[2021-11-20] MEDS: ROSUVASTATIN 10 MG TABLET 20 MG PO (20:33)
[2021-11-20] MEDS: traZODone HCL 50 MG TABLET 100 MG PO (20:33)
[2021-11-20] MEDS: SOLIFENACIN 5 MG TABLET PO (20:34)
[2021-11-20] MEDS: rOPINIRole HCL 1 MG TABLET PO (20:34)
[2021-11-21] VITALS (7 sets, daily range): BP systolic 100–129; BP diastolic 42–48; PULSE 65–78; RESP 16–24; TEMP 36.7–37.1; O2SAT 97–100
[2021-11-21] MEDS: KCL 40 MEQ/D5/0.9% SOD CHL 1,000 ML 75 ML IV CONT (03:40)
[2021-11-21] MEDS: oxyCODONE/ACETAMINOPHEN (*CRX) 5-325 MG TABLET 1 TABLET PO ×3 (05:10→15:08)
[2021-11-21] MEDS: ONDANSETRON INJ 4 MG/2 ML VIAL IV PUSH (05:11)
[2021-11-21] MEDS: SIMETHICONE 80 MG TAB.CHEW PO ×4 (05:12→20:35)
[2021-11-21 05:53] LABS: Basophils Percent Auto 0.7 % (0.2-1.2); Eosinophils Absolute Auto 0.2 K/mm3 (0-0.3); Eosinophils Percent Auto 3.6 % (0-4.4); Hemoglobin 8.5 g/dL (12.0-15.0); Immature Granulocyte Absolute 0.06 K/mm3 (0.00-0.031); Immature Granulocyte Percent A 1.1 % (0-0.5); Lymphocytes Absolute Auto 1.44 K/mm3 (0.9-3.2); Lymphocytes Percent Auto 25.7 % (18.3-44.2); Mean Corpuscular HGB Conc 31.5 g/dl (32-36); Mean Corpuscular Hemoglobin 30.7 pg (26-34); Mean Corpuscular Volume 97.5 fl (80-100); Mean Platelet Volume 9.3 fl (7.4-10.4); Monocytes Absolute Auto 0.7 K/mm3 (0.1-0.6); Monocytes Percent Auto 12.1 % (2.6-8.5); Neutrophils Absolute Auto 3.2 K/mm3 (1.3-6.7); Neutrophils Percent Auto 56.8 % (45.5-73.1); Platelet Count Result 260 k/mm3 (150-375); Red Blood Count 2.77 M/mm3 (4.2-5.4); Red Cell Distribution Width 13.8 % (11.5-14.5); White Blood Count 5.6 K/mm3 (4.5-10.0)
[2021-11-21 06:14] LABS: Anion Gap 2 mmol/L (8-16); Blood Urea Nitrogen 12 mg/dL (7-17); Calcium 9.2 mg/dL (8.4-10.2); Carbon Dioxide 35 mmol/L (22-30); Chloride 103 mmol/L (98-107); Estimated CRCL calculation 50 ml/min; Estimated Glomerular Filt Rate > 60; Glucose 94 mg/dL (65-110); Potassium 4.3 mmol/L (3.4-5.0); Sodium 140 mmol/L (137-145)
--- NOTE | 2021-11-21 07:21 | PM.IMPN ---
Progress Note: A&P Assessment and Plan (1) C. difficile colitis: Code(s): A04.72 - Enterocolitis due to Clostridium difficile, not specified as recurrent Status: Acute Assessment and Plan: Noted on CT scan and c-diff positive. Patient was treated with vancomycin and Flagyl starting 10/16 with previous hospitalization. - Continue contact precautions. - Continue fidaxomicin 200 mg p.o. b.i.d. x10 days. Cost for 14 tabs $874 with insurance for medication. Discussed this with the patient and she will talk to her . If unable to afford, she will need pulse dosing of oral vancomycin. - Percocet and norco for pain, stopped Dilaudid - Zofran prn nausea/emesis. - Patient tolerating regular diet. - Stop IVF - Electrolytes stable. (2) COPD (chronic obstructive pulmonary disease): Code(s): J44.9 - Chronic obstructive pulmonary disease, unspecified Status: Acute Assessment and Plan: Not in acute exacerbation. - Continue ProAir 2 puffs Q4-5 hours as needed SOB/wheezing. - On home supplemental O2 2L [place]. - Stable (3) Anemia: Qualifiers: Anemia type: iron deficiency Iron deficiency anemia type: unspecified iron deficiency Qualified Code(s): D50.9 - Iron deficiency anemia, unspecified Code(s): D64.9 - Anemia, unspecified Status: Acute Assessment and Plan: H/H stable from prior hospitalizations. - no s/s bleeding. - iron panel shows low serum iron and saturation - Likely chronic and may be secondary to nutrition deficit given cachexia and prior colitis. - Continue ferrous sulfate 1 tab Q48 hours. - Recommend outpatient EGD/colonoscopy to rule out chronic blood loss given DAPT use and prednisone use. - Stable H/H (4) CAD (coronary artery disease): Qualifiers: Coronary Disease-Associated Artery/Lesion type: [place] artery [place] vs. transplanted heart: [place] heart Associated angina: without angina Qualified Code(s): I25.10 - Atherosclerotic heart disease of [place] coronary artery without angina pectoris Code(s): I25.10 - Atherosclerotic heart disease of [place] coronary artery without angina pectoris Status: Chronic Assessment and Plan: -Continue home medications: aspirin, plavix, metoprolol tartrate bid, isosorbide mononitrate and statin and tolerated. (5) Chronic diastolic CHF (congestive heart failure): Code(s): I50.32 - Chronic diastolic (congestive) heart failure Status: Acute Assessment and Plan: -Monitor daily weights and I/O -Continue medications as above as tolerated. (6) Lupus: Code(s): M32.9 - Systemic lupus erythematosus, unspecified Status: Chronic Assessment and Plan: Given acute infection will hold prednisone - Will continue hydroxychloroquine as this does not appear to cause worsening infection. (7) Mild cognitive impairment with memory loss: Code(s): G31.84 - Mild cognitive impairment, so stated Status: Chronic Assessment and Plan: -To be aware. AOx4 and appears at baseline. (8) Underweight: Code(s): R63.6 - Underweight Status: Acute Assessment and Plan: -Ensure BID -Consult dietitian for nutrition assessment Plan Discharge pending pain control. Hopeful for dispo tomorrow if pain is controlled w/ oral meds today. Will plan to continue fidaxomicin at discharge to complete 10 days total therapy, unless patient cannot afford it, then will treat with pulse dose oral vancomycin 125 mg Q6 hours x14 days, then 125 mg Q12 hours x7 days, then 125 mg daily x 7 days, then 125 mg every 48 hours x 2-8 weeks. Subjective Date/time seen: 11/21/21 07:21 Interval history: Patient is a 66 yo female with medical history of HFpEF, CAD s/p LAD stent placement in June of this year, COPD, dyslipidemia, mild cognitive impairment, lupus and restless leg syndrome. She presented to the ED with
[2021-11-21] MEDS: FLUTICASONE/SALMETEROL 115-21 MCG (*SP) INHALER 2 PUFF INHALATION ×2 (08:23→20:52)
[2021-11-21] MEDS: ALBUTEROL SULFATE (*SP) AEROSOL 1 PUFF 2 PUFF INHALATION (08:24)
[2021-11-21] MEDS: FIDAXOMICIN 200 MG TABLET PO ×2 (09:12→20:33)
[2021-11-21] MEDS: FERROUS SULFATE 324 MG TABLET PO (09:12)
[2021-11-21] MEDS: clonazePAM (*CRX) 0.5 MG TABLET PO ×2 (09:12→20:32)
[2021-11-21] MEDS: PREGABALIN (*CRX) 75 MG CAPSULE 150 MG PO ×2 (09:12→20:33)
[2021-11-21] MEDS: HYDROXYCHLOROQUINE SULFATE 100 MG TABLET PO (09:12)
[2021-11-21] MEDS: ASPIRIN 81 MG CHEWABLE TABLET PO (09:12)
[2021-11-21] MEDS: amLODIPine BESYLATE 5 MG TABLET PO (09:12)
[2021-11-21] MEDS: CLOPIDOGREL BISULFATE 75 MG TABLET PO (09:12)
[2021-11-21] MEDS: ISOSORBIDE MONONITRATE 30 MG TAB.ER.24H PO (09:12)
[2021-11-21] MEDS: METOPROLOL TARTRATE 50 MG TAB PO ×2 (09:12→20:33)
[2021-11-21] MEDS: ENOXAPARIN 40 MG/0.4 ML SYRINGE SUB-Q (09:13)
[2021-11-21] MEDS: HYDROcodone/acetaminophen (*CRX) 5-325 MG TABLET 1 TAB PO (20:32)
[2021-11-21] MEDS: rOPINIRole HCL 1 MG TABLET PO (20:34)
[2021-11-21] MEDS: ROSUVASTATIN 10 MG TABLET 20 MG PO (20:35)
[2021-11-21] MEDS: SOLIFENACIN 5 MG TABLET PO (20:35)
[2021-11-21] MEDS: traZODone HCL 50 MG TABLET 100 MG PO (20:36)
[2021-11-21] MEDS: ZOLPIDEM TARTRATE (*CRX) 5 MG TABLET 10 MG PO (20:38)
[2021-11-22 03:48] VITALS: BP 110/48; PULSE 61; RESP 18; TEMP 36.6; O2SAT 95
[2021-11-22] MEDS: HYDROcodone/acetaminophen (*CRX) 5-325 MG TABLET 1 TAB PO ×2 (04:00→10:04)
[2021-11-22 04:47] LABS: Basophils Absolute Auto 0.1 K/mm3 (0.0-0.1); Basophils Percent Auto 1.3 % (0.2-1.2); Eosinophils Absolute Auto 0.3 K/mm3 (0-0.3); Eosinophils Percent Auto 5.2 % (0-4.4); Hematocrit 25.9 % (37.0-47.0); Hemoglobin 8.3 g/dL (12.0-15.0); Immature Granulocyte Absolute 0.06 K/mm3 (0.00-0.031); Immature Granulocyte Percent A 1.2 % (0-0.5); Lymphocytes Absolute Auto 1.72 K/mm3 (0.9-3.2); Lymphocytes Percent Auto 33.1 % (18.3-44.2); Mean Corpuscular Hemoglobin 30.9 pg (26-34); Mean Corpuscular Volume 96.3 fl (80-100); Mean Platelet Volume 9.1 fl (7.4-10.4); Monocytes Absolute Auto 0.7 K/mm3 (0.1-0.6); Neutrophils Absolute Auto 2.4 K/mm3 (1.3-6.7); Neutrophils Percent Auto 45.2 % (45.5-73.1); Platelet Count Result 264 k/mm3 (150-375); Red Blood Count 2.69 M/mm3 (4.2-5.4); White Blood Count 5.2 K/mm3 (4.5-10.0)
[2021-11-22 05:04] LABS: Alanine Aminotransferase 8 U/L (6-35); Alkaline Phosphatase 52 U/L (38-126); Anion Gap 1 mmol/L (8-16); Aspartate Amino Transferase 16 U/L (14-36); Bilirubin,Total < 0.1 mg/dL (0.2-1.3); Blood Urea Nitrogen 14 mg/dL (7-17); Calcium 8.9 mg/dL (8.4-10.2); Carbon Dioxide 39 mmol/L (22-30); Chloride 98 mmol/L (98-107); Estimated CRCL calculation 43 ml/min; Estimated Glomerular Filt Rate > 60; Glucose 96 mg/dL (65-110); Sodium 138 mmol/L (137-145)
[2021-11-22] MEDS: SIMETHICONE 80 MG TAB.CHEW PO (05:47)
[2021-11-22 08:05] VITALS: PULSE 69; RESP 18; O2SAT 96
[2021-11-22] MEDS: ALBUTEROL SULFATE (*SP) AEROSOL 1 PUFF 2 PUFF INHALATION (08:05)
[2021-11-22] MEDS: FLUTICASONE/SALMETEROL 115-21 MCG (*SP) INHALER 2 PUFF INHALATION (08:05)
--- NOTE | 2021-11-22 08:12 | PM.DS ---
DS: Admitting Diagnosis Discharge Date 11/22/2021 Admitting Diagnosis diarrhea DS: Discharge Diagnosis Discharge Diagnosis (1) C. difficile colitis: Code(s): A04.72 - Enterocolitis due to Clostridium difficile, not specified as recurrent Status: Acute Assessment and Plan: Noted on CT scan and c-diff positive. Patient was treated with vancomycin and Flagyl starting 10/16 with previous hospitalization. - Continue contact precautions. - Continue fidaxomicin 200 mg p.o. b.i.d. x10 days. Cost for 14 tabs $874 with insurance for medication. Discussed this with the patient and she will talk to her . If unable to afford, she will need pulse dosing of oral vancomycin. - Percocet and norco for pain, stopped Dilaudid - Zofran prn nausea/emesis. - Patient tolerating regular diet. - Stop IVF - Electrolytes stable. (2) COPD (chronic obstructive pulmonary disease): Code(s): J44.9 - Chronic obstructive pulmonary disease, unspecified Status: Acute Assessment and Plan: Not in acute exacerbation. - Continue ProAir 2 puffs Q4-5 hours as needed SOB/wheezing. - On home supplemental O2 2L [place]. - Stable (3) Anemia: Qualifiers: Anemia type: iron deficiency Iron deficiency anemia type: unspecified iron deficiency Qualified Code(s): D50.9 - Iron deficiency anemia, unspecified Code(s): D64.9 - Anemia, unspecified Status: Acute Assessment and Plan: H/H stable from prior hospitalizations. - no s/s bleeding. - iron panel shows low serum iron and saturation - Likely chronic and may be secondary to nutrition deficit given cachexia and prior colitis. - Continue ferrous sulfate 1 tab Q48 hours. - Recommend outpatient EGD/colonoscopy to rule out chronic blood loss given DAPT use and prednisone use. - Stable H/H (4) CAD (coronary artery disease): Qualifiers: Coronary Disease-Associated Artery/Lesion type: [place] artery [place] vs. transplanted heart: [place] heart Associated angina: without angina Qualified Code(s): I25.10 - Atherosclerotic heart disease of [place] coronary artery without angina pectoris Code(s): I25.10 - Atherosclerotic heart disease of [place] coronary artery without angina pectoris Status: Chronic Assessment and Plan: -Continue home medications: aspirin, plavix, metoprolol tartrate bid, isosorbide mononitrate and statin and tolerated. (5) Chronic diastolic CHF (congestive heart failure): Code(s): I50.32 - Chronic diastolic (congestive) heart failure Status: Acute Assessment and Plan: -Monitor daily weights and I/O -Continue medications as above as tolerated. (6) Lupus: Code(s): M32.9 - Systemic lupus erythematosus, unspecified Status: Chronic Assessment and Plan: Given acute infection will hold prednisone - Will continue hydroxychloroquine as this does not appear to cause worsening infection. (7) Mild cognitive impairment with memory loss: Code(s): G31.84 - Mild cognitive impairment, so stated Status: Chronic Assessment and Plan: -To be aware. AOx4 and appears at baseline. (8) Underweight: Code(s): R63.6 - Underweight Status: Acute Assessment and Plan: -Ensure BID -Consult dietitian for nutrition assessment Plan Discharge pending pain control. Hopeful for dispo tomorrow if pain is controlled w/ oral meds today. Will plan to continue fidaxomicin at discharge to complete 10 days total therapy, unless patient cannot afford it, then will treat with pulse dose oral vancomycin 125 mg Q6 hours x14 days, then 125 mg Q12 hours x7 days, then 125 mg daily x 7 days, then 125 mg every 48 hours x 2-8 weeks. DS: Summary Hospital Course Hospital Course: ?66-year-old female?known history of congestive heart failure with an ejection fraction of 60-65% on echo Doppler from 2020.? Patient also has a
[2021-11-22] MEDS: ENOXAPARIN 40 MG/0.4 ML SYRINGE SUB-Q (08:24)
[2021-11-22] MEDS: FIDAXOMICIN 200 MG TABLET PO (08:24)
[2021-11-22] MEDS: HYDROXYCHLOROQUINE SULFATE 100 MG TABLET PO (08:24)
[2021-11-22] MEDS: amLODIPine BESYLATE 5 MG TABLET PO (08:25)
[2021-11-22] MEDS: ISOSORBIDE MONONITRATE 30 MG TAB.ER.24H PO (08:25)
[2021-11-22] MEDS: CLOPIDOGREL BISULFATE 75 MG TABLET PO (08:25)
[2021-11-22] MEDS: METOPROLOL TARTRATE 50 MG TAB PO (08:25)
[2021-11-22] MEDS: ASPIRIN 81 MG CHEWABLE TABLET PO (08:25)
[2021-11-22] MEDS: clonazePAM (*CRX) 0.5 MG TABLET PO (08:28)
[2021-11-22 08:30] VITALS: O2SAT 94
[2021-11-22] MEDS: PREGABALIN (*CRX) 75 MG CAPSULE 150 MG PO (08:35)
--- NOTE | 2021-12-24 09:12 | PC.NURSE ---
Called patient regarding home medications that were left on discharge, patient did not want to come pick them up and would like us to dispose of them.
== END 2021-11-22 10:40 | disposition home or self-care (01) | DRG 372 ==
LOC: ANHED 17:18 → ANH2MED 17:26
PROVIDERS: Nurse Practitioner Adult Health; Nurse Practitioner Family; Admitting Provider Internal Medicine; Emergency Provider Emergency Medicine; PCP Hospitalist; Visit Provider Physician Assistant
DX: A04.72 Enterocolitis due to Clostridium difficile, not specified as recurrent (principal); I50.32 Chronic diastolic (congestive) heart failure; Z68.1 Body mass index [BMI] 19.9 or less, adult; D50.9 Iron deficiency anemia, unspecified; E78.5 Hyperlipidemia, unspecified; F41.9 Anxiety disorder, unspecified; G31.84 Mild cognitive impairment of uncertain or unknown etiology; G25.81 Restless legs syndrome; I25.10 Atherosclerotic heart disease of native coronary artery without angina pectoris; J44.9 Chronic obstructive pulmonary disease, unspecified; M32.9 Systemic lupus erythematosus, unspecified; R63.6 Underweight; Z90.710 Acquired absence of both cervix and uterus; Z90.49 Acquired absence of other specified parts of digestive tract; Z87.891 Personal history of nicotine dependence; Z79.82 Long term (current) use of aspirin; Z79.02 Long term (current) use of antithrombotics/antiplatelets; Z88.0 Allergy status to penicillin; Z99.81 Dependence on supplemental oxygen; Z95.5 Presence of coronary angioplasty implant and graft
CPT/HCPCS: 36415; 74176; 80048; 80053; 81001; 82607; 82746; 83540; 83550; 83605; 83690; 83735; 85025; 87040; 87493; 94640; 96361; 96372; 96374; 96375; 96376; 99285; A9270; G0378; J0131; J1170; J1650; J2270; J2405; J3475; J3480; J7030; J7040

== ENCOUNTER 2021-12-02 16:07 | Inpatient (IN) | payer MEDICARE, SELFPAY ==
[2021-12-02] VITALS (16 sets, daily range): BP systolic 119–144; BP diastolic 55–69; PULSE 70–105; RESP 18–68; TEMP 36.7–37.5; O2SAT 90–100
--- NOTE | ~2021-12-02 | XR_ITS ---
EXAMINATION: XR barium swallow modified DATE: 12/06/2021 11:32 INDICATION: Dysphagia. TECHNIQUE: The patient was given barium-containing material of multiple consistencies to swallow by mansoor ly speech pathologist while I performed fluoroscopy. Dose-area product was 2.552 Gy-cm2. 1.2 minutes fluoroscopy time FINDINGS: Oral Stage: Normal Pharyngeal Phase: Normal Cervical/Esophageal Stage: Normal IMPRESSION: Modified esophagram findings as above. Please refer to the speech therapy report for [facility] recommendations. Reviewed, dictated and finalized at [facility]. Reviewed, dictated and finalized at location A. IMPRESSION: Modified esophagram findings as above. Please refer to the speech t herapy report for specific recommendations.
--- NOTE | ~2021-12-02 | XR_ITS ---
XR chest 1V portable DATE: 12/05/2021 10:32 INDICATION: Right lower lobe pneumonia TECHNIQUE: Portable upright AP chest on 12/05/2021 at 1026 hours COMPARISON: 12/03/2021 CTA chest FINDINGS: Bilateral hyperinflation, relatively sparse upper lung markings, suggesting bullous emphyse ma. Patchy right basilar infiltrate. Consider right lower lobe pneumonia, right aspiration pneumonitis. C ontinued short-term CT follow-up is recommended to exclude posterolateral right lower lobe 1.3 cm mas s (12/03/2021 CT thorax series 4 image 87) Heart size is within normal limits.. Slight if any pleural effusion. No pulmonary vascular congestion or pneumothorax. Status post lower anterior cervical spine surgical fusion. Osteopenia. IMPRESSION: Patchy right lower lobe infiltrate Short-term CT follow-up is recommended to exclude 1.3 cm right lower lobe mass/malignancy COPD Reviewed, dictated and finalized at location [facility]. IMPRESSION: Patchy right lower lobe infiltrate Short-term CT follow-up is recommended to exclude 1.3 cm right lower lobe mass/ malignancy COPD
--- NOTE | ~2021-12-02 | XR_ITS ---
XR chest 1V portable 12/02/2021 17:49 Indication: Shortness of breath Procedure: AP portable chest Comparison: Comparison to multiple prior studies sequentially, with oldest reviewed study dated 09/04. Findings: Heart size normal. There are bilateral interstitial infiltrates of the mid and lower lungs, likely edema versus pneumonia. The lungs are hyperinflated which is consistent with, but not diagnos tic of chronic obstructive pulmonary disease. No significant effusion or pneumothorax. Old right jazzmine ral neck fracture. Impression: 1: Bilateral interstitial infiltrates of the mid and lower lungs which may reflect edema or pneumonia . Reviewed, dictated and finalized at location A. Impression: 1: Bilateral interstitial infiltrates of the mid and lower lungs which may refl ect edema or pneumonia.
--- NOTE | ~2021-12-02 | CT_ITS ---
EXAMINATION: CTA chest PE protocol DATE: 12/03/2021 16:34 INDICATION: Right pleuritic chest pain TECHNIQUE: Computed tomography angiography (CTA) of the chest was performed with 85 mL Omnipaque-350 intravenous contrast timed to evaluate the pulmonary arteries. Coronal maximum intensity projection 3 D-reconstructions were created by the technologist. The dose-length product (DLP) was 142.72 mGy-cm. Automated exposure control and iterative reconstruction technique were employed. COMPARISON: 06/03/2021 FINDINGS: The pulmonary arteries are well-opacified. No pulmonary embolism is identified. There is se vin emphysema. There are dependent airspace opacities of the right lower lobe. There is a 1.8 cm nod ule of the right lower lobe not seen on the comparison examination. Mucous plugging is again noted in the medial right lung base without normal communication with the bronchial tree, consistent with seq uestration. A new 1.7 x 0.9 cm nodule is present in left upper lobe on image 64. The heart size is no rmal. There is mild right hilar lymphadenopathy. No pleural effusion or pneumothorax. There are leary es of anterior fusion procedure in the lower cervical spine. Mild thoracic spondylosis is noted. The gallbladder is surgically absent. IMPRESSION: 1. No pulmonary embolus. 2. Nodular and airspace opacities of the right lower lobe and left upper lobe, likely infectious/infl ammatory. Recommend followup radiographs in 10-14 days after appropriate therapy to evaluate for impr ovement/resolution. 3. Mild right hilar lymphadenopathy, likely reactive. Reviewed, dictated and finalized at location A. IMPRESSION: 1. No pulmonary embolus. 2. Nodular and airspace opacities of the right lower lobe and left upper lobe, likely infectious/inflammatory. Recommend followup radiographs in 10-[address] appropriate therapy to evaluate for improvement/resolution. 3. Mild right hilar lymphadenopathy, likely reactive.
--- NOTE | 2021-12-02 16:37 | ECG_ITS ---
Measurements Intervals [place] Rate: 94 P: 73 VA: 138 QRS: 49 QRSD: 101 T: 73 QT: 343 QTc: 430 Interpretive Statements SINUS RHYTHM WITH FREQUENT VENTRICULAR PREMATURE COMPLEXES IN A PATTERN OF TRIGEMINY ABNORMAL RHYTHM ECG COMPARED TO ECG 10/16/2021 13:52:17 NO SIGNIFICANT CHANGES Electronically Signed On 12-02-2021 19:44:06 CDT by Carmina Lee M.D.
--- NOTE | 2021-12-02 16:44 | ED.SOB ---
HPI - SOB/Dyspnea General Chief Complaint: Shortness of Breath/Dyspnea Stated Complaint: SHORT OF BREATH ON 4L O2 Time Seen by Provider: 12/02/21 16:40 History of Present Illness HPI Narrative: pt here with sob since wednesday h/o copd exacerbation and not sure if like when had mi no sick contacts but having a cough wiht sputum so thinking most likely copd /pneumonia her doc told her otc meds if worse covid test and steroids and just came here b/c more sob home test neg no travel/sick contacts no leg swelling or cp/f/c/ and says got all flu/covid vaccines Related Data Home Medications Medication Instructions Recorded Confirmed amlodipine 2.5 mg tablet 5 mg PO DAILY 06/04/21 11/16/21 hydroxychloroquine 200 mg tablet 100 mg PO DAILY 06/04/21 11/16/21 pregabalin 150 mg capsule 150 mg PO BID 06/04/21 11/16/21 ropinirole 0.5 mg tablet 1 mg PO HS 06/04/21 11/16/21 solifenacin 5 mg tablet 5 mg PO HS 06/04/21 11/16/21 trazodone 50 mg tablet 100 mg PO HS 06/04/21 11/16/21 zolpidem 10 mg tablet 10 mg PO HS 06/04/21 11/16/21 budesonide-formoterol HFA 160 2 puff inhalation Q12H 09/03/21 11/16/21 mcg-4.5 mcg/actuation aerosol inhaler blcvcscpcc-irsncwghdikwj-zrslamyz 50 tablet PO QID PRN Pain 09/03/21 11/16/21 50 mg-325 mg-40 mg tablet clonazepam 0.5 mg tablet 0.5 mg PO BID 09/03/21 11/16/21 denosumab 60 mg/mL subcutaneous 60 mg subcut [id number] 09/03/21 11/16/21 syringe clopidogrel 75 mg tablet 75 mg PO DAILY 09/05/21 11/16/21 isosorbide mononitrate 30 mg 30 mg PO DAILY 09/05/21 11/16/21 tablet,extended release 24 hr metoprolol tartrate 25 mg tablet 50 mg PO BID 09/05/21 11/16/21 nitroglycerin 0.4 mg sublingual 0.4 mg sublingual Q5MIN PRN Chest 09/05/21 11/16/21 tablet Pain albuterol sulfate 90 mcg/actuation 2 puff inhalation Q4-6H PRN 09/12/21 11/16/21 aerosol inhaler (ProAir HFA) shortness of breath ondansetron 4 mg disintegrating 4 mg PO Q6H PRN Nausea And Vomiting 11/16/21 11/16/21 tablet rosuvastatin 10 mg tablet (Crestor) 20 mg PO HS 11/16/21 11/16/21 Allergies Allergy/AdvReac Type Severity Reaction Status Date / Time Penicillins AdvReac Gastrointestinal Verified 11/16/21 14:04 Upset Sulfa (Sulfonamide AdvReac Unknown Verified 11/08/21 12:54 Antibiotics) Review of Systems Constitutional: Comments: CONSTITUTIONAL: Denies fever, chills, or sweats. EYES: Denies visual changes, redness, or discharge. ENT: Denies rhinorrhea, congestion, sore throat, or otalgia. CARDIOVASCULAR: Denies chest pain, palpitations, or edema. RESPIRATORY: has cough and sob GASTROINTESTINAL: Denies abdominal pain, nausea, vomiting, or diarrhea. GENITOURINARY: Denies dysuria or hematuria. SKIN: Denies rash or itching. MUSCULOSKELETAL: Denies back pain, joint pain, or myalgia. NEUROLOGIC: Denies headache, numbness, or weakness. PSYCHIATRIC: Denies anxiety or depression. FOR[facility]LY [facility] Past Medical History Medical History Altered mental status Anxiety Cataracts, bilateral developing CHF (congestive heart failure) Echo 06/03/2021: Normal EF 60-65%, global longitudinal strain abnormal-14%, diastolic dysfunction grade 1, E/E tendon is mildly elevated, elevated right atrial pressures at 10mmHg COPD (chronic obstructive pulmonary disease) Hypercholesteremia Lupus Mild cognitive impairment with memory loss Restless leg syndrome Surgical History Surgical History H/O hysterectomy for benign disease History of heart artery stent (06/23/21) High-grade stenosis near ostial LAD stented following deployment of the stent there was plaque shifting into the ostium of the circumflex causing 80 90% stenosis with subsequent placement of stent at the ostium of the circumflex with migration of the circumflex stent and to the path of the main coronary artery had which time the stent was crushed History of lithotripsy Hx of cholecystectomy Fam
[2021-12-02 16:46] LABS: Basophils Absolute Auto 0.1 K/mm3 (0.0-0.1); Basophils Percent Auto 0.3 % (0.2-1.2); Eosinophils Percent Auto 0.2 % (0-4.4); Hematocrit 32.5 % (37.0-47.0); Hemoglobin 10.7 g/dL (12.0-15.0); Immature Granulocyte Absolute 0.14 K/mm3 (0.00-0.031); Immature Granulocyte Percent A 0.8 % (0-0.5); Lymphocytes Absolute Auto 1.06 K/mm3 (0.9-3.2); Mean Corpuscular HGB Conc 32.9 g/dl (32-36); Mean Corpuscular Hemoglobin 30.9 pg (26-34); Mean Corpuscular Volume 93.9 fl (80-100); Mean Platelet Volume 9.7 fl (7.4-10.4); Monocytes Absolute Auto 0.8 K/mm3 (0.1-0.6); Monocytes Percent Auto 4.6 % (2.6-8.5); Neutrophils Absolute Auto 15.7 K/mm3 (1.3-6.7); Neutrophils Percent Auto 88.1 % (45.5-73.1); Platelet Count Result 264 k/mm3 (150-375); Red Blood Count 3.46 M/mm3 (4.2-5.4); Red Cell Distribution Width 14.5 % (11.5-14.5); White Blood Count 17.8 K/mm3 (4.5-10.0)
[2021-12-02 16:56] LABS: Alanine Aminotransferase 15 U/L (6-35); Albumin Level 4.4 g/dL (3.5-5.1); Alkaline Phosphatase 80 U/L (38-126); Anion Gap 4 mmol/L (8-16); Aspartate Amino Transferase 28 U/L (14-36); Bilirubin,Total 0.6 mg/dL (0.2-1.3); Blood Urea Nitrogen 20 mg/dL (7-17); Calcium 10.2 mg/dL (8.4-10.2); Carbon Dioxide 33 mmol/L (22-30); Chloride 99 mmol/L (98-107); Estimated CRCL calculation 33 ml/min; Estimated Glomerular Filt Rate > 60; Glucose 156 mg/dL (65-110); Potassium 4.1 mmol/L (3.4-5.0); Sodium 136 mmol/L (137-145)
[2021-12-02] MEDS: DEXAMETHASONE SOD PHOS INJ 4 MG/ML VIAL IV PUSH (17:13)
[2021-12-02] MEDS: IPRATROPIUM BR 0.02% INH SOLN 0.5 MG/2.5 ML VIAL INHALATION (17:15)
[2021-12-02 17:23] LABS: Alveolar/Arterial O2 Gradient 89.2 mmHg; Base Excess ABG 4.3 mEq/l (+/-2.0); Fractional Inspired Oxygen 36 %; HCO3 ABG 28.5 mEq/l (22.0-26.0); Oxygen Content ABG 14.5 %vol (16.0-22.0); Oxygen Saturation ABG 98.5 % (95.0-100.0); PCO2 ABG 41.3 mmHg (35.0-45.0); PO2 ABG 119.6 mmHg (80.0-100.0); PO2 FiO2 Ratio Arterial Blood 3.32 %; Total Hemoglobin 10.5 g/dL (12.0-18.0); pH ABG 7.457 (7.350-7.450)
[2021-12-02 17:26] LABS: Device NASAL CANNULA; Modified Allen's Test Pass; Site Drawn RIGHT RADIAL
[2021-12-02 18:00] LABS: INR 1.1; Prothrombin Time 13.7 Seconds (11.1-14.7)
[2021-12-02 18:31] LABS: Magnesium 1.6 mg/dL (1.6-2.3)
[2021-12-02] MEDS: metroNIDAZOLE 250 MG TABLET 500 MG PO (18:33)
[2021-12-02 18:42] LABS: NT Pro B Type Natriuretic Pept 1070 pg/mL (5-100)
[2021-12-02 19:04] LABS: Troponin I < 0.012 ng/mL (0.000-0.034)
[2021-12-02 19:09] LABS: CRP 13.6 mg/dL (<1.0)
--- NOTE | 2021-12-02 19:14 | ECG_ITS ---
Measurements Intervals [place] Rate: 85 P: 71 [place]: 141 QRS: 28 QRSD: 102 T: 69 QT: 361 QTc: 430 Interpretive Statements SINUS RHYTHM COMPARED TO ECG 12/02/2021 16:42:39, THE PVCS ARE NO LONGER PRESENT Electronically Signed On 12-02-2021 19:45:21 CDT by Carmina Lee M.D.
--- NOTE | 2021-12-02 19:14 | PC.NURSE ---
Dr abdullahi aware of pt c/o of chest pain. MD gave verbal order for stat EKG.
[2021-12-02] MEDS: MORPHINE SULFATE (*CRX) 2 MG/ML INJ IV PUSH (19:41)
[2021-12-02] MEDS: FUROSEMIDE INJ 40 MG/4 ML VIAL IV PUSH (19:41)
[2021-12-02 20:19] LABS: Influenza A QL RT-PCR Negative (Negative); Influenza B QL RT-PCR Negative (Negative); SARS-CoV-2 RNA PCR Negative
--- NOTE | 2021-12-02 20:21 | PM.IMHP ---
H&P: HPI History of Present Illness Date/Time: 12/02/21 20:21 Chief Complaint: shortness of breath. Narrative: patient is a 66-year-old female with past medical history significant for COPD /emphysema, lupus, restless leg syndrome, congestive heart failure, dyslipidemia. Patient presents to the emergency room due to shortness of breath patient just recently discharge and treated for C difficile colitis. Patient denies any fevers, rigors, chills, nausea, vomiting, diarrhea, abdominal pain, leg swelling. Preliminary workup was significant for chest x-ray with infiltrates. Patient received azithromycin and Rocephin in the emergency room and is on 4 L of supplemental oxygen by nasal cannula. At the time of my visit patient felt a lot better and denied any acute discomfort however expressed being tired and fatigued. Review of Systems Review of Systems: Shortness of breath, fatigue. Constitutional: Constitutional: Denies chills, Reports fatigue, Denies fever(s), Reports lethargy, Denies night sweats, Reports poor appetite, Reports weakness and Reports weight loss Eyes: Eyes: Denies change in vision ENT: Denies dysphagia, Denies vertigo, Denies dizziness and Denies odynophagia Cardiovascular: Cardiovascular: Denies irregular heart rhythm, Denies lightheadedness, Denies palpitations, Denies dyspnea on exertion and Denies paroxysmal nocturnal dyspnea Respiratory: Respiratory: Reports dyspnea Gastrointestinal: Gastrointestinal: Denies abdominal pain, Denies dyspepsia, Denies heartburn, Denies nausea and Denies vomiting Genitourinary: Genitourinary: Denies dysuria Musculoskeletal: Musculoskeletal: Reports muscle weakness Integumentary/Breasts: Skin/Breast: Denies rash Neurologic: Denies focal weakness and Denies Sensory deficit (Neuro) Psychiatric: Psychiatric: Reports no additional psychiatric complaints and Reports as per HPI Endocrine: Endocrine: Denies cold intolerance, Denies fatigue, Denies flushing, Denies heat intolerance, Denies polyphagia, Denies polydipsia and Denies palpitations Hematologic/Lymphatic: Hematologic/Lymphatic: Reports no additional hematologic/lymphatic complaints and Reports as per HPI Allergic/Immunologic: Allergic/Immunologic: Reports no additional allergic/immunologic complaints and Reports as per HPI PMFSH Past Medical History Medical History Altered mental status Anxiety Cataracts, bilateral developing CHF (congestive heart failure) Echo 06/03/2021: Normal EF 60-65%, global longitudinal strain abnormal-14%, diastolic dysfunction grade 1, E/E tendon is mildly elevated, elevated right atrial pressures at 10mmHg COPD (chronic obstructive pulmonary disease) Hypercholesteremia Lupus Mild cognitive impairment with memory loss Restless leg syndrome Surgical History Surgical History H/O hysterectomy for benign disease History of heart artery stent (06/23/21) High-grade stenosis near ostial LAD stented following deployment of the stent there was plaque shifting into the ostium of the circumflex causing 80 90% stenosis with subsequent placement of stent at the ostium of the circumflex with migration of the circumflex stent and to the path of the main coronary artery had which time the stent was crushed History of lithotripsy Hx of cholecystectomy Family History Family History (Updated 12/02/21 @ 21:49 by Meena Glover, RNLP) Father , 56 years old COPD (chronic obstructive pulmonary disease) Mother , 62 years old COPD (chronic obstructive pulmonary disease) Sibling No problems noted. Social History Social History Social History: She lives at home with her of 49 years. She has smoked 1 pack of cigarettes per day since he was a teenager but quit smoking on the 03 of June. Retired, pre
--- NOTE | 2021-12-02 21:42 | ADMGEN ---
This patient, Suma Scott, was admitted to 3 [facility] Surg Room 312-01 @ 2102. Patient/family oriented to hospital policies and general routines including ID bracelet, bed and alarms, visiting hours, pain management, procedures, bathroom and other care routines, personal items, smoking policy, room service/diet, and visiting hours. Information on how to activate the Rapid Response Team has been discussed. Patient/Family are encouraged to report perceived risks to care and to ask questions if they do not understand what they are told or what they should do.
[2021-12-03] VITALS (13 sets, daily range): BP systolic 101–123; BP diastolic 36–60; PULSE 60–86; RESP 15–22; TEMP 36–36.9; O2SAT 95–100; BMI 16.1
[2021-12-03 00:30] LABS: Troponin I < 0.012 ng/mL (0.000-0.034)
[2021-12-03] MEDS: oxyCODONE/ACETAMINOPHEN (*CRX) 5-325 MG TABLET 1 TABLET PO ×3 (04:18→20:25)
[2021-12-03] MEDS: FLUTICASONE/SALMETEROL 115-21 MCG INHALER 1 PUFF 2 PUFF INHALATION (07:57)
[2021-12-03] MEDS: ALBUTEROL SULFATE NEB 2.5 MG/0.5 ML INH INHALATION ×2 (08:01→21:21)
[2021-12-03] MEDS: IPRATROPIUM BR 0.02% INH SOLN 0.5 MG/2.5 ML VIAL INHALATION ×2 (08:02→21:21)
[2021-12-03 08:03] LABS: Basophils Percent Auto 0.2 % (0.2-1.2); Eosinophils Percent Auto 0.1 % (0-4.4); Hemoglobin 10.5 g/dL (12.0-15.0); Immature Granulocyte Absolute 0.12 K/mm3 (0.00-0.031); Immature Granulocyte Percent A 0.7 % (0-0.5); Lymphocytes Absolute Auto 1.07 K/mm3 (0.9-3.2); Lymphocytes Percent Auto 6.4 % (18.3-44.2); Mean Corpuscular HGB Conc 31.8 g/dl (32-36); Mean Corpuscular Hemoglobin 30.7 pg (26-34); Mean Corpuscular Volume 96.5 fl (80-100); Mean Platelet Volume 9.8 fl (7.4-10.4); Monocytes Absolute Auto 1.2 K/mm3 (0.1-0.6); Monocytes Percent Auto 6.9 % (2.6-8.5); Neutrophils Absolute Auto 14.4 K/mm3 (1.3-6.7); Neutrophils Percent Auto 85.7 % (45.5-73.1); Platelet Count Result 229 k/mm3 (150-375); Red Blood Count 3.42 M/mm3 (4.2-5.4); Red Cell Distribution Width 14.6 % (11.5-14.5); White Blood Count 16.7 K/mm3 (4.5-10.0)
[2021-12-03 08:16] LABS: Anion Gap 10 mmol/L (8-16); Blood Urea Nitrogen 33 mg/dL (7-17); Calcium 10.5 mg/dL (8.4-10.2); Carbon Dioxide 31 mmol/L (22-30); Chloride 97 mmol/L (98-107); Estimated CRCL calculation 33 ml/min; Estimated Glomerular Filt Rate > 60; Glucose 103 mg/dL (65-110); Magnesium 1.8 mg/dL (1.6-2.3); Potassium 3.6 mmol/L (3.4-5.0); Sodium 138 mmol/L (137-145)
[2021-12-03] MEDS: ROSUVASTATIN 10 MG TABLET 20 MG PO (08:51)
[2021-12-03] MEDS: SOLIFENACIN 5 MG TABLET PO (08:51)
[2021-12-03] MEDS: clonazePAM (*CRX) 0.5 MG TABLET PO (08:51)
[2021-12-03] MEDS: ISOSORBIDE MONONITRATE 30 MG TAB.ER.24H PO (08:51)
[2021-12-03] MEDS: PREGABALIN (*CRX) 75 MG CAPSULE 150 MG PO ×2 (08:51→20:25)
[2021-12-03] MEDS: ASPIRIN 81 MG CHEWABLE TABLET PO (08:52)
[2021-12-03] MEDS: PANTOPRAZOLE 40 MG TABLET PO ×2 (08:52→17:41)
[2021-12-03] MEDS: amLODIPine BESYLATE 2.5 MG TABLET PO (08:52)
[2021-12-03] MEDS: CLOPIDOGREL BISULFATE 75 MG TABLET PO (08:52)
[2021-12-03] MEDS: METOPROLOL TARTRATE 25 MG TABLET PO ×2 (08:53→20:27)
[2021-12-03] MEDS: predniSONE 5 MG TABLET 15 MG BY MOUTH (08:54)
--- NOTE | 2021-12-03 14:05 | PM.IMPN ---
Progress Note: A&P Assessment and Plan (1) Bilateral pneumonia: Code(s): J18.9 - Pneumonia, unspecified organism Status: Acute Assessment and Plan: Patient presents with increasing shortness of breath. A prednisone order was called in but she was unable to start this prior to her symptoms worsening requiring her to present to the ED. chest x-ray showed bilateral interstitial infiltrates lower lung zones which may reflect edema or pneumonia. White count was elevated at 17.8K. No fevers. She was started on Rocephin azithromycin. She has a history of C diff and is wanting to come off antibiotics as soon as possible. Blood cultures collected and no growth to date. Her BNP is elevated but this is the lowest it has been since last year. Overall did not feel she has pulmonary edema and doubt CHF exacerbation. Continue IV antibiotics. Follow-up on blood cultures. Will check sputum as well as urine for Legionella and pneumococcal Ag. Pulmonary consult. On Pulmozyme and Mucinex. Check CTA chest to exclude PE. (2) Acute exacerbation of chronic obstructive pulmonary disease: Code(s): J44.1 - Chronic obstructive pulmonary disease with (acute) exacerbation Status: Acute Assessment and Plan: Patient probably has mild COPD exacerbation related pneumonia. No wheezing at this time. Patient currently on low-dose prednisone. She did receive dexamethasone in the ED. Will continue nebulizers and schedule Continue low-dose prednisone taper. (3) Hypoxemic respiratory failure, chronic: Code(s): J96.11 - Chronic respiratory failure with hypoxia Status: Acute Assessment and Plan: Patient on 2.5-3 L home oxygen chronically. Patient currently on 3.5 L but she has 100% so easily could be weaned down to baseline. Continue supplemental oxygen. Titrate oxygen to keep SpO2 greater than 92%. (4) Underweight: Code(s): R63.6 - Underweight Status: Acute Assessment and Plan: Patient with significant weight loss. BMI 16. Albumin normal. Probably pulmonary cachexia. Continue to monitor. Add supplements. (5) CAD (coronary artery disease): Qualifiers: Coronary Disease-Associated Artery/Lesion type: [place] artery [place] vs. transplanted heart: [place] heart Associated angina: without angina Qualified Code(s): I25.10 - Atherosclerotic heart disease of [place] coronary artery without angina pectoris Code(s): I25.10 - Atherosclerotic heart disease of [place] coronary artery without angina pectoris Status: Chronic Assessment and Plan: Patient with coronary disease. Stable. EKG showing sinus rhythm with PVCs but no acute findings. Continue aspirin, Plavix, metoprolol and Crestor. Will replace potassium and Mag today. Plan DVT prophylaxis: SCDs Code status: Full Subjective Date/time seen: 12/03/21 14:05 Interval history: 66yo female with chronic respiratory failure (2.5-3L O2), CAD and COPD here for shortness of breath. Assuming care. Chart reviewed. Patient's shortness of breath is better overall. She does not feel back to her baseline however. She denies chest pain. She is complaining of right-sided pleuritic chest pain with coughing. Cough is nonproductive. After my visit, patient called to the nurse's station asking to be discharged. Exam Narrative: AF 97.8 114/49 72 16 100% 3.5L Gen - NARD lying semi recumbent in bed. Chest -right basilar inspiratory crackles otherwise distant breath sounds. No wheezing. CV - RRR S1/S2 Abd -soft. Scaphoid. Positive bowel sounds. Ext - No pedal edema. No cords. Negative Homans sign. Psych - Nml mood and affect Skin - Warm and dry Objective Data Vital Signs Vital Signs: Vital Signs - 24 hr 12/02/21 16:22 12/02/21 16:35 12/02/21 17:21 Temperature 99.5 F Pulse Rate 105 H 89 Respiratory Rate 24 H 68 H 22 H Blood Pressure 144/63 H Pulse Oximetry 90 100 O
[2021-12-03] MEDS: POTASSIUM CHLORIDE 20 MEQ PACKET (FOR LIQUID) 40 MEQ PO (15:38)
--- NOTE | 2021-12-03 16:12 | PM.CNPUL ---
History of Present Illness History of Present Illness Consult date: 12/03/21 Chief complaint: pneumonia copd exacerbation Narrative: 12/03/2021: This is a new pulmonary consult for COPD exacerbation and pneumonia. Patient is followed in the Pulmonary Clinic. 66-year-old woman with a history of COPD (quit tobacco 05/2021) with hypoxemic respiratory failure requiring 2 L with rest and ambulation on 09/05/2021, CT scan 06/03/2021 with severe apical predominant panlobular emphysema, lupus (on prednisone 5 Q day and hydroxychloroquine 200 BID), CHF (EF 60-65% with Grade 1 DD), HLD, mild dementia, HTN, CAD with stent to LAD and Circ on 06/23/2021, recurrent left nephrolithiasis with hydronephrosis s/p left stone extraction and left ureteral stent placement 09/09/21, restless legs syndrome on ropinirole 0.5 mg. 12/01/2021: Patient called the office complaining of dry cough which started on 11/30.? She denies fever, chills, rigors, phlegm production, hemoptysis or chest pain.? She does state that she has some heavy breathing when she ambulates.? Patient? was admitted to the hospital for C diff and treated with? [id number] mg p.o. b.i.d. for 10 days and she finished this on 11/28? and her diarrhea has improved.? She is scheduled to see GI on .? Patient is currently on prednisone 5 mg a day for her lupus.? Patient is also complaining of itchy eyes and states she does get symptoms when exposed to pollen.? At this time I have told her to take Zyrtec 10 mg p.o. x1 now and 1 in the morning.? I have told her to take Mucinex DM 600-31 tablet now on 1 in the morning and that I will talk to her on 12/02/2021. 12/02/2021 a called the patient today and she states that her dry cough, shortness of breath are the same despite taking Zyrtec 10 mg a day and Mucinex DM 600-30 at 1 q.12 hours.? I asked her to do home COVID test and it was negative.? At this time I will prescribe her prednisone 40 mg p.o. q.day x5 days for COPD exacerbation.? She had a recent bout of C diff and is scheduled to see her GI doctor on 12/04/21.? I will not give antibiotics at this time but I told her to discuss with the breast buffer if there are any preventive measures that should be taken if we need to prescribe an course of antibiotics.? I told her to call us if things should worsen or to go to the emergency room if needed.? She voiced understanding. patient could not picker her prednisone and presented to To the emergency room. She was on 4 L nasal cannula saturations 90% her white blood cell count was 17.8, eosinophils were 0.2% creatinine was 0.9, lactic acid was 1.0, her ABG on 4 L nasal cannula, patient had a chest x-ray with bibasilar right greater than left interstitial infiltrates consistent with pneumonia or fluid overload. Patient was given Lasix, ceftriaxone and azithromycin. Since she had recently had C diff she was also given Flagyl p.o.. She was given albuterol and ipratropium nebulizers and dexamethasone 4 mg was given by the EMS team. [facility] Past Medical History Medical History Altered mental status Anxiety Cataracts, bilateral developing CHF (congestive heart failure) Echo 06/03/2021: Normal EF 60-65%, global longitudinal strain abnormal-14%, diastolic dysfunction grade 1, E/E tendon is mildly elevated, elevated right atrial pressures at 10mmHg COPD (chronic obstructive pulmonary disease) Hypercholesteremia Lupus Mild cognitive impairment with memory loss Restless leg syndrome Surgical History Surgical History H/O hysterectomy for benign disease History of heart artery stent (06/23/21) High-grade stenosis near ostial LAD stented following deployment of the stent there was plaque shifting into the ostium of the circumflex causing 80 90% stenosis with subsequent placement of stent at the ostium of the circumflex with migration of the circumflex
[2021-12-03] MEDS: MAGNESIUM OXIDE 400 MG TABLET PO (17:32)
[2021-12-03] MEDS: cefTRIAXone 2 GM in SODIUM CHLORIDE 0.9% IV 100 ML 200 ML IVPB (17:33)
[2021-12-03] MEDS: guaiFENesin 12 HR 600 MG TABCR PO (20:27)
[2021-12-03] MEDS: rOPINIRole HCL 1 MG TABLET PO (20:27)
[2021-12-03] MEDS: traZODone HCL 50 MG TABLET 100 MG PO (20:27)
[2021-12-03] MEDS: VANCOMYCIN ORAL 125 MG/2.5 ML SYRUP PO (20:29)
[2021-12-03] MEDS: ZOLPIDEM TARTRATE (*CRX) 5 MG TABLET 10 MG PO (20:33)
[2021-12-03] MEDS: BUDESONIDE RESPULE NEB 0.5 MG/2 ML AMP INHALATION (21:21)
[2021-12-04] VITALS (24 sets, daily range): BP systolic 103–138; BP diastolic 39–75; PULSE 58–99; RESP 16–20; TEMP 36.2–37.2; O2SAT 86–100
[2021-12-04] MEDS: ALBUTEROL SULFATE NEB 2.5 MG/0.5 ML INH INHALATION ×4 (03:11→20:55)
[2021-12-04] MEDS: IPRATROPIUM BR 0.02% INH SOLN 0.5 MG/2.5 ML VIAL INHALATION ×4 (03:11→20:54)
--- NOTE | 2021-12-04 03:23 | PCRCNOTE ---
PT states that she takes Symbicort at home and wanted to know why she was not recieving it every 12 hours as usual. Upon investigation, RT found that Advair had been discontinued in pt medication list. PT stated she takes her inhaler everyday and is needing it to keep up with her maintenance drugs. RT notified Lena Cohen RN.
[2021-12-04] MEDS: oxyCODONE/ACETAMINOPHEN (*CRX) 5-325 MG TABLET 1 TABLET PO ×3 (05:55→22:29)
[2021-12-04 06:41] LABS: Basophils Percent Auto 0.3 % (0.2-1.2); Eosinophils Absolute Auto 0.1 K/mm3 (0-0.3); Eosinophils Percent Auto 1.1 % (0-4.4); Hematocrit 27.1 % (37.0-47.0); Hemoglobin 8.8 g/dL (12.0-15.0); Immature Granulocyte Absolute 0.08 K/mm3 (0.00-0.031); Immature Granulocyte Percent A 0.8 % (0-0.5); Lymphocytes Absolute Auto 1.67 K/mm3 (0.9-3.2); Lymphocytes Percent Auto 16.3 % (18.3-44.2); Mean Corpuscular HGB Conc 32.5 g/dl (32-36); Mean Corpuscular Hemoglobin 30.9 pg (26-34); Mean Corpuscular Volume 95.1 fl (80-100); Mean Platelet Volume 10.1 fl (7.4-10.4); Monocytes Absolute Auto 1.1 K/mm3 (0.1-0.6); Monocytes Percent Auto 10.3 % (2.6-8.5); Neutrophils Absolute Auto 7.3 K/mm3 (1.3-6.7); Neutrophils Percent Auto 71.2 % (45.5-73.1); Platelet Count Result 244 k/mm3 (150-375); Red Blood Count 2.85 M/mm3 (4.2-5.4); Red Cell Distribution Width 14.6 % (11.5-14.5); White Blood Count 10.3 K/mm3 (4.5-10.0)
[2021-12-04 06:57] LABS: Albumin Level 3.6 g/dL (3.5-5.1); Anion Gap 7 mmol/L (8-16); Blood Urea Nitrogen 37 mg/dL (7-17); Calcium 9.5 mg/dL (8.4-10.2); Carbon Dioxide 29 mmol/L (22-30); Chloride 104 mmol/L (98-107); Estimated CRCL calculation 30 ml/min; Estimated Glomerular Filt Rate 55; Glucose 99 mg/dL (65-110); Magnesium 1.9 mg/dL (1.6-2.3); Phosphorus 3.6 mg/dL (2.5-4.5); Potassium 3.9 mmol/L (3.4-5.0); Sodium 140 mmol/L (137-145)
[2021-12-04] MEDS: PREGABALIN (*CRX) 75 MG CAPSULE 150 MG PO ×2 (08:44→21:04)
[2021-12-04] MEDS: ASPIRIN 81 MG CHEWABLE TABLET PO (08:45)
[2021-12-04] MEDS: clonazePAM (*CRX) 0.5 MG TABLET PO (08:45)
[2021-12-04] MEDS: VANCOMYCIN ORAL 125 MG/2.5 ML SYRUP PO (08:45)
[2021-12-04] MEDS: ISOSORBIDE MONONITRATE 30 MG TAB.ER.24H PO (08:45)
[2021-12-04] MEDS: ROSUVASTATIN 10 MG TABLET 20 MG PO (08:45)
[2021-12-04] MEDS: SOLIFENACIN 5 MG TABLET PO (08:45)
[2021-12-04] MEDS: METOPROLOL TARTRATE 25 MG TABLET PO ×2 (08:46→21:04)
[2021-12-04] MEDS: guaiFENesin 12 HR 600 MG TABCR PO ×2 (08:46→21:03)
[2021-12-04] MEDS: PANTOPRAZOLE 40 MG TABLET PO ×2 (08:46→17:09)
[2021-12-04] MEDS: CLOPIDOGREL BISULFATE 75 MG TABLET PO (08:46)
[2021-12-04] MEDS: predniSONE 5 MG TABLET 10 MG BY MOUTH (08:46)
[2021-12-04] MEDS: MAGNESIUM OXIDE 400 MG TABLET PO (08:46)
[2021-12-04] MEDS: amLODIPine BESYLATE 2.5 MG TABLET PO (08:47)
[2021-12-04] MEDS: BUDESONIDE RESPULE NEB 0.5 MG/2 ML AMP INHALATION ×2 (09:05→20:54)
--- NOTE | 2021-12-04 11:36 | PM.CNPUL ---
Assessment and Plan Assessment and plan (1) Bilateral pneumonia: Code(s): J18.9 - Pneumonia, unspecified organism Status: Acute Assessment and Plan: 66-year-old woman with a history of COPD (quit tobacco 05/2021) with hypoxemic respiratory failure requiring 2 L with rest and ambulation on 09/05/2021, CT scan 06/03/2021 and 12/03/2021 with severe apical predominant panlobular emphysema, lupus (on prednisone 5 Q day and hydroxychloroquine 200 BID), CHF (EF 60-65% with Grade 1 DD), HLD, mild dementia, HTN, CAD with stent to LAD and Circ on 06/23/2021, recurrent left nephrolithiasis with hydronephrosis s/p left stone extraction and left ureteral stent placement 09/09/21, restless legs syndrome on ropinirole 0.5 mg. C diff infection admitted to the hospital from 11/16 through 11/22/2021. Patient with a history of COPD and now with a right lower lobe pneumonia. Patient has leukocytosis, clinical symptoms of cough, shortness of breath and right pleuritic chest pain or improved on ceftriaxone and azithromycin (started 12/02). At home she was on 2-1/2 to 3 L and currently she is on 2 L nasal cannula. Her COVID RT PCR is negative, influenza swab is negative, and urine pneumococcal and Legionella studies are pending. She had a recent history of C difficile and currently is on secondary prophylaxis with vancomycin 125 mg p.o. q.day she is on lupus and maintained on 5 mg prednisone q.day although Her home medication listed 10 mg a day. She received 10 mg today and at this time we will continue the 5 mg q.daystarting 12/05. (2) COPD (chronic obstructive pulmonary disease): Code(s): J44.9 - Chronic obstructive pulmonary disease, unspecified Status: Acute Assessment and Plan: patient with a history of tobacco use, quit 2016 with severe upper lobe predominant panlobular emphysema on her CT scan from 12/03/2021. Patient has hypoxic Ream is respiratory failure requiring 2 L oxygen with rest and with ambulation and has recently been using 2 and half to 3 at home. Currently she has no wheezing and I do not feel there is an active COPD exacerbation on top of her pneumonia. The patient is on triple inhalers with present tree at 2 puffs q.12 hours and at this time I will continue albuterol 2.5 mg nebs Q 6, ipratropium 0.5 mg nebs Q 6, and budesonide 0.5 mg q.[address] Andrews. Will follow with you History of Present Illness History of Present Illness Consult date: 12/04/21 Chief complaint: pneumonia copd exacerbation Narrative: ? 12/03/2021:? This is a new pulmonary consult for COPD exacerbation and pneumonia. ? Patient is followed in the Pulmonary Clinic. 66-year-old woman with a history of COPD (quit tobacco 05/2021) with hypoxemic respiratory failure requiring 2 L with rest and ambulation on 09/05/2021, CT scan 06/03/2021 with severe apical predominant panlobular emphysema, lupus (on prednisone 5 Q day and hydroxychloroquine 200 BID), CHF (EF 60-65% with Grade 1 DD), HLD, mild dementia, HTN, CAD with stent to LAD and Circ on 06/23/2021, recurrent left nephrolithiasis with hydronephrosis s/p left stone extraction and left ureteral stent placement 09/09/21, restless legs syndrome on ropinirole 0.5 mg. C diff infection admitted to the hospital from 11/16 through 11/22/2021. ?12/01/2021: Patient called the office complaining of dry cough which started on 11/30.? She denies fever, chills, rigors, phlegm production, hemoptysis or chest pain.? She does state that she has some heavy breathing when she ambulates.? Patient? was admitted to the hospital for C diff and treated with? [id number] mg p.o. b.i.d. for 10 days and she finished this on 11/28? and her diarrhea has improved.? She is scheduled to see GI on .? Patient is currently on prednisone 5 mg a day for her lupus.? Patient is also complaining of itchy eyes and states she does get symptoms when exposed to pollen.? At this time I have told
[2021-12-04] MEDS: ACETAMINOPHEN/BUTALBITAL/CAFFEINE 325-50-40 MG TABLET (FIORICET) 1 TAB PO (14:02)
--- NOTE | 2021-12-04 14:42 | PM.IMPN ---
Progress Note: A&P Assessment and Plan (1) Bilateral pneumonia: Code(s): J18.9 - Pneumonia, unspecified organism Status: Acute Assessment and Plan: Patient presents with increasing shortness of breath. A prednisone order was called in but she was unable to start this prior to her symptoms worsening requiring her to present to the ED. CXR showed bilateral interstitial infiltrates lower lung zones which may reflect edema or pneumonia. White count was elevated at 17.8K. No fevers. She was started on Rocephin and azithromycin. She has a history of C diff so prophylaxis oral Vanco started. Blood cultures collected and no growth to date. Her BNP is elevated but this is the lowest it has been since last year. Overall did not feel she has pulmonary edema and doubt CHF exacerbation. Chest CT showing airspace opacities in the right lower lobe and left upper lobe consistent with pneumonia. Continue IV antibiotics. Pulmonary consulted and appreciate their input. (2) Acute exacerbation of chronic obstructive pulmonary disease: Code(s): J44.1 - Chronic obstructive pulmonary disease with (acute) exacerbation Status: Acute Assessment and Plan: Patient probably has mild COPD exacerbation related to pneumonia. No wheezing at this time. Patient currently on low-dose prednisone. She did receive dexamethasone in the ED. Will continue nebulizers. Convert back to home Prednisone dose. Continue current inhalers. (3) Hypoxemic respiratory failure, chronic: Code(s): J96.11 - Chronic respiratory failure with hypoxia Status: Acute Assessment and Plan: Patient on 2.5-3 L home oxygen chronically. Patient currently on 2L which is her baseline. Continue supplemental oxygen. Home O2 evaluation. (4) Underweight: Code(s): R63.6 - Underweight Status: Acute Assessment and Plan: Patient with significant weight loss. BMI 16. Albumin normal. Probably pulmonary cachexia. Continue to monitor. Continue supplements. (5) CAD (coronary artery disease): Qualifiers: Associated angina: without angina Coronary Disease-Associated Artery/Lesion type: [place] artery [place] vs. transplanted heart: [place] heart Qualified Code(s): I25.10 - Atherosclerotic heart disease of [place] coronary artery without angina pectoris Code(s): I25.10 - Atherosclerotic heart disease of [place] coronary artery without angina pectoris Status: Chronic Assessment and Plan: Patient with coronary disease. Stable. EKG showing sinus rhythm with PVCs but no acute findings. Continue aspirin, Plavix, metoprolol and Crestor. (6) Anemia: Qualifiers: Anemia type: iron deficiency Iron deficiency anemia type: unspecified iron deficiency Qualified Code(s): D50.9 - Iron deficiency anemia, unspecified Code(s): D64.9 - Anemia, unspecified Status: Acute Assessment and Plan: Patient's hemoglobin was normal earlier this year but has been mostly in the 7-8 range since October. Hemoglobin was 10.7 on admission but has dropped to 8.8. No evidence of acute blood loss. Possibly mild iron deficiency anemia coupled with anemia of chronic disease by lab work performed a prior hospitalizations. Stool guaiac was negative earlier this month. Will continue follow at this time. Continue PPI. Add iron supplements Plan DVT prophylaxis: SCDs Code status: Full Subjective Date/time seen: 12/04/21 14:42 Interval history: 66yo female with chronic respiratory failure (2.5-3L O2), CAD and COPD here for shortness of breath. Patient had a coughing spell earlier today that cause some increasing shortness of breath but overall feels much better. Shortness of breath is much improved overall. Still with right-sided chest pain but this is better and only flares when she coughs. She is asking about discharge. She states she takes prednisone 5 mg daily at home chroni
--- NOTE | 2021-12-04 15:50 | HOMEO2EVAL ---
Evaluation was performed at [facility] Home Oxygen Evaluation RC: Home Oxygen (O2) Evaluation Start: 12/04/21 14:45 Freq: ONCE Status: Active Protocol: RPE Activity Type Activity Date Activity User E-sign Co-sign Detail Recorded Client Recorded Date Recorded By Document 12/04/21 15:00 ELIS [email or web address] 12/04/21 15:50 ELIS Document 12/04/21 15:01 ELIS [email or web address] 12/04/21 15:50 ELIS Document 12/04/21 15:05 ELIS [email or web address] 12/04/21 15:50 ELIS Document 12/04/21 15:06 ELIS [email or web address] 12/04/21 15:50 ELIS Document 12/04/21 15:15 ELIS [email or web address] 12/04/21 15:50 ELIS 12/04/21 12/04/21 12/04/21 15:00 15:01 15:05 Home O2 Evaluation Test Phase Resting Resting Exercise Oxygen Delivery Room Air Nasal Cannula Nasal Cannula Oxygen Flow Rate (L/min) 1 1 Pulse Oximetry (90-100 %) 87 L 93 87 L Home Oxygen Evaluation Comments PT REQUIRES 1 L AT REST AND 2 L WITH ACTIVITY Treatment Charges O2 Evaluation - Inpatient 12/04/21 12/04/21 15:06 15:15 Home O2 Evaluation Test Phase Exercise Resting Oxygen Delivery Nasal Cannula Nasal Cannula Oxygen Flow Rate (L/min) 2 1 Pulse Oximetry (90-100 %) 91 94 Home Oxygen Evaluation Comments Treatment Charges
--- NOTE | 2021-12-04 15:50 | PCRCNOTE ---
HOME O2 EVAL DONE, PT REQUIRES 1 L AT REST AND 2 L WITH ACTIVITY. PT HAS HOME O2 ALREADY IN THE HOME. SHE ALSO HAS TANK IN ROOM FOR DISCHARGE
[2021-12-04] MEDS: cefTRIAXone 2 GM in SODIUM CHLORIDE 0.9% IV 100 ML 200 ML IVPB (17:08)
[2021-12-04] MEDS: FERROUS SULFATE 324 MG TABLET PO (17:09)
[2021-12-04] MEDS: rOPINIRole HCL 1 MG TABLET PO (21:03)
[2021-12-04] MEDS: traZODone HCL 50 MG TABLET 100 MG PO (21:03)
[2021-12-04] MEDS: ZOLPIDEM TARTRATE (*CRX) 5 MG TABLET 10 MG PO (22:30)
[2021-12-05] VITALS (13 sets, daily range): BP systolic 105–139; BP diastolic 46–64; PULSE 58–81; RESP 16–20; TEMP 36–36.6; O2SAT 96–100
[2021-12-05 06:44] LABS: Hematocrit 27.4 % (37.0-47.0); Hemoglobin 8.7 g/dL (12.0-15.0); Mean Corpuscular HGB Conc 31.8 g/dl (32-36); Mean Corpuscular Hemoglobin 30.6 pg (26-34); Mean Corpuscular Volume 96.5 fl (80-100); Mean Platelet Volume 9.5 fl (7.4-10.4); Platelet Count Result 246 k/mm3 (150-375); Red Blood Count 2.84 M/mm3 (4.2-5.4); Red Cell Distribution Width 14.5 % (11.5-14.5)
[2021-12-05] MEDS: BUDESONIDE RESPULE NEB 0.5 MG/2 ML AMP INHALATION ×2 (08:25→20:22)
[2021-12-05] MEDS: PREGABALIN (*CRX) 75 MG CAPSULE 150 MG PO ×2 (08:25→17:14)
[2021-12-05] MEDS: IPRATROPIUM BR 0.02% INH SOLN 0.5 MG/2.5 ML VIAL INHALATION ×3 (08:25→20:22)
[2021-12-05] MEDS: ALBUTEROL SULFATE NEB 2.5 MG/0.5 ML INH INHALATION ×3 (08:25→20:22)
[2021-12-05] MEDS: oxyCODONE/ACETAMINOPHEN (*CRX) 5-325 MG TABLET 1 TABLET PO ×2 (08:25→18:05)
[2021-12-05] MEDS: guaiFENesin 12 HR 600 MG TABCR PO (08:26)
[2021-12-05] MEDS: SOLIFENACIN 5 MG TABLET PO (08:26)
[2021-12-05] MEDS: METOPROLOL TARTRATE 25 MG TABLET PO ×2 (08:26→20:23)
[2021-12-05] MEDS: PANTOPRAZOLE 40 MG TABLET PO ×2 (08:26→16:08)
[2021-12-05] MEDS: ISOSORBIDE MONONITRATE 30 MG TAB.ER.24H PO (08:26)
[2021-12-05] MEDS: ASPIRIN 81 MG CHEWABLE TABLET PO (08:28)
[2021-12-05] MEDS: amLODIPine BESYLATE 2.5 MG TABLET PO (08:28)
[2021-12-05] MEDS: predniSONE 5 MG TABLET PO (08:28)
[2021-12-05] MEDS: CLOPIDOGREL BISULFATE 75 MG TABLET PO (08:28)
[2021-12-05] MEDS: ROSUVASTATIN 10 MG TABLET 20 MG PO (08:29)
[2021-12-05] MEDS: clonazePAM (*CRX) 0.5 MG TABLET PO (08:29)
[2021-12-05] MEDS: FERROUS SULFATE 324 MG TABLET PO ×2 (08:29→16:08)
[2021-12-05] MEDS: MAGNESIUM OXIDE 400 MG TABLET PO (08:29)
[2021-12-05] MEDS: VANCOMYCIN ORAL 125 MG/2.5 ML SYRUP PO (08:30)
--- NOTE | 2021-12-05 12:52 | PM.PNPUL ---
Progress Note: A&P Assessment and Plan (1) Bilateral pneumonia: Code(s): J18.9 - Pneumonia, unspecified organism Status: Acute Assessment and Plan: 66-year-old woman with a history of COPD (quit tobacco 05/2021) with hypoxemic respiratory failure requiring 2 L with rest and ambulation on 09/05/2021, CT scan 06/03/2021 and 12/03/2021 with severe apical predominant panlobular emphysema, lupus (on prednisone 5 Q day and hydroxychloroquine 200 BID), CHF (EF 60-65% with Grade 1 DD), HLD, mild dementia, HTN, CAD with stent to LAD and Circ on 06/23/2021, recurrent left nephrolithiasis with hydronephrosis s/p left stone extraction and left ureteral stent placement 09/09/21, restless legs syndrome on ropinirole 0.5 mg. C diff infection admitted to the hospital from 11/16 through 11/22/2021. Patient with a history of COPD and now with a right lower lobe pneumonia. Patient has leukocytosis, clinical symptoms of cough, shortness of breath and right pleuritic chest pain or improved on ceftriaxone and azithromycin (started 12/02). At home she was on 2-1/2 to 3 L and currently she is on 2 L nasal cannula. Her COVID RT PCR is negative, influenza swab is negative, and urine pneumococcal and Legionella studies are pending. She had a recent history of C difficile and currently is on secondary prophylaxis with vancomycin 125 mg p.o. q.day she is on lupus and maintained on 5 mg prednisone q.day although Her home medication listed 10 mg a day. She received 10 mg today and at this time we will continue the 5 mg q.day starting 12/05. 12/05 Overall the patient tells me she is about the same. She has coughing spells and sometimes is unable to expectorate. She is on 3 L nasal cannula with a saturations 100%. I turned her to 2 L nasal cannula and her saturations are 99%. She had a home O2 assessment on 12/04 that demonstrated 1 L with rest and 2 with ambulation. Chest x-ray today showed minimally improved right lower lobe infiltrate. White blood cell count 7.0. White blood cell is now normalized, she is afebrile and her chest x-ray is minimally improved in the right lower lobe on ceftriaxone and azithromycin started on 12/02. Patient is having some trouble expectorating and I will increase her Mucinex from 600 to 1200 mg q.12 hours. I will also order a Cornet flutter valve. I will order overnight oximetry on 1 L NC. Overall patient is improving and anticipate discharge home in the next 1-2 days. Would send home on levaquin PO Q day (last dose 12/08). Follow-up with me will on her previously scheduled appointment 01/07/2022 at 9:45 a.m. (2) COPD (chronic obstructive pulmonary disease): Code(s): J44.9 - Chronic obstructive pulmonary disease, unspecified Status: Acute Assessment and Plan: patient with a history of tobacco use, quit 2016 with severe upper lobe predominant panlobular emphysema on her CT scan from 12/03/2021. Patient has hypoxic Ream is respiratory failure requiring 2 L oxygen with rest and with ambulation and has recently been using 2 and half to 3 at home. Currently she has no wheezing and I do not feel there is an active COPD exacerbation on top of her pneumonia. The patient is on triple inhalers with breztri at 2 puffs q.12 hours at home and at this time I will continue albuterol 2.5 mg nebs Q 6, ipratropium 0.5 mg nebs Q 6, and budesonide 0.5 mg q.12 hours. 12/05 I will continue albuterol 2.5 mg nebs Q 6, ipratropium 0.5 mg nebs Q 6, and budesonide 0.5 mg q.[address] Andrews. In house Pulmonary Services will resume on 12/05/2021. Call with any questions. Subjective Date/time seen: 12/05/21 12:52 Interval history: 12/03/2021:? This is a new pulmonary consult for COPD exacerbation and pneumonia. ? Patient is followed in the Pulmonary Clinic. 66-year-old woman with a history of COPD (quit tobacco 05/2021) with hypoxemic respiratory failure requiring 2 L with rest a
--- NOTE | 2021-12-05 13:07 | PM.IMPN ---
Progress Note: A&P Assessment and Plan (1) Bilateral pneumonia: Code(s): J18.9 - Pneumonia, unspecified organism Status: Acute Assessment and Plan: Patient presents with increasing shortness of breath. A prednisone order was called in but she was unable to start this prior to her symptoms worsening requiring her to present to the ED. CXR showed bilateral interstitial infiltrates lower lung zones which may reflect edema or pneumonia. White count was elevated at 17.8K. No fevers. She was started on Rocephin and azithromycin. She has a history of C diff so prophylaxis oral Vanco started. Blood cultures collected and no growth to date. Her BNP was elevated but this is the lowest it has been since last year and doubt CHF. Chest CT showing airspace opacities in the right lower lobe and left upper lobe consistent with pneumonia. WBC normal now. CXR again showing Rt lower lobe airspace disease. Still having coughing jags but overall clinically improved. Continue IV antibiotics. Pulmonary consulted and appreciate their input. Patient will need follow up imaging to ensure this clears. Speech therapy to evaluate given her history of dysphagia. (2) Acute exacerbation of chronic obstructive pulmonary disease: Code(s): J44.1 - Chronic obstructive pulmonary disease with (acute) exacerbation Status: Acute Assessment and Plan: Patient probably has mild COPD exacerbation related to pneumonia. No wheezing at this time. Patient currently on low-dose prednisone. She did receive dexamethasone in the ED. Will continue nebulizers. She was converted back to home Prednisone dose. Continue current inhalers. (3) Hypoxemic respiratory failure, chronic: Code(s): J96.11 - Chronic respiratory failure with hypoxia Status: Acute Assessment and Plan: Patient on 2.5-3 L home oxygen chronically. Patient currently on 2L which is better than her baseline. Continue supplemental oxygen. Home O2 evaluation when close to discharge. (4) Underweight: Code(s): R63.6 - Underweight Status: Acute Assessment and Plan: Patient with significant weight loss. BMI 16. Albumin normal. Probably pulmonary cachexia. Continue to monitor. Continue supplements. (5) CAD (coronary artery disease): Qualifiers: Coronary Disease-Associated Artery/Lesion type: [place] artery [place] vs. transplanted heart: [place] heart Associated angina: without angina Qualified Code(s): I25.10 - Atherosclerotic heart disease of [place] coronary artery without angina pectoris Code(s): I25.10 - Atherosclerotic heart disease of [place] coronary artery without angina pectoris Status: Chronic Assessment and Plan: Patient with coronary disease. Stable. EKG showing sinus rhythm with PVCs but no acute findings. Continue aspirin, Plavix, metoprolol and Crestor. (6) Anemia: Qualifiers: Anemia type: iron deficiency Iron deficiency anemia type: unspecified iron deficiency Qualified Code(s): D50.9 - Iron deficiency anemia, unspecified Code(s): D64.9 - Anemia, unspecified Status: Acute Assessment and Plan: Patient's hemoglobin was normal earlier this year but has been mostly in the 7-8 range since October. Hemoglobin was 10.7 on admission but has dropped to 8.8. No evidence of acute blood loss. Possibly mild iron deficiency anemia coupled with anemia of chronic disease by lab work performed at prior hospitalizations. Stool guaiac was negative earlier this month. Will continue follow at this time. Continue PPI and iron supplements Plan DVT prophylaxis: SCDs Code status: Full Subjective Date/time seen: 12/05/21 13:07 Interval history: 66yo female with chronic respiratory failure (2.5-3L O2), CAD and COPD here for shortness of breath. Patient had increasing cough this morning. Cough is nonproductive. Still having the right flank pain but no change
[2021-12-05] MEDS: ACETAMINOPHEN/BUTALBITAL/CAFFEINE 325-50-40 MG TABLET (FIORICET) 1 TAB PO (13:54)
[2021-12-05] MEDS: cefTRIAXone 2 GM in SODIUM CHLORIDE 0.9% IV 100 ML 200 ML IVPB (17:13)
[2021-12-05] MEDS: guaiFENesin 12 HR 600 MG TABCR 1200 MG PO (20:23)
[2021-12-05] MEDS: traZODone HCL 50 MG TABLET 100 MG PO (20:23)
[2021-12-05] MEDS: rOPINIRole HCL 1 MG TABLET PO (20:23)
[2021-12-05] MEDS: ZOLPIDEM TARTRATE (*CRX) 5 MG TABLET 10 MG PO (20:23)
[2021-12-06] VITALS (8 sets, daily range): BP systolic 117–151; BP diastolic 46–52; PULSE 68–79; RESP 16–20; TEMP 36–37.3; O2SAT 93–100
--- NOTE | 2021-12-06 02:04 | PCRCNOTE ---
0200 UPD on 12/06 not given. Pt on apnea link testing and not to be disturbed. Next available administration is at 0800.
[2021-12-06] MEDS: oxyCODONE/ACETAMINOPHEN (*CRX) 5-325 MG TABLET 1 TABLET PO ×2 (03:28→12:03)
[2021-12-06 08:14] LABS: Basophils Percent Auto 0.5 % (0.2-1.2); Eosinophils Absolute Auto 0.4 K/mm3 (0-0.3); Eosinophils Percent Auto 5.1 % (0-4.4); Hemoglobin 9.4 g/dL (12.0-15.0); Immature Granulocyte Absolute 0.06 K/mm3 (0.00-0.031); Immature Granulocyte Percent A 0.8 % (0-0.5); Lymphocytes Absolute Auto 2.25 K/mm3 (0.9-3.2); Lymphocytes Percent Auto 29.4 % (18.3-44.2); Mean Corpuscular HGB Conc 31.3 g/dl (32-36); Mean Corpuscular Hemoglobin 30.6 pg (26-34); Mean Corpuscular Volume 97.7 fl (80-100); Mean Platelet Volume 9.3 fl (7.4-10.4); Monocytes Percent Auto 12.5 % (2.6-8.5); Neutrophils Percent Auto 51.7 % (45.5-73.1); Platelet Count Result 270 k/mm3 (150-375); Red Blood Count 3.07 M/mm3 (4.2-5.4); Red Cell Distribution Width 14.4 % (11.5-14.5); White Blood Count 7.7 K/mm3 (4.5-10.0)
[2021-12-06 08:29] LABS: Anion Gap 5 mmol/L (8-16); Blood Urea Nitrogen 23 mg/dL (7-17); Calcium 9.6 mg/dL (8.4-10.2); Carbon Dioxide 33 mmol/L (22-30); Chloride 103 mmol/L (98-107); Estimated CRCL calculation 37 ml/min; Estimated Glomerular Filt Rate > 60; Glucose 91 mg/dL (65-110); Potassium 3.9 mmol/L (3.4-5.0); Sodium 141 mmol/L (137-145)
[2021-12-06] MEDS: IPRATROPIUM BR 0.02% INH SOLN 0.5 MG/2.5 ML VIAL INHALATION ×2 (08:33→15:22)
[2021-12-06] MEDS: BUDESONIDE RESPULE NEB 0.5 MG/2 ML AMP INHALATION (08:33)
[2021-12-06] MEDS: ALBUTEROL SULFATE NEB 2.5 MG/0.5 ML INH INHALATION ×2 (08:33→15:22)
[2021-12-06] MEDS: FERROUS SULFATE 324 MG TABLET PO (08:59)
[2021-12-06] MEDS: predniSONE 5 MG TABLET PO (08:59)
[2021-12-06] MEDS: ASPIRIN 81 MG CHEWABLE TABLET PO (08:59)
[2021-12-06] MEDS: amLODIPine BESYLATE 2.5 MG TABLET PO (09:00)
[2021-12-06] MEDS: guaiFENesin 12 HR 600 MG TABCR 1200 MG PO (09:01)
[2021-12-06] MEDS: ISOSORBIDE MONONITRATE 30 MG TAB.ER.24H PO (09:01)
[2021-12-06] MEDS: CLOPIDOGREL BISULFATE 75 MG TABLET PO (09:01)
[2021-12-06] MEDS: ROSUVASTATIN 10 MG TABLET 20 MG PO (09:02)
[2021-12-06] MEDS: SOLIFENACIN 5 MG TABLET PO (09:03)
[2021-12-06] MEDS: METOPROLOL TARTRATE 25 MG TABLET PO (09:03)
[2021-12-06] MEDS: PANTOPRAZOLE 40 MG TABLET PO (09:04)
[2021-12-06] MEDS: MAGNESIUM OXIDE 400 MG TABLET PO (09:05)
[2021-12-06] MEDS: PREGABALIN (*CRX) 75 MG CAPSULE 150 MG PO (09:15)
[2021-12-06] MEDS: VANCOMYCIN ORAL 125 MG/2.5 ML SYRUP PO (09:16)
[2021-12-06] MEDS: clonazePAM (*CRX) 0.5 MG TABLET PO (09:16)
--- NOTE | 2021-12-06 11:47 | PCSTNOTE ---
Please refer to the Modified Barium Swallow Evaluation in the EMR.
--- NOTE | 2021-12-06 11:47 | PCSTNOTE ---
Please refer to the Bedside Swallow Evaluation 12/05/21 in the EMR. Please note, silent aspiration cannot be ruled out at bedside.
--- NOTE | 2021-12-06 14:07 | PM.DS ---
DS: Admitting Diagnosis Discharge Date 12/06/21 Admitting Diagnosis Shortness of breath DS: Discharge Diagnosis Discharge Diagnosis (1) Bilateral pneumonia: Code(s): J18.9 - Pneumonia, unspecified organism Status: Acute Assessment and Plan: Patient presents with increasing shortness of breath. A prednisone order was called in but she was unable to start this prior to her symptoms worsening requiring her to present to the ED. CXR showed bilateral interstitial infiltrates lower lung zones which may reflect edema or pneumonia. White count was elevated at 17.8K. No fevers. She was started on Rocephin and azithromycin. She has a history of C diff so prophylaxis oral Vanco started. Blood cultures collected and no growth to date. Her BNP was elevated but this is the lowest it has been since last year and doubt CHF. Chest CT showing airspace opacities in the right lower lobe and left upper lobe consistent with pneumonia. WBC normal now. CXR again showing Rt lower lobe airspace disease. Not able to collect sputum. Speech therapy evaluated her due to complaints of dysphagia. MBS was okay. Pulmonary consulted and appreciate their input. Still having coughing jags but overall clinically improved. Patient will need follow up imaging to ensure that her lung clears. (2) Acute exacerbation of chronic obstructive pulmonary disease: Code(s): J44.1 - Chronic obstructive pulmonary disease with (acute) exacerbation Status: Acute Assessment and Plan: Patient probably had a mild COPD exacerbation related to pneumonia. She did receive dexamethasone in the ED. Patient currently on her home low-dose prednisone. No wheezing at this time.We continued nebulizer treatments. (3) Hypoxemic respiratory failure, chronic: Code(s): J96.11 - Chronic respiratory failure with hypoxia Status: Acute Assessment and Plan: Patient on 2.5-3 L home oxygen chronically. Patient was able to be weaned down to better than her baseline. Home O2 evaluation showing she needs 1L at rest and 2L with exertion. She has a habit of turning up the O2 when she is short of breath despite normal SpO2. She was educated that she needs to instead sit and control breathing to improve symptoms and not increase her O2 unless she is hypoxic. She voices understanding of this. (4) Underweight: Code(s): R63.6 - Underweight Status: Acute Assessment and Plan: Patient with significant weight loss. BMI 16. Albumin normal. Probably pulmonary cachexia. Supplements were added. (5) CAD (coronary artery disease): Qualifiers: Coronary Disease-Associated Artery/Lesion type: [place] artery [place] vs. transplanted heart: [place] heart Associated angina: without angina Qualified Code(s): I25.10 - Atherosclerotic heart disease of [place] coronary artery without angina pectoris Code(s): I25.10 - Atherosclerotic heart disease of [place] coronary artery without angina pectoris Status: Chronic Assessment and Plan: Patient with coronary disease. Stable. EKG showing sinus rhythm with PVCs but no acute findings. We continued aspirin, Plavix, metoprolol and Crestor. (6) Anemia: Qualifiers: Anemia type: iron deficiency Iron deficiency anemia type: unspecified iron deficiency Qualified Code(s): D50.9 - Iron deficiency anemia, unspecified Code(s): D64.9 - Anemia, unspecified Status: Acute Assessment and Plan: Patient's hemoglobin was normal earlier this year but has been mostly in the 7-8 range since October. Hemoglobin was 10.7 on admission but has dropped to 8.8. No evidence of acute blood loss. Possibly mild iron deficiency anemia coupled with anemia of chronic disease by lab work performed at prior hospitalizations. Stool guaiac was negative earlier this month. Repeat Hgb 9.4. DS: Summary Hospital Course Reason for hospitalization: 66yo female with chronic
[2021-12-07 14:15] LABS: Pneumococcal Antigen Urine Not Detected (Not Detected)
--- NOTE | 2021-12-07 14:15 | PC.NURSE ---
Patient called to r/t Vancomycin in suspension is not available at [facility] and cannot be compounded there. This nurse notified the discharging physician. Per Dr. Juliana alan to give Vancomycin 125 mg capsule po daily x 10 days. Pharmacy made aware. Patient made aware.
[2021-12-07 20:28] LABS: Legionella pneumophila Ag Ur Not Detected (Not Detected)
--- NOTE | 2021-12-10 13:17 | PC.NURSE ---
Urine legionella and pneumococcal are both negative. Paige. Transferrin is WNL at 1.20. Dr. Juliana torres.
== END 2021-12-06 15:50 | disposition home or self-care (01) | DRG 190 ==
LOC: ANHED 18:38 → ANH3MEDSUR 21:22
PROVIDERS: Emergency Medicine; Admitting Provider Student in an Organized Health Care Education/Training Program; Emergency Provider Emergency Medicine; PCP Hospitalist; Visit Provider Internal Medicine
DX: J44.1 Chronic obstructive pulmonary disease with (acute) exacerbation (principal); J18.9 Pneumonia, unspecified organism; J96.11 Chronic respiratory failure with hypoxia; Z68.1 Body mass index [BMI] 19.9 or less, adult; R64 Cachexia; J44.0 Chronic obstructive pulmonary disease with (acute) lower respiratory infection; G25.81 Restless legs syndrome; E78.5 Hyperlipidemia, unspecified; Z87.891 Personal history of nicotine dependence; I25.10 Atherosclerotic heart disease of native coronary artery without angina pectoris; R63.6 Underweight; Z79.899 Other long term (current) drug therapy; I50.9 Heart failure, unspecified; Z99.81 Dependence on supplemental oxygen; Z79.82 Long term (current) use of aspirin; F03.90 Unspecified dementia, unspecified severity, without behavioral disturbance, psychotic disturbance, mood disturbance, and anxiety; Z20.822 Contact with and (suspected) exposure to COVID-19; D50.9 Iron deficiency anemia, unspecified
CPT/HCPCS: 36415; 36600; 71045; 71275; 80048; 80053; 80069; 82805; 83605; 83735; 83880; 84238; 84484; 85025; 85027; 85610; 85730; 86140; 87040; 87449; 87502; 87899; 92610; 92611; 93005; 94618; 94640; 94667; 94762; 96374; 99285; A9270; C9803; J0456; J0696; J1100; J1940; J2270; J7512; Q9967; U0003; U0005

== ENCOUNTER 2022-01-23 12:34 | Outpatient (CLI) | payer MEDICARE, SELFPAY ==
[2022-01-23 12:56] LABS: Basophils Absolute Auto 0.06 K/mm3 (0.00-0.10); Basophils Percent Auto 0.8 % (0.0-1.0); Eosinophils Absolute Auto 0.19 K/mm3 (0.02-0.50); Eosinophils Percent Auto 2.6 % (1.0-6.0); Hematocrit 37.8 % (35.0-42.0); Hemoglobin 12.3 g/dL (11.7-13.8); Immature Granulocyte Absolute 0.04 K/mm3 (0.00-0.00); Immature Granulocyte Percent A 0.6 % (0.0-0.0); Lymphocytes Absolute Auto 1.69 K/mm3 (1.10-4.50); Lymphocytes Percent Auto 23.4 % (18.0-42.0); Mean Corpuscular HGB Conc 32.5 g/dL (32.0-36.0); Mean Corpuscular Hemoglobin 31.1 pg (27.0-31.0); Mean Corpuscular Volume 95.7 fL (78.0-102.0); Mean Platelet Volume 9.3 fl (9.2-11.8); Monocytes Absolute Auto 0.59 K/mm3 (0.10-0.90); Monocytes Percent Auto 8.2 % (2.0-11.0); Neutrophils Absolute Auto 4.7 K/mm3 (1.7-7.2); Neutrophils Percent Auto 64.4 % (50.0-70.0); Platelet Count Result 191 K/mm3 (150-420); Red Blood Count 3.95 M/mm3 (4.20-5.40); Red Cell Distribution Width 14.5 % (11.6-14.4); White Blood Count 7.2 K/mm3 (4.8-10.8)
[2022-01-23 13:24] LABS: Alanine Aminotransferase 64 U/L (14-59); Alkaline Phosphatase 79 U/L (46-116); Anion Gap 3 mmol/L (8-16); Aspartate Amino Transferase 29 U/L (15-37); Bilirubin,Total 0.2 mg/dL (0.00-1.00); Blood Urea Nitrogen 24 mg/dL (7-18); Calcium 9.8 mg/dL (8.5-10.1); Carbon Dioxide 34 mmol/L (21-32); Chloride 103 mmol/L (98-108); Estimated Glomerular Filt Rate 45; Ferritin 110 ng/mL (8-252); Glucose 126 mg/dL (70-99); Iron 115 ug/dL (50-170); Osmolality Calculated 296 mOsm/kg (285-295); Potassium 4.1 mmol/L (3.5-5.1); Sodium 140 mmol/L (136-145); Total Protein 7.3 g/dL (6.4-8.2)
== END 2022-01-23 12:35 | disposition home or self-care (01) ==
LOC: CHSLAB 12:47
PROVIDERS: PCP Hospitalist
DX: D50.9 Iron deficiency anemia, unspecified (principal)
CPT/HCPCS: 36415; 80053; 82728; 83540; 85025

== ENCOUNTER 2022-01-26 08:57 | Outpatient (CLI) | payer MEDICARE, SELFPAY ==
--- NOTE | ~2022-01-26 | XR_ITS ---
EXAMINATION: XR chest 2V DATE: 01/26/2022 09:17 INDICATION: Pneumonia, shortness of breath TECHNIQUE: PA and lateral views of the chest are obtained. COMPARISON: 12/05/2021 FINDINGS: There is severe emphysema. Right lower lobe airspace opacities have largely resolved. There are persistent nodules in the right lower lobe. Coronary artery stents are noted. No pleural effusio n or pneumothorax. The cardiomediastinal silhouette is normal. There is mild thoracic spondylosis. IMPRESSION: 1. Largely resolved right lower lobe pneumonia with persistent nodules in the right lower lobe. Follo w-up with CT of the chest is recommended. Reviewed, dictated and finalized at location B. IMPRESSION: 1. Largely resolved right lower lobe pneumonia with persistent nodules in the r ight lower lobe. Follow-up with CT of the chest is recommended.
== END 2022-01-26 08:58 | disposition home or self-care (01) ==
LOC: CHSLAB 08:59
PROVIDERS: PCP Hospitalist
DX: J18.9 Pneumonia, unspecified organism (principal)
CPT/HCPCS: 71046

== ENCOUNTER 2022-03-04 09:17 | Outpatient (CLI) | payer MEDICARE, SELFPAY ==
--- NOTE | ~2022-03-04 | CT_ITS ---
EXAMINATION: CT diagnostic chest wo con DATE: 03/04/2022 09:32 INDICATION: Pneumonia of the right lung due to infectious organism TECHNIQUE: Computed tomography (CT) of the chest was performed without intravenous contrast. The dose -length product (DLP) was 131.75 mGy-cm. Automated exposure control and iterative reconstruction tech [employer] were employed. COMPARISON: 12/03/2021 FINDINGS: There is severe emphysema. There are persistent but resolving airspace opacities of the rig ht lower lobe. Previously seen nodular opacities within the areas of consolidation are no longer evid ent. No pleural effusion or pneumothorax. There is chronic mucous plugging in the medial right lung b ase with an appearance consistent with pulmonary sequestration. There is a persistent 1.9 x 1.0 cm no dule of the left upper lobe on image 60. No pathologically enlarged thoracic lymph nodes are identifi ed. The heart size is normal. There is calcified coronary artery atherosclerosis. The gallbladder is surgically absent. There are changes of anterior fusion procedure in the lower cervical spine. There is mild thoracic spondylosis. IMPRESSION: 1. Resolving right lower lobe pneumonia. 2. Persistent nodule in the left upper lobe which could be postinfectious however primary bronchogeni c carcinoma is a consideration. Reviewed, dictated and finalized at location A. IMPRESSION: 1. Resolving right lower lobe pneumonia. 2. Persistent nodule in the left upper lobe which could be [facility]infectious [facility] primary bronchogenic carcinoma is a consideration.
--- NOTE | 2022-03-04 14:55 | WPDPFTINT ---
PFT Procedure Performed PFT Procedure Performed Spirometry with Pre/Post Bronchodilator Plethysmography (Lung Vol) Flow Vol Loop PFT Interpretation DOS: 03/04/2022 REQUESTING: Dr. Edwards REASON FOR TESTING: COPD PULMONARY FUNCTION TESTS Results are reliable and reproducible. Spirometry: Pre bronchodilator FEV1 is 0.67 L, 35% predicted, extremely low. Pre bronchodilator FVC is 2.25 L, 85% predicted, normal. The FEV1:FVC ratio is 30% low consistent with airflow obstruction. After bronchodilator administration there is a 2% increase in FVC and a 1% decrease in FEV1, insignificant changes. Lung volumes: Total lung capacity is 149% predicted, 6.61 L, moderately increased. Residual volume is 249% predicted, 4.36 L, severe air trapping. FRC 5.44 L, increased, 186% predicted. Airway resistance increased, 830%. Diffusion: DLCO not performed due to technical problems with equipment. Flow volume loop: There is severe coving of the expiratory limb consistent with airflow obstruction. IMPRESSION: This study shows severe obstructive ventilatory impairment without response to bronchodilator, moderate hyperinflation and severe air trapping. Diffusion was not performed due to technical problems with the equipment. Lack of response to bronchodilator should not preclude use if clinically indicated. Anika Edwards MD
== END 2022-03-04 09:18 | disposition home or self-care (01) ==
LOC: CHSIMG 09:18
PROVIDERS: PCP Hospitalist; Visit Provider Internal Medicine Pulmonary Disease
DX: J18.9 Pneumonia, unspecified organism (principal); J44.9 Chronic obstructive pulmonary disease, unspecified
CPT/HCPCS: 71250; 94060; 94726

== ENCOUNTER 2022-03-24 13:51 | Emergency (ER) | payer MEDICARE, SELFPAY ==
[2022-03-24] VITALS (21 sets, daily range): BP systolic 140–168; BP diastolic 61–67; PULSE 84–103; RESP 14–30; TEMP 37.2; O2SAT 96–100
--- NOTE | ~2022-03-24 | CT_ITS ---
EXAMINATION: CTA chest PE protocol DATE: 03/24/2022 15:58 INDICATION: Shortness of breath. Right-sided back pain. TECHNIQUE: Computed tomography angiography (CTA) of the chest was performed with 80 mL Omnipaque-350 intravenous contrast timed to evaluate the pulmonary arteries. Coronal maximum intensity projection 3 D-reconstructions were created by the technologist. Automated exposure control and iterative reconstr uction technique were employed. The dose-length product was 160.73 mGy-cm. COMPARISON: Chest CT 03/04/2022, 06/03/21, 12/03/21 FINDINGS: There is severe emphysema. There is chronic bronchiectasis and mucous plugging in medial ri ght lung base without normal bronchial tree communication, consistent with pulmonary sequestration. T here are airspace opacities and tree-in-bud opacities in right lower lobe, consistent with pneumonia. There are centrilobular nodules and groundglass opacities in left lower lobe, consistent with pneumo mega. There is a 13 mm nodule in left upper lobe. No pleural effusion. The heart size is normal. There are coronary artery calcifications. No pericardial effusion. There is no pulmonary embolus. There ar e changes of cholecystectomy. There is kyphosis and mild spondylosis of thoracic spine. There are kennedi nges of anterior fusion procedure in cervical spine. IMPRESSION: 1. Pneumonia involving the lower lobes, right worse than left. 2. 13 mm nodule in left lung upper lobe, stable from 12/03/2021 and new from 05/26/2021. This finding is likely infection, but malignancy cannot be excluded. 3. Severe emphysema. 4. Chronic bronchiectasis and mucous plugging in medial right lung base without normal bronchial tree communication, consistent with pulmonary sequestration. 5. No pulmonary embolus. Reviewed, dictated and finalized at location A. IMPRESSION: 1. Pneumonia involving the lower lobes, right worse than left. 2. 13 mm nodule in left lung upper lobe, stable from 12/03/2021 and new from 12/ . This finding is likely infection, but malignancy cannot be excluded. 3. Severe emphysema. 4. Chronic bronchiectasis and mucous plugging in medial right lung base without normal bronchial tree communication, consistent with pulmonary sequestration. 5. No pulmonary embolus.
--- NOTE | ~2022-03-24 | XR_ITS ---
EXAMINATION: XR chest 2V DATE: 03/24/2022 14:23 INDICATION: Dyspnea TECHNIQUE: PA and lateral views of the chest were obtained. COMPARISON: Chest radiograph dated 01/26/[address] dated 03/04/2022 FINDINGS: Again seen is severe emphysema with upper lung predominant hyperexpansion with increased lucency and architectural distortion. Linear and patchy airspace opacities in the right lower lung zone which roderick ears slightly increased in the posterior lower lung zone which could represent atelectasis or pneumon ia. No pulmonary edema, pleural effusion or pneumothorax. The cardiomediastinal silhouette is normal. Lower cervical anterior spinal fusion with anterior plate and screw fixation. Cholecystectomy clips in the right upper quadrant. IMPRESSION: 1. Persistent opacities in the right lower lung zone with some increase posteriorly which could repre sent atelectasis and/or pneumonia. 2. Emphysema. Reviewed, dictated and finalized at location A. IMPRESSION: 1. Persistent opacities in the right lower lung zone with some increase posteri oliver which could represent atelectasis and/or pneumonia. 2. Emphysema.
--- NOTE | 2022-03-24 14:01 | ED.SOB ---
HPI - SOB/Dyspnea General Chief Complaint: Shortness of Breath/Dyspnea Stated Complaint: side pain sob Time Seen by Provider: 03/24/22 13:53 Source: patient and RN notes reviewed Mode of arrival: ambulatory Limitations: no limitations History of Present Illness MD elicited complaint: shortness of breath and anxiety ( Pain on the right side of her back rib area) Pertinent past history: COPD Onset (ago): hour(s) (6) Timing: constant Severity: moderate Exacerbating factors: deep breaths Relieving factors: nothing Known history of: COPD Associated symptoms: denies other symptoms Treatment prior to arrival: none Related Data Home oxygen amount: 3 liters Home Medications Medication Instructions Recorded Confirmed pregabalin 150 mg capsule 150 mg PO BID 06/04/21 03/24/22 ropinirole 0.5 mg tablet 1 mg PO HS 06/04/21 03/24/22 solifenacin 5 mg tablet 5 mg PO DAILY 06/04/21 03/24/22 trazodone 50 mg tablet 100 mg PO DAILY 06/04/21 03/24/22 zolpidem 10 mg tablet 10 mg PO HS PRN Sleep 06/04/21 03/24/22 gcwpxujcpm-tkvzmozxrtcyi-jvgiuldy 50 tablet PO QID PRN Pain 09/03/21 03/24/22 50 mg-325 mg-40 mg tablet clonazepam 0.5 mg tablet 0.5 mg PO DAILY 09/03/21 03/24/22 denosumab 60 mg/mL subcutaneous 60 mg subcut [id number] 09/03/21 03/24/22 syringe clopidogrel 75 mg tablet 75 mg PO DAILY 09/05/21 03/24/22 isosorbide mononitrate 30 mg 30 mg PO DAILY 09/05/21 03/24/22 tablet,extended release 24 hr metoprolol tartrate 25 mg tablet 25 mg PO BID 09/05/21 03/24/22 nitroglycerin 0.4 mg sublingual 0.4 mg sublingual Q5MIN PRN Chest 09/05/21 03/24/22 tablet Pain albuterol sulfate 90 mcg/actuation 2 puff inhalation Q4-6H PRN 09/12/21 03/24/22 aerosol inhaler (ProAir HFA) shortness of breath ondansetron 4 mg disintegrating 8 mg PO Q8H PRN Nausea And Vomiting 11/16/21 03/24/22 tablet rosuvastatin 10 mg tablet (Crestor) 20 mg PO DAILY 11/16/21 03/24/22 ipratropium 0.5 mg-albuterol 3 mg 3 ml inhalation Q6H PRN Wheezing 12/02/21 03/24/22 (2.5 mg base)/3 mL nebulization soln omeprazole 40 mg capsule,delayed 40 mg PO DAILY 12/02/21 03/24/22 release oxycodone-acetaminophen 5 mg-325 1 tablet PO TID PRN Pain 12/03/21 03/24/22 mg tablet amlodipine 2.5 mg tablet 5 mg PO DAILY 02/03/22 03/24/22 hydroxychloroquine 200 mg tablet 100 mg PO DAILY 02/03/22 03/24/22 Allergies Allergy/AdvReac Type Severity Reaction Status Date / Time Penicillins AdvReac Gastrointestinal Verified 03/24/22 14:02 Upset Sulfa (Sulfonamide AdvReac Unknown Verified 03/24/22 14:02 Antibiotics) Review of Systems Review of Systems: All systems reviewed & are unremarkable except as noted in HPI and below Constitutional: Constitutional: Denies chills, Denies excessive sweating and Denies fever(s) Cardiovascular: Cardiovascular: Denies chest pain Respiratory: Respiratory: Reports cough ( no more than usual) Gastrointestinal: Gastrointestinal: Denies nausea and Denies vomiting PMFSH Past Medical History Medical History Abnormal digestive system diagnostic imaging Age-related osteoporosis without current pathological fracture Altered mental status Anxiety Cataracts, bilateral developing CHF (congestive heart failure) Echo 06/03/2021: Normal EF 60-65%, global longitudinal strain abnormal-14%, diastolic dysfunction grade 1, E/E tendon is mildly elevated, elevated right atrial pressures at 10mmHg COPD (chronic obstructive pulmonary disease) Degenerative joint disease (DJD) of lumbar spine Generalized osteoarthritis of multiple sites Hypercholesteremia ADALID (iron deficiency anemia) Lupus Mild cognitive impairment with memory loss Restless leg syndrome Undifferentiated connective tissue disease Surgical History Surgical History H/O hysterectomy for benign disease History of heart artery stent (06/23/21) High-grade stenosis near ostial LAD stented
[2022-03-24 14:40] LABS: Basophils Absolute Auto 0.03 K/mm3 (0.00-0.10); Basophils Percent Auto 0.3 % (0.0-1.0); Eosinophils Absolute Auto 0.04 K/mm3 (0.02-0.50); Eosinophils Percent Auto 0.4 % (1.0-6.0); Hematocrit 33.5 % (35.0-42.0); Hemoglobin 11.3 g/dL (11.7-13.8); Immature Granulocyte Absolute 0.05 K/mm3 (0.00-0.00); Immature Granulocyte Percent A 0.5 % (0.0-0.0); Lymphocytes Absolute Auto 1.23 K/mm3 (1.10-4.50); Lymphocytes Percent Auto 11.9 % (18.0-42.0); Mean Corpuscular HGB Conc 33.7 g/dL (32.0-36.0); Mean Corpuscular Volume 91.8 fL (78.0-102.0); Mean Platelet Volume 9.1 fl (9.2-11.8); Monocytes Absolute Auto 1.05 K/mm3 (0.10-0.90); Monocytes Percent Auto 10.2 % (2.0-11.0); Neutrophils Absolute Auto 7.9 K/mm3 (1.7-7.2); Neutrophils Percent Auto 76.7 % (50.0-70.0); Platelet Count Result 163 K/mm3 (150-420); Red Blood Count 3.65 M/mm3 (4.20-5.40); Red Cell Distribution Width 13.5 % (11.6-14.4); White Blood Count 10.3 K/mm3 (4.8-10.8)
[2022-03-24 14:43] LABS: Base Excess ABG 6.4 mmol/L (0-2); HCO3 ABG 32.6 mmol/L (23-29); Oxygen Content ABG 16.8 %vol (16.0-22.0); Oxygen Saturation ABG 97.6 % (95-97); Oxyhemoglobin 97.1 % (94-100); PCO2 ABG 54.4 mmHg (35-45); PO2 ABG 116.1 mmHg (75-85); Total Hemoglobin 12.2 g/dL (12.0-18.0)
[2022-03-24 14:45] LABS: Device NASAL CANNULA; Modified Allen's Test Pass; Site Drawn RIGHT RADIAL
[2022-03-24 15:05] LABS: Alanine Aminotransferase 21 U/L (14-59); Albumin Level 3.5 g/dL (3.4-5.0); Alkaline Phosphatase 85 U/L (46-116); Anion Gap 9 mmol/L (8-16); Aspartate Amino Transferase 15 U/L (15-37); Bilirubin,Total 0.5 mg/dL (0.00-1.00); Blood Urea Nitrogen 24 mg/dL (7-18); Calcium 9.5 mg/dL (8.5-10.1); Carbon Dioxide 35 mmol/L (21-32); Chloride 99 mmol/L (98-108); Estimated CRCL calculation 34 ml/min; Estimated Glomerular Filt Rate > 60; Glucose 139 mg/dL (70-99); Magnesium 1.7 mg/dL (1.8-2.4); NT Pro B Type Natriuretic Pept 550 pg/mL (0-125); Osmolality Calculated 302 mOsm/kg (285-295); Potassium 3.1 mmol/L (3.5-5.1); Sodium 143 mmol/L (136-145); Troponin I 12.4 ng/L (0.00-60.4)
--- NOTE | 2022-03-24 15:20 | PC.NURSE ---
lab resulted d dimer of 1.0 erp was notified and ct was ordered. iv site established without difficulty. pt denies any needs or complaints. will continue to monitor. nad noted.
--- NOTE | 2022-03-24 15:52 | PC.NURSE ---
pt is in ct at this time.
[2022-03-24] MEDS: IPRATROPIUM 0.5 MG/ALBUTEROL SULFATE 2.5 MG AMPUL.NEB 3 ML INHALATION (16:21)
--- NOTE | 2022-03-24 16:44 | PC.NURSE ---
attempted to flush rt ear, no results. erp notified, at bedside attempting to clear rt ear of wax. will continue to monitor.
[2022-03-24] MEDS: methylPREDNISolone SOD SUCC 125 MG VIAL IV PUSH (16:55)
== END 2022-03-24 16:55 | disposition home or self-care (01) ==
PROVIDERS: Emergency Provider Emergency Medicine; PCP Hospitalist
DX: J44.0 Chronic obstructive pulmonary disease with (acute) lower respiratory infection (principal); J18.9 Pneumonia, unspecified organism; I50.9 Heart failure, unspecified; E78.00 Pure hypercholesterolemia, unspecified; D50.9 Iron deficiency anemia, unspecified; M32.9 Systemic lupus erythematosus, unspecified; M81.0 Age-related osteoporosis without current pathological fracture; Z95.5 Presence of coronary angioplasty implant and graft; Z87.891 Personal history of nicotine dependence; Z79.02 Long term (current) use of antithrombotics/antiplatelets; Z79.51 Long term (current) use of inhaled steroids; Z79.891 Long term (current) use of opiate analgesic
CPT/HCPCS: 36415; 36600; 71046; 71275; 80053; 82805; 83735; 83880; 84484; 85025; 85380; 94640; 96374; 99284; J2930; Q9967

== ENCOUNTER 2022-06-04 17:57 | Emergency (ER) | payer MEDICARE, SELFPAY ==
[2022-06-04] VITALS (8 sets, daily range): BP systolic 122–130; BP diastolic 61–88; PULSE 77–89; RESP 18–24; TEMP 36.9–37; O2SAT 97–98
--- NOTE | ~2022-06-04 | XR_ITS ---
EXAMINATION: XR chest 1V portable DATE: 06/04/2022 20:58 INDICATION: Dyspnea. TECHNIQUE: A single frontal view of the chest was obtained. COMPARISON: Chest 2 views 03/24/2022, chest CT 03/24/2022 FINDINGS: The lungs are hyperexpanded with lucencies and architectural distortion, consistent with em physema. There are mild airspace opacities in right lower lung zone and left midlung zone. No pleural effusion or pneumothorax. The heart size is normal. There are changes of anterior fusion procedure i n cervical spine. Surgical clips in the right upper quadrant are likely from cholecystectomy. IMPRESSION: 1. Mild airspace opacities in right lower lung zone and left midlung zone, consistent with atelectasi s/scarring versus pneumonia. 2. Severe emphysema. Reviewed, dictated and finalized at location A. [employer] WORKER IMPRESSION: 1. Mild airspace opacities in right lower lung zone and left midlung zone, cons istent with atelectasis/scarring versus pneumonia. 2. Severe emphysema.
[2022-06-04] MEDS: IPRATROPIUM 0.5 MG/ALBUTEROL SULFATE 2.5 MG AMPUL.NEB 3 ML INHALATION ×2 (18:44→20:17)
[2022-06-04 19:14] LABS: Influenza A QL RT-PCR Negative (Negative); Influenza B QL RT-PCR Negative (Negative); RSV RNA, RT-PCR Negative (Negative); SARS-CoV-2 RNA PCR Negative (Negative)
--- NOTE | 2022-06-04 20:12 | ED.GENADULT ---
HPI - General Adult General Chief complaint: Upper Respiratory Infection Stated complaint: trouble breathing History of Present Illness HPI narrative: The patient is a 66-year-old woman weighs 40 kg with a history of COPD from prior cigarette use, on 1.5 L oxygen at night, on 2.5 L in the daytime. comorbidities also includes CHF, coronary artery disease status post [place], and lupus. She presents with increasing shortness of breath and a dry cough from the early afternoon today, with occasional wheezing and a scratchy sensation in her throat. No fevers or chills or diaphoresis. No rhinorrhea or nasal congestion. No chest pain or abdominal pain or nausea or vomiting. No pedal edema. No sick contacts. Related Data Home Medications Medication Instructions Recorded Confirmed pregabalin 150 mg capsule 150 mg PO BID 06/04/21 06/04/22 ropinirole 0.5 mg tablet 1 mg PO HS 06/04/21 06/04/22 solifenacin 5 mg tablet 5 mg PO DAILY 06/04/21 06/04/22 trazodone 50 mg tablet 100 mg PO DAILY 06/04/21 06/04/22 zolpidem 10 mg tablet 10 mg PO HS PRN Sleep 06/04/21 06/04/22 asrioxntib-oqaedzhcurhor-xblehirs 50 tablet PO QID PRN Pain 09/03/21 06/04/22 50 mg-325 mg-40 mg tablet clonazepam 0.5 mg tablet 0.5 mg PO DAILY 09/03/21 06/04/22 clopidogrel 75 mg tablet 75 mg PO DAILY 09/05/21 06/04/22 isosorbide mononitrate 30 mg 30 mg PO DAILY 09/05/21 06/04/22 tablet,extended release 24 hr metoprolol tartrate 25 mg tablet 25 mg PO BID 09/05/21 06/04/22 nitroglycerin 0.4 mg sublingual 0.4 mg sublingual Q5MIN PRN Chest 09/05/21 06/04/22 tablet Pain albuterol sulfate 90 mcg/actuation 2 puff inhalation Q4-6H PRN 09/12/21 06/04/22 aerosol inhaler (ProAir HFA) shortness of breath ondansetron 4 mg disintegrating 8 mg PO Q8H PRN Nausea And Vomiting 11/16/21 06/04/22 tablet rosuvastatin 10 mg tablet (Crestor) 20 mg PO DAILY 11/16/21 06/04/22 ipratropium 0.5 mg-albuterol 3 mg 3 ml inhalation Q6H PRN Wheezing 12/02/21 06/04/22 (2.5 mg base)/3 mL nebulization soln omeprazole 40 mg capsule,delayed 40 mg PO DAILY 12/02/21 06/04/22 release oxycodone-acetaminophen 5 mg-325 1 tablet PO TID PRN Pain 12/03/21 06/04/22 mg tablet amlodipine 2.5 mg tablet 5 mg PO DAILY 02/03/22 06/04/22 hydroxychloroquine 200 mg tablet 100 mg PO DAILY 02/03/22 06/04/22 Allergies Allergy/AdvReac Type Severity Reaction Status Date / Time Penicillins AdvReac Gastrointestinal Verified 06/04/22 18:27 Upset Sulfa (Sulfonamide AdvReac Unknown Verified 06/04/22 18:27 Antibiotics) Review of Systems Review of Systems: All systems reviewed & are unremarkable except as noted in HPI and below Constitutional: Constitutional: Reports no additional constitutional complaints, Denies anorexia, Denies body ache(s), Denies chills, Denies excessive sweating, Denies fatigue, Denies fever(s), Denies frequent falls, Denies headache(s), Denies malaise and Denies poor appetite Eyes: Eyes: Reports no additional eye complaints, Denies blurry vision, Denies change in vision, Denies irritation, Denies itchy eyes and Denies photophobia ENT: Reports system reviewed and no additional complaints, except as documented, Reports Normal hearing present, Denies change in voice, Denies dysphagia, Denies vertigo, Denies dizziness, Denies ear discharge, Denies headache(s), Denies hearing loss, Denies hoarseness, Denies nasal congestion, Denies neck pain, Denies sinus pressure, Reports sore throat and Denies throat swelling Cardiovascular: Cardiovascular: Reports no additional cardiovascular complaints, Denies chest pain, Denies syncope, Denies rapid heart rate, Denies irregular heart rhythm, Denies leg edema, Denies dyspnea and Denies slow heart rate Respiratory: Respiratory: Reports no additional respiratory complaints, Reports cough, Reports dyspnea, Denies stridor and Reports wheezing Gastrointestinal: Gastrointestinal: Reports no additional gastrointestinal complaints, Denies abdominal pain, Denies m
[2022-06-04] MEDS: methylPREDNISolone SOD SUCC 40 MG VIAL 60 MG IV PUSH (20:17)
[2022-06-04] MEDS: MAGNESIUM SULF 2 GM/WATER 50ML 2 GM/50 ML BAG IVPB (20:17)
[2022-06-04 20:44] LABS: Base Excess ABG 1.6 mmol/L (0-2); HCO3 ABG 26.7 mmol/L (23-29); Oxygen Content ABG 16.4 %vol (16.0-22.0); Oxygen Saturation ABG 98.3 % (95-97); Oxyhemoglobin 95.5 % (94-100); PO2 ABG 144.6 mmHg (75-85)
[2022-06-04 20:46] LABS: Basophils Absolute Auto 0.04 K/mm3 (0.00-0.10); Basophils Percent Auto 0.4 % (0.0-1.0); Eosinophils Absolute Auto 0.01 K/mm3 (0.02-0.50); Eosinophils Percent Auto 0.1 % (1.0-6.0); Hematocrit 33.7 % (35.0-42.0); Hemoglobin 11.2 g/dL (11.7-13.8); Immature Granulocyte Absolute 0.06 K/mm3 (0.00-0.00); Immature Granulocyte Percent A 0.5 % (0.0-0.0); Lymphocytes Absolute Auto 1.26 K/mm3 (1.10-4.50); Lymphocytes Percent Auto 11.1 % (18.0-42.0); Mean Corpuscular HGB Conc 33.2 g/dL (32.0-36.0); Mean Corpuscular Hemoglobin 31.2 pg (27.0-31.0); Mean Corpuscular Volume 93.9 fL (78.0-102.0); Mean Platelet Volume 9.1 fl (9.2-11.8); Monocytes Absolute Auto 0.72 K/mm3 (0.10-0.90); Monocytes Percent Auto 6.3 % (2.0-11.0); Neutrophils Absolute Auto 9.3 K/mm3 (1.7-7.2); Neutrophils Percent Auto 81.6 % (50.0-70.0); Platelet Count Result 163 K/mm3 (150-420); Red Blood Count 3.59 M/mm3 (4.20-5.40); White Blood Count 11.4 K/mm3 (4.8-10.8)
[2022-06-04 20:47] LABS: Modified Allen's Test Pass; Site Drawn RIGHT RADIAL
[2022-06-04 20:48] LABS: Device OTHER DEVICE
[2022-06-04 21:01] LABS: D Dimer 0.32 mg/L (0.19-0.50)
[2022-06-04 21:07] LABS: Lactic Acid Reflex 1.3 mmol/L (0.4-2.0)
[2022-06-04 21:09] LABS: Alanine Aminotransferase 13 U/L (14-59); Albumin Level 3.8 g/dL (3.4-5.0); Alkaline Phosphatase 85 U/L (46-116); Anion Gap 4 mmol/L (8-16); Aspartate Amino Transferase 17 U/L (15-37); Bilirubin,Total 0.3 mg/dL (0.00-1.00); Blood Urea Nitrogen 19 mg/dL (7-18); CRP 1.4 mg/dL (0.0-0.9); Calcium 9.5 mg/dL (8.5-10.1); Carbon Dioxide 35 mmol/L (21-32); Chloride 103 mmol/L (98-108); Estimated CRCL calculation 36 ml/min; Estimated Glomerular Filt Rate > 60; Glucose 109 mg/dL (70-99); Magnesium 1.4 mg/dL (1.8-2.4); NT Pro B Type Natriuretic Pept 316 pg/mL (0-125); Osmolality Calculated 297 mOsm/kg (285-295); Potassium 3.5 mmol/L (3.5-5.1); Sodium 142 mmol/L (136-145); Total Protein 6.9 g/dL (6.4-8.2); Troponin I 5.7 ng/L (0.00-60.4)
[2022-06-04] MEDS: AZITHROMYCIN 250 MG TABLET 500 MG PO (21:44)
[2022-06-04] MEDS: IPRATROPIUM 0.5 MG/ALBUTEROL SULFATE 2.5 MG AMPUL.NEB 3 ML (21:44)
[2022-06-04 22:12] LABS: Erythrocyte Sedimentation Rate 27 mm/hr (0-20)
== END 2022-06-04 23:51 | disposition home or self-care (01) ==
PROVIDERS: Emergency Provider Emergency Medicine
DX: J44.1 Chronic obstructive pulmonary disease with (acute) exacerbation (principal); E83.42 Hypomagnesemia; Z99.81 Dependence on supplemental oxygen; I25.10 Atherosclerotic heart disease of native coronary artery without angina pectoris; I50.9 Heart failure, unspecified; I25.2 Old myocardial infarction; M32.9 Systemic lupus erythematosus, unspecified; D64.9 Anemia, unspecified; M81.0 Age-related osteoporosis without current pathological fracture; F41.9 Anxiety disorder, unspecified; E78.00 Pure hypercholesterolemia, unspecified; G25.81 Restless legs syndrome; M15.0 Primary generalized (osteo)arthritis; Z79.02 Long term (current) use of antithrombotics/antiplatelets; Z79.51 Long term (current) use of inhaled steroids; Z79.891 Long term (current) use of opiate analgesic; Z87.891 Personal history of nicotine dependence; Z20.822 Contact with and (suspected) exposure to COVID-19
CPT/HCPCS: 36415; 36600; 71045; 80053; 82805; 83605; 83735; 83880; 84484; 85025; 85380; 85652; 86140; 87637; 94640; 96365; 96367; 96375; 99284; A9270; J0696; J2920; J3475

== ENCOUNTER 2022-09-02 10:27 | Outpatient (CLI) | payer MEDICARE, SELFPAY ==
--- NOTE | ~2022-09-02 | CT_ITS ---
CT Scan of the Chest without Contrast: Clinical Indication: Left upper lobe nodule, shortness of breath Technique: Contiguous sections were acquired throughout the chest without intravenous contrast. Dose reduction technique was used on this scan by utilizing automated exposure control and iterative recon struction technique. The dose-length product (DLP) was 130.86 mGy-cm. COMPARISON: 03/24/2022 Findings: There is no evidence of any significant mediastinal, hilar or axillary lymphadenopathy. Coronary flor ry calcifications are present. There are atherosclerotic calcifications of the aorta. There is no evidence of pleural or pericardial effusion. Severe emphysema noted. There is an enlarging left upper lobe spiculated nodule, now measuring approx imately 2.5 x 2.0 cm in size (axial image 54, coronal image 31). There are stable nodular opacities i n the right lung base with possible focal bronchiectatic change. Right basilar pulmonary scarring is present. Images through the upper abdomen reveal no abnormalities. Impression: Increasing spiculated left upper lobe pulmonary nodule, now measuring 2.5 x 2.0 cm. This is highly abreu spicious for bronchogenic carcinoma. Tissue sampling should be strongly considered to establish a his tologic diagnosis.. Severe COPD/emphysema. Stable nodular opacities with probable atelectatic change at the right lung base. Reviewed, dictated and finalized at location . Impression: Increasing spiculated left upper lobe pulmonary nodule, now measuring 2.5 x 2.0 cm. This is highly suspicious for bronchogenic carcinoma. Tissue sampling shou ld be strongly considered to establish a histologic diagnosis.. Severe COPD/emphysema. Stable nodular opacities with probable atelectatic change at the right lung bas e.
== END 2022-09-02 10:28 | disposition home or self-care (01) ==
PROVIDERS: PCP Hospitalist; Visit Provider Internal Medicine Pulmonary Disease
DX: R91.1 Solitary pulmonary nodule (principal); R06.02 Shortness of breath; J44.9 Chronic obstructive pulmonary disease, unspecified; R91.8 Other nonspecific abnormal finding of lung field
CPT/HCPCS: 71250

== ENCOUNTER 2022-09-08 16:10 | Emergency (ER) | payer MEDICARE, SELFPAY ==
[2022-09-08] VITALS (17 sets, daily range): BP systolic 103–141; BP diastolic 47–73; PULSE 75–88; RESP 16–27; TEMP 36.7; O2SAT 89–100
--- NOTE | ~2022-09-08 | XR_ITS ---
EXAMINATION: XR chest 2V Exam Date/Time: 09/08/2022 17:15 CDT HISTORY: SOB, LEFT CHEST PAIN, WET PRODUCTIVE COUGH SINCE YESTERDAY. Comparison: CT chest 09/02/2022. RESULT: Lines, tubes, and devices: Cervical fusion hardware. Coronary artery stent. Lungs and pleura: Subsegmental posterior bibasilar opacities. Similar spiculated left midlung nodule . Stable right lower lung nodular opacities and basilar scarring. Emphysematous and senescent change. No effusion or pneumothorax. Cardiomediastinal silhouette: Stable. Other: No acute osseous or upper abdominal finding. IMPRESSION: Dependent and inferior opacities may represent atelectasis, consolidation, possibly aspiration. Spicu lated left lung nodule, prior recommendation for tissue sampling is unchanged. Reviewed, dictated and finalized at location K. IMPRESSION: Dependent and inferior opacities may represent atelectasis, consolidation, poss ibly aspiration. Spiculated left lung nodule, prior recommendation for tissue s ampling is unchanged.
--- NOTE | 2022-09-08 16:12 | ED.CHESTPAIN ---
HPI - Chest Pain General Chief Complaint: Shortness of Breath/Dyspnea Stated Complaint: chest pain Time Seen by Provider: 09/08/22 16:12 Source: patient and RN notes reviewed Mode of arrival: ambulatory Limitations: no limitations History of Present Illness HPI narrative: Patient states she had increased cough starting yesterday. Then she had some chest discomfort on the left side. She is concerned because she has had a previous MN. She has very severe COPD he recently had a CT scan of her chest which showed a new possible malignant nodule in her left lung. She is scheduled to have another test done but has not got that scheduled yet. MD complaint: chest discomfort Pertinent past history: prior MN Onset (ago): day(s) (1) Timing of current episode: constant Prior episodes: Yes Onset: during rest Pain location: left chest Pain radiation: none Severity: mild Quality: aching and dull Relieving factors: nothing Exacerbating factors: other (coughing) Associated symptoms: dyspnea Treatment prior to arrival: none Risk Factors Coronary artery disease risk factors: smoking history and hypertension Related Data Home Medications Medication Instructions Recorded Confirmed pregabalin 150 mg capsule 150 mg PO BID 06/04/21 06/04/22 ropinirole 0.5 mg tablet 1 mg PO HS 06/04/21 06/04/22 solifenacin 5 mg tablet 5 mg PO DAILY 06/04/21 06/04/22 trazodone 50 mg tablet 100 mg PO DAILY 06/04/21 06/04/22 zolpidem 10 mg tablet 10 mg PO HS PRN Sleep 06/04/21 06/04/22 ozmukhvoff-gsfrotncgtuwm-potfvtlv 50 tablet PO QID PRN Pain 09/03/21 06/04/22 50 mg-325 mg-40 mg tablet clonazepam 0.5 mg tablet 0.5 mg PO DAILY 09/03/21 06/04/22 clopidogrel 75 mg tablet 75 mg PO DAILY 09/05/21 06/04/22 isosorbide mononitrate 30 mg 30 mg PO DAILY 09/05/21 06/04/22 tablet,extended release 24 hr metoprolol tartrate 25 mg tablet 25 mg PO BID 09/05/21 06/04/22 nitroglycerin 0.4 mg sublingual 0.4 mg sublingual Q5MIN PRN Chest 09/05/21 06/04/22 tablet Pain albuterol sulfate 90 mcg/actuation 2 puff inhalation Q4-6H PRN 09/12/21 06/04/22 aerosol inhaler (ProAir HFA) shortness of breath ondansetron 4 mg disintegrating 8 mg PO Q8H PRN Nausea And Vomiting 11/16/21 06/04/22 tablet rosuvastatin 10 mg tablet (Crestor) 20 mg PO DAILY 11/16/21 06/04/22 ipratropium 0.5 mg-albuterol 3 mg 3 ml inhalation Q6H PRN Wheezing 12/02/21 06/04/22 (2.5 mg base)/3 mL nebulization soln omeprazole 40 mg capsule,delayed 40 mg PO DAILY 12/02/21 06/04/22 release oxycodone-acetaminophen 5 mg-325 1 tablet PO TID PRN Pain 12/03/21 06/04/22 mg tablet amlodipine 2.5 mg tablet 5 mg PO DAILY 02/03/22 06/04/22 hydroxychloroquine 200 mg tablet 100 mg PO DAILY 02/03/22 06/04/22 Allergies Allergy/AdvReac Type Severity Reaction Status Date / Time Penicillins AdvReac Gastrointestinal Verified 09/08/22 16:18 Upset Sulfa (Sulfonamide AdvReac Unknown Verified 09/08/22 16:18 Antibiotics) Review of Systems Review of Systems: All systems reviewed & are unremarkable except as noted in HPI and below Constitutional: Constitutional: Denies chills, Denies excessive sweating and Denies fever(s) ENT: Denies dizziness Gastrointestinal: Gastrointestinal: Denies nausea and Denies vomiting PMFSH Past Medical History Medical History Abnormal digestive system diagnostic imaging Age-related osteoporosis without current pathological fracture Altered mental status Anxiety Cataracts, bilateral developing CHF (congestive heart failure) Echo 06/03/2021: Normal EF 60-65%, global longitudinal strain abnormal-14%, diastolic dysfunction grade 1, E/E tendon is mildly elevated, elevated right atrial pressures at 10mmHg COPD (chronic obstructive pulmonary disease) Degenerative joint disease (DJD) of lumbar spine Generalized osteoarthritis of multiple sites Hypercholesteremia ADALID (iron deficiency anemia) Lupus Mild cognitive impairment wit
--- NOTE | 2022-09-08 16:14 | ECG_ITS ---
Measurements Intervals [place] Rate: 85 P: 87 GA: 152 QRS: 66 QRSD: 95 T: 79 QT: 374 QTc: 447 Interpretive Statements SINUS RHYTHM NORMAL ECG COMPARED TO ECG 12/02/2021 19:23:13 NO SIGNIFICANT CHANGES Electronically Signed On 09-09-2022 13:58:14 CDT by Manish Abdi M.D.
[2022-09-08 16:30] LABS: Basophils Absolute Auto 0.04 K/mm3 (0.00-0.10); Basophils Percent Auto 0.8 % (0.0-1.0); Eosinophils Absolute Auto 0.16 K/mm3 (0.02-0.50); Hematocrit 30.6 % (35.0-42.0); Immature Granulocyte Absolute 0.01 K/mm3 (0.00-0.00); Immature Granulocyte Percent A 0.2 % (0.0-0.0); Lymphocytes Absolute Auto 0.93 K/mm3 (1.10-4.50); Lymphocytes Percent Auto 17.6 % (18.0-42.0); Mean Corpuscular HGB Conc 32.7 g/dL (32.0-36.0); Mean Corpuscular Hemoglobin 31.8 pg (27.0-31.0); Mean Corpuscular Volume 97.5 fL (78.0-102.0); Mean Platelet Volume 9.7 fl (9.2-11.8); Monocytes Absolute Auto 0.43 K/mm3 (0.10-0.90); Monocytes Percent Auto 8.2 % (2.0-11.0); Neutrophils Absolute Auto 3.7 K/mm3 (1.7-7.2); Neutrophils Percent Auto 70.2 % (50.0-70.0); Platelet Count Result 134 K/mm3 (150-420); Red Blood Count 3.14 M/mm3 (4.20-5.40); Red Cell Distribution Width 12.6 % (11.6-14.4); White Blood Count 5.3 K/mm3 (4.8-10.8)
[2022-09-08 16:45] LABS: Partial Thromboplastin Time 27.1 SEC (23.90-30.70); Prothrombin Time 10.6 Seconds (9.50-12.10)
[2022-09-08] MEDS: IPRATROPIUM 0.5 MG/ALBUTEROL SULFATE 2.5 MG AMPUL.NEB 3 ML INHALATION (16:46)
[2022-09-08 16:49] LABS: Troponin I 4.9 ng/L (0.00-60.4)
[2022-09-08 16:53] LABS: Alanine Aminotransferase 18 U/L (14-59); Albumin Level 3.4 g/dL (3.4-5.0); Alkaline Phosphatase 71 U/L (46-116); Anion Gap 2 mmol/L (8-16); Aspartate Amino Transferase 17 U/L (15-37); Bilirubin,Total 0.2 mg/dL (0.00-1.00); Blood Urea Nitrogen 27 mg/dL (7-18); Calcium 9.2 mg/dL (8.5-10.1); Carbon Dioxide 40 mmol/L (21-32); Chloride 105 mmol/L (98-108); Estimated CRCL calculation 26 ml/min; Estimated Glomerular Filt Rate 49; Glucose 141 mg/dL (70-99); NT Pro B Type Natriuretic Pept 56 pg/mL (0-125); Osmolality Calculated 311 mOsm/kg (285-295); Potassium 3.7 mmol/L (3.5-5.1); Sodium 147 mmol/L (136-145); Total Protein 6.4 g/dL (6.4-8.2)
--- NOTE | 2022-09-08 17:10 | PC.NURSE ---
PT IS GOING TO RAD AT THIS TIME. WILL CONTINUE TO MONITOR.
[2022-09-08] MEDS: methylPREDNISolone SOD SUCC 125 MG VIAL IM (18:08)
== END 2022-09-08 18:15 | disposition home or self-care (01) ==
PROVIDERS: Emergency Provider Emergency Medicine; PCP Hospitalist
DX: J40 Bronchitis, not specified as acute or chronic (principal); I25.2 Old myocardial infarction; J44.9 Chronic obstructive pulmonary disease, unspecified; I50.9 Heart failure, unspecified; Z87.891 Personal history of nicotine dependence
CPT/HCPCS: 36415; 71046; 80053; 83880; 84484; 85025; 85610; 85730; 93005; 94640; 96372; 99284; J2930

== ENCOUNTER 2022-09-17 07:19 | Outpatient (CLI) | payer MEDICARE, SELFPAY ==
--- NOTE | ~2022-09-17 | PE_ITS ---
EXAMINATION: PET skull to mid thigh DATE: 09/17/2022 09:36 INDICATION: Left lung nodule. TECHNIQUE: 9.829 mCi of 18-fluorodeoxyglucose (18-FDG) was administered i.v. Low dose computed tomogr aphy (CT) images were acquired from the base of the brain to the proximal thighs for attenuation jhon ection and anatomic localization. Automated exposure control was employed. Dose-length product (DLP) was 481 mGy-cm. Positron emission tomography (PET) images were acquired in the same distribution. COMPARISON: Chest CT 09/02/2022, 03/24/2022 FINDINGS: Head/neck: There is increased activity in the glottis and neck musculature without abnormal CT correl ate, likely physiologic. There is diffusely increased activity in the thyroid, likely benign. Chest: There is severe emphysema. In the medial right lung base, there is bronchiectasis and mucous p lugging, likely in a sequestration. In the left upper lobe, there is a 3.8 x 1.9 cm cavitary mass wit h central cavitation with maximum SUV of 3.1. The mass measured 4.2 x 1.9 cm on 09/02/22. No pleural e ffusion. The heart size is normal. There are coronary artery calcifications. No pericardial effusion. Abdomen/pelvis/proximal thighs: The liver is normal. The normal liver maximum SUV is 2.1. There are c hanges of cholecystectomy. The spleen is normal. There are calcifications of the pancreas, consistent with chronic pancreatitis. The adrenal glands are normal. There is moderate atrophy of right kidney. There are 3 stones in left kidney measuring up to 4 mm. There are no dilated loops of bowel. There a re no pathologically enlarged lymph nodes. There is no free intraperitoneal fluid. There is calcified atherosclerosis of the aorta and many of the other arteries. There is no osseous malignancy. IMPRESSION: 1. Mass in left lung upper lobe with new cavitation and mildly increased activity, which may be infec tion or malignancy. She is likely not a candidate for percutaneous biopsy due to home oxygen use. 2. Severe emphysema. Reviewed, dictated and finalized at location A. IMPRESSION: 1. Mass in left lung upper lobe with new cavitation and mildly increased activi ty, which may be infection or malignancy. She is likely not a candidate for per cutaneous biopsy due to home oxygen use. 2. Severe emphysema.
[2022-09-17 08:04] LABS: Glucose Point of Care 96 mg/dl (65-105)
== END 2022-09-17 07:20 | disposition home or self-care (01) ==
PROVIDERS: PCP Hospitalist; Visit Provider Internal Medicine Pulmonary Disease
DX: R91.1 Solitary pulmonary nodule (principal); J43.9 Emphysema, unspecified; R91.8 Other nonspecific abnormal finding of lung field
CPT/HCPCS: 78815; A9552

== ENCOUNTER 2022-09-24 05:08 | Observation (INO) | payer MEDICARE, SELFPAY ==
[2022-09-24] VITALS (25 sets, daily range): BP systolic 134–173; BP diastolic 64–106; PULSE 59–96; RESP 16–24; TEMP 36.1–37; O2SAT 97–100; BMI 14.7
--- NOTE | ~2022-09-24 | XR_ITS ---
Portable chest x-ray Comparison: 09/08/2022 Clinical History: Shortness of breath Findings: COPD pattern of the lungs present. Stable spiculated lesion left midlung.. Cardiomediasti nal silhouette is stable. Bones and soft tissues are unremarkable. Impression: Stable spiculated lesion left midlung. Based on recent CT from 09/02/2022, this is suspicious for marla gnancy. COPD. Reviewed, dictated and finalized at location . Impression: Stable spiculated lesion left midlung. Based on recent CT from 09/02/2022, this is suspicious for malignancy. COPD.
--- NOTE | ~2022-09-24 | CT_ITS ---
Non-contrast Head CT History: Altered mental status COMPARISON: 04/04/2021 Technique: Axial non-contrast imaging of the brain was performed. Dose reduction technique was used on this scan by utilizing automated exposure control and iterative reconstruction technique. The dose -length product (DLP) was 681.00 mGy-cm. Findings: There is no evidence of intracranial hemorrhage, mass lesion, or acute infarct. Brain par enchyma appears normal. The ventricles and subarachnoid spaces are normal in size. The calvarium ap pears normal. The visualized paranasal sinuses and mastoid air cells are clear. Impression: No significant abnormality seen. Reviewed, dictated and finalized at location . Impression: No significant abnormality seen.
--- NOTE | 2022-09-24 05:24 | ED.AMS ---
HPI - Altered Mental Status General Chief Complaint: Altered Mental Status Stated Complaint: Altered Mental Status Time Seen by Provider: 09/24/22 07:18 Source: patient Mode of arrival: ambulatory Limitations: no limitations History of Present Illness HPI narrative: 67-year-old female, smoker with mild cognitive impairment, hypertension, CAD, diastolic CHF, status post LAD stent in June of 2021, left upper lobe cavitating lung mass,COPD on home oxygen, lupus, dyslipidemia, RLS, anemia, colitis, acute renal failure, kidney stones, chronic low back pain with daily prednisone and marijuana use presents to the ER with -- patient was talking to herself this morning. no prior episodes of delirium -- confused and having visual hallucinations -- patient does not have any focal deficits. The patient follows verbal commands. Blood sugar was noted to be 83 MD complaint: altered mental status and confusion Onset (ago): hour(s) ( symptoms started 1 hour ago) Timing confirmed by: family member Severity: moderate Treatments prior to arrival: oxygen Related Data Home Medications Medication Instructions Recorded Confirmed pregabalin 150 mg capsule 150 mg PO BID 06/04/21 09/24/22 ropinirole 0.5 mg tablet 1 mg PO HS 06/04/21 09/24/22 solifenacin 5 mg tablet 5 mg PO DAILY 06/04/21 09/24/22 trazodone 50 mg tablet 100 mg PO DAILY 06/04/21 09/24/22 zolpidem 10 mg tablet 10 mg PO HS PRN Sleep 06/04/21 09/24/22 gnevgaclan-haznwkassqcfu-hvtkubro 50 tablet PO QID PRN Pain 09/03/21 09/24/22 50 mg-325 mg-40 mg tablet clonazepam 0.5 mg tablet 0.5 mg PO DAILY 09/03/21 09/24/22 clopidogrel 75 mg tablet 75 mg PO DAILY 09/05/21 09/24/22 isosorbide mononitrate 30 mg 30 mg PO DAILY 09/05/21 09/24/22 tablet,extended release 24 hr metoprolol tartrate 25 mg tablet 25 mg PO BID 09/05/21 09/24/22 nitroglycerin 0.4 mg sublingual 0.4 mg sublingual Q5MIN PRN Chest 09/05/21 09/24/22 tablet Pain albuterol sulfate 90 mcg/actuation 2 puff inhalation Q4-6H PRN 09/12/21 09/24/22 aerosol inhaler (ProAir HFA) shortness of breath ondansetron 4 mg disintegrating 8 mg PO Q8H PRN Nausea And Vomiting 11/16/21 09/24/22 tablet rosuvastatin 10 mg tablet (Crestor) 20 mg PO DAILY 11/16/21 09/24/22 ipratropium 0.5 mg-albuterol 3 mg 3 ml inhalation Q6H PRN Wheezing 12/02/21 09/24/22 (2.5 mg base)/3 mL nebulization soln omeprazole 40 mg capsule,delayed 40 mg PO DAILY 12/02/21 09/24/22 release oxycodone-acetaminophen 5 mg-325 1 tablet PO TID PRN Pain 12/03/21 09/24/22 mg tablet amlodipine 2.5 mg tablet 5 mg PO DAILY 02/03/22 09/24/22 hydroxychloroquine 200 mg tablet 100 mg PO DAILY 02/03/22 09/24/22 Allergies Allergy/AdvReac Type Severity Reaction Status Date / Time levofloxacin [From Levaquin] AdvReac Itching Verified 09/24/22 10:36 Penicillins AdvReac Gastrointestinal Verified 09/24/22 05:30 Upset Sulfa (Sulfonamide AdvReac Unknown Verified 09/24/22 05:30 Antibiotics) Review of Systems Review of Systems: ROS unobtainable: Yes unobtainable due to medical condition Constitutional: Constitutional: Reports as per HPI Eyes: Eyes: Reports as per HPI Cardiovascular: Cardiovascular: Reports as per HPI and Reports no additional cardiovascular complaints Respiratory: Respiratory: Reports as per HPI, Reports no additional respiratory complaints, Reports cough and Reports dyspnea Gastrointestinal: Gastrointestinal: Reports as per HPI and Reports no additional gastrointestinal complaints Integumentary/Breasts: Skin/Breast: Reports system reviewed and no additional complaints, except as docu and Reports as per HPI Neurologic: Reports system reviewed and no additional complaints, except as documented, Reports as per HPI and Reports confusion Psychiatric: Psychiatric: Reports no additional psychiatric complaints and Reports as per HPI Endocrine: Endocrine: Reports no additional endocrine complaints and Reports as per HPI Hematologic/Lymphatic
--- NOTE | 2022-09-24 05:38 | ECG_ITS ---
Measurements Intervals [place] Rate: 82 P: 91 OR: 149 QRS: 79 QRSD: 105 T: 89 QT: 372 QTc: 435 Interpretive Statements SINUS RHYTHM WITH SINUS ARRHYTHMIA NONSPECIFIC ST AND T-WAVE ABNORMALITY ABNORMAL ECG COMPARED TO ECG 09/08/2022 16:20:09 SINUS ARRHYTHMIA NOW PRESENT Electronically Signed On 09-24-2022 16:33:25 CDT by Manish Abdi M.D.
[2022-09-24 06:05] LABS: Basophils Absolute Auto 0.03 K/mm3 (0.00-0.10); Basophils Percent Auto 0.5 % (0.0-1.0); Eosinophils Absolute Auto 0.14 K/mm3 (0.02-0.50); Eosinophils Percent Auto 2.2 % (1.0-6.0); Hematocrit 32.1 % (35.0-42.0); Hemoglobin 10.3 g/dL (11.7-13.8); Immature Granulocyte Absolute 0.02 K/mm3 (0.00-0.00); Immature Granulocyte Percent A 0.3 % (0.0-0.0); Lymphocytes Absolute Auto 1.79 K/mm3 (1.10-4.50); Lymphocytes Percent Auto 27.7 % (18.0-42.0); Mean Corpuscular HGB Conc 32.1 g/dL (32.0-36.0); Mean Corpuscular Hemoglobin 31.4 pg (27.0-31.0); Mean Corpuscular Volume 97.9 fL (78.0-102.0); Mean Platelet Volume 8.8 fl (9.2-11.8); Monocytes Absolute Auto 0.63 K/mm3 (0.10-0.90); Monocytes Percent Auto 9.7 % (2.0-11.0); Neutrophils Absolute Auto 3.9 K/mm3 (1.7-7.2); Neutrophils Percent Auto 59.6 % (50.0-70.0); Platelet Count Result 162 K/mm3 (150-420); Red Blood Count 3.28 M/mm3 (4.20-5.40); Red Cell Distribution Width 13.6 % (11.6-14.4); White Blood Count 6.5 K/mm3 (4.8-10.8)
[2022-09-24] MEDS: HALOPERIDOL LACTATE 5 MG/ML VIAL 2.5 MG IV PUSH (06:05)
[2022-09-24] MEDS: LACTATED RINGERS 1,000 ML 150 ML IV CONT (06:05)
[2022-09-24 06:18] LABS: Prothrombin Time 10.8 Seconds (9.50-12.10)
[2022-09-24 06:27] LABS: Lactic Acid Reflex 0.4 mmol/L (0.4-2.0)
[2022-09-24 06:32] LABS: Acetaminophen < 2 ug/mL (10-30); Alanine Aminotransferase 14 U/L (14-59); Albumin Level 3.5 g/dL (3.4-5.0); Alkaline Phosphatase 55 U/L (46-116); Anion Gap 3 mmol/L (8-16); Aspartate Amino Transferase 12 U/L (15-37); Bilirubin,Total 0.3 mg/dL (0.00-1.00); Blood Urea Nitrogen 21 mg/dL (7-18); Calcium 9.1 mg/dL (8.5-10.1); Carbon Dioxide 40 mmol/L (21-32); Chloride 104 mmol/L (98-108); Estimated CRCL calculation 37 ml/min; Estimated Glomerular Filt Rate > 60; Glucose 95 mg/dL (70-99); Lipase 99 U/L (16-77); NT Pro B Type Natriuretic Pept 293 pg/mL (0-125); Osmolality Calculated 307 mOsm/kg (285-295); Potassium 2.7 mmol/L (3.5-5.1); Sodium 147 mmol/L (136-145); Total Protein 6.1 g/dL (6.4-8.2)
[2022-09-24 06:33] LABS: Ammonia < 10 umol/L (11-32); Ethanol < 3 mg/dL (0-6)
[2022-09-24 06:34] LABS: Thyroid Stimulating Hormone 2.65 uIU/mL (0.36-3.74); Troponin I 10.2 ng/L (0.00-60.4)
[2022-09-24 06:40] LABS: Influenza A QL RT-PCR Negative (Negative); Influenza B QL RT-PCR Negative (Negative); SARS-CoV-2 RNA PCR Negative (Negative)
[2022-09-24 06:55] LABS: RSV RNA, RT-PCR Negative (Negative)
[2022-09-24 07:40] LABS: Appearance Urine Clear (Clear); Bilirubin Urine Negative (Negative); Blood Urine Negative (Negative); Color Urine Light Yellow (Yellow); Glucose Urine UA Negative (Negative); Ketones Urine Negative (Negative); Leukocyte Esterase Ur 2+ LEU/UL (Negative); Nitrate Urine Negative (Negative); Protein Urine Negative (Negative); Urobilinogen Urine 0.2 mg/dL (0.2-1.0); pH Urine 6.5 (5.0-8.0)
[2022-09-24 07:44] LABS: Add Urine Microscopic? YES; RBC Urine None seen /hpf (0-2)
[2022-09-24 07:45] LABS: Bacteria Urine 1+ /hpf; Squamous Epithelial Cell Urine Rare /hpf (Few)
[2022-09-24 07:47] LABS: Amphetamine Screen Urine Negative (Negative); Barbiturate Screen Urine Negative (Negative); Benzodiazepines Screen Urine Negative (Negative); Cannabinoid Screen Urine Positive (Negative); Cocaine Screen Urine Negative (Negative); Methadone Screen Urine Negative (Negative); Opiate Screen Urine Negative (Negative); Phencyclidine Screen Urine Negative (Negative)
[2022-09-24] MEDS: levoFLOXacin 500 MG/D5W 100 ML 500 MG/100 ML BAG 100 MG IVPB (08:16)
[2022-09-24] MEDS: KCL 20 MEQ/SW 100 ML 100 ML 50 MEQ IVPB (08:17)
[2022-09-24] MEDS: IPRATROPIUM 0.5 MG/ALBUTEROL SULFATE 2.5 MG AMPUL.NEB 3 ML INHALATION ×4 (08:22→23:48)
[2022-09-24] MEDS: diphenhydrAMINE HCl INJ 50 MG/ML VIAL 25 MG IV PUSH (08:35)
--- NOTE | 2022-09-24 08:41 | PC.NURSE ---
after IV Levaquin started infusing patient had reaction above the IV site. infusion stopped, ERP notified, Benadryl administered.
--- NOTE | 2022-09-24 09:34 | ADMGEN ---
This patient, Suma Scott, was admitted to 2nd Floor Room 205-2. Patient/family oriented to hospital policies and general routines including ID bracelet, bed and alarms, visiting hours, pain management, procedures, bathroom and other care routines, personal items, smoking policy, room service/diet, and visiting hours. Information on how to activate the Rapid Response Team has been discussed. Patient/Family are encouraged to report perceived risks to care and to ask questions if they do not understand what they are told or what they should do.
[2022-09-24] MEDS: traZODone HCL 50 MG TABLET 100 MG PO (10:14)
[2022-09-24] MEDS: HYDROXYCHLOROQUINE SULFATE 100 MG TABLET PO (10:14)
[2022-09-24] MEDS: ALBUTEROL SULFATE (*SP) INHALER 2 PUFF INHALATION (10:15)
[2022-09-24] MEDS: amLODIPine BESYLATE 5 MG TABLET PO (10:15)
[2022-09-24] MEDS: ROSUVASTATIN 10 MG TABLET 20 MG PO (10:16)
[2022-09-24] MEDS: METOPROLOL TARTRATE 25 MG TABLET PO ×2 (10:17→20:54)
[2022-09-24] MEDS: FERROUS SULFATE 324 MG TABLET PO ×2 (10:17→17:31)
[2022-09-24] MEDS: CLOPIDOGREL BISULFATE 75 MG TABLET PO (10:17)
[2022-09-24] MEDS: ISOSORBIDE MONONITRATE 30 MG TAB.ER.24H PO (10:17)
[2022-09-24] MEDS: ASPIRIN 81 MG CHEWABLE TABLET PO (10:18)
[2022-09-24] MEDS: HYDROcodone/acetaminophen (*CRX) 5-325 MG TABLET 1 TAB PO ×2 (10:18→17:32)
[2022-09-24] MEDS: PREGABALIN (*CRX) 50 MG CAPSULE 150 MG PO ×2 (10:18→17:31)
[2022-09-24] MEDS: SOLIFENACIN 5 MG TABLET PO (10:19)
[2022-09-24] MEDS: ENOXAPARIN 40 MG/0.4 ML SYRINGE SUB-Q (10:20)
[2022-09-24] MEDS: clonazePAM (*CRX) 0.5 MG TABLET PO (10:27)
[2022-09-24] MEDS: methylPREDNISolone SOD SUCC 40 MG VIAL IV PUSH (17:32)
--- NOTE | 2022-09-24 17:41 | PC.NURSE ---
gave neb treatment early-last treatment at 1030-patient requested another. while discussing medications with patient and her sister inquired why she took trazadone in the AM. Patient stated she took it in the evening. charge nurse informed
[2022-09-24] MEDS: rOPINIRole HCL 1 MG TABLET PO (20:52)
[2022-09-24] MEDS: ZOLPIDEM TARTRATE (*CRX) 5 MG TABLET 10 MG PO (21:02)
[2022-09-25] VITALS (8 sets, daily range): BP systolic 140–149; BP diastolic 55–65; PULSE 67–80; RESP 16–20; TEMP 36.1–37.4; O2SAT 90–100
[2022-09-25] MEDS: HYDROcodone/acetaminophen (*CRX) 5-325 MG TABLET 1 TAB PO (02:30)
[2022-09-25] MEDS: IPRATROPIUM 0.5 MG/ALBUTEROL SULFATE 2.5 MG AMPUL.NEB 3 ML INHALATION ×2 (05:37→12:21)
[2022-09-25] MEDS: methylPREDNISolone SOD SUCC 40 MG VIAL IV PUSH (09:01)
[2022-09-25] MEDS: ISOSORBIDE MONONITRATE 30 MG TAB.ER.24H PO (09:06)
[2022-09-25] MEDS: PREGABALIN (*CRX) 50 MG CAPSULE 150 MG PO (09:06)
[2022-09-25] MEDS: CLOPIDOGREL BISULFATE 75 MG TABLET PO (09:06)
[2022-09-25] MEDS: SOLIFENACIN 5 MG TABLET PO (09:07)
[2022-09-25] MEDS: ROSUVASTATIN 10 MG TABLET 20 MG PO (09:07)
[2022-09-25] MEDS: amLODIPine BESYLATE 5 MG TABLET PO (09:07)
[2022-09-25] MEDS: METOPROLOL TARTRATE 25 MG TABLET PO (09:07)
[2022-09-25] MEDS: ASPIRIN 81 MG CHEWABLE TABLET PO (09:08)
[2022-09-25] MEDS: FERROUS SULFATE 324 MG TABLET PO (09:08)
[2022-09-25] MEDS: clonazePAM (*CRX) 0.5 MG TABLET PO (09:08)
[2022-09-25] MEDS: ALBUTEROL SULFATE (*SP) INHALER 2 PUFF INHALATION (09:10)
[2022-09-25] MEDS: ENOXAPARIN 40 MG/0.4 ML SYRINGE SUB-Q (09:24)
[2022-09-25] MEDS: HYDROXYCHLOROQUINE SULFATE 100 MG TABLET PO (09:35)
[2022-09-25 09:52] LABS: Hematocrit 31.8 % (35.0-42.0); Hemoglobin 10.3 g/dL (11.7-13.8); Mean Corpuscular HGB Conc 32.4 g/dL (32.0-36.0); Mean Corpuscular Volume 98.8 fL (78.0-102.0); Mean Platelet Volume 9.4 fl (9.2-11.8); Platelet Count Result 159 K/mm3 (150-420); Red Blood Count 3.22 M/mm3 (4.20-5.40); Red Cell Distribution Width 13.6 % (11.6-14.4); White Blood Count 6.9 K/mm3 (4.8-10.8)
[2022-09-25 10:13] LABS: Alanine Aminotransferase 14 U/L (14-59); Albumin Level 3.3 g/dL (3.4-5.0); Alkaline Phosphatase 55 U/L (46-116); Anion Gap 3 mmol/L (8-16); Aspartate Amino Transferase 11 U/L (15-37); Bilirubin,Total 0.2 mg/dL (0.00-1.00); Blood Urea Nitrogen 26 mg/dL (7-18); Calcium 9.5 mg/dL (8.5-10.1); Carbon Dioxide 38 mmol/L (21-32); Chloride 103 mmol/L (98-108); Estimated CRCL calculation 33 ml/min; Estimated Glomerular Filt Rate > 60; Glucose 259 mg/dL (70-99); Osmolality Calculated 311 mOsm/kg (285-295); Potassium 3.5 mmol/L (3.5-5.1); Sodium 144 mmol/L (136-145); Total Protein 5.9 g/dL (6.4-8.2)
--- NOTE | 2022-09-25 10:25 | PM.SD2 ---
Same Day Admit/Disch: HPI History of Present Illness Chief complaint: UTI/Hypokalemia/Confusion Narrative: Suma Scott is a 67 year old female that presented to our emergency department with altered mental status change, patient has a past medical history of cognitive impairment mouth, hypertension, CAD, congestive heart failure, tobacco dependency, COPD, with use of home oxygen, lupus, recist leg syndrome, anemia, colitis, acute kidney failure, kidney stones, chronic back pain. according to patient she notes that her family members thought that she was a bit confused and brought her to our emergency department she was found to have a urinary tract infection. Today patient is alert and orientated x4 and is ready for discharge. UA is positive for leukocytes white blood cells and bacteria. patient will discharge home with Cipro for this treatment of a UTI. The patient denies SOB, CP, palpitation, extremity numbness, lightheadedness, dizziness, constipation, diarrhea, chills, or fever. PMFSH Past Medical History Medical History Abnormal digestive system diagnostic imaging Age-related osteoporosis without current pathological fracture Altered mental status Anxiety Cataracts, bilateral developing CHF (congestive heart failure) Echo 06/03/2021: Normal EF 60-65%, global longitudinal strain abnormal-14%, diastolic dysfunction grade 1, E/E tendon is mildly elevated, elevated right atrial pressures at 10mmHg COPD (chronic obstructive pulmonary disease) Degenerative joint disease (DJD) of lumbar spine Generalized osteoarthritis of multiple sites Hypercholesteremia ADALID (iron deficiency anemia) Lupus Mild cognitive impairment with memory loss Restless leg syndrome Undifferentiated connective tissue disease Surgical History Surgical History H/O hysterectomy for benign disease History of heart artery stent (06/23/21) High-grade stenosis near ostial LAD stented following deployment of the stent there was plaque shifting into the ostium of the circumflex causing 80 90% stenosis with subsequent placement of stent at the ostium of the circumflex with migration of the circumflex stent and to the path of the main coronary artery had which time the stent was crushed History of lithotripsy Hx of cholecystectomy Family History Family History Father , 56 years old COPD (chronic obstructive pulmonary disease) Mother , 62 years old COPD (chronic obstructive pulmonary disease) Sibling No problems noted. Social History Social History Social History: She lives at home with her of 49 years. She has smoked 1 pack of cigarettes per day since he was a teenager but quit smoking on the 03 of June. 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 Smoking packs per day: 1 Smoking cigarettes per day: 20.0 Years smoked: 46 Smoking pack-years: 46.00 Smoking status: Current every day smoker Tobacco type: cigarettes Second hand tobacco smoke exposure: Yes Smoking end date: 05/07/21 Alcohol intake: never Substance use: never Substance use type: marijuana Lack of Transportation: No Lack of Food: Never True Current Housing: I Have Housing Concerned About Future Housing: No Difficulty Paying Gas/Electric Bills: No Difficulty Paying for Meds: No Currently Unemployed: No Education: High School Diploma/GED Difficulty w/ Childcare or Family Care: No Occupation/Education: retired Gender identity (if verbalized by the patient): Female Spiritual care concerns: No Same Day Admit/Disch: Med Pre-admit Medications Home Medications Medication Instructions Recorded Confirmed Type pregabalin 150
--- NOTE | 2022-09-25 11:40 | PC.NURSE ---
IV lines discontinued in preparation for discharge. Patient tolerated well.
--- NOTE | 2022-09-25 13:10 | PC.NURSE ---
Patient, pattern chart writer and Patient's went over discharge instructions. Both patient and voiced understanding. Patient left unit in w/c accompanied by pattern chart writer. Patient left hospital grounds in privately owned vehicle.
--- NOTE | 2022-09-28 10:13 | PC.NURSE ---
Pt states she received and understood the discharge instructions. Pt has no other comments.
[2022-10-08 12:54] LABS: Glucose Point of Care 83 mg/dl (65-105)
== END 2022-09-25 13:10 | disposition home or self-care (01) ==
LOC: CHSED 08:31 → CHS2ND 09:07
PROVIDERS: Internal Medicine Critical Care Medicine; Nurse Practitioner; Admitting Provider Internal Medicine; Emergency Provider Emergency Medicine; PCP Hospitalist; Visit Provider Internal Medicine
DX: N39.0 Urinary tract infection, site not specified (principal); E87.6 Hypokalemia; I25.10 Atherosclerotic heart disease of native coronary artery without angina pectoris; I11.0 Hypertensive heart disease with heart failure; I50.32 Chronic diastolic (congestive) heart failure; J44.9 Chronic obstructive pulmonary disease, unspecified; E78.5 Hyperlipidemia, unspecified; E78.00 Pure hypercholesterolemia, unspecified; D50.9 Iron deficiency anemia, unspecified; M47.816 Spondylosis without myelopathy or radiculopathy, lumbar region; M81.0 Age-related osteoporosis without current pathological fracture; M32.9 Systemic lupus erythematosus, unspecified; G31.84 Mild cognitive impairment of uncertain or unknown etiology; R91.8 Other nonspecific abnormal finding of lung field; F41.9 Anxiety disorder, unspecified; Z87.891 Personal history of nicotine dependence; Z87.442 Personal history of urinary calculi; Z95.5 Presence of coronary angioplasty implant and graft; Z99.81 Dependence on supplemental oxygen; Z20.822 Contact with and (suspected) exposure to COVID-19; Z79.02 Long term (current) use of antithrombotics/antiplatelets
CPT/HCPCS: 36415; 70450; 71045; 80053; 80307; 81001; 82140; 82948; 83605; 83690; 83880; 84443; 84484; 85025; 85027; 85610; 85730; 87077; 87086; 87088; 87186; 87637; 93005; 94640; 96361; 96365; 96366; 96367; 96368; 96372; 96375; 96376; 99285; A9270; G0378; J0696; J1200; J1630; J1650; J1956; J2920; J3480; J7120

== ENCOUNTER 2023-02-13 18:10 | Emergency (ER) | payer MEDICARE, SELFPAY ==
[2023-02-13 18:10] VITALS: BP 140/78; PULSE 86; RESP 18; TEMP 37; O2SAT 96
--- NOTE | 2023-02-13 18:18 | ED.SKABFB ---
HPI - Skin/Abscess/Foreign Bdy General Chief complaint: Skin/Abscess/Foreign Body Stated complaint: bed sores Time Seen by Provider: 02/13/23 18:18 Source: patient and family Mode of arrival: wheelchair Limitations: no limitations History of Present Illness HPI narrative: this is a 67-year-old female with history of chronic back pain history of lupus that has recently developed stage I bedsores to her bilateral hips proximally a court order diameter in size 1 H on bilateral hips currently open but does not track deeply no fever chills no oozing or drainage they are tender to touch. No other symptoms elicited, no shortness of breath no chest pain no diarrhea constipation no dysuria. Patient follows with her primary and has been using a Tegaderm to affected area, and having pain that she rates about a 6/10 unable to get comfortable in bed because of her lower back and has to sleep on her on her sides which aggravate the lesions on her bilateral hips. MD complaint: abscess/boil Onset (ago): day(s) Location: buttocks ( bilateral hip area stage 1 to 2 superficial with blistering that has opened and about the size of a quarter on both sides) Severity: moderate Severity scale (1-10): 6 Related Data Home Medications Medication Instructions Recorded Confirmed pregabalin 150 mg capsule 150 mg PO BID 06/04/21 02/05/23 ropinirole 0.5 mg tablet 1 mg PO HS 06/04/21 02/05/23 solifenacin 5 mg tablet 5 mg PO DAILY 06/04/21 02/05/23 trazodone 50 mg tablet 100 mg PO DAILY 06/04/21 02/05/23 zolpidem 10 mg tablet 10 mg PO HS PRN Sleep 06/04/21 02/05/23 unpwogfezd-tgovzjnlccwlj-omxmmttu 50 tablet PO QID PRN Pain 09/03/21 02/05/23 50 mg-325 mg-40 mg tablet clonazepam 0.5 mg tablet 0.5 mg PO DAILY 09/03/21 02/05/23 clopidogrel 75 mg tablet 75 mg PO DAILY 09/05/21 02/05/23 isosorbide mononitrate 30 mg 30 mg PO DAILY 09/05/21 02/05/23 tablet,extended release 24 hr metoprolol tartrate 25 mg tablet 25 mg PO BID 09/05/21 02/05/23 nitroglycerin 0.4 mg sublingual 0.4 mg sublingual Q5MIN PRN Chest 09/05/21 02/05/23 tablet Pain ondansetron 4 mg disintegrating 8 mg PO Q8H PRN Nausea And Vomiting 11/16/21 02/05/23 tablet rosuvastatin 10 mg tablet (Crestor) 20 mg PO DAILY 11/16/21 02/05/23 ipratropium 0.5 mg-albuterol 3 mg 3 ml inhalation Q6H PRN Wheezing 12/02/21 02/05/23 (2.5 mg base)/3 mL nebulization soln omeprazole 40 mg capsule,delayed 40 mg PO DAILY 12/02/21 02/05/23 release oxycodone-acetaminophen 5 mg-325 1 tablet PO TID PRN Pain 12/03/21 02/05/23 mg tablet amlodipine 2.5 mg tablet 5 mg PO DAILY 02/03/22 02/05/23 hydroxychloroquine 200 mg tablet 100 mg PO DAILY 02/03/22 02/05/23 Allergies Allergy/AdvReac Type Severity Reaction Status Date / Time levofloxacin [From Levaquin] AdvReac Itching Verified 02/13/23 18:13 Penicillins AdvReac Gastrointestinal Verified 02/13/23 18:13 Upset Sulfa (Sulfonamide AdvReac Unknown Verified 02/13/23 18:13 Antibiotics) Review of Systems Review of Systems: All systems reviewed & are unremarkable except as noted in HPI and below PMFSH Past Medical History Medical History Abnormal digestive system diagnostic imaging Age-related osteoporosis without current pathological fracture Altered mental status Anxiety Cataracts, bilateral developing CHF (congestive heart failure) Echo 06/03/2021: Normal EF 60-65%, global longitudinal strain abnormal-14%, diastolic dysfunction grade 1, E/E tendon is mildly elevated, elevated right atrial pressures at 10mmHg COPD (chronic obstructive pulmonary disease) Degenerative joint disease (DJD) of lumbar spine Emphysema lung Generalized osteoarthritis of multiple sites Heart attack Hypercholesteremia ADALID (iron deficiency anemia) Kidney stones Lupus Mild cognitive impairment with memory loss Restless leg syndrome Undifferentiated connective tissue disease Surgical History Surgical History (Review
[2023-02-13] MEDS: cefTRIAXone 1 GM, LIDOCAINE HCL 1% LOCAL INJ 2.1 ML IM (18:37)
== END 2023-02-13 18:52 | disposition home or self-care (01) ==
PROVIDERS: Emergency Provider Emergency Medicine; PCP Hospitalist
DX: L89.502 Pressure ulcer of unspecified ankle, stage 2 (principal); I50.9 Heart failure, unspecified; J43.9 Emphysema, unspecified; I25.2 Old myocardial infarction; Z87.891 Personal history of nicotine dependence
CPT/HCPCS: 96372; 99283; J0696

== ENCOUNTER 2023-03-11 17:06 | Outpatient (CLI) | payer MEDICARE, SELFPAY ==
[2023-03-17 06:34] LABS: Carcinoembryonic Antigen 2.4 ng/mL (<2.5)
== END 2023-03-11 17:07 | disposition home or self-care (01) ==
LOC: CHSLAB 17:08
PROVIDERS: PCP Hospitalist; Visit Provider Nurse Practitioner
DX: R91.8 Other nonspecific abnormal finding of lung field (principal); R79.89 Other specified abnormal findings of blood chemistry
CPT/HCPCS: 36415; 82378